=== PATIENT | male | born 1965 | race Caucasian/White ===

== ENCOUNTER 2016-12-23 08:28 | Emergency (ER) | payer BC ==
[~2016-12-23] VITALS: Ht 188 cm; Wt 113.2 kg
[~2016-12-23 08:28] MED LIST: ALL180; AMR2; GLC500; NAPR-1169 PO; OLME40TA30; SNG10
[2016-12-23 08:31] VITALS: TEMP 36.8; Ht 188 cm; Wt 113.2 kg
[2016-12-23] MEDS ORDERED: ONDANSETRON INJ 2 MG/ML 2 ML VIAL IV STA (08:42)
[2016-12-23] MEDS ORDERED: CEFTRIAXONE SOD INJ 1 GM ADDVIAL IV STA (08:42)
[2016-12-23] MEDS ORDERED: MoRPHine SULFATE 4 MG/ML 1 ML CARP\\VIAL IV STA (08:42)
[2016-12-23] MEDS ORDERED: SODIUM CHLORIDE 0.9% 1000ML 1,000 ML IV ONE (08:45)
[2016-12-23 09:07] LABS: BASO % 0.3 %; BASO ABS # 0.04 K/uL (0-0.2); COMPLETE YES; EOS % 3.2 %; HEMATOCRIT 43.2 % (42-52); IG% 0.3 %; LYMPH % 19.8 %; LYMPH ABS # 2.37 K/uL (1.2-3.4); MEAN CORPUSCULAR HEMOGLOBIN 30.2 pg (25-34); MEAN CORPUSCULAR HGB CONC 35.9 g/dl (32-36); MEAN PLATELET VOLUME 9.9 fL (7.4-10.4); MONO % 9.1 %; NEUT % 67.3 %; PLATELET COUNT 393 K/uL (130-400); RED BLOOD COUNT 5.14 M/uL (4.7-6.1); WHITE BLOOD COUNT 11.94 K/uL (4.8-10.8)
[2016-12-23] MEDS ORDERED: ATOR-22 PO (09:08)
[2016-12-23] MEDS ORDERED: INSDGIPEN SC (09:08)
[2016-12-23] MEDS ORDERED: LOSA1TAB PO (09:08)
[2016-12-23] MEDS ORDERED: EPP3/2 INJ (09:11)
[2016-12-23 09:30] LABS: BUN/CREATININE RATIO 14.6 (10-20); CALCIUM 9.4 mg/dl (8.5-10.1); CREATININE 1.1 mg/dl (0.60-1.40); POTASSIUM 4.8 mmol/L (3.5-5.1)
[2016-12-23 09:40] LABS: BETA-HYDROXYBUTYRATE 1.17 mg/dL (0.2-2.81)
--- NOTE | 2016-12-23 09:56 | DIAGNOSTIC IMAGING REPORT ---
LEFT VENOUS DOPP LOWER EXT UNILAT CLINICAL HISTORY: 51 years-old Male presenting with hx previous clots; L lower leg redness, swelling. TECHNIQUE: Real-time grayscale and color and spectral Doppler ultrasound imaging of the veins of the left lower extremity was performed. Compression and augmentation were also utilized. COMPARISON: 06/15/2006 FINDINGS: Left: Common femoral vein: Patent. Femoral vein: Patent. Greater saphenous vein: Patent. Popliteal vein: Patent. Calf veins: Limited visualization. Other: Prominent left inguinal lymph nodes, possibly reactive. Superficial varicosities in the calf are patent on color Doppler and compressible. IMPRESSION: No evidence of deep venous thrombosis. Electronically signed by: William Carver M.D. 12/23/2016 9:54 AM Dictated Date/Time: 12/23/2016 9:53 AM
[2016-12-23] MEDS ORDERED: NovoLIN-R INSULIN PER UNIT CHARGE SC STA (10:09)
[2016-12-23] MEDS ORDERED: CEPH500C2 PO (11:00)
[2016-12-23 11:36] VITALS: BP 167/97; PULSE 80; O2SAT 97
--- NOTE | 2016-12-23 17:47 | EMERGENCY ROOM VISIT NOTE ---
ED Visit Note First contact with patient: 08:34 Chief Complaint: I think I have an infection on my left lower leg. History of Present Illness: Mr. Wilkerson is a 51-year-old white male who ambulates into the ED complaining of a possible left lower leg infection. Historically patient reports he's had a previous DVT in his left lower leg many years ago. Patient reports he saw a blister like lesion over the upper foundry of the talus a few days ago. The lesion ruptured open but he did not see any drainage from the wound. Then yesterday he reports he's noted swelling over the lower leg above that. Initially it was mildly red now has increased in size and has been spreading. He reports the areas feel warm to the palpation and tender. Currently associated with this he describes he has a pressure and a sharp-like sensation. He rates his discomfort 7/10. The pain is nonradiating. Pain worsens with palpation and ambulation. He has not identified any alleviating factors related to the pain. He reports he has been taken ibuprofen without relief. He denies fevers, chills, sweats, other skin eruptions, other skin color changes , chest pain, shortness of breath, palpitations, orthopnea, dependent edema, previous clots, claudication, cramping, recent surgery/inactivity/extended travel, decreased appetite, abdominal pain, nausea, vomiting, extremity weakness /numbness/tingling. Review of Systems: As noted above in history of present illness. All body systems were reviewed and found to be negative as noted above. Past Medical History: As previously noted, type 2 diabetes, hypertension, dyslipidemia. Current Medications: Cozaar, Lipitor, Lantus Solostar, EpiPen. Allergies to Medications: Patient denies. Social History: Patient is currently employed; he feels safe in his home environment; he denies tobacco use. Physical Examination: Vital Signs: Date Time Temp Pulse Resp B/P (MAP) Pulse Ox O2 Delivery O2 Flow Rate FiO2 12/23/16 11:36 80 18 167/97 97 Room Air 12/23/16 10:52 93 18 173/92 94 Room Air 12/23/16 08:31 36.8 97 18 190/105 97 Room Air GENERAL: 51-year-old male in mild to moderate distress due to pain, nontoxic- appearing, afebrile and hemodynamically stable. NEUROLOGICAL: Awake, alert and oriented to person, place and time. Answering questions appropriately and following commands. Normal gait. Good hand eye coordination. No focal motor or sensory deficits. SKIN: Warm, dry and pink. Left Lower Leg: No gross bony deformity. As previously noted in the history patient has a what appears to be a ruptured blister over the anterior talus. Surrounding this area is mildly erythematous and edematous. Above that extending over the lower third of the lower leg is a more greta area with erythema and edema. This areas indurated but not fluctuant. There is no lymphangitis or purulent drainage. HEENT: Atraumatic and normocephalic. PERRLA. Sclera white and conjunctiva pink. No drainage from naris. Oral cavity moist and pink. Pharynx is nonerythematous or edematous. Speech normal. No lymphadenopathy. Trachea midline. No jugular venous distention. BACK: No tenderness over the bony spine. No CVA tenderness. THORAX: Lungs sounds are clear to auscultation and equal bilaterally with symmetrical chest wall. No wheezing, rales or rhonchi. No crepitus, tenderness , subcutaneous air or deformities noted. HEART: Regular rate and rhythm. No gallops, rubs or murmurs are appreciated. ABDOMEN: Obese, soft and nontender. Positive bowel sounds in all quadrants. No guarding, rigidity or organomegaly. LOWER EXTREMITIES: Moves all extremities well on command and with purpose. Left: Please note description under SKIN above. Mild tenderness over his area of erythema and edema. I do not appreciate any bony deformities or crepitus. He has full range of motion in plantar flexion and dorsiflexion of the ankle against resistance and flexion and extension of the knees against resistance. There is no palpable calf tenderness or cords. Distal pulses and capillary refill are intact and equal bilaterally. He was able to distinguish light sensations through all dermatomes. ED Course: Patient is assessed as noted above. Patient's medication list was reviewed. Laboratory Testing: Test 12/23/16 08:52 12/23/16 11:19 Range/Units White Blood Count 11.94 4.8-10.8 K/uL Red Blood Count 5.14 4.7-6.1 M/uL Hemoglobin 15.5 14.0-18.0 g/dL Hematocrit 43.2 42-52 % Mean Corpuscular Volume 84.0 80-100 fL Mean Corpuscular Hemoglobin 30.2 25-34 pg Mean Corpuscular Hemoglobin Concent 35.9 32-36 g/dl Platelet Count 393 130-400 K/uL Mean Platelet Volume 9.9 7.4-10.4 fL Neutrophils (%) (Auto) 67.3 % Lymphocytes (%) (Auto) 19.8 % Monocytes (%) (Auto) 9.1 % Eosinophils (%) (Auto) 3.2 % Basophils (%) (Auto) 0.3 % Neutrophils # (Auto) 8.03 1.4-6.5 K/uL Lymphocytes # (Auto) 2.37 1.2-3.4 K/uL Monocytes # (Auto) 1.09 0.11-0.59 K/uL Eosinophils # (Auto) 0.38 0-0.5 K/uL Basophils # (Auto) 0.04 0-0.2 K/uL RDW Standard Deviation 37.6 36.4-46.3 fL RDW Coefficient of Variation 12.3 11.5-14.5 % Immature Granulocyte % (Auto) 0.3 % Immature Granulocyte # (Auto) 0.03 0.00-0.02 K/uL Sodium Level 134 136-145 mmol/L Potassium Level 4.8 3.5-5.1 mmol/L Chloride Level 100 98-107 mmol/L Carbon Dioxide Level 27 21-32 mmol/L Anion Gap 7.0 3-11 mmol/L Blood Urea Nitrogen 16 7-18 mg/dl Creatinine 1.10 0.60-1.40 mg/dl Est Creatinine Clear Calc Drug Dose 108.7 ml/min Estimated GFR () 90.9 Estimated GFR (Non- 78.4 BUN/Creatinine Ratio 14.6 10-20 Random Glucose 429 70-99 mg/dl Calcium Level 9.4 8.5-10.1 mg/dl Beta-Hydroxybutyric Acid 1.17 0.2-2.81 mg/dL Bedside Glucose 339 70-99 mg/dl Blood Cultures: Pending. Left Lower Extremity Doppler Venous Ultrasound: Was reviewed by myself and read by the radiologist and shows no deep vein thrombus but prominent left inguinal lymph nodes and superficial varicosities. Patient was hydrated with normal saline and he received 4 mg of morphine IV for pain and 4 mg of Zofran. Additionally he received 1 g of Rocephin for antibiotic coverage. Additionally patient received 10 units of Regular Insulin subcutaneously for his hyperglycemia; on reevaluation his blood sugar his blood sugar was 339. Patient was reassessed multiple times during his stay in the emergency department. Patient's case was reviewed with Dr. Pryor; we agreed on diagnostic approach , treatment, disposition and plan. Patient was educated about today's findings and instructed on his treatment plan ; he verbalizes understanding and agreement with this plan. Clinical Impression: Left lower leg cellulitis. Hyperglycemia. Decision-Making: Initially my differential diagnosis I considered cellulitis, abscess, DVT, superficial thrombophlebitis and other causes. Disposition: Patient discharged home in stable condition accompanied by his ; prior to departure he was reassessed and subjectively reported he was feeling better and rated his discomfort 4/10. Plan: Patient was prescribed Keflex 500 mg 4 times a day for 10 days. Patient was encouraged to alternate ibuprofen and acetaminophen as needed for pain. Patient was encouraged to continue his current medications. Patient was encouraged to alternate his foot at rest. Patient was encouraged to check his blood sugars before and after meals and before and after bedtime. Patient was encouraged to follow-up with his PCP in 36-48 hours for recheck and if not available return to the ED. Patient was educated on signs of infection encouraged return ED sooner for worsening signs of infection.
[2016-12-29] MEDS ORDERED: METF-384 PO (09:43)
[2016-12-29] MEDS ORDERED: SULF1TAB92 PO (09:44)
== END 2016-12-23 11:25 | disposition home or self-care (01) ==
LOC: C.EDB 08:29
DX: L03.116 Cellulitis of left lower limb (principal); E11.65 Type 2 diabetes mellitus with hyperglycemia; I10 Essential (primary) hypertension; E78.5 Hyperlipidemia, unspecified; Z86.718 Personal history of other venous thrombosis and embolism; Z79.4 Long term (current) use of insulin; R59.0 Localized enlarged lymph nodes; I83.92 Asymptomatic varicose veins of left lower extremity

== ENCOUNTER → 2016-12-29 | Day surgery (SDC) | payer BC ==
[~2016-12-29] VITALS: Ht 182.9 cm; Wt 117.0 kg
[~2016-12-29] MED LIST changes: -ALL180; -AMR2; +ATOR-22 PO; +CEFTRIAXONE SOD IM 1,000 MG in SYRINGE 0 ML IM SCH; +CEPH500C2 PO; +EPP3/2 INJ; -GLC500; +INSDGIPEN SC; +LOSA1TAB PO; +METF-384 PO; -NAPR-1169 PO; -OLME40TA30; -SNG10; +SULF1TAB92 PO
[2016-12-29 09:33] VITALS: BP 126/63; PULSE 99; TEMP 37.3; O2SAT 97; Ht 182.9 cm; Wt 117.0 kg
== END | disposition home or self-care (01) ==
LOC: C.MTU 08:55
PROVIDERS: ATTEND Family Medicine
DX: L03.116 Cellulitis of left lower limb (principal); E10.42 Type 1 diabetes mellitus with diabetic polyneuropathy

== ENCOUNTER 2017-11-19 21:33 | Inpatient (IN) | payer BC, OTHER ==
[~2017-11-19] VITALS: Ht 188 cm; Wt 128.5 kg
[~2017-11-19 21:33] MED LIST changes: -CEFTRIAXONE SOD IM 1,000 MG in SYRINGE 0 ML IM SCH; -CEPH500C2 PO
[2017-11-19] MEDS ORDERED: ACETAMINOPHEN 500 MG TAB PO STA (21:42)
[2017-11-19] MEDS ORDERED: SODIUM CHLORIDE 0.9% 1000ML 1,000 ML IV STA ×2 (21:42)
[2017-11-19] MEDS ORDERED: PIPERACILLIN/TAZOBACTAM 4.5 GM/100ML D5W IV STA (21:58)
[2017-11-19] MEDS ORDERED: DAPTOmycin IV 500 MG in SODIUM CHLORIDE 0.9% 50ML 50 ML IV STA (22:07)
[2017-11-19 22:23] LABS: BASO % 0.2 %; BASO ABS # 0.04 K/uL (0-0.2); EOS % 1.9 %; EOS ABS # 0.38 K/uL (0-0.5); HEMATOCRIT 43.6 % (42-52); HEMOGLOBIN 15.3 g/dL (14.0-18.0); IG# 0.09 K/uL (0.00-0.02); LYMPH % 13.1 %; LYMPH ABS # 2.59 K/uL (1.2-3.4); MEAN CELL VOLUME 83.7 fL (80-100); MEAN CORPUSCULAR HEMOGLOBIN 29.4 pg (25-34); MEAN CORPUSCULAR HGB CONC 35.1 g/dl (32-36); MEAN PLATELET VOLUME 9.9 fL (7.4-10.4); MONO % 6.5 %; MONO ABS # 1.29 K/uL (0.11-0.59); NEUT % 77.8 %; NEUT ABS # 15.32 K/uL (1.4-6.5); PLATELET COUNT 391 K/uL (130-400); RED CELL DISTRIBUTION WIDTH SD 39.2 fL (36.4-46.3); WHITE BLOOD COUNT 19.71 K/uL (4.8-10.8)
[2017-11-19] MEDS ORDERED: ASPI81TA28 PO (22:32)
[2017-11-19] MEDS ORDERED: OMEG10007 PO (22:32)
[2017-11-19] MEDS ORDERED: MULT-506 PO (22:32)
--- NOTE | 2017-11-19 22:41 | DIAGNOSTIC IMAGING REPORT ---
L FOOT MIN 3 VIEWS ROUTINE CLINICAL HISTORY: Left foot cellulitis. COMPARISON: None DISCUSSION: There is a plantar calcaneal spur. There is a Lisfranc fracture dislocation, likely chronic. There is an old deformity of the distal second metatarsal likely old. There is deformity of the third metatarsal head which is felt to be old. There is deformity involving the base the proximal phalanx of the great toe felt to be old. There is fragmentation at the level tarsometatarsal joints, likely secondary to neuropathic changes. There are no destructive changes to indicate acute osteomyelitis. IMPRESSION: 1. 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 Deformities involving the second and third metatarsals distally as well as the base of the proximal phalanx the great toe are felt to be old. 2. There are no destructive changes to indicate acute osteomyelitis. Electronically signed by: Julio Crespo M.D. 11/19/2017 10:40 PM Dictated Date/Time: 11/19/2017 10:37 PM
[2017-11-19 22:57] LABS: ALBUMIN 3.6 gm/dl (3.4-5.0); ALKALINE PHOSPHATASE 75 U/L (45-117); ALT/SGPT 62 U/L (12-78); AST/SGOT 39 U/L (15-37); BLOOD UREA NITROGEN 21 mg/dl (7-18); CARBON DIOXIDE 25 mmol/L (21-32); CKMB 4.4 ng/ml (0.5-3.6); CREATININE 1.27 mg/dl (0.60-1.40); GLUCOSE 108 mg/dl (70-99); LIPASE 187 U/L (73-393); POTASSIUM 4.4 mmol/L (3.5-5.1); SODIUM 137 mmol/L (136-145); TOTAL PROTEIN 7.6 gm/dl (6.4-8.2)
[2017-11-19] MEDS ORDERED: IBUPROFEN 200 MG TAB PO STA (23:21)
[2017-11-20] MEDS ORDERED: SODIUM CHLORIDE 0.9% 1000ML 1,000 ML IV SCH (00:58)
[2017-11-20] MEDS ORDERED: PIPERACILL/TAZOBAC IV 4.5 GM in DEXTROSE 5% 100ML 100 ML IV SCH (01:00)
[2017-11-20] MEDS ORDERED: ALUMINUM/MAGNESIUM/SIMETH (MAALOX MAX) 30 ML UDC PO PRN (01:00)
[2017-11-20] MEDS ORDERED: EPINEPHRINE ADULT AUTO-INJECT 0.3 MG SYR IM PRN (01:00)
[2017-11-20] MEDS ORDERED: NITROGLYCERIN 0.4 MG SL PER TAB CHARGE SL PRN (01:00)
[2017-11-20] MEDS ORDERED: POLYETHYLENE (MIRALAX) 17 GM PACK PO PRN (01:00)
[2017-11-20] MEDS ORDERED: ONDANSETRON INJ 2 MG/ML 2 ML VIAL IV PRN (01:00)
[2017-11-20] MEDS ORDERED: PIPERACILL/TAZOBAC CONSULT ACTIVE PRN (01:00)
[2017-11-20] MEDS ORDERED: NVLGI/PEN SQ (01:13)
[2017-11-20] MEDS ORDERED: LOSA100T65 PO (01:13)
--- NOTE | 2017-11-20 01:14 | EMERGENCY ROOM VISIT NOTE ---
History Report prepared by Rita: Amber Venegas Under the Supervision of: Dr. Karl Briggs M.D. First contact with patient: 21:41 Chief Complaint: WOUND INFECTION Stated Complaint: CHILLS,INFECTED CUT History of Present Illness The patient is a 52 year old male who presents to the Emergency Room with complaints of a worsening left foot infection beginning a week ago. The patient states that [place] and got a wound on the bottom of his left foot. He states that he did not have any issues with it until this past week. 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 The patient also reports having the chills. He states that he took 400 mg of Ibuprofen a half hour prior to arrival but reports that he still has the chills. The patient reports being allergic to insect stings. Per family, the patient's left leg is more swollen than usual but states that his legs are usually swollen. Pt denies LOC, headache , fevers, diaphoresis, visual changes, neck pain, chest pain, breathing difficulties, nausea, vomiting, abdominal pain, back pain, weakness, or other complaints. Source of History: patient Onset: a week ago Position: foot (left) Quality: other (infection ) Timing: worsening Associated Symptoms: + chills, No chest pain Review of Systems See HPI for pertinent positives and negatives. A total of ten systems were reviewed and were otherwise negative. Past Medical & Surgical Medical Problems: (1) Asthma (2) Foot infection (3) Heart disease (4) Sepsis (5) Type 2 diabetes mellitus Family History Patient reports no known family medical history. Social History Smoking Status: Never Smoker Marital Status: Housing Status: lives with family Current/Historical Medications Scheduled Aspirin (Aspirin Ec), 81 MG PO DAILY Fish Oil (Laporte-3), 1 CAP PO DAILY Insulin Glargine (Lantus Solostar), 55 UNITS SC AMPM Losartan Potassium (Cozaar), 1 TAB PO QAM Metformin Hcl (Glucophage), 1,000 MG PO BID Multivitamin (Multivitamin), 1 TAB PO DAILY Trimethoprim/Sulfamethoxazole (Bactrim 400MG/80MG), 1 TAB PO Q12H Scheduled PRN Epinephrine (Epipen 2-Jose), 1 DOSE INJ UD PRN for ALLERGIC REACTION Allergies Coded Allergies: Unobtainable (Unverified Allergy, Severe, INSECT BITES- SEVERE ANAPHYLAXIS , 11/19/17) Physical Exam Vital Signs Date Time Temp Pulse Resp B/P (MAP) Pulse Ox O2 Delivery O2 Flow Rate FiO2 11/20/17 01:01 38.1 117 18 148/72 96 Room Air 11/19/17 23:49 39.3 121 18 174/87 97 Room Air 11/19/17 22:47 117 20 182/100 95 Room Air 11/19/17 22:40 98 Room Air 11/19/17 22:29 121 11/19/17 21:36 39.2 136 24 119/94 97 Room Air Physical Exam GENERAL: Awake, alert, well-appearing, in no distress HENT: Normocephalic, atraumatic. Oropharynx unremarkable. EYES: Normal conjunctiva. Sclera non-icteric. NECK: Supple. No nuchal rigidity. FROM. No masses. RESPIRATORY: Clear to auscultation. No wheezes. No rales. Normal respiratory effort. CARDIAC: Tachycardic. Normal rhythm. No murmurs. No rubs. Extremities warm and well perfused. Pulses equal. No JVD. GI: Soft, non-distended. No tenderness to palpation. No rebound or guarding. No masses. RECTAL: Deferred. MUSCULOSKELETAL: Atraumatic. Chest examination reveals no tenderness. The back is symmetrical on inspection without obvious abnormality. There is no CVA tenderness to palpation. No joint edema. LOWER EXTREMITIES: Left leg larger than right. Mild erythema, redness, warmth, and tenderness to palpation. Moderate edema. Fluctuance of the left foot. NEURO: Normal sensorium. No sensory or motor deficits noted. SKIN: No rash or jaundice noted. Medical Decision & Procedures ER Provider Diagnostic Interpretation: Radiology results as stated below per my review and radiologist interpretation: L FOOT MIN 3 VIEWS ROUTINE CLINICAL HISTORY: Left foot cellulitis. COMPARISON: None DISCUSSION: There is a plantar calcaneal spur. There is a Lisfranc fracture dislocation, likely chronic. There is an old deformity of the distal second metatarsal likely old. There is deformity of the third metatarsal head which is felt to be old. There is deformity involving the base the proximal phalanx of the great toe felt to be old. There is fragmentation at the level tarsometatarsal joints, likely secondary to neuropathic changes. There are no destructive changes to indicate acute osteomyelitis. IMPRESSION: 1. 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 Deformities involving the second and third metatarsals distally as well as the base of the proximal phalanx the great toe are felt to be old. 2. There are no destructive changes to indicate acute osteomyelitis. Electronically signed by: Julio Crespo M.D. 11/19/2017 10:40 PM Dictated Date/Time: 11/19/2017 10:37 PM Laboratory Results 11/19/17 22:08 Red Blood Count 5.21, Mean Corpuscular Volume 83.7, Mean Corpuscular Hemoglobin 29.4, Mean Corpuscular Hemoglobin Concent 35.1, Mean Platelet Volume 9.9, Neutrophils (%) (Auto) 77.8, Lymphocytes (%) (Auto) 13.1, Monocytes (%) (Auto) 6.5, Eosinophils (%) (Auto) 1.9, Basophils (%) (Auto) 0.2, Neutrophils # (Auto) 15.32, Lymphocytes # (Auto) 2.59, Monocytes # (Auto) 1.29, Eosinophils # (Auto) 0.38, Basophils # (Auto) 0.04 11/19/17 22:08 Test 11/19/17 22:08 11/19/17 22:13 White Blood Count 19.71 K/uL (4.8-10.8) Red Blood Count 5.21 M/uL (4.7-6.1) Hemoglobin 15.3 g/dL (14.0-18.0) Hematocrit 43.6 % (42-52) Mean Corpuscular Volume 83.7 fL (80-100) Mean Corpuscular Hemoglobin 29.4 pg (25-34) Mean Corpuscular Hemoglobin Concent 35.1 g/dl (32-36) Platelet Count 391 K/uL (130-400) Mean Platelet Volume 9.9 fL (7.4-10.4) Neutrophils (%) (Auto) 77.8 % Lymphocytes (%) (Auto) 13.1 % Monocytes (%) (Auto) 6.5 % Eosinophils (%) (Auto) 1.9 % Basophils (%) (Auto) 0.2 % Neutrophils # (Auto) 15.32 K/uL (1.4-6.5) Lymphocytes # (Auto) 2.59 K/uL (1.2-3.4) Monocytes # (Auto) 1.29 K/uL (0.11-0.59) Eosinophils # (Auto) 0.38 K/uL (0-0.5) Basophils # (Auto) 0.04 K/uL (0-0.2) RDW Standard Deviation 39.2 fL (36.4-46.3) RDW Coefficient of Variation 13.0 % (11.5-14.5) Immature Granulocyte % (Auto) 0.5 % Immature Granulocyte # (Auto) 0.09 K/uL (0.00-0.02) Anion Gap 7.0 mmol/L (3-11) Est Creatinine Clear Calc Drug Dose 98.8 ml/min Estimated GFR () 75.8 Estimated GFR (Non- 65.4 BUN/Creatinine Ratio 16.3 (10-20) Calcium Level 9.0 mg/dl (8.5-10.1) Magnesium Level 1.6 mg/dl (1.8-2.4) Total Bilirubin 0.4 mg/dl (0.2-1) Direct Bilirubin 0.1 mg/dl (0-0.2) Aspartate Amino Transf (AST/SGOT) 39 U/L (15-37) Alanine Aminotransferase (ALT/SGPT) 62 U/L (12-78) Alkaline Phosphatase 75 U/L (45-117) Total Creatine Kinase 266 U/L (39-308) Creatine Kinase MB 4.4 ng/ml (0.5-3.6) Creatine Kinase MB Ratio 1.7 (0-3.0) Troponin I < 0.015 ng/ml (0-0.045) Total Protein 7.6 gm/dl (6.4-8.2) Albumin 3.6 gm/dl (3.4-5.0) Lipase 187 U/L (73-393) Thyroid Stimulating Hormone (TSH) 1.910 uIu/ml (0.300-4.500) Bedside Lactic Acid Venous 1.57 mmol/L (0.90-1.70) Laboratory results reviewed by me Medications Administered Medications (Trade) Dose Ordered Sig/Shanthi Route Start Time Stop Time Status Last Admin Dose Admin Sodium Chloride 1,000 ml @ 999 mls/hr Q1H1M STAT IV 7/26/18 21:42 11/19/17 22:42 DC 11/19/17 22:20 999 MLS/HR Sodium Chloride 1,000 ml @ 125 mls/hr Q8H STAT IV 11/19/17 21:42 11/20/17 05:41 11/19/17 22:20 125 MLS/HR Acetaminophen (Tylenol Tab) 1,000 mg NOW STAT PO 11/19/17 21:42 11/19/17 21:44 DC 11/19/17 22:21 1,000 MG Piperacillin Sod/ Tazobactam Sod (Zosyn Iv) 4.5 gm NOW STAT IV 11/19/17 21:58 11/19/17 22:01 DC 11/19/17 22:46 4.5 GM Daptomycin 500 mg/ Sodium Chloride 60 ml @ 100 mls/hr NOW STAT IV 11/19/17 22:07 11/19/17 22:42 DC 11/20/17 00:00 100 MLS/HR Ibuprofen (Advil Tab) 400 mg NOW STAT PO 11/19/17 23:21 11/19/17 23:22 DC 11/19/17 23:56 400 MG ED Course 2141: The patient was evaluated in room B6. A complete history and physical exam was performed. 2142: Ordered Acetaminophen 1000 mg PO. 2142: Ordered Sodium Chloride 1000 ml @ 125 mls/hr IV, and Sodium Chloride 1000 ml @999 mls/hr IV. 2158: Ordered Zosyn Iv 4.5 gm IV. 2207: Ordered Daptomycin 500 mg/Sodium Chloride 60 ml @ 100 mls/hr IV. 2313: I talked to the patient about admission. 2320: Patient is still feeling chills after Tylenol. His temperature is 39. 2321: Ordered Ibuprofen 400 mg PO. 2345: Upon reexamination, the patient was resting. I discussed the test results and treatment plan with him. The patient will be evaluated for further management by Dr. Hurst. Medical Decision Prior records reviewed and summarized as above. Triage Nursing notes reviewed and agree them. Additional history obtained from the family. The patient's history was concerning for swelling and redness of the skin. Differential diagnosis: Etiologies such as cellulitis, necrotizing fasciitis, abscess, MRSA infection, foreign body, as well as others were entertained.. Physical examination: The physical examination was consistent with cellulitis. The patient was febrile and tachycardic. ER treatment provided: IV normal saline hydration IV Zosyn Oral Tylenol On reassessment the patient felt somewhat better. He was still febrile Oral ibuprofen Diagnostics interpreted by me: The labs revealed significant leukocytosis. His chemistry panel was unremarkable. Lactate negative. Blood cultures pending. Wound culture pending. Imaging studies: Foot x-ray as above. No evidence of subcutaneous air or foreign body. Chronic appearing fractures noted. The patient has findings concerning for early sepsis, possible bacteremia, from a left foot cellulitis. The area of swelling on the bottom of his foot was examined. There was some concerns because it was fluctuant. I did prep the skin with alcohol and used an 18-gauge needle to enter the fluctuant area. Some serous bloody fluid was expressed. This was cultured. There was no keith purulence to suggest abscess. Without gas being seen on the x-ray further incision and drainage was deferred. The patient was treated with broad- spectrum antibiotics. He was hydrated. He will need admission to the hospital for further management. Consultation: A consultation was placed with the hospitalist. The case was discussed and diagnostics were reviewed. The patient was evaluated in the ER for further treatment. Medication Reconcilliation Current Medication List: was personally reviewed by me Blood Pressure Screening Patient's blood pressure: Elevated blood pressure will be monitored by hospitalist Consults Time Called: 001 Consulting Physician: Dr. Flowers Returned Call: [phone] Discussed the patient's case. The patient will be evaluated for further treatment and disposition. Impression Primary Impression: Sepsis Additional Impression: Cellulitis of left foot Scribe Attestation The scribe's documentation has been prepared under my direction and personally reviewed by me in its entirety. I confirm that the note above accurately reflects all work, treatment, procedures, and medical decision making performed by me. Departure Information Dispostion Being Evaluated By Hospitalist Referrals Naldo Layton M.D. (PCP) Patient Instructions My [facility] Problem Qualifiers
[2017-11-20] MEDS ORDERED: GLUCOSE 10 TABS/TUBE PO PRN (01:30)
[2017-11-20] MEDS ORDERED: DEXTROSE 50% 50 ML SYR IV PRN (01:30)
[2017-11-20] MEDS ORDERED: CARBOHYDRATES FOR HYPOGLYCEMIA PO PRN (01:30)
[2017-11-20] MEDS ORDERED: GLUCAGON FOR INJ 1 MG VIAL IM PRN (01:30)
[2017-11-20] MEDS ORDERED: GLUCOSE 40% GEL 15 GM TUBE PO PRN (01:30)
[2017-11-20 02:00] VITALS: BP 138/77; PULSE 114; TEMP 37.3; O2SAT 96; BMI 36.4
[2017-11-20] MEDS: SODIUM CHLORIDE 0.9% 1000ML 1,000 ML IV SCH ×4 (02:27→22:15)
--- NOTE | 2017-11-20 02:35 | HISTORY & PHYSICAL EXAMINATION ---
DATE OF ADMISSION: 11/20/2017 CHIEF COMPLAINT: Fever and left foot infection. HISTORY OF PRESENT ILLNESS: This is a 52-year-old male with past medical history significant for type 1 diabetes, hypertension, hyperlipidemia, aortic valve disorder, bee sting allergy, who presents with fever and left foot pain. Patient states he might have injured his left foot on his vacation several weeks back. He did not notice any pain at the time, but last 2 days he has noticed some pain and also blister in his right foot and not feeling well, but today he was having fever spikes and a lot of discomfort, so he came to the ER. His left lower extremity is somewhat erythematous, but he says he had cellulitis in November of last year and since then he has some erythema and some swelling of left lower extremity. Some edema is still there. Currently, he is tachycardic and temperature spike in the ER. Blood pressure is okay. Resting comfortably. Denies any headaches. No blurred visions. No runny nose, no earaches, no sore throat, no difficulty swallowing. No chest pain, no shortness of breath. No cough, no nausea, no vomiting, no abdominal pain. Normal bowel and bladder movements. Appetite is okay. ALLERGIES: BEE VENOM AND INSECT EXTRACT. PAST MEDICAL HISTORY: As mentioned above. PAST SURGICAL HISTORY: Tonsillectomy, left knee meniscectomy. MEDICATIONS: At home, patient is on Lantus 55 units b.i.d., NovoLog 10 units with each meal, losartan 100 mg p.o. daily, metformin 1000 mg p.o. b.i.d., aspirin 81 mg p.o. daily, fish oil two capsules daily. FAMILY HISTORY: No family history known as patient is adopted. SOCIAL HISTORY: , quit smoking in 1990. Alcohol occasional. No drug use. REVIEW OF SYSTEMS: As per HPI. Rest of review of systems negative. PHYSICAL EXAMINATION: GENERAL: Patient is obese, not in distress. VITAL SIGNS: Temperature spike to 39.3, heart rate in the 120s, respiratory rate 18, blood pressure 140/72, oxygen 96% room air. HEENT: No pallor, no icterus. Pupils equal, round, and reactive to light. NECK: No JVD, no neck masses, no carotid bruits. CARDIOVASCULAR: S1, S2 heard. Tachycardia. No murmurs. RESPIRATORY SYSTEM: Clear to auscultation bilaterally. No wheezing, no crackles. ABDOMEN: Soft, bowel sounds present. Nontender. No distention. CENTRAL NERVOUS SYSTEM: Cranial nerves II through XII grossly, nonfocal. EXTREMITIES: Left lower extremity slightly erythematous and edema which is chronic. Has blister in his left foot. LABORATORY DATA: WBC 19, hemoglobin 15.3, hematocrit 43.6, platelets 391. Sodium 137, potassium 4.4, chloride 105, bicarbonate 25, BUN 21, creatinine 1.2, serum glucose 108, point of care lactic acid 1.5, calcium 9, magnesium 1.6, total bilirubin 0.4, direct bilirubin 0.1, AST 39, ALT 62, alkaline phosphatase 75, total creatinine kinase 266, CK-MB 4.4. Troponin I less than 0.015. TSH 1.9, lipase 187. Foot x-ray, posttraumatic neuropathic change to the level of the tarsometatarsal joints with evidence of chronic Lisfranc fracture dislocation. There are no changes to indicate acute osteomyelitis. ASSESSMENT AND PLAN: A 52-year-old male who presents with right foot infection. 1. Right foot infection, possible early sepsis. Patient presents with tachycardia. temp spikes with right foot infection with blister. Lactic acid is normal. Leukocytosis is present. He received Daptomycin and Zosyn in the ER which he will continue. Follow blood cultures. Chest x-ray shows posttraumatic changes with possible Lisfranc fracture dislocation and no indication of acute osteomyelitis. We will consult also ortho and ID and monitor in tele floor, IV fluids. 2. Diabetes. Continue Lantus insulin sliding scale. Hold metformin. Follow HbA1c level. Follow blood sugars in the hospital. 3. Hypertension, continue losartan. Patient states he is no longer taking chlorthalidone. 4. Hyperlipidemia, patient states he is no longer taking Lipitor, we will follow lipid profile. 3. Deep venous thrombosis prophylaxis, Lovenox. DISPOSITION: Admit to tele floor. Expect to discharge home and follow with family doctor. Level 1 full code. MTDD
[2017-11-20] MEDS ORDERED: DAPTOMYCIN CONSULT ACTIVE PRN (02:45)
[2017-11-20] MEDS: PIPERACILL/TAZOBAC IV 4.5 GM in D5W 100 ML IV SCH ×3 (04:36→19:58)
[2017-11-20 06:22] LABS: BASO % 0.2 %; BASO ABS # 0.03 K/uL (0-0.2); EOS % 0.5 %; HEMATOCRIT 36.1 % (42-52); HEMOGLOBIN 12.5 g/dL (14.0-18.0); IG# 0.07 K/uL (0.00-0.02); LYMPH % 15.3 %; LYMPH ABS # 2.88 K/uL (1.2-3.4); MEAN CELL VOLUME 84.5 fL (80-100); MEAN CORPUSCULAR HEMOGLOBIN 29.3 pg (25-34); MEAN CORPUSCULAR HGB CONC 34.6 g/dl (32-36); MEAN PLATELET VOLUME 9.4 fL (7.4-10.4); MONO % 5.9 %; NEUT % 77.7 %; NEUT ABS # 14.62 K/uL (1.4-6.5); PLATELET COUNT 296 K/uL (130-400); RED CELL DISTRIBUTION WIDTH CV 13.1 % (11.5-14.5); RED CELL DISTRIBUTION WIDTH SD 39.8 fL (36.4-46.3)
[2017-11-20 07:01] LABS: CREATININE 1.3 mg/dl (0.60-1.40)
[2017-11-20 07:03] LABS: HEMOGLOBIN A1C 10.1 % (4.5-5.6)
[2017-11-20] MEDS: LOSARTAN POTASSIUM 50 MG TAB PO SCH (07:54)
[2017-11-20] MEDS: ASPIRIN 81 MG ECTAB PO SCH (07:54)
[2017-11-20] MEDS: MULTIVITAMIN TAB PO SCH (07:54)
[2017-11-20] MEDS: INSULIN ASPART 100 UNITS/ML 3 ML PEN SC SCH ×4 (07:57→20:20)
[2017-11-20] MEDS: INSULIN GLARGINE SOLOSTAR 100 UNITS/ML 3 ML PEN SC SCH ×2 (07:58→20:21)
[2017-11-20 08:00] VITALS: BP 151/87; PULSE 82; TEMP 37; O2SAT 97
[2017-11-20] MEDS: ENOXAPARIN 40 MG/0.4 ML SYR SC SCH (08:02)
[2017-11-20] MEDS ORDERED: DAPTOmycin IV 600 MG in SODIUM CHLORIDE 0.9% 50ML 50 ML IV SCH (09:00)
[2017-11-20] MEDS ORDERED: GADAVIST IV PRN (12:30)
[2017-11-20 12:31] VITALS: BP 161/94; PULSE 86; TEMP 36.8; O2SAT 99
[2017-11-20] MEDS: ACETAMINOPHEN 325 MG TAB PO PRN ×2 (13:02→19:54)
--- NOTE | 2017-11-20 13:03 | DIAGNOSTIC IMAGING REPORT ---
LEFT FOOT MRI CLINICAL HISTORY: r/o abscess/osteomyelitis ; h/o 14 yo Lisfranc injury. Left plantar wound. Foot infection. TECHNIQUE: Multiplanar multisequence MRI of the left foot was performed both before and after the intravenous administration of contrast. COMPARISON STUDY: Left foot 11/19/2017. FINDINGS: There is extensive subcutaneous edema seen throughout the left foot. Chronic deformity/dislocation at the midfoot remains unchanged. This is consistent with old posttraumatic changes and/or neuropathic changes. Within the mid plantar subcutaneous soft tissues there is a focal area of thickening and increased T2 signal suggestive of a cellulitis. There is an ill-defined peripherally enhancing fluid collection at this location which measures a total size of 1.7 x 1.3 cm. This favors a developing abscess. No definite abnormal T1 signal within the visualized osseous structures to suggest osteomyelitis. Of note, evaluation for osteomyelitis is suboptimal due to the expected chronic changes throughout the midfoot. Distal peroneus longus tendinopathy. No acute fractures identified. There is also enhancement throughout the subcutaneous fat of the plantar surface. IMPRESSION: 1. Edema and enhancement within the subcutaneous fat within the plantar surface of the midfoot consistent with a cellulitis. There is also an ill-defined 1.7 x 1.3 cm peripheral enhancing fluid collection at this location consistent with a small abscess. 2. No definite evidence for osteomyelitis. However, evaluation for osteomyelitis is suboptimal due to the chronic deformity/dislocation at the midfoot. Electronically signed by: Kev Mahajan M.D. 11/20/2017 1:02 PM Dictated Date/Time: 11/20/2017 12:52 PM
[2017-11-20 13:07] VITALS: Ht 188 cm; Wt 128.5 kg
--- NOTE | 2017-11-20 13:20 | CONSULTATION REPORT ---
DATE OF CONSULTATION: 11/20/2017 REASON FOR CONSULT: Left foot blister and Lisfranc injury. HISTORY OF PRESENT ILLNESS: The patient is a 52-year-old white male that we have been consulted on with the above-noted problems. The patient currently is awake and alert and he is accompanied with his in his room. He states that his Lisfranc injury was due to an injury he sustained approximately 12 years ago and never sought treatment for. He states that as he was chopping wood with a large maul, he ended up having the maul slipped off the wood and on the downward swing and he smashed his foot. He wrapped the foot up and never sought treatment thereafter. The patient is a type 1 diabetic with history of neuropathy and states that he was at the beach sometime ago and he feels that he may have injured his foot. He has not had any pain in this process throughout and at one point his happened to see that he had this swelling on the bottom of his foot. There was no open drainage and the patient had no other symptoms at that time, however, as time progressed, he noticed that yesterday he began having an increased temperature, fever and chills, nausea and his convinced him to come to the Emergency Room. They state that he was seen in the Emergency Room by the staff and a small swollen area was noted on the bottom of his left foot. He had significant erythema of his left leg and also swelling. This area of swelling was lanced in the Emergency Room apparently and drained some serous fluid. Cultures were sent and at this time Gram stain was showing no organisms. He recalls no obvious injury to the foot that he knows of. On admission, his white count was 19.7 and temperature was 39.2. He was thusly admitted for further care. PAST MEDICAL HISTORY: As noted above, diabetes mellitus type 1 with neuropathy, hypertension, hyperlipidemia, aortic valve disorder. PAST SURGICAL HISTORY: Tonsillectomy, left knee arthroscopy with meniscectomy. FAMILY HISTORY: Unknown due to patient being adopted. SOCIAL HISTORY: The patient is . Used to smoke but quit in 1990. Alcohol on occasion. MEDICATIONS: Aspirin 81 mg p.o. daily, EpiPen p.r.n. for BEE STINGS, fish oil 1 cap p.o. daily, NovoLog FlexPen 10 units subQ a.c., Lantus SoloSTAR 55 units subQ a.m. and p.m., Cozaar 100 mg p.o. daily, metformin 1000 mg p.o. b.i.d., multivitamin 1 tab p.o. daily. ALLERGIES: NKDA. THE PATIENT DOES HAVE SEVERE REACTION TO A BEE STINGS WITH A HISTORY OF ANAPHYLAXIS ON 11/19/2017. REVIEW OF SYSTEMS: As per admitting history and physical. PHYSICAL EXAMINATION: GENERAL: The patient is an obese white male who is alert and oriented x3, pleasant and cooperative and in no acute distress. EXTREMITIES: Focusing on the exam on his left lower extremity, there is a bandage noted on the foot which is removed that has a small amount of serous drainage on it. Once the bandage is removed, there is no current active drainage during the visit. Noticeable erythema of the lower extremity below the knee from about mid tibia down to the ankle. His foot has a fair swelling to it but less erythema noted at the foot and is more so in the leg itself. The lower extremity is nontender on palpation throughout the exam. On examination of the plantar surface of the foot, he has a large area of swelling that is indurated at the mid foot region. I cannot express any drainage from this area at this time and is nontender and nonerythematous. He has good range of motion of his left ankle and is moving his toes well. Sensation is decreased in the toes on palpation. He has noticeable swelling of the forefoot on the dorsal aspect as well as in the ankle itself, but is nontender through range of motion and on palpation. Capillary refill is less than 2 seconds and foot is warm to the touch. ASSESSMENT: Likely left foot abscess of the plantar surface. Charcot Arthropathy with advanced pes planovalgus collapse. PLAN: At this time, an MRI will be ordered to rule out abscess of the plantar aspect of the left foot. His white count has come down only slightly since admission, but his temperature has normalized and the patient is feeling overall better. Once the MRI is done, we will review and see that the patient will need an irrigation and debridement of the plantar surface of his foot. Regarding his Lisfranc injury which happens to be 12 years old, Dr. Reynolds will review and weigh in his options for the patient for this old injury. AUGUSTUS
[2017-11-20 15:34] VITALS: BP 170/96; PULSE 120; TEMP 36.4; O2SAT 96
--- NOTE | 2017-11-20 16:42 | Medical Consult ---
Consultation Date of Consultation: Nov 20, 2017. Attending Physician: Oracio Narayan M.D. Reason for Consultation: Left foot infection History of Present Illness 52-year-old male with longstanding type 1 diabetes mellitus with severe peripheral neuropathy, previous injury to his left foot 12 years ago, who was admitted to the hospital with several days of progressively worsening left foot swelling and redness with redness spreading up his left lower leg, associated with fever and chills. Subsequently found to have piece of wood in his shoe which likely impaled his foot. He was brought by his to the emergency department where is found to have evidence of cellulitis and admitted and started empirically on daptomycin and Zosyn. MRI scan of the foot, read by me, shows probable developing small plantar abscess with surrounding cellulitis. Currently denies any pain in his left foot. Past Medical/Surgical History Medical Problems: (1) Cellulitis of left foot Status: Acute (2) Cellulitis of left leg Status: Acute (3) Encounter for wound re-check Status: Acute Medical Problems: (1) Asthma (2) Foot infection (3) Heart disease (4) Sepsis (5) Type 2 diabetes mellitus PAST MEDICAL HISTORY: As noted above, diabetes mellitus type 1 with neuropathy, hypertension, hyperlipidemia, aortic valve disorder. PAST SURGICAL HISTORY: Tonsillectomy, left knee arthroscopy with meniscectomy. Family History Patient reports no known family medical history. Social History Smoking Status: Current Some Day Smoker Marital Status: Housing Status: lives with family Allergies Coded Allergies: Unobtainable (Unverified Allergy, Severe, INSECT BITES- SEVERE ANAPHYLAXIS , 11/19/17) Current Inpatient Medications Current Inpatient Medications Medications (Trade) Dose Ordered Sig/Shanthi Route Start Time Stop Time Status Last Admin Dose Admin Enoxaparin Sodium (Lovenox Inj) 40 mg Q24H SC 11/20/17 09:00 12/20/17 08:59 11/20/17 08:02 40 MG Acetaminophen (Tylenol Tab) 650 mg Q4H PRN PO 11/20/17 01:00 12/20/17 00:59 11/20/17 13:02 650 MG Al Hydrox/Mg Hydrox/Simethicone (Maalox Max Susp) 15 ml Q4H PRN PO 11/20/17 01:00 12/20/17 00:59 Ondansetron HCl (Zofran Inj) 4 mg Q6H PRN IV 11/20/17 01:00 12/20/17 00:59 Nitroglycerin (Nitrostat Tab) 0.4 mg UD PRN SL 11/20/17 01:00 12/20/17 00:59 Polyethylene (Miralax Powder Packet) 17 gm DAILY PRN PO 11/20/17 01:00 12/20/17 00:59 Aspirin (Ecotrin Tab) 81 mg DAILY PO 11/20/17 09:00 12/20/17 08:59 11/20/17 07:54 81 MG Epinephrine (Epipen) 0.3 mg UD PRN IM 11/20/17 01:00 12/20/17 00:59 Insulin Glargine (Lantus Solostar Pen) 55 units BID SC 11/20/17 09:00 12/20/17 08:59 11/20/17 07:58 55 UNITS Multivitamins (Multivitamin Tab) 1 tab DAILY PO 11/20/17 09:00 12/20/17 08:59 11/20/17 07:54 1 TAB Miscellaneous Information (Consult) 1 ea UD PRN N/A 11/20/17 01:00 12/20/17 00:59 Insulin Aspart (novoLOG ASPART) SLIDING SCALE G... ACHS SC 11/20/17 07:00 12/20/17 06:59 11/20/17 12:57 10 UNITS Losartan Potassium (coZAAR TAB) 100 mg DAILY PO 11/20/17 09:00 12/20/17 08:59 11/20/17 07:54 100 MG Glucose (Glucose 40% Gel) 15-30 GRAMS 15 GRAMS... UD PRN PO 11/20/17 01:30 12/20/17 01:29 Glucose (Glucose Chew Tab) 4-8 Tablets 4 Tabl... UD PRN PO 11/20/17 01:30 12/20/17 01:29 Dextrose (Dextrose 50% 50ML Syringe) 25-50ML 25ML FOR ... UD PRN IV 11/20/17 01:30 12/20/17 01:29 Glucagon (Glucagon Inj) 1 mg UD PRN IM 11/20/17 01:30 12/20/17 01:29 Carbohydrates (Carbohydrates For Hypoglycemia) 15-30 GRAMS 15 grams if BSG 54-69... UD PRN PO 11/20/17 01:30 12/20/17 01:29 Sodium Chloride 1,000 ml @ 150 mls/hr Q6H40M IV 11/20/17 02:15 12/20/17 02:14 11/20/17 09:05 150 MLS/HR Piperacillin Sod/ Tazobactam Sod 4.5 gm/Dextrose 120 ml @ 30 mls/hr Q8H IV 11/20/17 04:00 11/30/17 03:59 11/20/17 12:44 30 MLS/HR Daptomycin (Consult) 1 ea UD PRN N/A 11/20/17 02:45 12/20/17 02:44 Daptomycin 600 mg/ Syringe 12 ml @ 6 mls/min Q24H IV 11/21/17 00:00 11/29/17 00:01 Gadobutrol (Gadavist) 12.5 mmol UD PRN IV 11/20/17 12:30 11/24/17 12:29 Review of Systems Constitutional: + fever, + chills, + sweats Eyes: No problem reported ENT: No problem reported Respiratory: No problem reported Cardiovascular: No problem reported Abdomen: No problem reported Musculoskeletal: + swelling Genitourinary - Male: No problem reported Neurologic: No problem reported Psychiatric: No problem reported Endocrine: No problem reported Hematologic / Lymphatic: No problem reported Integumentary: + new/changing skin lesions Allergic / Immunologic: No problem reported Physical Exam Date Time Temp Pulse Resp B/P (MAP) Pulse Ox O2 Delivery O2 Flow Rate FiO2 11/20/17 15:34 36.4 120 18 170/96 (120) 96 11/20/17 12:31 36.8 86 20 161/94 (116) 99 Room Air 11/20/17 11:15 Room Air 11/20/17 08:00 Room Air 11/20/17 08:00 37.0 82 18 151/87 (108) 97 Room Air 11/20/17 02:00 37.3 114 18 138/77 96 Room Air 11/20/17 01:48 111 20 133/76 96 Room Air 11/20/17 01:01 38.1 117 18 148/72 96 Room Air 11/19/17 23:49 39.3 121 18 174/87 97 Room Air 11/19/17 22:47 117 20 182/100 95 Room Air 11/19/17 22:40 98 Room Air 11/19/17 22:29 121 11/19/17 21:36 39.2 136 24 119/94 97 Room Air General Appearance: WD/WN, no apparent distress Head: normocephalic, atraumatic Eyes: normal inspection, EOMI, sclerae normal ENT: normal ENT inspection, hearing grossly normal, pharynx normal Neck: supple, no adenopathy, thyroid normal, trachea midline Respiratory/Chest: chest non-tender, lungs clear, normal breath sounds, no respiratory distress Cardiovascular: regular rate, rhythm, no gallop, no murmur Abdomen/GI: normal bowel sounds, non tender, soft, no organomegaly Back: normal inspection, no CVA tenderness Extremities/Musculoskelatal: no calf tenderness, normal capillary refill, + inflammation (Left lower leg and foot), + swelling (Left lower leg and foot) Neurologic/Psych: alert, oriented x 3, + sensory deficit (Both feet) Skin: normal color, no rash, + pertinent finding (Erythema of left lower leg and foot with swelling, area of induration and early fluctuance plantar surface left foot) Lymphatic: no adenopathy Laboratory Results RUN DATE: 11/20/17 [facility] PAGE 1 RUN TIME: 1525 Specimen Inquiry PATIENT: MACKENZIE EGAN LOC: [facility] U # : [id number] AGE/SX: 52/M ROOM: S234 REG : 11/20/[address]: Oracio Narayan M.D. : 1965 BED: 1 DIS : STATUS: ADM IN TLOC: SPEC #: [id number] XAVIER: 11/19/17 STATUS: RES REQ #: [id number] RECD: 11/19/[address]: Mackenzie Briggs MD SOURCE: ASP-OTHER ENTR: 11/19/[address]: Naldo Layton M.D.(HUGH) SPDESC: FOOT LEFT ORDERED: DEP WND CUL/SMR COMMENTS: Has Specimen Been Obtained/Collected? Y Procedure Result Verified Site GRAM STAIN Final 11/20/17-950 RESULT NO WBCs SEEN NO ORGANISMS SEEN DEEP WOUND CULTURE Preliminary 11/20/17 Organism 1 GRAM NEGATIVE BACILLI QUANITY RARE SENS SENSITIVITY TO FOLLOW Last 24 Hours Test 11/19/17 22:08 11/19/17 22:13 11/20/17 06:10 11/20/17 07:20 White Blood Count 19.71 K/uL 18.80 K/uL Red Blood Count 5.21 M/uL 4.27 M/uL Hemoglobin 15.3 g/dL 12.5 g/dL Hematocrit 43.6 % 36.1 % Mean Corpuscular Volume 83.7 fL 84.5 fL Mean Corpuscular Hemoglobin 29.4 pg 29.3 pg Mean Corpuscular Hemoglobin Concent 35.1 g/dl 34.6 g/dl Platelet Count 391 K/uL 296 K/uL Mean Platelet Volume 9.9 fL 9.4 fL Neutrophils (%) (Auto) 77.8 % 77.7 % Lymphocytes (%) (Auto) 13.1 % 15.3 % Monocytes (%) (Auto) 6.5 % 5.9 % Eosinophils (%) (Auto) 1.9 % 0.5 % Basophils (%) (Auto) 0.2 % 0.2 % Neutrophils # (Auto) 15.32 K/uL 14.62 K/uL Lymphocytes # (Auto) 2.59 K/uL 2.88 K/uL Monocytes # (Auto) 1.29 K/uL 1.10 K/uL Eosinophils # (Auto) 0.38 K/uL 0.10 K/uL Basophils # (Auto) 0.04 K/uL 0.03 K/uL RDW Standard Deviation 39.2 fL 39.8 fL RDW Coefficient of Variation 13.0 % 13.1 % Immature Granulocyte % (Auto) 0.5 % 0.4 % Immature Granulocyte # (Auto) 0.09 K/uL 0.07 K/uL Sodium Level 137 mmol/L Potassium Level 4.4 mmol/L Chloride Level 105 mmol/L Carbon Dioxide Level 25 mmol/L Anion Gap 7.0 mmol/L Blood Urea Nitrogen 21 mg/dl Creatinine 1.27 mg/dl 1.30 mg/dl Est Creatinine Clear Calc Drug Dose 98.8 ml/min 96.9 ml/min Estimated GFR () 75.8 73.7 Estimated GFR (Non- 65.4 63.6 BUN/Creatinine Ratio 16.3 Random Glucose 108 mg/dl Calcium Level 9.0 mg/dl Magnesium Level 1.6 mg/dl Total Bilirubin 0.4 mg/dl Direct Bilirubin 0.1 mg/dl Aspartate Amino Transf (AST/SGOT) 39 U/L Alanine Aminotransferase (ALT/SGPT) 62 U/L Alkaline Phosphatase 75 U/L Total Creatine Kinase 266 U/L Creatine Kinase MB 4.4 ng/ml Creatine Kinase MB Ratio 1.7 Troponin I < 0.015 ng/ml Total Protein 7.6 gm/dl Albumin 3.6 gm/dl Lipase 187 U/L Thyroid Stimulating Hormone (TSH) 1.910 uIu/ml Bedside Lactic Acid Venous 1.57 mmol/L Prothrombin Time 10.6 SECONDS Prothromb Time International Ratio 1.0 Estimated Average Glucose 243 mg/dl Hemoglobin A1c 10.1 % Triglycerides Level 100 mg/dl Cholesterol Level 137 mg/dl HDL Cholesterol 34 mg/dl LDL Cholesterol, Calculated 83 mg/dl VLDL Cholesterol, Calculated 20 mg/dl Cholesterol/HDL Ratio 4.0 Bedside Glucose 142 mg/dl Test 11/20/17 11:10 11/20/17 16:02 Bedside Glucose 180 mg/dl 207 mg/dl Patient Name: MACKENZIE EGAN Unit Number: [id number] Dictated: 11/20/171251 Transcribed: 11/20/171251 [employer] Printed Date/Time: [~ rep prt dt]/[~ rep prt tm] [~ rep ct labl] - [~ rep ct ivnm] [facility] [place]iology [place] [address] Dictated: 11/20/171251 Transcribed: 11/20/171251 [employer] Printed Date/Time: [~ rep prt dt]/[~ rep prt tm] [~ rep ct labl] - [~ rep ct ivnm] LEFT FOOT MRI CLINICAL HISTORY: r/o abscess/osteomyelitis ; h/o 14 yo Lisfranc injury. Left plantar wound. Foot infection. TECHNIQUE: Multiplanar multisequence MRI of the left foot was performed both before and after the intravenous administration of contrast. COMPARISON STUDY: Left foot 11/19/2017. FINDINGS: There is extensive subcutaneous edema seen throughout the left foot. Chronic deformity/dislocation at the midfoot remains unchanged. This is consistent with old posttraumatic changes and/or neuropathic changes. Within the mid plantar subcutaneous soft tissues there is a focal area of thickening and increased T2 signal suggestive of a cellulitis. There is an ill-defined peripherally enhancing fluid collection at this location which measures a total size of 1.7 x 1.3 cm. This favors a developing abscess. No definite abnormal T1 signal within the visualized osseous structures to suggest osteomyelitis. Of note, evaluation for osteomyelitis is suboptimal due to the expected chronic changes throughout the midfoot. Distal peroneus longus tendinopathy. No acute fractures identified. There is also enhancement throughout the subcutaneous fat of the plantar surface. IMPRESSION: 1. Edema and enhancement within the subcutaneous fat within the plantar surface of the midfoot consistent with a cellulitis. There is also an ill-defined 1.7 x 1.3 cm peripheral enhancing fluid collection at this location consistent with a small abscess. 2. No definite evidence for osteomyelitis. However, evaluation for osteomyelitis is suboptimal due to the chronic deformity/dislocation at the midfoot. Electronically signed by: Kev Mahajan M.D. 11/20/2017 1:02 PM Dictated Date/Time: 11/20/2017 12:52 PM The status of this report is Signed. Draft = Not yet reviewed or approved by Radiologist. Signed = Reviewed and approved by Radiologist. <AttendingPhy>Oracio Narayan M.D.</AttendingPhy> <FamilyPhy>Naldo Layton M.D.(ERICKA)</FamilyPhy> <PrimaryPhy>Naldo Layton M.D.(ERICKA)</PrimaryPhy> < UnitNumber>[id number]</UnitNumber> <VisitNumber>[id number]</VisitNumber> < PatientName>MACKENZIE EGAN</PatientName> <DateOfBirth>1965</DateOfBirth> < Location>[facility]</Location> <ServiceDate>11/19/17</ServiceDate> <MNE>ESINDI</MNE> < OrderingPhy>Brunermer, Danie E PAC</OrderingPhy> <OrderingPhyMNE>f rep ord dr baca </OrderingPhyMNE> <DictatingPhyMNE>f rep dict dr baca</DictatingPhyMNE> < CCListMNE>f rep ct mne</CCListMNE> <AdmittingPhyMNE>f pt admit dr baca</ AdmittingPhyMNE> <AttendingPhyMNE>f pt attend dr baca</AttendingPhyMNE> <ConsultingPhyMNE>f pt consult dr baca</ConsultingPhyMNE> <FamilyPhyMNE>f pt fam dr baca</FamilyPhyMNE> <OtherPhyMNE>f pt other dr baca</OtherPhyMNE> < PrimaryPhyMNE>f pt prim care dr baca</PrimaryPhyMNE> <ReferringPhyMNE>f pt referring dr baca</ReferringPhyMNE> Assessment & Plan 52-year-old diabetic male with severe neuropathy, Charcot changes, now with left foot and lower leg infection with possible developing small abscess of the left foot. Daptomycin and Zosyn should provide adequate coverage pending further culture results. Await further orthopedic follow-up. Await final culture results. Will follow.
--- NOTE | 2017-11-20 19:22 | Progress Note ---
Progress Note Date of Service Nov 20, 2017. Progress Note Subjective: Patient denies chest pain or shortness of breath or vomiting Physical Exam: GENERAL: no distress. HEENT: EOMI NECK: No JVD, no neck masses, no carotid bruits. CARDIOVASCULAR: regular rate RESPIRATORY SYSTEM: Clear to auscultation bilaterally. No wheezing, no crackles. ABDOMEN: Soft, bowel sounds present. Nontender. No distention. CENTRAL NERVOUS SYSTEM: Cranial nerves II through XII grossly, nonfocal. EXTREMITIES: left lower extremity swelling with closed healing tissue of bottom of left foot ASSESSMENT AND PLAN: Left foot infection -Left leg MRI Edema and enhancement within the subcutaneous fat within the plantar surface of the midfoot consistent with a cellulitis. There is also an ill-defined 1.7 x 1.3 cm peripheral enhancing fluid collection at this location consistent with a small abscess. No definite evidence for osteomyelitis. However, evaluation for osteomyelitis is suboptimal due to the chronic deformity/dislocation at the midfoot. -Orthopedics to evaluate whether patient will need will need an irrigation and debridement of the plantar surface of his foot. -Infectious disease consult following -currently on daptomycin and Zosyn -wound culture with gram negative bacilli -follow up blood culture Chronic Lisfranc injury of left foot Diabetes. HbA1c 10.1 Continue Lantus insulin sliding scale. Hold metformin. Hypertension, continue losartan. Patient states he is no longer taking chlorthalidone. Hyperlipidemia history, patient states he is no longer taking Lipitor lipid profile within normal ranges Deep venous thrombosis prophylaxis, Lovenox.
[2017-11-20 19:36] VITALS: BP 168/83; PULSE 95; TEMP 36.5; O2SAT 97
[2017-11-20 23:30] VITALS: BP 152/79; PULSE 92; TEMP 37.4; O2SAT 97
[2017-11-21] VITALS (12 sets, daily range): BP systolic 116–178; BP diastolic 71–101; PULSE 78–93; TEMP 36.7–37.1; O2SAT 96–98
[2017-11-21] MEDS: DAPTOmycin IV 600 MG in SYRINGE 0 ML IV SCH
[2017-11-21] MEDS: PIPERACILL/TAZOBAC IV 4.5 GM in D5W 100 ML IV SCH ×3 (04:32→20:31)
[2017-11-21] MEDS: SODIUM CHLORIDE 0.9% 1000ML 1,000 ML IV SCH ×3 (04:33→17:45)
[2017-11-21] MEDS: CLONIDINE HCL 0.1 MG TAB PO PRN ×2 (05:45→20:30)
[2017-11-21] MEDS: INSULIN ASPART 100 UNITS/ML 3 ML PEN SC SCH ×4 (07:00→20:46)
[2017-11-21 07:02] LABS: BASO % 0.2 %; BASO ABS # 0.03 K/uL (0-0.2); EOS % 2.1 %; HEMATOCRIT 37.9 % (42-52); HEMOGLOBIN 13.1 g/dL (14.0-18.0); IG# 0.03 K/uL (0.00-0.02); LYMPH ABS # 3.02 K/uL (1.2-3.4); MEAN CELL VOLUME 84.4 fL (80-100); MEAN CORPUSCULAR HEMOGLOBIN 29.2 pg (25-34); MEAN CORPUSCULAR HGB CONC 34.6 g/dl (32-36); MONO % 9.5 %; MONO ABS # 1.36 K/uL (0.11-0.59); NEUT ABS # 9.65 K/uL (1.4-6.5); PLATELET COUNT 339 K/uL (130-400); RED CELL DISTRIBUTION WIDTH CV 13.2 % (11.5-14.5); RED CELL DISTRIBUTION WIDTH SD 40.2 fL (36.4-46.3); WHITE BLOOD COUNT 14.39 K/uL (4.8-10.8)
[2017-11-21] MEDS: ASPIRIN 81 MG ECTAB PO SCH (07:15)
[2017-11-21] MEDS: LOSARTAN POTASSIUM 50 MG TAB PO SCH (07:15)
[2017-11-21] MEDS: MULTIVITAMIN TAB PO SCH (07:16)
[2017-11-21 07:42] LABS: CALCIUM 8.1 mg/dl (8.5-10.1); POTASSIUM 3.9 mmol/L (3.5-5.1)
[2017-11-21] MEDS: INSULIN GLARGINE SOLOSTAR 100 UNITS/ML 3 ML PEN SC SCH ×2 (08:13→20:47)
[2017-11-21] MEDS: ENOXAPARIN 40 MG/0.4 ML SYR SC SCH (08:14)
[2017-11-21] MEDS ORDERED: NURSING VERBAL MED ORDER ONE ×2 (08:15→16:45)
[2017-11-21] MEDS ORDERED: PROPOFOL IV EMULSION 10 MG/ML 20 ML VIAL ONE ×2 (13:30→14:03)
[2017-11-21] MEDS ORDERED: LIDOCAINE HCL 2% 2 ML VIAL (20MG/ML) ONE (13:30)
[2017-11-21] MEDS ORDERED: MIDAZOLAM HCL 1 MG/ML 2ML VIAL ONE (13:30)
[2017-11-21] MEDS ORDERED: FENTANYL CITRATE INJ 50 MCG/1 ML 2 ML VIAL ONE (13:30)
--- NOTE | 2017-11-21 13:32 | History & Physical Bridge Note ---
H&P Re-Evaluation Bridge Note: I have examined the patient, reviewed the History & Physical and in the interval since the performance of the History & Physical I have noted the following changes of clinical significance: No changes noted
[2017-11-21] MEDS ORDERED: BACITRACIN 50000 UNIT VIAL ONE (13:34)
[2017-11-21] MEDS ORDERED: SUCCINYLCHOLINE CHLORIDE 20 MG/ML 10 ML VIAL IV ONE (14:03)
[2017-11-21] MEDS ORDERED: ONDANSETRON INJ 2 MG/ML 2 ML VIAL ONE (14:03)
[2017-11-21] MEDS ORDERED: HYDROmorphone INJ 0.5 MG/0.5 ML SYR IV PRN (14:15)
[2017-11-21] MEDS ORDERED: EpHEDrine SULFATE INJ 50 MG/ML AMP IV PRN (14:15)
[2017-11-21] MEDS ORDERED: FENTANYL CITRATE INJ 50 MCG/1 ML 2 ML VIAL IV PRN (14:15)
[2017-11-21] MEDS ORDERED: ONDANSETRON INJ 2 MG/ML 2 ML VIAL IV PRN (14:15)
[2017-11-21] MEDS ORDERED: ATROPINE SULFATE 0.1 MG/ML 5ML SYR IV PRN (14:15)
--- NOTE | 2017-11-21 14:48 | [facility] Post Operative Brief Note ---
Immediate Operative Summary Operative Date Nov 21, 2017. Pre-Operative Diagnosis Left foot plantar abscess, Charcot foot, DM Neuropathy, H/O Lisfranc fracture Post-Operative Diagnosis Left foot plantar abscess, Charcot foot, DM Neuropathy, H/O Lisfranc fracture Procedure(s) Performed Incision and Drainage Left Plantar Foot Abcess, Debridement foot: skin, subcutaneous fat and fascia. Surgeon Dr. Eriberto Reynolds Electrolog Operator Surgeon(s) None Estimated Blood Loss 3 ml Findings Consistent with Post-Op Diagnosis Specimens #1 Routine culture & sensitivity, anerobic culture and gram stain of left foot abscess Drains HV x 1 Anesthesia Type General Complication(s) none Disposition Accompanied Pt To Recover: no Disposition: Recovery Room / PACU
--- NOTE | 2017-11-21 15:24 | Anesthesiology Progress Note ---
Anesthesia Post Op Note Date & Time Nov 21, 2017 at 15:24 Vital Signs Pain Intensity: 0 Vital Signs Past 12 Hours Date Time Temp Pulse Resp B/P (MAP) Pulse Ox O2 Delivery O2 Flow Rate FiO2 11/21/17 15:15 87 17 160/98 97 Nasal Cannula 2 11/21/17 15:05 86 16 151/93 98 Oxymask 10 11/21/17 14:55 83 24 127/73 98 Oxymask 10 11/21/17 14:48 36.6 79 18 142/86 98 Oxymask 10 11/21/17 12:10 36.8 81 18 165/91 (115) 98 Room Air 11/21/17 09:40 78 18 133/78 (96) 98 Room Air 11/21/17 08:00 96 Room Air 11/21/17 06:30 36.9 92 20 178/101 (126) 96 Room Air 11/21/17 03:30 37.1 93 18 174/96 (122) 97 Room Air Notes Mental Status: alert / awake / arousable, participated in evaluation Pt Amnestic to Procedure: Yes Nausea / Vomiting: adequately controlled Pain: adequately controlled Airway Patency, RR, SpO2: stable & adequate BP & HR: stable & adequate Hydration State: stable & adequate Anesthetic Complications: no major complications apparent
--- NOTE | 2017-11-21 15:39 | OPERATIVE REPORT ---
DATE OF OPERATION: 11/21/2017 PREOPERATIVE DIAGNOSES: 1. Left foot plantar abscess. 2. Charcot foot. 3. Diabetic neuropathy. 4. History of Lisfranc fracture. POSTOPERATIVE DIAGNOSES: 1. Left foot plantar abscess. 2. Local fasciitis, plantar foot. 3. Charcot foot. 4. Diabetic neuropathy. 5. History of Lisfranc fracture. PROCEDURE: 1. Incision and drainage of left plantar foot abscess. 2. Debridement plantar left foot skin including skin, subcutaneous fat, and debridement of fascia. SURGEON: Mark Reynolds DO HOTEL ATTENDANT: None. ANESTHESIA: General LMA. SPECIMENS: Aerobic, anaerobic, Gram stain. DRAINS: Hemovac x1. COMPLICATIONS: None. BLOOD LOSS: 3 mL. PERTINENT HISTORY: This is a 52-year-old gentleman with a longstanding history of diabetes mellitus insulin requiring for the last several years and a Charcot foot, left lower extremity with persistent neuropathy. The patient apparently had been in a beach vacation not too long ago, had some sort of blistering which occurred in the plantar aspect of his foot due to the chronic deformity and he ignored it. Began having fevers and chills and presented to [facility] to the ER, admitted to the hospital for IV antibiotics, evaluated, and noted to have an abscess, confirmed with MRI. The patient is then scheduled for surgical treatment as indicated. All potential risks, benefits, complications, alternatives, rehab, potential for incomplete relief of symptoms, need for further surgery, DVT, PE, , persistent pain, swelling, scarring, weakness, neurovascular injury, wound complications were discussed with the patient and his , they both decided to proceed with the procedure as indicated. DESCRIPTION OF PROCEDURE: The patient was taken to operative suite and placed supine on the table. After reviewing consent and identification of proper operative site, the patient was anesthetized, LMA was placed. Tourniquet was placed high on the left thigh over cast padding. Left lower extremity was then sterilely prepped and draped in usual fashion, elevated and tourniquet inflated to 350 mmHg. There was no exsanguination performed due to the nature of the infection. A 15 blade scalpel was then used to make an incision on the plantar aspect of the left foot centered at the mid foot region. The incision was deepened through the subcutaneous tissue and into the abscess. Abscess was cultured, aerobic, anaerobic, Gram stain and then the abscess pocket was then carefully debrided with a rongeur and a curette. Next, [employer] [place] retractors were placed in the incision and a pulsatile lavage with 6 L of saline with bacitracin was then used to irrigate the abscess until clear. Next, the subcutaneous fat, fascia, and skin which appeared to be compromised was sharply excised with a 15 blade scalpel. Further irrigation was performed with the pulsatile lavage until clear and then the 10 [place] Hemovac drain was then placed through the plantar incision extending along the mid lateral aspect of the lateral left foot. The incision was then closed using interrupted 3-0 nylon sutures. A sterile compressive dressing was applied consisting of Xeroform gauze, sterile 4 x 4s, ABD, cast padding, and Anselmo wrap. The tourniquet was released. The patient was awakened and taken to recovery in stable condition. I attest to the content of the Intraoperative Record and any orders documented therein. Any exception s are noted below.
--- NOTE | 2017-11-21 17:25 | Progress Note ---
Progress Note Date of Service Nov 21, 2017. Progress Note Subjective: Patient denies chest pain or shortness of breath or vomiting. Physical Exam: GENERAL: no distress. HEENT: EOMI NECK: No JVD, no neck masses, no carotid bruits. CARDIOVASCULAR: regular rate RESPIRATORY SYSTEM: Clear to auscultation bilaterally. No wheezing, no crackles. ABDOMEN: Soft, bowel sounds present. Nontender. No distention. CENTRAL NERVOUS SYSTEM: Cranial nerves II through XII grossly, nonfocal. EXTREMITIES: left lower extremity with dressing and wound vac ASSESSMENT AND PLAN: Left foot infection -11/20/17 Left leg MRI Edema and enhancement within the subcutaneous fat within the plantar surface of the midfoot consistent with a cellulitis. There is also an ill-defined 1.7 x 1.3 cm peripheral enhancing fluid collection at this location consistent with a small abscess. No definite evidence for osteomyelitis. However, evaluation for osteomyelitis is suboptimal due to the chronic deformity/dislocation at the midfoot. -11/21/18 Othropedics Incision and drainage of left plantar foot abscess; Debridement plantar left foot skin including skin, subcutaneous fat, and debridement of fascia; cultures were sent -admission blood culture no growth to date -admission wound culture DEEP WOUND CULTURE Preliminary 11/21/17-1212 Organism 1 ESCHERICHIA COLI QUANITY RARE SENS SENSITIVITY TO FOLLOW +MIXWOUND PLUS LOW COUNTS OF PROBABLE SKIN DILEEP Organism 2 STAPHYLOCOCCUS AUREUS QUANITY RARE SENS SENSITIVITY TO FOLLOW 1. ESCHERICHIA COLI Target Route Dose RX AB Cost M.I.C. IQ ------ ----- ------ -- ------ -------- - ------ TRIMET/SULFA S <=2/38 AMPICILLIN R >16 AMPICILLIN/SUL S <=8/4 CEFAZOLIN S <=8 CEFOXITIN S <=8 CEFOTAXIME S <=2 CEFTRIAXONE S <=1 CEFEPIME S <=4 CEFUROXIME S <=4 IMIPENEM S <=1 GENTAMICIN S <=4 TOBRAMYCIN S <=4 AMIKACIN S <=16 CIPROFLOXACIN R >2 LEVOFLOXACIN R >4 ERTAPENEM S <=1 PIP/TAZO S <=16 S = SENSITIVE I = INTERMEDIATE R = RESISTANT -currently on daptomycin and Zosyn -Infectious disease consult following Chronic Lisfranc injury of left foot Diabetes. HbA1c 10.1 Continue Lantus and insulin sliding scale. Hold metformin. Hypertension, continue losartan. Patient states he is no longer taking chlorthalidone. Hyperlipidemia history, patient states he is no longer taking Lipitor lipid profile within normal ranges Deep venous thrombosis prophylaxis. Hold off Lovenox because of being in the operating room for procedure, consider resumption tomorrow
[2017-11-21] MEDS: ACETAMINOPHEN 325 MG TAB PO PRN (20:31)
--- NOTE | 2017-11-21 21:42 | Infectious Disease Progress Nt ---
Progress Note Date of Service Nov 21, 2017. Subjective Pt evaluation today including: conversation w/ patient, conversation w/ family , physical exam, chart review, lab review, review of studies, conversation w/ end user consultant, review of inpatient medication list Patient now status post drainage of plantar abscess. Cultures are pending. Previous culture growing Staph aureus and E coli. Remains afebrile and hemodynamically stable. All Other Systems: Reviewed and Negative Medications Current Inpatient Medications Medications (Trade) Dose Ordered Sig/Shanthi Route Start Time Stop Time Status Last Admin Dose Admin Enoxaparin Sodium (Lovenox Inj) 40 mg Q24H SC 11/20/17 09:00 12/20/17 08:59 11/20/17 08:02 40 MG Acetaminophen (Tylenol Tab) 650 mg Q4H PRN PO 11/20/17 01:00 12/20/17 00:59 11/21/17 20:31 650 MG Al Hydrox/Mg Hydrox/Simethicone (Maalox Max Susp) 15 ml Q4H PRN PO 11/20/17 01:00 12/20/17 00:59 Ondansetron HCl (Zofran Inj) 4 mg Q6H PRN IV 11/20/17 01:00 12/20/17 00:59 Nitroglycerin (Nitrostat Tab) 0.4 mg UD PRN SL 11/20/17 01:00 12/20/17 00:59 Polyethylene (Miralax Powder Packet) 17 gm DAILY PRN PO 11/20/17 01:00 12/20/17 00:59 Aspirin (Ecotrin Tab) 81 mg DAILY PO 11/20/17 09:00 12/20/17 08:59 11/21/17 07:15 81 MG Epinephrine (Epipen) 0.3 mg UD PRN IM 11/20/17 01:00 12/20/17 00:59 Insulin Glargine (Lantus Solostar Pen) 55 units BID SC 11/20/17 09:00 12/20/17 08:59 11/21/17 20:47 55 UNITS Multivitamins (Multivitamin Tab) 1 tab DAILY PO 11/20/17 09:00 12/20/17 08:59 11/21/17 07:16 1 TAB Miscellaneous Information (Consult) 1 ea UD PRN N/A 11/20/17 01:00 12/20/17 00:59 Insulin Aspart (novoLOG ASPART) SLIDING SCALE G... ACHS SC 11/20/17 07:00 12/20/17 06:59 11/21/17 20:46 1 UNITS Losartan Potassium (coZAAR TAB) 100 mg DAILY PO 11/20/17 09:00 12/20/17 08:59 11/21/17 07:15 100 MG Glucose (Glucose 40% Gel) 15-30 GRAMS 15 GRAMS... UD PRN PO 11/20/17 01:30 12/20/17 01:29 Glucose (Glucose Chew Tab) 4-8 Tablets 4 Tabl... UD PRN PO 11/20/17 01:30 12/20/17 01:29 Dextrose (Dextrose 50% 50ML Syringe) 25-50ML 25ML FOR ... UD PRN IV 11/20/17 01:30 12/20/17 01:29 Glucagon (Glucagon Inj) 1 mg UD PRN IM 11/20/17 01:30 12/20/17 01:29 Carbohydrates (Carbohydrates For Hypoglycemia) 15-30 GRAMS 15 grams if BSG 54-69... UD PRN PO 11/20/17 01:30 12/20/17 01:29 Sodium Chloride 1,000 ml @ 75 mls/hr [id number] IV 11/20/17 02:15 12/20/17 02:14 11/21/17 17:45 75 MLS/HR Piperacillin Sod/ Tazobactam Sod 4.5 gm/Dextrose 120 ml @ 30 mls/hr Q8H IV 11/20/17 04:00 11/30/17 03:59 11/21/17 20:31 30 MLS/HR Daptomycin (Consult) 1 ea UD PRN N/A 11/20/17 02:45 12/20/17 02:44 Daptomycin 600 mg/ Syringe 12 ml @ 6 mls/min Q24H IV 11/21/17 00:00 11/29/17 00:01 11/21/17 00:00 6 MLS/MIN Gadobutrol (Gadavist) 12.5 mmol UD PRN IV 11/20/17 12:30 11/24/17 12:29 Clonidine HCl (Catapres Tab) 0.1 mg Q4 PRN PO 11/21/17 05:15 12/21/17 05:14 11/21/17 20:30 0.1 MG Objective Vital Signs Date Time Temp Pulse Resp B/P (MAP) Pulse Ox O2 Delivery O2 Flow Rate FiO2 11/21/17 19:28 37.0 85 20 161/91 (114) 96 Room Air 11/21/17 17:00 84 148/89 (108) 96 Room Air 11/21/17 16:34 85 148/90 (109) 11/21/17 16:30 36.7 82 22 135/80 (98) 96 Room Air 11/21/17 16:00 98 Nasal Cannula 2.0 11/21/17 15:45 36.7 80 145/84 (104) 98 Nasal Cannula 2.0 11/21/17 15:30 98 Nasal Cannula 2.0 11/21/17 15:25 36.5 88 15 160/91 99 Nasal Cannula 2 11/21/17 15:15 87 17 160/98 97 Nasal Cannula 2 11/21/17 15:05 86 16 151/93 98 Oxymask 10 11/21/17 14:55 83 24 127/73 98 Oxymask 10 11/21/17 14:48 36.6 79 18 142/86 98 Oxymask 10 11/21/17 12:10 36.8 81 18 165/91 (115) 98 Room Air 11/21/17 09:40 78 18 133/78 (96) 98 Room Air 11/21/17 08:00 96 Room Air 11/21/17 06:30 36.9 92 20 178/101 (126) 96 Room Air 11/21/17 03:30 37.1 93 18 174/96 (122) 97 Room Air 11/20/17 23:30 37.4 92 20 152/79 (103) 97 Room Air Physical Exam General Appearance: WD/WN, no apparent distress Eyes: normal inspection, EOMI, sclerae normal ENT: normal ENT inspection, pharynx normal Neck: supple, no adenopathy, thyroid normal, trachea midline Respiratory/Chest: chest non-tender, lungs clear, normal breath sounds, no respiratory distress Cardiovascular: regular rate, rhythm, no gallop, no murmur Abdomen: normal bowel sounds, non tender, soft, no organomegaly Extremities: non-tender, no calf tenderness, normal capillary refill Neurologic/Psychiatric: alert, oriented x 3, + sensory deficit Skin: normal color, no rash, + pertinent finding (Surgical dressing intact left foot) Laboratory Results RUN DATE: 11/21/17 [facility] PAGE 1 RUN TIME: 1212 Specimen Inquiry PATIENT: MACKENZIE EGAN LOC: [facility] U # : [id number] AGE/SX: 52/M ROOM: [facility] REG : 11/20/[address]: Oracio Narayan M.D. : 1965 BED: 1 DIS : STATUS: ADM IN TLOC: SPEC #: [id number] XAVIER: 11/19/17 STATUS: RES REQ #: [id number] RECD: 11/19/[address]: Mackenzie Briggs MD SOURCE: ASP-OTHER ENTR: 11/19/[address]: Naldo Layton M.D.(HUGH) SPDESC: FOOT LEFT ORDERED: DEP PATRICIA CUL/SHO COMMENTS: Has Specimen Been Obtained/Collected? Y Procedure Result Verified Site GRAM STAIN Final 11/20/17-950 RESULT NO WBCs SEEN NO ORGANISMS SEEN DEEP WOUND CULTURE Preliminary 11/21/17 Organism 1 ESCHERICHIA COLI QUANITY RARE SENS SENSITIVITY TO FOLLOW +MIXWOUND PLUS LOW COUNTS OF PROBABLE SKIN DILEEP Organism 2 STAPHYLOCOCCUS AUREUS QUANITY RARE SENS SENSITIVITY TO FOLLOW 1. ESCHERICHIA COLI Target Route Dose RX AB Cost M.I.C. IQ ------ ----- ------ -- ------ -------- - ------ TRIMET/SULFA S <=2/38 AMPICILLIN R >16 AMPICILLIN/SUL S <=8/4 CEFAZOLIN S <=8 CEFOXITIN S <=8 CEFOTAXIME S <=2 CEFTRIAXONE S <=1 CEFEPIME S <=4 CEFUROXIME S <=4 IMIPENEM S <=1 GENTAMICIN S <=4 TOBRAMYCIN S <=4 AMIKACIN S <=16 CIPROFLOXACIN R >2 LEVOFLOXACIN R >4 ERTAPENEM S <=1 PIP/TAZO S <=16 S = SENSITIVE I = INTERMEDIATE R = RESISTANT END OF REPORT Last 24 Hours Test 11/21/17 06:19 11/21/17 07:40 11/21/17 11:29 11/21/17 15:03 White Blood Count 14.39 K/uL Red Blood Count 4.49 M/uL Hemoglobin 13.1 g/dL Hematocrit 37.9 % Mean Corpuscular Volume 84.4 fL Mean Corpuscular Hemoglobin 29.2 pg Mean Corpuscular Hemoglobin Concent 34.6 g/dl Platelet Count 339 K/uL Mean Platelet Volume 10.0 fL Neutrophils (%) (Auto) 67.0 % Lymphocytes (%) (Auto) 21.0 % Monocytes (%) (Auto) 9.5 % Eosinophils (%) (Auto) 2.1 % Basophils (%) (Auto) 0.2 % Neutrophils # (Auto) 9.65 K/uL Lymphocytes # (Auto) 3.02 K/uL Monocytes # (Auto) 1.36 K/uL Eosinophils # (Auto) 0.30 K/uL Basophils # (Auto) 0.03 K/uL RDW Standard Deviation 40.2 fL RDW Coefficient of Variation 13.2 % Immature Granulocyte % (Auto) 0.2 % Immature Granulocyte # (Auto) 0.03 K/uL Sodium Level 140 mmol/L Potassium Level 3.9 mmol/L Chloride Level 110 mmol/L Carbon Dioxide Level 23 mmol/L Anion Gap 7.0 mmol/L Blood Urea Nitrogen 12 mg/dl Creatinine 1.00 mg/dl Est Creatinine Clear Calc Drug Dose 125.9 ml/min Estimated GFR () 101.3 Estimated GFR (Non- 87.4 BUN/Creatinine Ratio 11.7 Random Glucose 131 mg/dl Calcium Level 8.1 mg/dl Magnesium Level 1.8 mg/dl Bedside Glucose 140 mg/dl 126 mg/dl 122 mg/dl Test 11/21/17 15:44 11/21/17 20:38 Bedside Glucose 123 mg/dl 167 mg/dl Assessment and Plan 52-year-old diabetic male with severe neuropathy, Charcot changes, now with left foot and lower leg infection with small abscess of the left foot. Now status post incision and drainage of abscess. Previous cultures growing Staph aureus and E coli. Patient to continue on daptomycin and Zosyn pending final culture results. Will follow.
[2017-11-22] VITALS (7 sets, daily range): BP systolic 103–157; BP diastolic 75–93; PULSE 80–85; TEMP 36.8–37.1; O2SAT 95–96
[2017-11-22] MEDS: DAPTOmycin IV 600 MG in SYRINGE 0 ML IV SCH
[2017-11-22] MEDS: OXYCODONE/ACETAMINOPHEN 5-325 TAB PO PRN ×4 (00:31→20:37)
[2017-11-22] MEDS: PIPERACILL/TAZOBAC IV 4.5 GM in D5W 100 ML IV SCH ×3 (04:29→19:56)
[2017-11-22 06:29] LABS: CREATININE 1.01 mg/dl (0.60-1.40); POTASSIUM 4.3 mmol/L (3.5-5.1)
[2017-11-22 07:16] LABS: BASO % 0.2 %; BASO ABS # 0.02 K/uL (0-0.2); EOS % 3.5 %; EOS ABS # 0.44 K/uL (0-0.5); HEMATOCRIT 37.1 % (42-52); HEMOGLOBIN 12.5 g/dL (14.0-18.0); IG# 0.02 K/uL (0.00-0.02); LYMPH % 25.7 %; LYMPH ABS # 3.25 K/uL (1.2-3.4); MEAN CELL VOLUME 86.3 fL (80-100); MEAN CORPUSCULAR HEMOGLOBIN 29.1 pg (25-34); MEAN CORPUSCULAR HGB CONC 33.7 g/dl (32-36); MEAN PLATELET VOLUME 10.5 fL (7.4-10.4); MONO % 9.6 %; MONO ABS # 1.21 K/uL (0.11-0.59); NEUT % 60.8 %; NEUT ABS # 7.72 K/uL (1.4-6.5); PLATELET COUNT 347 K/uL (130-400); RED CELL DISTRIBUTION WIDTH CV 13.4 % (11.5-14.5); WHITE BLOOD COUNT 12.66 K/uL (4.8-10.8)
[2017-11-22] MEDS: LOSARTAN POTASSIUM 50 MG TAB PO SCH (08:01)
[2017-11-22] MEDS: MULTIVITAMIN TAB PO SCH (08:01)
[2017-11-22] MEDS: ENOXAPARIN 40 MG/0.4 ML SYR SC SCH (08:01)
[2017-11-22] MEDS: ASPIRIN 81 MG ECTAB PO SCH (08:02)
[2017-11-22] MEDS: INSULIN ASPART 100 UNITS/ML 3 ML PEN SC SCH ×4 (08:04→20:42)
[2017-11-22] MEDS: INSULIN GLARGINE SOLOSTAR 100 UNITS/ML 3 ML PEN SC SCH ×2 (08:05→20:41)
[2017-11-22] MEDS: SODIUM CHLORIDE 0.9% 1000ML 1,000 ML IV SCH ×2 (09:12→20:00)
[2017-11-22] MEDS: DOCUSATE SODIUM 100 MG CAP PO SCH ×2 (11:09→20:36)
[2017-11-22] MEDS: SENNA 8.6 MG TAB PO SCH (11:09)
--- NOTE | 2017-11-22 11:50 | Orthopedic Progress Note ---
Orthopedic Progress Note Date of Service Nov 22, 2017. Subjective Post OP Day: 1 Reports: feeling well Objective dressing C/D/I (Hemovac in place), toes mobile Date Time Temp Pulse Resp B/P (MAP) Pulse Ox O2 Delivery O2 Flow Rate FiO2 11/22/17 10:23 36.9 82 18 151/83 (105) 95 Room Air 11/22/17 10:20 Room Air 11/22/17 10:09 36.9 82 18 96 11/22/17 08:00 Room Air 11/22/17 06:50 36.9 82 18 148/83 (104) 96 Room Air 11/22/17 04:03 36.9 80 19 144/75 (98) 95 Room Air 11/21/17 23:14 37.0 79 18 116/71 (86) 96 Room Air 11/21/17 20:00 Room Air 11/21/17 19:28 37.0 85 20 161/91 (114) 96 Room Air 11/21/17 17:00 84 148/89 (108) 96 Room Air 11/21/17 16:34 85 148/90 (109) 11/21/17 16:30 36.7 82 22 135/80 (98) 96 Room Air 11/21/17 16:00 98 Nasal Cannula 2.0 11/21/17 15:45 36.7 80 145/84 (104) 98 Nasal Cannula 2.0 11/21/17 15:30 98 Nasal Cannula 2.0 11/21/17 15:25 36.5 88 15 160/91 99 Nasal Cannula 2 11/21/17 15:15 87 17 160/98 97 Nasal Cannula 2 11/21/17 15:05 86 16 151/93 98 Oxymask 10 11/21/17 14:55 83 24 127/73 98 Oxymask 10 11/21/17 14:48 36.6 79 18 142/86 98 Oxymask 10 11/21/17 12:10 36.8 81 18 165/91 (115) 98 Room Air Laboratory Results 24 Hours: Test 11/22/17 05:37 White Blood Count 12.66 K/uL Red Blood Count 4.30 M/uL Hemoglobin 12.5 g/dL Hematocrit 37.1 % Mean Corpuscular Volume 86.3 fL Mean Corpuscular Hemoglobin 29.1 pg Mean Corpuscular Hemoglobin Concent 33.7 g/dl Platelet Count 347 K/uL Mean Platelet Volume 10.5 fL Neutrophils (%) (Auto) 60.8 % Lymphocytes (%) (Auto) 25.7 % Monocytes (%) (Auto) 9.6 % Eosinophils (%) (Auto) 3.5 % Basophils (%) (Auto) 0.2 % Neutrophils # (Auto) 7.72 K/uL Lymphocytes # (Auto) 3.25 K/uL Monocytes # (Auto) 1.21 K/uL Eosinophils # (Auto) 0.44 K/uL Basophils # (Auto) 0.02 K/uL Additional Notes: Cultures 11/19: E. Coli and S. Aureus Intra-op cultures 11/21: gram negative bacilli Assessment & Plan Assessment: 52 yo male stable POD #1 s/p left foot I&D Plan: 1. Med management: continue IV Dapto and Zosyn per Dr Chavez 2. DVT prophylaxis- Lovenox 3. D/C planning
--- NOTE | 2017-11-22 13:38 | Progress Note ---
Progress Note Date of Service Nov 22, 2017. Progress Note Subjective: Patient denies chest pain or shortness of breath or vomiting. Physical Exam: GENERAL: no distress. HEENT: EOMI NECK: No JVD, no neck masses, no carotid bruits. CARDIOVASCULAR: regular rate RESPIRATORY SYSTEM: Clear to auscultation bilaterally. No wheezing, no crackles. ABDOMEN: Soft, bowel sounds present. Nontender. No distention. CENTRAL NERVOUS SYSTEM: Cranial nerves II through XII grossly, nonfocal. EXTREMITIES: left lower extremity with dressing and wound vac ASSESSMENT AND PLAN: Left foot infection -admission blood culture no growth to date -admission wound culture DEEP WOUND CULTURE Preliminary 11/21/17-1212 Organism 1 ESCHERICHIA COLI QUANITY RARE SENS SENSITIVITY TO FOLLOW +MIXWOUND PLUS LOW COUNTS OF PROBABLE SKIN DILEEP Organism 2 STAPHYLOCOCCUS AUREUS QUANITY RARE SENS SENSITIVITY TO FOLLOW 1. ESCHERICHIA COLI Target Route Dose RX AB Cost M.I.C. IQ ------ ----- ------ -- ------ -------- - ------ TRIMET/SULFA S <=2/38 AMPICILLIN R >16 AMPICILLIN/SUL S <=8/4 CEFAZOLIN S <=8 CEFOXITIN S <=8 CEFOTAXIME S <=2 CEFTRIAXONE S <=1 CEFEPIME S <=4 CEFUROXIME S <=4 IMIPENEM S <=1 GENTAMICIN S <=4 TOBRAMYCIN S <=4 AMIKACIN S <=16 CIPROFLOXACIN R >2 LEVOFLOXACIN R >4 ERTAPENEM S <=1 PIP/TAZO S <=16 S = SENSITIVE I = INTERMEDIATE R = RESISTANT -currently on daptomycin and Zosyn -Infectious disease consult following -11/20/17 Left leg MRI Edema and enhancement within the subcutaneous fat within the plantar surface of the midfoot consistent with a cellulitis. There is also an ill-defined 1.7 x 1.3 cm peripheral enhancing fluid collection at this location consistent with a small abscess. No definite evidence for osteomyelitis. However, evaluation for osteomyelitis is suboptimal due to the chronic deformity/dislocation at the midfoot. -11/21/18 Othropedics Incision and drainage of left plantar foot abscess; Debridement plantar left foot skin including skin, subcutaneous fat, and debridement of fascia; cultures were sent (gram negative bacili) Chronic Lisfranc injury of left foot Charcot foot. Diabetes. HbA1c 10.1 Continue Lantus and insulin sliding scale. Hold metformin. Hypertension, continue losartan. Hyperlipidemia history lipid profile within normal ranges Deep venous thrombosis prophylaxis. Lovenox Disposition: continues IV antibiotics, has wound vac, remains inpatient
[2017-11-23] MEDS: DAPTOmycin IV 600 MG in SYRINGE 0 ML IV SCH (00:02)
[2017-11-23] MEDS: PIPERACILL/TAZOBAC IV 4.5 GM in D5W 100 ML IV SCH ×3 (03:44→19:35)
[2017-11-23] MEDS: OXYCODONE/ACETAMINOPHEN 5-325 TAB PO PRN ×3 (03:50→21:15)
[2017-11-23 06:12] LABS: BASO % 0.3 %; BASO ABS # 0.03 K/uL (0-0.2); EOS % 4.5 %; EOS ABS # 0.46 K/uL (0-0.5); HEMATOCRIT 37.1 % (42-52); HEMOGLOBIN 12.8 g/dL (14.0-18.0); IG# 0.03 K/uL (0.00-0.02); LYMPH % 25.2 %; MEAN CELL VOLUME 85.3 fL (80-100); MEAN CORPUSCULAR HEMOGLOBIN 29.4 pg (25-34); MEAN CORPUSCULAR HGB CONC 34.5 g/dl (32-36); MEAN PLATELET VOLUME 10.1 fL (7.4-10.4); MONO % 9.3 %; MONO ABS # 0.96 K/uL (0.11-0.59); NEUT % 60.4 %; NEUT ABS # 6.24 K/uL (1.4-6.5); PLATELET COUNT 378 K/uL (130-400); RED CELL DISTRIBUTION WIDTH SD 40.6 fL (36.4-46.3); WHITE BLOOD COUNT 10.32 K/uL (4.8-10.8)
[2017-11-23 06:40] LABS: CALCIUM 8.2 mg/dl (8.5-10.1); CREATININE 1.04 mg/dl (0.60-1.40); POTASSIUM 3.8 mmol/L (3.5-5.1)
[2017-11-23 07:25] VITALS: BP 162/91; PULSE 84; TEMP 36.6; O2SAT 96
[2017-11-23 08:14] VITALS: BP 157/90
[2017-11-23] MEDS: DOCUSATE SODIUM 100 MG CAP PO SCH ×2 (08:16→21:15)
[2017-11-23] MEDS: ASPIRIN 81 MG ECTAB PO SCH (08:17)
[2017-11-23] MEDS: LOSARTAN POTASSIUM 50 MG TAB PO SCH (08:17)
[2017-11-23] MEDS: MULTIVITAMIN TAB PO SCH (08:17)
[2017-11-23] MEDS: SENNA 8.6 MG TAB PO SCH (08:18)
[2017-11-23] MEDS: ENOXAPARIN 40 MG/0.4 ML SYR SC SCH (08:18)
[2017-11-23] MEDS: INSULIN ASPART 100 UNITS/ML 3 ML PEN SC SCH ×4 (08:28→21:16)
[2017-11-23] MEDS: INSULIN GLARGINE SOLOSTAR 100 UNITS/ML 3 ML PEN SC SCH ×2 (08:36→21:16)
--- NOTE | 2017-11-23 09:11 | Orthopedic Progress Note ---
Orthopedic Progress Note Date of Service Nov 23, 2017. Subjective Post OP Day: 2 Reports: feeling well, Denies: chest pain, SOB, nausea / vomiting, light headedness, calf pain Objective calves soft nontender, N/V intact (chronic neuropathy), capillary refill less than 2 sec., incision C/D/I, A&O x3, toes mobile SURGICAL DRESSED DC'D THIS AM. HEMOVAC REMOVED WITHOUT DIFFICULTY. INCISION CDI WITH MINIMAL BLOODY DRAINAGE ON DRESSING. NO PURULENCE OR ACTIVE DRAINAGE. HE DOES HAVE CHRONIC FULLNESS ON THE PLANTAR ASPECT, LIKELY CALLOUS. Date Time Temp Pulse Resp B/P (MAP) Pulse Ox O2 Delivery O2 Flow Rate FiO2 11/23/17 08:14 157/90 (112) 11/23/17 07:25 Room Air 11/23/17 07:25 36.6 84 18 162/91 (114) 96 Room Air 11/22/17 23:25 Room Air 11/22/17 22:55 37.1 81 16 157/93 (114) 96 Room Air 11/22/17 15:45 Room Air 11/22/17 15:35 36.8 85 19 137/80 (99) 95 Room Air 11/22/17 10:23 36.9 82 18 151/83 (105) 95 Room Air 11/22/17 10:20 Room Air 11/22/17 10:09 36.9 82 18 96 Laboratory Results 24 Hours: Test 11/23/17 05:34 White Blood Count 10.32 K/uL Red Blood Count 4.35 M/uL Hemoglobin 12.8 g/dL Hematocrit 37.1 % Mean Corpuscular Volume 85.3 fL Mean Corpuscular Hemoglobin 29.4 pg Mean Corpuscular Hemoglobin Concent 34.5 g/dl Platelet Count 378 K/uL Mean Platelet Volume 10.1 fL Neutrophils (%) (Auto) 60.4 % Lymphocytes (%) (Auto) 25.2 % Monocytes (%) (Auto) 9.3 % Eosinophils (%) (Auto) 4.5 % Basophils (%) (Auto) 0.3 % Neutrophils # (Auto) 6.24 K/uL Lymphocytes # (Auto) 2.60 K/uL Monocytes # (Auto) 0.96 K/uL Eosinophils # (Auto) 0.46 K/uL Basophils # (Auto) 0.03 K/uL Assessment & Plan Assessment: 52 yo male stable POD #2 s/p left foot I&D Plan: 1. Med management: follow cultures, continue IV Dapto and Zosyn per Dr Chavez recommendations 2. DVT prophylaxis- Lovenox 3. D/C planning- orthopedically stable for DC once abx arranged. 4. Continue wound care/daily dressing changes to LLE. Maintain NWB status. Follow up with Dr. Reynolds in 10-14 days. [phone]
--- NOTE | 2017-11-23 09:13 | Consultant Recommendations ---
Aircraft Seat Upholsterer Recommendations Date of Service Nov 23, 2017. Aircraft Seat Upholsterer Recommendations MAINTAIN NON-WEIGHT BEARING STATUS CONTINUE WOUND CARE TO LEFT LOWER EXTREMITY WITH DAILY DRESSING CHANGES FOLLOW UP WITH DR. BRITO 10-14 DAYS FOR WOUND CHECK AND SUTURE REMOVAL. UOC: [phone] JACQUES.
[2017-11-23] MEDS: SODIUM CHLORIDE 0.9% 1000ML 1,000 ML IV SCH (10:34)
[2017-11-23 10:52] VITALS: BP 160/95
[2017-11-23 10:53] VITALS: BP 168/92
[2017-11-23] MEDS: CLONIDINE HCL 0.1 MG TAB PO PRN (11:31)
[2017-11-23 15:23] VITALS: BP 120/76; PULSE 79; TEMP 36.7; O2SAT 93
--- NOTE | 2017-11-23 15:42 | Infectious Disease Progress Nt ---
Progress Note Date of Service Nov 23, 2017. Subjective Pt evaluation today including: conversation w/ patient, conversation w/ family , physical exam, chart review, lab review, review of studies, conversation w/ beauty consultant, review of inpatient medication list Patient is status post drainage of left foot abscess. Cultures growing methicillin sensitive Staph aureus and E coli. Patient feeling significantly better today. Remains afebrile. Tolerating antibiotics without apparent difficulty. All Other Systems: Reviewed and Negative Medications Current Inpatient Medications Medications (Trade) Dose Ordered Sig/Shanthi Route Start Time Stop Time Status Last Admin Dose Admin Enoxaparin Sodium (Lovenox Inj) 40 mg Q24H SC 11/20/17 09:00 12/20/17 08:59 11/23/17 08:18 40 MG Acetaminophen (Tylenol Tab) 650 mg Q4H PRN PO 11/20/17 01:00 12/20/17 00:59 11/21/17 20:31 650 MG Al Hydrox/Mg Hydrox/Simethicone (Maalox Max Susp) 15 ml Q4H PRN PO 11/20/17 01:00 12/20/17 00:59 Ondansetron HCl (Zofran Inj) 4 mg Q6H PRN IV 11/20/17 01:00 12/20/17 00:59 Nitroglycerin (Nitrostat Tab) 0.4 mg UD PRN SL 11/20/17 01:00 12/20/17 00:59 Polyethylene (Miralax Powder Packet) 17 gm DAILY PRN PO 11/20/17 01:00 12/20/17 00:59 Aspirin (Ecotrin Tab) 81 mg DAILY PO 11/20/17 09:00 12/20/17 08:59 11/23/17 08:17 81 MG Epinephrine (Epipen) 0.3 mg UD PRN IM 11/20/17 01:00 12/20/17 00:59 Insulin Glargine (Lantus Solostar Pen) 55 units BID SC 11/20/17 09:00 12/20/17 08:59 11/23/17 08:36 55 UNITS Multivitamins (Multivitamin Tab) 1 tab DAILY PO 11/20/17 09:00 12/20/17 08:59 11/23/17 08:17 1 TAB Miscellaneous Information (Consult) 1 ea UD PRN N/A 11/20/17 01:00 12/20/17 00:59 Insulin Aspart (novoLOG ASPART) SLIDING SCALE G... ACHS SC 11/20/17 07:00 12/20/17 06:59 11/23/17 12:51 11 UNITS Losartan Potassium (coZAAR TAB) 100 mg DAILY PO 11/20/17 09:00 12/20/17 08:59 11/23/17 08:17 100 MG Glucose (Glucose 40% Gel) 15-30 GRAMS 15 GRAMS... UD PRN PO 11/20/17 01:30 12/20/17 01:29 Glucose (Glucose Chew Tab) 4-8 Tablets 4 Tabl... UD PRN PO 11/20/17 01:30 12/20/17 01:29 Dextrose (Dextrose 50% 50ML Syringe) 25-50ML 25ML FOR ... UD PRN IV 11/20/17 01:30 12/20/17 01:29 Glucagon (Glucagon Inj) 1 mg UD PRN IM 11/20/17 01:30 12/20/17 01:29 Carbohydrates (Carbohydrates For Hypoglycemia) 15-30 GRAMS 15 grams if BSG 54-69... UD PRN PO 11/20/17 01:30 12/20/17 01:29 Piperacillin Sod/ Tazobactam Sod 4.5 gm/Dextrose 120 ml @ 30 mls/hr Q8H IV 11/20/17 04:00 11/30/17 03:59 11/23/17 12:01 30 MLS/HR Daptomycin (Consult) 1 ea UD PRN N/A 11/20/17 02:45 12/20/17 02:44 Daptomycin 600 mg/ Syringe 12 ml @ 6 mls/min Q24H IV 11/21/17 00:00 11/29/17 00:01 11/23/17 00:02 6 MLS/MIN Gadobutrol (Gadavist) 12.5 mmol UD PRN IV 11/20/17 12:30 11/24/17 12:29 Oxycodone/ Acetaminophen (Percocet 5-325mg Tab) 1 tab Q4H PRN PO 11/22/17 00:15 12/06/17 00:14 11/23/17 12:02 1 TAB Senna (Senokot Tab) 8.6 mg QAM PO 11/22/17 09:00 12/22/17 08:59 11/23/17 08:18 8.6 MG Docusate Sodium (coLACE CAP) 100 mg BID PO 11/22/17 09:00 12/22/17 08:59 11/23/17 08:16 100 MG Clonidine HCl (Catapres Tab) 0.1 mg Q4 PRN PO 11/23/17 11:30 12/21/17 05:14 11/23/17 11:31 0.1 MG Objective Vital Signs Date Time Temp Pulse Resp B/P (MAP) Pulse Ox O2 Delivery O2 Flow Rate FiO2 11/23/17 15:23 36.7 79 19 120/76 (91) 93 Room Air 11/23/17 10:53 168/92 (117) 11/23/17 10:52 160/95 (116) 11/23/17 08:14 157/90 (112) 11/23/17 07:25 Room Air 11/23/17 07:25 36.6 84 18 162/91 (114) 96 Room Air 11/22/17 23:25 Room Air 11/22/17 22:55 37.1 81 16 157/93 (114) 96 Room Air 11/22/17 15:45 Room Air Physical Exam General Appearance: WD/WN, no apparent distress Eyes: normal inspection, EOMI, sclerae normal ENT: normal ENT inspection, hearing grossly normal, pharynx normal Neck: supple, no adenopathy, thyroid normal, trachea midline Respiratory/Chest: chest non-tender, lungs clear, normal breath sounds, no respiratory distress Cardiovascular: regular rate, rhythm, no gallop, no murmur Abdomen: normal bowel sounds, non tender, soft, no organomegaly Extremities: non-tender, no calf tenderness Neurologic/Psychiatric: alert, oriented x 3 Skin: normal color, warm/dry, no rash, + pertinent finding (Surgical dressing intact left foot) Laboratory Results RUN DATE: 11/23/17 [facility] LAB PAGE 1 RUN TIME: 1316 Specimen Inquiry PATIENT: MACKENZIE EGAN LOC: M[facility]ELA U # : [id number] AGE/SX: 52/M ROOM: [facility] REG : 11/20/[address]: Oracio Narayan M.D. : 1965 BED: 2 DIS : STATUS: ADM IN TLOC: SPEC #: [id number] XAVIER: 11/21/17 STATUS: RES REQ #: [id number] RECD: 11/21/[address]: Oracio Narayan M.D. SOURCE: ABSCESS ENTR: 11/21/[address] [facility] [address]: Mark Reynolds DRiosORios SPDESC: FOOT LEFT Milan Chavez MD, Rajendra P. , Naldo Forde M.D.(HUGH) ORDERED: AER/MICHAEL CULTSMR Procedure Result Verified Site GRAM STAIN Final 11/21/17-1505 RESULT RARE EPITHELIAL CELLS RARE WBCs SEEN RARE GRAM POSITIVE COCCI OR AER/MICHAEL CULT Preliminary 11/23/17-1316 Organism 1 ESCHERICHIA COLI QUANITY MODERATE SENS SENSITIVITY TO FOLLOW Organism 2 STAPHYLOCOCCUS AUREUS QUANITY RARE SENS SENSITIVITY TO FOLLOW 1. ESCHERICHIA COLI Target Route Dose RX AB Cost M.I.C. IQ ------ ----- ------ -- ------ -------- - ------ TRIMET/SULFA S <=2/38 AMPICILLIN R >16 AMPICILLIN/SUL S <=8/4 CEFAZOLIN S <=8 CEFOXITIN S <=8 CEFOTAXIME S <=2 CEFTRIAXONE S <=1 CEFEPIME S <=4 CEFUROXIME S <=4 IMIPENEM S <=1 GENTAMICIN S <=4 TOBRAMYCIN S <=4 AMIKACIN S <=16 CIPROFLOXACIN R >2 LEVOFLOXACIN R >4 ERTAPENEM S <=1 PIP/TAZO S <=16 S = SENSITIVE I = INTERMEDIATE R = RESISTANT END OF REPORT Last 24 Hours Test 11/22/17 17:24 11/22/17 20:25 11/23/17 05:34 11/23/17 08:04 Bedside Glucose 154 mg/dl 141 mg/dl 83 mg/dl White Blood Count 10.32 K/uL Red Blood Count 4.35 M/uL Hemoglobin 12.8 g/dL Hematocrit 37.1 % Mean Corpuscular Volume 85.3 fL Mean Corpuscular Hemoglobin 29.4 pg Mean Corpuscular Hemoglobin Concent 34.5 g/dl Platelet Count 378 K/uL Mean Platelet Volume 10.1 fL Neutrophils (%) (Auto) 60.4 % Lymphocytes (%) (Auto) 25.2 % Monocytes (%) (Auto) 9.3 % Eosinophils (%) (Auto) 4.5 % Basophils (%) (Auto) 0.3 % Neutrophils # (Auto) 6.24 K/uL Lymphocytes # (Auto) 2.60 K/uL Monocytes # (Auto) 0.96 K/uL Eosinophils # (Auto) 0.46 K/uL Basophils # (Auto) 0.03 K/uL RDW Standard Deviation 40.6 fL RDW Coefficient of Variation 13.0 % Immature Granulocyte % (Auto) 0.3 % Immature Granulocyte # (Auto) 0.03 K/uL Sodium Level 140 mmol/L Potassium Level 3.8 mmol/L Chloride Level 109 mmol/L Carbon Dioxide Level 25 mmol/L Anion Gap 6.0 mmol/L Blood Urea Nitrogen 11 mg/dl Creatinine 1.04 mg/dl Est Creatinine Clear Calc Drug Dose 121.1 ml/min Estimated GFR () 96.6 Estimated GFR (Non- 83.3 BUN/Creatinine Ratio 10.6 Random Glucose 77 mg/dl Calcium Level 8.2 mg/dl Magnesium Level 2.1 mg/dl Test 11/23/17 12:02 Bedside Glucose 170 mg/dl Assessment and Plan 52-year-old diabetic male with severe neuropathy, Charcot changes, now with left foot and lower leg infection with small abscess of the left foot. Now status post incision and drainage of abscess. Cultures growing Staph aureus and E coli. Patient to continue on daptomycin and Zosyn, hopefully can transition to oral antibiotics in the next day or so. Will follow.
--- NOTE | 2017-11-23 17:52 | Progress Note ---
Progress Note Date of Service Nov 23, 2017. Progress Note Subjective: Patient denies chest pain or shortness of breath or vomiting today. No longer has wound vac. Physical Exam: GENERAL: no distress. HEENT: EOMI NECK: No JVD, no neck masses, no carotid bruits. CARDIOVASCULAR: regular rate RESPIRATORY SYSTEM: Clear to auscultation bilaterally. No wheezing, no crackles. ABDOMEN: Soft, bowel sounds present. Nontender. No distention. CENTRAL NERVOUS SYSTEM: Cranial nerves II through XII grossly, nonfocal. EXTREMITIES: left lower extremity with dressing ASSESSMENT AND PLAN: Left foot infection -admission blood culture no growth to date -admission wound culture as E.coli and Staph Aureus -Infectious disease consult following -11/20/17 Left leg MRI Edema and enhancement within the subcutaneous fat within the plantar surface of the midfoot consistent with a cellulitis. There is also an ill-defined 1.7 x 1.3 cm peripheral enhancing fluid collection at this location consistent with a small abscess. No definite evidence for osteomyelitis. However, evaluation for osteomyelitis is suboptimal due to the chronic deformity/dislocation at the midfoot. -11/21/18 Othropedics Incision and drainage of left plantar foot abscess; Debridement plantar left foot skin including skin, subcutaneous fat, and debridement of fascia; cultures were sent E.coli and Staph Aureus -currently remains on daptomycin and Zosyn as per infectious disease consult Chronic Lisfranc injury of left foot Charcot foot. Diabetes. HbA1c 10.1 Continue Lantus and insulin sliding scale. Hold metformin. Hypertension, continue losartan. Hyperlipidemia history lipid profile within normal ranges Deep venous thrombosis prophylaxis. Lovenox Disposition: continues IV antibiotics, remains inpatient
[2017-11-23 23:02] VITALS: BP 159/92; PULSE 84; TEMP 37.3; O2SAT 96
[2017-11-24] MEDS: DAPTOmycin IV 600 MG in SYRINGE 0 ML IV SCH (00:03)
[2017-11-24] MEDS: PIPERACILL/TAZOBAC IV 4.5 GM in D5W 100 ML IV SCH (03:59)
[2017-11-24 06:04] LABS: BASO % 0.6 %; BASO ABS # 0.05 K/uL (0-0.2); EOS % 6.4 %; EOS ABS # 0.57 K/uL (0-0.5); HEMATOCRIT 37.4 % (42-52); HEMOGLOBIN 12.9 g/dL (14.0-18.0); IG# 0.03 K/uL (0.00-0.02); LYMPH % 29.3 %; LYMPH ABS # 2.62 K/uL (1.2-3.4); MEAN CELL VOLUME 84.4 fL (80-100); MEAN CORPUSCULAR HEMOGLOBIN 29.1 pg (25-34); MEAN CORPUSCULAR HGB CONC 34.5 g/dl (32-36); MEAN PLATELET VOLUME 9.5 fL (7.4-10.4); MONO % 10.7 %; MONO ABS # 0.96 K/uL (0.11-0.59); NEUT % 52.7 %; NEUT ABS # 4.72 K/uL (1.4-6.5); PLATELET COUNT 403 K/uL (130-400); RED CELL DISTRIBUTION WIDTH CV 12.8 % (11.5-14.5); RED CELL DISTRIBUTION WIDTH SD 39.2 fL (36.4-46.3); WHITE BLOOD COUNT 8.95 K/uL (4.8-10.8)
[2017-11-24 07:15] VITALS: BP 172/96; PULSE 79; TEMP 36.6; O2SAT 94
[2017-11-24 07:30] VITALS: O2SAT 94
[2017-11-24] MEDS: DOCUSATE SODIUM 100 MG CAP PO SCH (09:03)
[2017-11-24] MEDS: LOSARTAN POTASSIUM 50 MG TAB PO SCH (09:07)
[2017-11-24] MEDS: ASPIRIN 81 MG ECTAB PO SCH (09:08)
[2017-11-24] MEDS: SENNA 8.6 MG TAB PO SCH (09:09)
[2017-11-24] MEDS: MULTIVITAMIN TAB PO SCH (09:09)
[2017-11-24] MEDS: CLONIDINE HCL 0.1 MG TAB PO PRN (09:12)
[2017-11-24] MEDS: ENOXAPARIN 40 MG/0.4 ML SYR SC SCH (09:15)
[2017-11-24] MEDS: OXYCODONE/ACETAMINOPHEN 5-325 TAB PO PRN (09:31)
[2017-11-24] MEDS: INSULIN GLARGINE SOLOSTAR 100 UNITS/ML 3 ML PEN SC SCH (09:41)
[2017-11-24] MEDS: INSULIN ASPART 100 UNITS/ML 3 ML PEN SC SCH ×2 (09:43→13:01)
--- NOTE | 2017-11-24 10:24 | Orthopedic Progress Note ---
Orthopedic Progress Note Date of Service Nov 24, 2017. Subjective Post OP Day: 3 Reports: feeling well, Denies: complaints Objective calves soft nontender, A&O x3, toes mobile Dressing removed. Minimal drainage noted on the dressing. No foul odor. Redressed with adaptic , 4x4's , kerlix, and john wrap. Date Time Temp Pulse Resp B/P (MAP) Pulse Ox O2 Delivery O2 Flow Rate FiO2 11/24/17 07:30 94 Room Air 11/24/17 07:15 36.6 79 18 172/96 (121) 94 Room Air 11/23/17 23:02 37.3 84 18 159/92 (114) 96 Room Air 11/23/17 19:55 Room Air 11/23/17 15:23 Room Air 11/23/17 15:23 36.7 79 19 120/76 (91) 93 Room Air 11/23/17 10:53 168/92 (117) 11/23/17 10:52 160/95 (116) Laboratory Results 24 Hours: Test 11/24/17 05:40 White Blood Count 8.95 K/uL Red Blood Count 4.43 M/uL Hemoglobin 12.9 g/dL Hematocrit 37.4 % Mean Corpuscular Volume 84.4 fL Mean Corpuscular Hemoglobin 29.1 pg Mean Corpuscular Hemoglobin Concent 34.5 g/dl Platelet Count 403 K/uL Mean Platelet Volume 9.5 fL Neutrophils (%) (Auto) 52.7 % Lymphocytes (%) (Auto) 29.3 % Monocytes (%) (Auto) 10.7 % Eosinophils (%) (Auto) 6.4 % Basophils (%) (Auto) 0.6 % Neutrophils # (Auto) 4.72 K/uL Lymphocytes # (Auto) 2.62 K/uL Monocytes # (Auto) 0.96 K/uL Eosinophils # (Auto) 0.57 K/uL Basophils # (Auto) 0.05 K/uL Additional Notes: Wound CX from OR: RUN DATE: 11/24/17 [facility] LAB PAGE 1 RUN TIME: 924 Specimen Inquiry PATIENT: MACKENZIE EGAN LOC: MARCELA U # : [id number] AGE/SX: 52/M ROOM: [facility] REG : 11/20/[address]: Oracio Narayan M.D. : 1965 BED: 2 DIS : STATUS: ADM IN TLOC: SPEC #: [id number] XAVIER: 11/21/17 STATUS: RES REQ #: [id number] RECD: 11/21/[address]: Oracio Narayan M.D. SOURCE: ABSCESS ENTR: 11/21/[address] [facility] [address]: Mark Reynolds DGerald SPDESC: FOOT LEFT Milan Chavez MD, Rajendra P. , MD Layton,Naldo ISLAS M.D.(ERICKA) ORDERED: AER/MICHAEL CULTSMR Procedure Result Verified Site GRAM STAIN Final 11/21/17-1505 RESULT RARE EPITHELIAL CELLS RARE WBCs SEEN RARE GRAM POSITIVE COCCI OR AER/MICHAEL CULT Preliminary 11/24/17 Organism 1 ESCHERICHIA COLI QUANITY MODERATE SENS SENSITIVITY TO FOLLOW +MIXWOUND PLUS LOW COUNTS OF PROBABLE SKIN DILEEP Organism 2 STAPHYLOCOCCUS AUREUS QUANITY RARE SENS SENSITIVITY TO FOLLOW 1. ESCHERICHIA COLI Target Route Dose RX AB Cost M.I.C. IQ ------ ----- ------ -- ------ -------- - ------ TRIMET/SULFA S <=2/38 AMPICILLIN R >16 AMPICILLIN/SUL S <=8/4 CEFAZOLIN S <=8 CEFOXITIN S <=8 CEFOTAXIME S <=2 CEFTRIAXONE S <=1 CEFEPIME S <=4 CEFUROXIME S <=4 IMIPENEM S <=1 GENTAMICIN S <=4 TOBRAMYCIN S <=4 AMIKACIN S <=16 CIPROFLOXACIN R >2 LEVOFLOXACIN R >4 ERTAPENEM S <=1 PIP/TAZO S <=16 S = SENSITIVE I = INTERMEDIATE R = RESISTANT Assessment & Plan Assessment: POD #3 s/p left foot I&D Plan: 1. Med management: follow cultures, continue IV Dapto and Zosyn per Dr Chavez recommendations 2. DVT prophylaxis- Lovenox 3. D/C planning- orthopedically stable for DC once abx arranged. ORTHO WILL SIGN OFF FOR NOW. 4. Continue wound care/daily dressing changes to LLE. Maintain NWB status. Follow up with Dr. Reynolds in 10-14 days from the day of surgery. [phone]
--- NOTE | 2017-11-24 10:41 | Infectious Disease Progress Nt ---
Progress Note Date of Service Nov 24, 2017. Subjective Pt evaluation today including: conversation w/ patient, conversation w/ family , physical exam, chart review, lab review, review of studies Patient offers no new complaints today. Pain controlled. No fever. All Other Systems: Reviewed and Negative Medications Current Inpatient Medications Medications (Trade) Dose Ordered Sig/Shanthi Route Start Time Stop Time Status Last Admin Dose Admin Enoxaparin Sodium (Lovenox Inj) 40 mg Q24H SC 11/20/17 09:00 12/20/17 08:59 11/24/17 09:15 40 MG Acetaminophen (Tylenol Tab) 650 mg Q4H PRN PO 11/20/17 01:00 12/20/17 00:59 11/21/17 20:31 650 MG Al Hydrox/Mg Hydrox/Simethicone (Maalox Max Susp) 15 ml Q4H PRN PO 11/20/17 01:00 12/20/17 00:59 Ondansetron HCl (Zofran Inj) 4 mg Q6H PRN IV 11/20/17 01:00 12/20/17 00:59 Nitroglycerin (Nitrostat Tab) 0.4 mg UD PRN SL 11/20/17 01:00 12/20/17 00:59 Polyethylene (Miralax Powder Packet) 17 gm DAILY PRN PO 11/20/17 01:00 12/20/17 00:59 Aspirin (Ecotrin Tab) 81 mg DAILY PO 11/20/17 09:00 12/20/17 08:59 11/24/17 09:08 81 MG Epinephrine (Epipen) 0.3 mg UD PRN IM 11/20/17 01:00 12/20/17 00:59 Insulin Glargine (Lantus Solostar Pen) 55 units BID SC 11/20/17 09:00 12/20/17 08:59 11/24/17 09:41 55 UNITS Multivitamins (Multivitamin Tab) 1 tab DAILY PO 11/20/17 09:00 12/20/17 08:59 11/24/17 09:09 1 TAB Miscellaneous Information (Consult) 1 ea UD PRN N/A 11/20/17 01:00 12/20/17 00:59 Insulin Aspart (novoLOG ASPART) SLIDING SCALE G... ACHS SC 11/20/17 07:00 12/20/17 06:59 11/24/17 09:43 5 UNITS Losartan Potassium (coZAAR TAB) 100 mg DAILY PO 11/20/17 09:00 12/20/17 08:59 11/24/17 09:07 100 MG Glucose (Glucose 40% Gel) 15-30 GRAMS 15 GRAMS... UD PRN PO 11/20/17 01:30 12/20/17 01:29 Glucose (Glucose Chew Tab) 4-8 Tablets 4 Tabl... UD PRN PO 11/20/17 01:30 12/20/17 01:29 Dextrose (Dextrose 50% 50ML Syringe) 25-50ML 25ML FOR ... UD PRN IV 11/20/17 01:30 12/20/17 01:29 Glucagon (Glucagon Inj) 1 mg UD PRN IM 11/20/17 01:30 12/20/17 01:29 Carbohydrates (Carbohydrates For Hypoglycemia) 15-30 GRAMS 15 grams if BSG 54-69... UD PRN PO 11/20/17 01:30 12/20/17 01:29 Piperacillin Sod/ Tazobactam Sod 4.5 gm/Dextrose 120 ml @ 30 mls/hr Q8H IV 11/20/17 04:00 11/30/17 03:59 11/24/17 03:59 30 MLS/HR Daptomycin (Consult) 1 ea UD PRN N/A 11/20/17 02:45 12/20/17 02:44 Daptomycin 600 mg/ Syringe 12 ml @ 6 mls/min Q24H IV 11/21/17 00:00 11/29/17 00:01 11/24/17 00:03 6 MLS/MIN Gadobutrol (Gadavist) 12.5 mmol UD PRN IV 11/20/17 12:30 11/24/17 12:29 Oxycodone/ Acetaminophen (Percocet 5-325mg Tab) 1 tab Q4H PRN PO 11/22/17 00:15 12/06/17 00:14 11/24/17 09:31 1 TAB Senna (Senokot Tab) 8.6 mg QAM PO 11/22/17 09:00 12/22/17 08:59 11/24/17 09:09 8.6 MG Docusate Sodium (coLACE CAP) 100 mg BID PO 11/22/17 09:00 12/22/17 08:59 11/24/17 09:03 100 MG Clonidine HCl (Catapres Tab) 0.1 mg Q4 PRN PO 11/23/17 11:30 12/21/17 05:14 11/24/17 09:12 0.1 MG Objective Vital Signs Date Time Temp Pulse Resp B/P (MAP) Pulse Ox O2 Delivery O2 Flow Rate FiO2 11/24/17 07:30 94 Room Air 11/24/17 07:15 36.6 79 18 172/96 (121) 94 Room Air 11/23/17 23:02 37.3 84 18 159/92 (114) 96 Room Air 11/23/17 19:55 Room Air 11/23/17 15:23 Room Air 11/23/17 15:23 36.7 79 19 120/76 (91) 93 Room Air 11/23/17 10:53 168/92 (117) 11/23/17 10:52 160/95 (116) Physical Exam General Appearance: WD/WN, no apparent distress Eyes: normal inspection, EOMI, sclerae normal ENT: normal ENT inspection, pharynx normal Neck: supple, no adenopathy, thyroid normal, trachea midline Respiratory/Chest: chest non-tender, lungs clear, normal breath sounds, no respiratory distress Cardiovascular: regular rate, rhythm, no gallop, no murmur Abdomen: normal bowel sounds, non tender, soft, no organomegaly Extremities: normal range of motion, non-tender, no calf tenderness, normal capillary refill Neurologic/Psychiatric: alert, oriented x 3 Skin: normal color, no rash, + pertinent finding (Dressing intact left foot) Lymphatic: no adenopathy Laboratory Results Last 24 Hours Test 11/23/17 12:02 11/23/17 16:55 11/23/17 20:31 11/24/17 05:40 Bedside Glucose 170 mg/dl 127 mg/dl 173 mg/dl White Blood Count 8.95 K/uL Red Blood Count 4.43 M/uL Hemoglobin 12.9 g/dL Hematocrit 37.4 % Mean Corpuscular Volume 84.4 fL Mean Corpuscular Hemoglobin 29.1 pg Mean Corpuscular Hemoglobin Concent 34.5 g/dl Platelet Count 403 K/uL Mean Platelet Volume 9.5 fL Neutrophils (%) (Auto) 52.7 % Lymphocytes (%) (Auto) 29.3 % Monocytes (%) (Auto) 10.7 % Eosinophils (%) (Auto) 6.4 % Basophils (%) (Auto) 0.6 % Neutrophils # (Auto) 4.72 K/uL Lymphocytes # (Auto) 2.62 K/uL Monocytes # (Auto) 0.96 K/uL Eosinophils # (Auto) 0.57 K/uL Basophils # (Auto) 0.05 K/uL RDW Standard Deviation 39.2 fL RDW Coefficient of Variation 12.8 % Immature Granulocyte % (Auto) 0.3 % Immature Granulocyte # (Auto) 0.03 K/uL Test 11/24/17 08:03 Bedside Glucose 78 mg/dl Assessment and Plan 52-year-old diabetic male with severe neuropathy, Charcot changes, now with left foot and lower leg infection with small abscess of the left foot. Now status post incision and drainage of abscess. Cultures growing Staph aureus and E coli. Would recommend transition to oral Abx with Bactrim DS 1 bid for 2 weeks.
--- NOTE | 2017-11-24 11:14 | Progress Note ---
Internal Med Progress Note Date of Service: Nov 24, 2017. Provider Documentation: Subjective: Patient denies chest pain or shortness of breath or vomiting today. Patient denies pain of left foot Physical Exam: GENERAL: no distress. HEENT: EOMI NECK: No JVD, no neck masses, no carotid bruits. CARDIOVASCULAR: regular rate RESPIRATORY SYSTEM: Clear to auscultation bilaterally. No wheezing, no crackles. ABDOMEN: Soft, bowel sounds present. Nontender. No distention. CENTRAL NERVOUS SYSTEM: Cranial nerves II through XII grossly, nonfocal. EXTREMITIES: left lower extremity with dressing ASSESSMENT & PLAN: Hospital Course and Discharge Plan Left foot infection (with plantar foot abscess) -admission blood culture no growth to date -admission wound culture as E.coli and Staph Aureus -Infectious disease consult following -11/20/17 Left leg MRI Edema and enhancement within the subcutaneous fat within the plantar surface of the midfoot consistent with a cellulitis. There is also an ill-defined 1.7 x 1.3 cm peripheral enhancing fluid collection at this location consistent with a small abscess. No definite evidence for osteomyelitis. However, evaluation for osteomyelitis is suboptimal due to the chronic deformity/dislocation at the midfoot. -11/21/18 Othropedics Incision and drainage of left plantar foot abscess; Debridement plantar left foot skin including skin, subcutaneous fat, and debridement of fascia; cultures were sent E.coli and Staph Aureus -Infectious disease consult recommends on 11/24/17 to switch from IV Zosyn and IV daptomycin which was started on currently remains on daptomycin and Zosyn on 11/19/17 to Bactrim BID for 14 day course Chronic Lisfranc injury of left foot Charcot foot Diabetes Mellitus HbA1c 10.1 Continue home dose insulin and metformin Hypertension, continue losartan. Hyperlipidemia history lipid profile within normal ranges Evaluated by physical therapy issued and fit with a new pair of aluminum axillary crutches and was able to use axillary crutches for functional mobility without hands-on assistance. NON- WEIGHT BEARING STATUS of left lower extremity Discharge Instructions Please take Bactrim pill twice a day for 2 weeks Please Follow up with: 11/26/2017 11:00 AM Naldo Layton MD [facility] Please have daily dressing changes of the left lower extremity Please use crutches and do not weightbear of left lower extremity until follow up with Dr. Reynolds in 10-14 days from the day of surgery (11/21/18) for wound check and any suture removal. Please call [phone] to make appointment Vital Signs: Date Time Temp Pulse Resp B/P (MAP) Pulse Ox O2 Delivery O2 Flow Rate FiO2 11/24/17 07:30 94 Room Air 11/24/17 07:15 36.6 79 18 172/96 (121) 94 Room Air 11/23/17 23:02 37.3 84 18 159/92 (114) 96 Room Air 11/23/17 19:55 Room Air 11/23/17 15:23 Room Air 11/23/17 15:23 36.7 79 19 120/76 (91) 93 Room Air Lab Results: Results Past 24 Hours Test 11/23/17 12:02 11/23/17 16:55 11/23/17 20:31 11/24/17 05:40 Range/Units Bedside Glucose 170 127 173 70-99 mg/dl White Blood Count 8.95 4.8-10.8 K/uL Red Blood Count 4.43 4.7-6.1 M/uL Hemoglobin 12.9 14.0-18.0 g/dL Hematocrit 37.4 42-52 % Mean Corpuscular Volume 84.4 80-100 fL Mean Corpuscular Hemoglobin 29.1 25-34 pg Mean Corpuscular Hemoglobin Concent 34.5 32-36 g/dl Platelet Count 403 130-400 K/uL Mean Platelet Volume 9.5 7.4-10.4 fL Neutrophils (%) (Auto) 52.7 % Lymphocytes (%) (Auto) 29.3 % Monocytes (%) (Auto) 10.7 % Eosinophils (%) (Auto) 6.4 % Basophils (%) (Auto) 0.6 % Neutrophils # (Auto) 4.72 1.4-6.5 K/uL Lymphocytes # (Auto) 2.62 1.2-3.4 K/uL Monocytes # (Auto) 0.96 0.11-0.59 K/uL Eosinophils # (Auto) 0.57 0-0.5 K/uL Basophils # (Auto) 0.05 0-0.2 K/uL RDW Standard Deviation 39.2 36.4-46.3 fL RDW Coefficient of Variation 12.8 11.5-14.5 % Immature Granulocyte % (Auto) 0.3 % Immature Granulocyte # (Auto) 0.03 0.00-0.02 K/uL Test 11/24/17 08:03 Range/Units Bedside Glucose 78 70-99 mg/dl
[2017-11-24] MEDS ORDERED: SULFAMETHOXAZOLE/TRIMETHOPRIM DS 800/160MG TAB PO ONE (11:15)
[2017-11-24] MEDS ORDERED: SULF800T23 PO (11:16)
[2017-11-24] MEDS ORDERED: IBUP-1459 PO (11:17)
[2017-11-24] MEDS ORDERED: [UNRECOGNIZED DRUG - CODE] (11:39)
--- NOTE | 2017-11-24 11:45 | Discharge Instructions ---
Discharge Instructions Date of Service Nov 24, 2017. Admission Reason for Admission: Foot Infection,Sepsis Discharge Discharge Diagnosis / Problem: Left foot infection (with plantar foot abscess) , Diabetes Mellitus Discharge Goals Goal(s): Decrease discomfort, Improve function, Improve disease control Activity Recommendations Activity Limitations: per Instructions/Follow-up section . Instructions / Follow-Up Instructions / Follow-Up Hospital Course and Discharge Plan Left foot infection (with plantar foot abscess) -admission blood culture no growth to date -admission wound culture as E.coli and Staph Aureus -Infectious disease consult following -11/20/17 Left leg MRI Edema and enhancement within the subcutaneous fat within the plantar surface of the midfoot consistent with a cellulitis. There is also an ill-defined 1.7 x 1.3 cm peripheral enhancing fluid collection at this location consistent with a small abscess. No definite evidence for osteomyelitis. However, evaluation for osteomyelitis is suboptimal due to the chronic deformity/dislocation at the midfoot. -11/21/18 Othropedics Incision and drainage of left plantar foot abscess; Debridement plantar left foot skin including skin, subcutaneous fat, and debridement of fascia; cultures were sent E.coli and Staph Aureus -Infectious disease consult recommends on 11/24/17 to switch from IV Zosyn and IV daptomycin which was started on currently remains on daptomycin and Zosyn on 11/19/17 to Bactrim BID for 14 day course Chronic Lisfranc injury of left foot Charcot foot Diabetes Mellitus HbA1c 10.1 Continue home dose insulin and metformin Hypertension, continue losartan. Hyperlipidemia history lipid profile within normal ranges Evaluated by physical therapy issued and fit with a new pair of aluminum axillary crutches and was able to use axillary crutches for functional mobility without hands-on assistance. NON- WEIGHT BEARING STATUS of left lower extremity Discharge Instructions Please take Bactrim pill twice a day for 2 weeks Please Follow up with: 11/26/2017 11:00 AM Naldo Layton MD [facility] Please have daily dressing changes of the left lower extremity Please use crutches and do not weightbear of left lower extremity until follow up with Dr. Reynolds in 10-14 days from the day of surgery (11/21/18) for wound check and any suture removal. Please call [phone] to make appointment Current Hospital Diet Patient's current hospital diet: AHA Diet (Heart Healthy), Diabetes Type 2 Diet Discharge Diet Recommended Diet: AHA Diet (Heart Healthy) Procedures Procedures Performed: Incision and Drainage Left Plantar Foot Abcess, Debridement foot: skin, subcutaneous fat and fascia. Pending Studies Studies pending at discharge: no Laboratory Results 11/24/17 05:40 Red Blood Count 4.43, Mean Corpuscular Volume 84.4, Mean Corpuscular Hemoglobin 29.1, Mean Corpuscular Hemoglobin Concent 34.5, Mean Platelet Volume 9.5, Neutrophils (%) (Auto) 52.7, Lymphocytes (%) (Auto) 29.3, Monocytes (%) (Auto) 10.7, Eosinophils (%) (Auto) 6.4, Basophils (%) (Auto) 0.6, Neutrophils # (Auto ) 4.72, Lymphocytes # (Auto) 2.62, Monocytes # (Auto) 0.96, Eosinophils # (Auto ) 0.57, Basophils # (Auto) 0.05 11/23/17 05:34 Test 11/19/17 22:08 11/19/17 22:13 11/20/17 06:10 11/23/17 05:34 Total Bilirubin 0.4 mg/dl (0.2-1) Direct Bilirubin 0.1 mg/dl (0-0.2) Aspartate Amino Transf (AST/SGOT) 39 U/L (15-37) Alanine Aminotransferase (ALT/SGPT) 62 U/L (12-78) Alkaline Phosphatase 75 U/L (45-117) Total Creatine Kinase 266 U/L (39-308) Creatine Kinase MB 4.4 ng/ml (0.5-3.6) Creatine Kinase MB Ratio 1.7 (0-3.0) Troponin I < 0.015 ng/ml (0-0.045) Total Protein 7.6 gm/dl (6.4-8.2) Albumin 3.6 gm/dl (3.4-5.0) Lipase 187 U/L (73-393) Thyroid Stimulating Hormone (TSH) 1.910 uIu/ml (0.300-4.500) Bedside Lactic Acid Venous 1.57 mmol/L (0.90-1.70) Prothrombin Time 10.6 SECONDS (9.0-12.0) Prothromb Time International Ratio 1.0 (0.9-1.1) Estimated Average Glucose 243 mg/dl Hemoglobin A1c 10.1 % (4.5-5.6) Triglycerides Level 100 mg/dl (0-150) Cholesterol Level 137 mg/dl (0-200) HDL Cholesterol 34 mg/dl LDL Cholesterol, Calculated 83 mg/dl VLDL Cholesterol, Calculated 20 mg/dl Cholesterol/HDL Ratio 4.0 Anion Gap 6.0 mmol/L (3-11) Est Creatinine Clear Calc Drug Dose 121.1 ml/min Estimated GFR () 96.6 Estimated GFR (Non- 83.3 BUN/Creatinine Ratio 10.6 (10-20) Calcium Level 8.2 mg/dl (8.5-10.1) Magnesium Level 2.1 mg/dl (1.8-2.4) Test 11/24/17 05:40 11/24/17 08:03 White Blood Count 8.95 K/uL (4.8-10.8) Red Blood Count 4.43 M/uL (4.7-6.1) Hemoglobin 12.9 g/dL (14.0-18.0) Hematocrit 37.4 % (42-52) Mean Corpuscular Volume 84.4 fL (80-100) Mean Corpuscular Hemoglobin 29.1 pg (25-34) Mean Corpuscular Hemoglobin Concent 34.5 g/dl (32-36) Platelet Count 403 K/uL (130-400) Mean Platelet Volume 9.5 fL (7.4-10.4) Neutrophils (%) (Auto) 52.7 % Lymphocytes (%) (Auto) 29.3 % Monocytes (%) (Auto) 10.7 % Eosinophils (%) (Auto) 6.4 % Basophils (%) (Auto) 0.6 % Neutrophils # (Auto) 4.72 K/uL (1.4-6.5) Lymphocytes # (Auto) 2.62 K/uL (1.2-3.4) Monocytes # (Auto) 0.96 K/uL (0.11-0.59) Eosinophils # (Auto) 0.57 K/uL (0-0.5) Basophils # (Auto) 0.05 K/uL (0-0.2) RDW Standard Deviation 39.2 fL (36.4-46.3) RDW Coefficient of Variation 12.8 % (11.5-14.5) Immature Granulocyte % (Auto) 0.3 % Immature Granulocyte # (Auto) 0.03 K/uL (0.00-0.02) Bedside Glucose 78 mg/dl (70-99) Date/Time Source Procedure Growth Status 11/19/17 22:37 Blood Blood Culture - Preliminary NO GROWTH TO DATE. Resulted 11/21/17 14:12 Abscess Foot Left Gram Stain - Final Resulted 11/21/17 14:12 Bacterial Culture - Preliminary Escherichia Coli Staphylococcus Aureus Resulted Hemoglobin A1c Test 11/20/17 06:10 Range/Units Estimated Average Glucose 243 mg/dl Hemoglobin A1c 10.1 H 4.5-5.6 % Lipid Panel Test 11/20/17 06:10 Range/Units Triglycerides Level 100 0-150 mg/dl Cholesterol Level 137 0-200 mg/dl HDL Cholesterol 34 mg/dl Cholesterol/HDL Ratio 4.0 LDL Cholesterol, Calculated 83 mg/dl Medical Emergencies . Who to Call and When: Medical Emergencies: If at any time you feel your situation is an emergency, please call 911 immediately. . Non-Emergent Contact Non-Emergency issues call your: Primary Care Provider, Surgeon (orthopedics) Call Non-Emergent contact if: you have any medication questions . . "Provider Documentation" section prepared by Oracio Narayan. . Warehouse Logistics Manager Recommendations Warehouse Logistics Manager Recommendations: MAINTAIN NON-WEIGHT BEARING STATUS CONTINUE WOUND CARE TO LEFT LOWER EXTREMITY WITH DAILY DRESSING CHANGES FOLLOW UP WITH DR. REYNOLDS 10-14 DAYS FOR WOUND CHECK AND SUTURE REMOVAL. UOC: [phone] JACQUES.
--- NOTE | 2017-11-24 11:47 | Discharge Summary ---
Discharge Summary Date of Service Nov 24, 2017. Discharge Summary Admission Date: Nov 20, 2017 at 01:11 Discharge Date: Nov 24, 2017 Discharge Disposition: Home Principal Diagnosis: Left foot infection (with plantar foot abscess) plantar foot abscess was drained by Debridement plantar left foot skin including skin, subcutaneous fat, and debridement of fascia Secondary Diagnoses/Problems: Diabetes Mellitus Type 2 on middle or intermediate school principal insulin Medication Reconciliation New Medications: Elastic Bandages & Supports (ELIZABETH Elastic Bandage 6"/Cl) 1 Mis Mis BOX, #1 2 Refills Ibuprofen (Motrin) 400 Mg Tab 400 MG PO Q6H PRN for Pain for 5 Days, #20 TAB Sulfa/Trimethoprim (Bactrim Ds 800MG/160MG) Tab 1 TAB PO BID for 14 Days, #28 TAB Continued Medications: Aspirin (Aspirin Ec) 81 Mg Tab 81 MG PO DAILY Epinephrine (Epipen 2-Jose) 0.3 Mg Inj 1 DOSE INJ UD PRN for ALLERGIC REACTION Fish Oil ([place]-3) 1 Ea Cap 1 CAP PO DAILY, CAP Insulin Aspart (Novolog Flexpen) 100 Units/Ml Inj 10 UNITS SQ AC, #1 Insulin Glargine (Lantus Solostar) 100 Unit/Ml Inj 55 UNITS SC AMPM, PEN Losartan Potassium (Cozaar) 100 Mg Tab 100 MG PO DAILY, #30 TAB Metformin Hcl (Glucophage) 1,000 Mg Tab 1000 MG PO BID, TAB Multivitamin (Multivitamin) Tab 1 TAB PO DAILY, TAB Admission Information HPI (per Admitting provider): CHIEF COMPLAINT: Fever and left foot infection. HISTORY OF PRESENT ILLNESS: This is a 52-year-old male with past medical history significant for type 1 diabetes, hypertension, hyperlipidemia, aortic valve disorder, bee sting allergy, who presents with fever and left foot pain. Patient states he might have injured his left foot on his vacation several weeks back. He did not notice any pain at the time, but last 2 days he has noticed some pain and also blister in his right foot and not feeling well, but today he was having fever spikes and a lot of discomfort, so he came to the ER. His left lower extremity is somewhat erythematous, but he says he had cellulitis in November of last year and since then he has some erythema and some swelling of left lower extremity. Some edema is still there. Currently, he is tachycardic and temperature spike in the ER. Blood pressure is okay. Resting comfortably. Denies any headaches. No blurred visions. No runny nose, no earaches, no sore throat, no difficulty swallowing. No chest pain, no shortness of breath. No cough, no nausea, no vomiting, no abdominal pain. Normal bowel and bladder movements. Appetite is okay. ALLERGIES: BEE VENOM AND INSECT EXTRACT. PAST MEDICAL HISTORY: As mentioned above. PAST SURGICAL HISTORY: Tonsillectomy, left knee meniscectomy. MEDICATIONS: At home, patient is on Lantus 55 units b.i.d., NovoLog 10 units with each meal, losartan 100 mg p.o. daily, metformin 1000 mg p.o. b.i.d., aspirin 81 mg p.o. daily, fish oil two capsules daily. FAMILY HISTORY: No family history known as patient is adopted. SOCIAL HISTORY: , quit smoking in 1990. Alcohol occasional. No drug use. REVIEW OF SYSTEMS: As per HPI. Rest of review of systems negative. Physical Exam (per Admitting): PHYSICAL EXAMINATION: GENERAL: Patient is obese, not in distress. VITAL SIGNS: Temperature spike to 39.3, heart rate in the 120s, respiratory rate 18, blood pressure 140/72, oxygen 96% room air. HEENT: No pallor, no icterus. Pupils equal, round, and reactive to light. NECK: No JVD, no neck masses, no carotid bruits. CARDIOVASCULAR: S1, S2 heard. Tachycardia. No murmurs. RESPIRATORY SYSTEM: Clear to auscultation bilaterally. No wheezing, no crackles. ABDOMEN: Soft, bowel sounds present. Nontender. No distention. CENTRAL NERVOUS SYSTEM: Cranial nerves II through XII grossly, nonfocal. EXTREMITIES: Left lower extremity slightly erythematous and edema which is chronic. Has blister in his left foot. Hospital Course Hospital Course and Discharge Plan Left foot infection (with plantar foot abscess) -admission blood culture no growth to date -admission wound culture as E.coli and Staph Aureus -Infectious disease consult following -11/20/17 Left leg MRI Edema and enhancement within the subcutaneous fat within the plantar surface of the midfoot consistent with a cellulitis. There is also an ill-defined 1.7 x 1.3 cm peripheral enhancing fluid collection at this location consistent with a small abscess. No definite evidence for osteomyelitis. However, evaluation for osteomyelitis is suboptimal due to the chronic deformity/dislocation at the midfoot. -11/21/18 Othropedics Incision and drainage of left plantar foot abscess; Debridement plantar left foot skin including skin, subcutaneous fat, and debridement of fascia; cultures were sent E.coli and Staph Aureus -Infectious disease consult recommends on 11/24/17 to switch from IV Zosyn and IV daptomycin which was started on currently remains on daptomycin and Zosyn on 11/19/17 to Bactrim BID for 14 day course Chronic Lisfranc injury of left foot Charcot foot Diabetes Mellitus HbA1c 10.1 Continue home dose insulin and metformin Hypertension, continue losartan. Hyperlipidemia history lipid profile within normal ranges Evaluated by physical therapy issued and fit with a new pair of aluminum axillary crutches and was able to use axillary crutches for functional mobility without hands-on assistance. NON- WEIGHT BEARING STATUS of left lower extremity Discharge Instructions Please take Bactrim pill twice a day for 2 weeks Please Follow up with: 11/26/2017 11:00 AM Naldo Layton MD [facility] Please have daily dressing changes of the left lower extremity Please use crutches and do not weightbear of left lower extremity until follow up with Dr. Reynolds in 10-14 days from the day of surgery (11/21/18) for wound check and any suture removal. Please call [phone] to make appointment Total time spent on discharge = 40 minutes This includes examination of the patient, discharge planning, medication reconciliation, and communication with other providers. Discharge Instructions see above
[2017-11-24 13:01] VITALS: BP 172/96; PULSE 79; TEMP 36.6; O2SAT 94
[2017-11-24] MEDS ORDERED: SULFAMETHOXAZOLE/TRIMETHOPRIM DS 800/160MG TAB PO SCH (21:00)
== END 2017-11-24 15:00 | disposition home or self-care (01) | DRG 571 ==
LOC: C.EDB 21:34 → C.2T 11-20 01:11 → ENRESERV 11-20 01:32 → EDBEDREQ 11-22 09:05 → ENRESERV 11-22 09:21 → C.MSW 11-22 10:18
PROVIDERS: ADMIT Hospitalist; ATTEND Hospitalist
PROC: 0JBR0ZZ Excision of Left Foot Subcutaneous Tissue and Fascia, Open Approach (ICD-10-PCS; principal; 2017-11-21 13:00)
PROC: 0J9R0ZZ Drainage of Left Foot Subcutaneous Tissue and Fascia, Open Approach (ICD-10-PCS; principal; 2017-11-21 13:00)
DX: L02.612 Cutaneous abscess of left foot (principal); L03.116 Cellulitis of left lower limb; M72.2 Plantar fascial fibromatosis; B95.61 Methicillin susceptible Staphylococcus aureus infection as the cause of diseases classified elsewhere; B96.20 Unspecified Escherichia coli [E. coli] as the cause of diseases classified elsewhere; S93.325D Dislocation of tarsometatarsal joint of left foot, subsequent encounter; W27.8XXD Contact with other nonpowered hand tool, subsequent encounter; Y93.H9 Activity, other involving exterior property and land maintenance, building and construction; E10.610 Type 1 diabetes mellitus with diabetic neuropathic arthropathy; I10 Essential (primary) hypertension; E78.5 Hyperlipidemia, unspecified; E66.9 Obesity, unspecified; Z68.36 Body mass index [BMI] 36.0-36.9, adult; Z87.891 Personal history of nicotine dependence; Z79.82 Long term (current) use of aspirin; Z79.899 Other long term (current) drug therapy; Z91.030 Bee allergy status; Z91.038 Other insect allergy status

== ENCOUNTER 2018-05-10 14:52 | Inpatient (IN) ==
[2018-05-10 15:53] LABS: Basophils # (auto) 0.02 K/uL (0-0.2); Basophils % (auto) 0.1 %; Eosinophils # (auto) 0.08 K/uL (0-0.5); Eosinophils % (auto) 0.4 %; Hematocrit (blood only) 44.4 % (42-52); Hemoglobin 15.5 g/dL (14.0-18.0); Immature Granulocytes # (auto) 0.15 K/uL (0.00-0.02); Immature Granulocytes % (auto) 0.7 %; Lymphocytes # (auto) 1.07 K/uL (1.2-3.4); Lymphocytes % (auto) 5.2 %; Mean Corpuscular Hgb Conc 34.9 g/dL (32-36); Mean Corpuscular Volume 84.3 fL (80-100); Mean Platelet Volume 10.4 fL (7.4-10.4); Monocytes # (auto) 1.09 K/uL (0.11-0.59); Monocytes % (auto) 5.3 %; Neutrophils # (auto) 18.21 K/uL (1.4-6.5); Neutrophils % (auto) 88.3 %; Platelet Count 324 K/uL (130-400); RDW Coefficient of Variation 12.7 % (11.5-14.5); RDW Standard Deviation 38.3 fL (36.4-46.3); Red Blood Count 5.27 M/uL (4.7-6.1); White Blood Count 20.62 K/uL (4.8-10.8)
[2018-05-10 16:06] LABS: Alanine Aminotransferase 43 U/L (12-78); Aspartate Aminotransferase 31 U/L (15-37); BUN Creatinine Ratio 14.8 (10-20); Blood Urea Nitrogen 22 mg/dl (7-18); C Reactive Protein 1.42 mg/dl (0-0.29); Calcium 9.3 mg/dl (8.5-10.1); Carbon Dioxide 23 mmol/L (21-32); Chloride 102 mmol/L (98-107); Est GFR (African American) 63.6; Est GFR (Non-African American) 54.8; Glucose 192 mg/dl (70-99); Sodium 135 mmol/L (136-145)
[2018-05-10 16:07] LABS: Prothrombin Time 10.2 Seconds (9.0-12.0)
[2018-05-10 16:09] LABS: Albumin Globulin Ratio 0.7 (0.9-2); Alkaline Phosphatase 73 U/L (45-117); Bilirubin,Total 0.8 mg/dl (0.2-1)
[2018-05-11 07:53] LABS: Hematocrit (blood only) 36.9 % (42-52); Hemoglobin 12.7 g/dL (14.0-18.0); Mean Corpuscular Hgb Conc 34.4 g/dL (32-36); Mean Corpuscular Volume 84.4 fL (80-100); Mean Platelet Volume 10.2 fL (7.4-10.4); Platelet Count 289 K/uL (130-400); RDW Standard Deviation 39.5 fL (36.4-46.3); Red Blood Count 4.37 M/uL (4.7-6.1); White Blood Count 28.56 K/uL (4.8-10.8)
[2018-05-11 08:18] LABS: BUN Creatinine Ratio 11.9 (10-20); Calcium 7.8 mg/dl (8.5-10.1); Creatinine Clr Calc Pharmacy 58.7 ml/min; Est GFR (African American) 40.6; Potassium 3.9 mmol/L (3.5-5.1)
[2018-05-12 07:03] LABS: Basophils # (auto) 0.04 K/uL (0-0.2); Basophils % (auto) 0.2 %; Eosinophils # (auto) 0.09 K/uL (0-0.5); Eosinophils % (auto) 0.5 %; Hematocrit (blood only) 35.8 % (42-52); Hemoglobin 12.3 g/dL (14.0-18.0); Immature Granulocytes # (auto) 0.06 K/uL (0.00-0.02); Immature Granulocytes % (auto) 0.3 %; Lymphocytes # (auto) 2.29 K/uL (1.2-3.4); Lymphocytes % (auto) 12.2 %; Mean Corpuscular Hgb Conc 34.4 g/dL (32-36); Mean Corpuscular Volume 85.9 fL (80-100); Mean Platelet Volume 10.2 fL (7.4-10.4); Monocytes # (auto) 1.46 K/uL (0.11-0.59); Monocytes % (auto) 7.8 %; Neutrophils # (auto) 14.78 K/uL (1.4-6.5); Platelet Count 267 K/uL (130-400); RDW Coefficient of Variation 13.4 % (11.5-14.5); RDW Standard Deviation 41.8 fL (36.4-46.3); Red Blood Count 4.17 M/uL (4.7-6.1); White Blood Count 18.72 K/uL (4.8-10.8)
[2018-05-12 07:42] LABS: BUN Creatinine Ratio 10.1 (10-20); Calcium 7.4 mg/dl (8.5-10.1); Creatinine Clr Calc Pharmacy 54.3 ml/min; Est GFR (Non-African American) 31.9; Potassium 3.8 mmol/L (3.5-5.1)
[2018-05-13 07:05] LABS: Basophils # (auto) 0.03 K/uL (0-0.2); Basophils % (auto) 0.2 %; Eosinophils # (auto) 0.32 K/uL (0-0.5); Eosinophils % (auto) 2.2 %; Hematocrit (blood only) 36.4 % (42-52); Hemoglobin 12.4 g/dL (14.0-18.0); Immature Granulocytes # (auto) 0.05 K/uL (0.00-0.02); Immature Granulocytes % (auto) 0.3 %; Lymphocytes % (auto) 16.5 %; Mean Corpuscular Hgb Conc 34.1 g/dL (32-36); Mean Corpuscular Volume 86.5 fL (80-100); Mean Platelet Volume 10.3 fL (7.4-10.4); Monocytes # (auto) 1.06 K/uL (0.11-0.59); Monocytes % (auto) 7.3 %; Neutrophils % (auto) 73.5 %; Platelet Count 268 K/uL (130-400); RDW Coefficient of Variation 13.6 % (11.5-14.5); RDW Standard Deviation 42.9 fL (36.4-46.3); Red Blood Count 4.21 M/uL (4.7-6.1); White Blood Count 14.56 K/uL (4.8-10.8)
[2018-05-13 07:37] LABS: Calcium 7.9 mg/dl (8.5-10.1); Creatinine Clr Calc Pharmacy 64.7 ml/min; Est GFR (African American) 44.9; Est GFR (Non-African American) 38.7
[2018-05-14 06:52] LABS: Basophils # (auto) 0.04 K/uL (0-0.2); Basophils % (auto) 0.3 %; Eosinophils # (auto) 0.43 K/uL (0-0.5); Eosinophils % (auto) 3.1 %; Hematocrit (blood only) 39.6 % (42-52); Hemoglobin 13.8 g/dL (14.0-18.0); Immature Granulocytes # (auto) 0.08 K/uL (0.00-0.02); Immature Granulocytes % (auto) 0.6 %; Lymphocytes # (auto) 2.49 K/uL (1.2-3.4); Lymphocytes % (auto) 18.2 %; Mean Corpuscular Hgb Conc 34.8 g/dL (32-36); Mean Corpuscular Volume 86.8 fL (80-100); Mean Platelet Volume 10.2 fL (7.4-10.4); Monocytes # (auto) 1.25 K/uL (0.11-0.59); Monocytes % (auto) 9.1 %; Neutrophils % (auto) 68.7 %; Platelet Count 322 K/uL (130-400); RDW Coefficient of Variation 13.2 % (11.5-14.5); RDW Standard Deviation 41.9 fL (36.4-46.3); Red Blood Count 4.56 M/uL (4.7-6.1); White Blood Count 13.69 K/uL (4.8-10.8)
[2018-05-14 07:25] LABS: BUN Creatinine Ratio 13.9 (10-20); Calcium 8.9 mg/dl (8.5-10.1); Creatinine Clr Calc Pharmacy 70.1 ml/min; Est GFR (African American) 49.4; Est GFR (Non-African American) 42.6; Magnesium 2.4 mg/dl (1.8-2.4); Potassium 3.6 mmol/L (3.5-5.1)
[2018-05-15 06:43] LABS: Hematocrit (blood only) 36.1 % (42-52); Hemoglobin 12.4 g/dL (14.0-18.0); Mean Corpuscular Hgb Conc 34.3 g/dL (32-36); Mean Platelet Volume 10.5 fL (7.4-10.4); Platelet Count 351 K/uL (130-400); RDW Coefficient of Variation 13.2 % (11.5-14.5); RDW Standard Deviation 41.5 fL (36.4-46.3); White Blood Count 11.23 K/uL (4.8-10.8)
[2018-05-15 07:16] LABS: BUN Creatinine Ratio 14.4 (10-20); Calcium 8.8 mg/dl (8.5-10.1); Creatinine Clr Calc Pharmacy 72.7 ml/min; Est GFR (African American) 51.8; Est GFR (Non-African American) 44.7; Potassium 4.3 mmol/L (3.5-5.1)
[2018-05-16 06:58] LABS: Hemoglobin 12.2 g/dL (14.0-18.0); Mean Corpuscular Hgb Conc 33.9 g/dL (32-36); Mean Corpuscular Volume 85.5 fL (80-100); Mean Platelet Volume 10.6 fL (7.4-10.4); Platelet Count 409 K/uL (130-400); RDW Coefficient of Variation 13.2 % (11.5-14.5); RDW Standard Deviation 41.2 fL (36.4-46.3); Red Blood Count 4.21 M/uL (4.7-6.1); White Blood Count 13.12 K/uL (4.8-10.8)
[2018-05-16 07:15] LABS: BUN Creatinine Ratio 17.4 (10-20); Calcium 8.8 mg/dl (8.5-10.1); Creatinine Clr Calc Pharmacy 79.1 ml/min; Est GFR (African American) 57.4; Est GFR (Non-African American) 49.5; Potassium 3.9 mmol/L (3.5-5.1)
[2018-05-17 07:14] LABS: BUN Creatinine Ratio 14.9 (10-20); Calcium 8.6 mg/dl (8.5-10.1); Creatinine Clr Calc Pharmacy 63.9 ml/min; Est GFR (African American) 44.3; Est GFR (Non-African American) 38.3; Potassium 3.9 mmol/L (3.5-5.1)
[2018-05-17 10:50] LABS: Creatinine Clr Calc Pharmacy 68.8 ml/min; Est GFR (African American) 48.4; Est GFR (Non-African American) 41.8
[2018-05-18 07:28] LABS: BUN Creatinine Ratio 16.8 (10-20); Calcium 8.6 mg/dl (8.5-10.1); Creatinine Clr Calc Pharmacy 72.3 ml/min; Est GFR (African American) 51.5; Est GFR (Non-African American) 44.4; Potassium 4.3 mmol/L (3.5-5.1)
== END 2018-05-18 17:10 | disposition home health service (06) ==
LOC: ED 14:52 → SUATTDRO 16:44 → 2S 16:44 → 4W 05-15 15:40

== ENCOUNTER 2024-09-02 09:08 | Inpatient (IN) ==
--- OUTSIDE RECORDS SUMMARY | 2024-09-02 09:43 | External Medical Summary | Summary of Care ---
Author Name Unknown Organization [facility] Address [address] [place] [address] Phone [phone] Care Team Providers Care Feather Baler Name Role Phone Sisi Fountain JAQUELIN Primary Care Provider [phone]- [phone] Reason for Visit * Reason Comments Dosage Adjustment In Person (Anticoag Cl inic) Diabetes Follow-Up Encounter Details Date Type Department Care Team ([facility] Contact Info) Description 08/31/2024 8:00 AM EDT Office Visit Pharmacy, [facility] [address] [place] [address] [facility] [address] [place] [address] Type 2 diabetes mellitus with stage 3b chronic kidney disease, with long-term current use of insulin ([facility])*; Hypertension goal BP (blood pressure) < 130/80; Dyslipidemia, goal LDL below 70 Allergies Active Allergy Reactions Criticality Noted Date Comments Bee Venom Anaphylaxis High 02/21/2014 Insect Extract High 06/09/2014 documented as of this encounter (statuses as of 08/31/2024) Medications FISH OIL 300 MG PO CAPS One TAB TWICE DAILY Active ASPIRIN 81 MG PO TABS one tablet daily Act gurpreet Multi-Vitamins Oral Tablet Take 1 Tablet by mouth in the morning. Active Dexcom G6 SensorIndication s:Type 2 diabetes mellitus with hemoglobin A1c goal of less than 7.0% (HCC) Use as directed. Use 1 sensor every 10 days. 9 Each 04/16/20 23 Active Dexcom G6 TransmitterIndic ations:Type 2 diabetes mellitus with hemoglobin A1c goal of less than 7.0% ([facility]) Use as directed. Use 1 transmitter every 90 days. 1 Each 04/16/20 23 Active Insulin Aspart 100 UNIT/ML Injection Solution (NovoLOG)Indicat ions:Type 1 diabetes mellitus with hemoglobin A1c goal of less than 8.0% (HCC) INJECT 10 UNITS SUBCUTANEOUSLY WITH MEALS 30 mL 1 05/14/19 24 Active NovoLOG FlexPen 100 UNIT/ML Subcutaneous Solution Pen-injector (insulin aspart) Inject 10 Units under the skin in the morning and 10 Units at noon and 10 Units in the evening. Inject with meals. 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, with long-term current use of insulin, unspecified retinopathy severity ([facility]),Type 2 diabetes mellitus with hemoglobin A1c goal of less than 7.0% ([facility]) Use as directed to inject insulin 3 times daily with meals 500 Each 3 10/01/19 24 Active BD Pen Needle Short U/F 31G X 8 MM (Insulin Pen Needle)Indicatio ns:Type 2 diabetes mellitus with stage 3b chronic kidney disease, with long-term current use of insulin ([facility]),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 450 Each 3 10/09/19 24 Active EPINEPHrine 0.3 MG/0.3ML Injection Solution Auto-injector (Autoinjector)In dications:Bee sting allergy For a severe reaction: Place orange end against the outer thigh, press firmly, hold in place for 10 seconds and go to the Emergency room. 2 Each 2 01/01/20 24 Active Insulin Aspart 100 UNIT/ML Injection Solution (NovoLOG) Use 100 units in insulin pump daily E 11.9 90 mL 3 01/13/20 24 Active Omnipod 5 G7 Intro (Gen 5) Kit Use to control insulin pump E11.9 1 Kit 01/18/20 24 Active Empagliflozin 25 MG Oral Tablet (Jardiance)Indic ations:Type 2 diabetes mellitus with hemoglobin A1c goal of less than 7.0% (HCC) Take 1 Tablet by mouth in the morning. 90 Tablet 3 02/11/20 24 Active Atorvastatin Calcium 40 MG Oral Tablet (Lipitor)Indicat ions:Dyslipidemi a, goal LDL below 100 Take 1 Tablet by mouth in the morning. 90 Tablet 2 03/15/20 24 Active Semaglutide 14 MG Oral Tablet (Rybelsus)Indica tions:Type 2 diabetes mellitus with hemoglobin A1c goal of less than 7.0% (HCC) Take 14 mg by mouth daily first thing in the morning. 90 Tablet 2 04/30/19 25 Active Losartan Potassium 100 MG Oral Tablet (Cozaar)Indicati ons:HTN, goal below 140/90 Take 1 Tablet by mouth in the morning. 90 Tablet 1 06/07/19 25 Active Omnipod 5 G7 Pods (Gen 5) Use 1 pod every 2 days E11.9 180 Each 15 08/19/19 25 Active amLODIPine Besylate 5 MG Oral Tablet (Norvasc) Take 1 Tablet by mouth in the morning. 90 Tablet 3 08/24/19 25 Active hydroCHLOROthiaz rebecca 25 MG Oral Tablet (Hydrodiuril) Take 1 Tablet by mouth in the morning. 90 Tablet 3 08/24/19 25 Active Carvedilol 25 MG Oral Tablet (Coreg) Take 2 Tablets by mouth 2 times a day with morning and evening meals. 360 Tablet 3 08/24/19 25 Active documented as of this encounter (statuses as of 08/31/2024) Active Problems Problem Noted Date Diagnosed Date Abnormal nuclear stress test 02/22/2024 Chronic kidney disease, stage 3b 09/07/2023 Overview: Per CKD protocol Assessment & Plan (08/18/2024 12:33 PM EDT): Morbid obesity due to excess calories 01/20/2022 Adjustment disorder with mixed anxiety and depre ssed mood 01/20/2022 Body mass index (BMI) of 40.0 to 44.9 in adult 1 Overview: Per Obesity protocol Thoracic aortic aneurysm without rupture 019 Ascending aortic aneurysm 01/18/2019 Assessment & Plan (08/18/2024 12:33 PM EDT): Nonrheumatic aortic valve stenosis 01/18/2019 Bicuspid aortic valve 01/18/2019 Assessment & Plan (08/18/2024 12:33 PM EDT): Charcot foot due to diabetes mellitus 01/26/2018 Assessment & Plan (08/18/2024 12:33 PM EDT): Orders: HEMOGLOBIN A1C; Future PODIATRY REFERRAL OP Type 2 diabetes mellitus wit h diabetic polyneuropathy, with long-term current use of insulin 07/15/2016 Assessment & Plan (08/18/2024 12:33 PM EDT): Bee sting allergy 08/31/2014 Aortic valve disorder 05/29/2014 Overview (08/01/2016): biscuspid aortic valve Recheck echo in 2019 Type 2 diabetes mellitus wit h stage 3b chronic kidney disease, with long-term current use of insulin 02/21/2014 Overview (08/28/2015): ICD-10 update of inactive term Assessment & Plan (08/18/2024 12:33 PM EDT): Hypertension goal BP (blood pressure) < 130/80 1 Assessment & Plan (08/18/2024 12:33 PM EDT): Dyslipidemia, goal LDL below 70 02/21/2014 Assessment & Plan (08/18/2024 12:33 PM EDT): documented as of this encounter (statuses as of 08/31/2024) Resolved Problems Problem Noted Date Diagnosed Date Resolved Date Type 2 diabetes mellitus wit h stage 3a chronic kidney disease, with long-term current use of insulin 04/12/2022 05/08/2022 Stage 3a chronic kidney disease 08/06/2020 09/09/2023 Overview: Per CKD protocol Encounter for examination fo r normal comparison and control in clinical research program 06/03/2019 12/14/2020 Overview (08/13/2020): PERT (Performance of Epi proColon in Repeated Testing in the Intended Use Population) Epi proColon is an FDA approved blood test designed to detect Colon Cancer. The object of this study is to evaluate longitudinal performance of Epi proColon with respect to test positivity, longitudinal adherence to Epi proColon screening, adherence to follow-up colonoscopy and diagnostic yield, as well as assay failure rates. Contacts: PI: Dr. Jennifer Thomson [facility]- Griselda Dickson ([phone]) [facility] CRC- Amy Werner ([phone]) [facility]- Ingris Devine ([phone]) Diagnosis changed due to Research Module. Go to Snapshot for study details. Type 1 diabetes mellitus wit h foot ulcer (CODE) 11/25/2018 01/03/2020 documented as of this encounter (statuses as of 08/31/2024) Immunizations Name Administration Dates Next Due COVID-19 mRNA, LNP-s, No Pre serve, 2-Dose Series (Pfizer) 07/07/2020,06/10/2020 Hepatitis B, 20+ yrs 12/01/2014,08/31/2014,05/29 Pneumococcal Conjugate Vacci ne, 20-valent (Bztoist32) 01/20/2022 Pneumococcal Polysaccharide PPV23 (Pneumovax) 05/29/2014 Seasonal Influenza Vac., MDV , IM, 0.5 mL (Fluzone) 02/21/2014 Seasonal Influenza, PF, 6 M & above, IM , (FluLaval or Fluzone) 12/31/2022,01/20/2022,02/04/2021,01/02,12/30/2018,01/26/2018 Seasonal Influenza, Quadriva lent, No Preserve, IM 01/01/2017,02/26/2015 TDAP (age 10 and older)(Boostrix) 02/21/2014 TDAP, Age 7 and older, IM (Adacel) 08/18/2024 Zoster Vaccine Recombinant (Shingrix) 02/04/2021 ,08/03/2020 documented as of this encounter Social History Tobacco Use Types Packs/Day Years Used Date Smoking Tobacco: Former Cigars Smokeless Tobacco: Never Alcohol Use Standard Drinks/Week Comments Yes 0 (1 standard drink = 0.6 oz pur e alcohol) occ. PHQ-2 Answer Date Recorded PHQ Adult Total Score 2 03/31/2023 Hunger Vital Sign Answer Date Recorded Within the past 12 months, y ou worried that your food would run out before you got the money to buy more. Never true 12/21/19 24 Within the past 12 months, t he food you bought just didn't last and you didn't have money to get more. Never true 12/21/2023 Childcare Answer Date Recorded Do you feel overwhelmed with taking care of a child, family member or friend? No 12/21/2023 Does your family need help f inding childcare? (Household - for ages 0-17 years) Not on file 12/21/2023 Clothing Answer Date Recorded Have you been unable to get clothing when it was really needed? No 12/21/2023 Is your family able to get c lothes or diapers when needed? (Household - for ages 0-17 years) Not on file 12/21/2023 Personal Safety Answer Date Recorded Do you feel unsafe or have concerns for your saf ety? No 12/21/2023 Do you have concerns for you r family's safety? (Household - for ages 0-17 years) Not on file 12/21/2023 Utilities Answer Date Recorded Do you have trouble paying y our heating, water, or electric bill? No 12/21/2023 Is your family able to pay t he heat, water, or electric bill? (Household - for ages 0-17 years) Not on file 12/21/2023 Does your family have access to good internet? (Household - for ages 0-17 years) Not on file 12/21/2023 Employment Status Answer Date Recorded Are you unemployed or without regular income? No 12/21/2023 Does the household have a re gular source of income? (Household - for ages 0-17 years) Not on file 12/21/2023 Social Connections Answer Date Recorded How often do you feel lonely or isolated from th ose around you? Rarely 12/21/2023 Financial Resource Strain Answer Date R ecorded Do you have any trouble payi ng for your medications, or do you think you might in the future? No 12/21/2023 Does your family have troubl e paying for medicine? (Household - for ages 0-17 years) Not on file 12/21/2023 Transportation Needs Answer Date Record ed Do you have trouble getting a ride to medical visits or work? (Adult - for ages 18 years and over) Not on file 12/21/2023 Does your family have a hard time getting a ride to doctors visits? (Household - for ages 0-17 years) Not on file 12/21/2023 Has lack of transportation k ept you from medical appointments, meetings, work, or from getting things needed for daily living? Check all that apply. No 12/21/2023 Do you (or your family) have trouble finding or paying for a ride (transportation)? (Household - for ages 0-17 years) Not on file 12/21/2023 Housing Stability Answer Date Recorded Do you currently live in a s helter or have no steady place to sleep at night? No 12/21/2023 Do you think you are at risk of becoming homeless? (Adult - for ages 18 years and over) Not on file 12/21/2023 Does your family worry about paying for your home or becoming homeless? (Household - for ages 0-17 years) Not on file 0 12/21/2023 Are you homeless or worried that you might be in the future? No 12/21/2023 Are you (or your family) allison eless or worried that you might be in the future? (Household - for ages 0-17 years) Not on file Food Insecurity Answer Date Recorded Do you need food for this week? No 12/21/2023 Are you able to get enough f ood for your family? (Household - for ages 0-17 years) Not on file 12/21/2023 Does your family need food t his week? (Household - for ages 0-17 years) Not on file 12/21/2023 Do you always have enough fo od for your family? (Household - for ages 0-17 years) Not on file 12/21/2023 Food Insecurity Answer Date Recorded Within the past 12 months, y ou worried that your food would run out before you got the money to buy more. Never true 12/21/19 24 Within the past 12 months, t he food you bought just didn't last and you didn't have money to get more. Never true 12/21/2023 Do you need food for this week? 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 Medication Therapy Disease [facility] - Diabetes Management Progress Note Karl Wilkerson, identified by name and date of , is a 59 year old male being seen for diabetes management/education. Patient presents for return diabetic visit. DIABETES: Current diabetic medications: Rybelsus 14 mg daily Jardiance 25 mg daily Omnipod Insulin Pump Insulin: Novolog Basal Rate: 1.8 units/hour Bolus: 15 carbs with breakfast, 45 carbs with lunch and dinner Bolus Calculator: on and using ICR: 1:5 INC: ISF: 1:10 Blood Glucose Goal Limits: 70-150 Bolus Calculator: Target B DECREASE: Correct above: 140 Minimum B INCREASE: Active Insulin Time: 2 hours Medication Injection Site: Abdomen Lifestyle: Diet: unchanged Glucose Review/SMBG: Readings obtained from patient device Hypoglycemia: Does your blood sugar go below 70 mg/dL? No Hyperglycemia symptoms present: none Recent Labs Units 08/23/24 0736 01/01/24 0831 10/01/23 0933 HEMOGLOBIN A1C - [facility] % 10.1* -- 11.7* HEMOGLOBIN A1C POCT - [facility] % -- 11.0* -- Recent Labs Units 07/13/24 0714 10/01/23 0933 08/26/23 0814 ESTIMATED GLOMERULAR FILTRATION RATE - [facility] mL/min 39* 39* 34* CREATININE - [facility] mg/dL 2.0* 2.0* 2.2* HYPERTENSION: Patient on ACEi/ARB: yes BP Readings from Last 3 Encounters: 08/23/24 132/84 08/19/24 131/79 08/18/24 126/74 Blood pressure at goal: yes HYPERLIPIDEMIA: Recent Labs Units 08/23/24 0736 10/01/23 0933 07/29/23 0715 LDL CHOLESTEROL (DIRECT MEASURE) - [facility] mg/dL 49 67 69 Does patient have clinical ASCVD? Yes, is patient LDL less than 55 mg/dL? Yes HEALTH MAINTENANCE REVIEW: Health Maintenance Due Topic Date Due Depression Screening Never done HIV Screening Never done Hepatitis C Screening Never done Colorectal Cancer Screening 08/09/2023 COVID-19 Vaccine () 12/27/2023 Diabetic Foot Exam 09/30/2024 ASSESSMENT & PLAN: ICD-10-CM 1. Type 2 diabetes mellitus with stage 3b chronic kidney disease, with long-term current use of insulin (HCC) E11.22 N18.32 Z79.4 2. Hypertension goal BP (blood pressure) < 130/80 I10 3. Dyslipidemia, goal LDL below 70 E78.5 BG Readings - Blood sugars uncontrolled. BG values remain elevated. Medications - Reviewed current regimen, patient is adherent to regimen. Will increase CF and targetBG lower. Diet, Exercise, Lifestyle - No significant lifestyle changes since last visit. Discussed with patient. Patient is agreeable to CGM Patient aware to contact clinic if any hypoglycemia before next visit. MEDICATION CHANGES: yes, see below; preferred pharmacy: [facility] Diabetic Medications: Rybelsus 14 mg daily Jardiance 25 mg daily Omnipod Insulin Pump Insulin: Novolog Basal Rate: 1.8 units/hour Bolus: 15 carbs with breakfast, 45 carbs with lunch and dinner Bolus Calculator: on and using ICR: 1:5 INC: ISF: 1:7 Blood Glucose Goal Limits: 70-150 Bolus Calculator: Target B DECREASE: Correct above: 130 Minimum B Active Insulin Time: 2 hours HEALTH MAINTENANCE INTERVENTIONS: Labs: Up to Date Immunizations: Up to Date Foot Exam: Up to Date Eye Exam: Up to Date Annual Wellness Visit: Up to Date FOLLOW UP: Return to clinic in 8 weeks 11/02/2024 I spent a total of 20-29 minutes (exact time 25 mins) on the date of service in preparation, delivery, and documentation of the care provided to Karl Wilkerson excluding any time spent in the performance of separately billed services. Brissa Tena [facility] Clinical Pharmacist - Supervisor [employer] Medication Therapy Management Clinic 08/31/2024, 7:54 AM documented in this encounter Plan of Treatment Upcoming Encounters Date Type Department Care Team (Late st Contact Info) Description 09/08/2024 8:00 AM EDT Imaging Radiology [address] [place] [address] 09/15/2024 9:30 AM EDT Office Visit Cardiothoracic Surg [facility] [address] [place] [address] Srinivasa Stanton MD [address] [place] [address] 09/30/2024 1:30 PM EDT Hospital Encounter ENDO [facility], Endoscopy Room [facility] [address] [place] [id number] Kitty Cooper MD [address] [place] [address] 09/30/2024 1:30 PM EDT - 09/30/2024 2:00 PM EDT Surgery ENDO [facility], Endoscopy Room [facility] [address] [place] [address] Kitty Cooper MD [address] [place] [address] COLONOSCOPY FLEXIBLE PROXIMAL DIAGNOSTIC 11/02/2024 8:00 AM EDT Office Visit Pharmacy, [facility] [address] [place] [address] [facility] [address] [place] [address] 12/06/2024 7:45 AM EDT Office Visit Ophthalmology, [facility] [address] [place] [phone] César Recinos DO [address] [place] [address] 02/27/2025 8:00 AM EST Office Visit Cardiology, [facility] [address] [place] [phone] Emile Palma, PASharminC [address] [place] [address] 03/06/2025 10:00 AM EST Office Visit Nephrology, [address] [place] [address] Mee Coughlin MD [address] [place] [address] [place], [place] [id number] Scheduled Procedures Name Priority Associated Diagnoses Date/Ti me COLONOSCOPY FLEXIBLE PROXIMAL DIAGNOSTIC Recall History of colon polyps 09/30/2024 1:30 PM EDT Health Maintenance Due Date Last Done Comments Depression Screening 1979 HIV Screening 07/20/1982 Hepatitis C Screening 07/20/1985 Cologuard 07/20/2012 Fecal Occult Blood Test 07/20/2012 Sigmoidoscopy 07/20/2012 Colonoscopy 08/09/2023 08/08/2022, 08/08/2022 Colorectal Cancer Screening 08/09/2023 COVID-19 Vaccine ( season) 2023 07/07/2020, 06/10/2020 CKD HGB USE SMARTSET 88888 09/30/202409/30, 10/01/2023, 07/29/2023, Additional history exists CKD PHOS USE SMARTSET 17121 09/30/2024 06/0 09/2023, 03/31/2022, 02/01/2021 Diabetic Foot Exam 09/30/2024 10/01/2023, 0 09/29/2022, 01/03/2020, Additional history exists Influenza Vaccine (FLU shot) (Season Ended) 2024 12/31/2022, 01/20/2022, 02/04/2021, Additional history exists GFR 01/13/2025 07/13/2024, 06/0 09/2023, 08/26/2023, Additional history exists HbA1c 02/22/2025 08/23/2024, 09/0 09/2023, 10/01/2023, Additional history exists B-12 07/13/2025 07/13/2024, 12/0 08/2022, 08/20/2021, Additional history exists Albumin/Creatinine Ratio 08/23/2025 025, 03/31/2023, 01/20/2022, Additional history exists Diabetic Eye Exam 08/24/2025 08/24/2024, , 05/07/2023, Additional history exists Lipid Panel 08/23/2029 08/23/2024, 06/0 09/2023, 07/29/2023, Additional history exists DTap/Tdap Vaccines (3 - Td or Tdap) 08/18/2034 08/18/2024, 02/21/2014 Hepatitis B Vaccine Completed 12/01/2014, 08/31/2014, 05/29/2014 Zoster Vaccines Completed 02/04/2021, 08/03/2020 Pneumococcal Vaccine: 50+ Years Completed 01/20/2022, 05/29/2014 RETIRED - COLONOSCOPY-ANNUAL AGES 18-100 Discontinued 08/08/2022, 08/08/2022 HPV (Gardasil) Vaccine Aged Out No lo nger eligible based on patient's age to complete this topic MENINGOCOCCAL (MENACTRA/MENVEO) Aged Out No longer eligible based on patient's age to complete this topic Meningitis B Vaccine (Bexsero/Trumemba) Aged Out No longer eligible based on patient's age to complete this topic documented as of this encounter Medical Devices Implanted Type Area C Software Developer Device Identifier Shelf Expiration Date Model / Serial / Lot Lens [id number] 12.5mm+21.50 - [id number] - [id number] Implanted:Qty: 1 on 07/08/2023 by Naldo Rviera DO at OR [facility] Left: Eye ORTEGA 02/24/2026 [id number] / [id number] / [id number] documented as of this encounter Visit Diagnoses Diagnosis Type 2 diabetes mellitus with hemoglobin A1c goal of less than 7.0% ([facility])- Primary Need for ttsuyhvkkl-jlsotnj-otpsscyef (Tdap) vaccine Need for prophylactic vaccination with combined ubknifceka-yjifhoi-iyejqnczk (DTP) vaccine Charcot foot due to diabetes mellitus (HCC) Type II or unspecified type diabetes mellitus with neurological manifestations, not stated as uncontrolled Type 2 diabetes mellitus with stage 3b chronic kidney disease, with long-term current use of insulin (HCC) Dyslipidemia, goal LDL below 100 Other and unspecified hyperlipidemia Type 2 diabetes mellitus with diabetic polyneuropathy, with long-term current use of insulin ([facility]) Dyslipidemia, goal LDL below 70 Other and unspecified hyperlipidemia Aneurysm of ascending aorta without rupture (HCC) Bicuspid aortic valve Congenital insufficiency of aortic valve Chronic kidney disease, stage 3b (HCC) Hypertension goal BP (blood pressure) < 130/80 Unspecified essential hypertension Type 2 diabetes mellitus with stage 3b chronic kidney disease, with long-term current use of insulin (HCC)- Primary Hypertension goal BP (blood pressure) < 130/80 Unspecified essential hypertension Dyslipidemia, goal LDL below 70 Other and unspecified hyperlipidemia History of colon polyps Personal history of colonic polyps documented in this encounter Advance Directives * Full Code (Latest Code Status on File) Date Activated Date Inactivated Comments 07/08/2023 11:09 AM 07/08/2023 5:48 PM Question Answer Comments Discussion of Advance Direct sanford occurred with: Not Discussed due to patient's condition Care Teams Feather Baler Relationship Specialty Start Date End Date Sisi Fountain CRNP [address] [facility] [place] [address] PCP - General Nurse Practitioner 01/14/23 documented as of this encounter
--- OUTSIDE RECORDS SUMMARY | 2024-09-02 09:43 | External Medical Summary | Summary of Care ---
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 Use 1 transmitter every [...] disease, with long-term current use of insulin ([facility]),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, with long-term current use of insulin, unspecified retinopathy severity ([facility]),Type 2 diabetes mellitus with hemoglobin A1c goal of less than 7.0% ([facility]) Use as directed to inject insulin 3 times daily with meals 500 Each 3 10/01/19 24 Active BD Pen Needle Short U/F 31G X 8 MM (Insulin Pen Needle)Indicatio ns:Type 2 diabetes mellitus with stage 3b chronic kidney disease, with long-term current use of insulin ([facility]),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, with long-term current use of insulin, unspecified retinopathy severity ([facility]),Type 2 diabetes mellitus with hemoglobin A1c goal of less than 7.0% ([facility]) USE TO INJECT LANTUS INSULIN DIRECTED FIVE [...] as of this encounter (statuses as of 08/24/2024) Active Problems Problem Noted Date Diagnosed Date [...] as of this encounter (statuses as of 08/24/2024) Resolved Problems Problem Noted Date Diagnosed Date [...] PI: Dr. Jennifer Thomson [facility]- Griselda Dickson ([phone]) [facility]- Amy Werner ([phone]) [facility]- Ingris Devine ([phone]) Diagnosis changed due to Research Module. Go to Snapshot for study details. 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 Last Office Visit: Visit date not found (in office), Visit date not found (telemedicine) Patient currently states no change in vision. Are you diabetic? Yes. Do you check your blood sugars daily? YES. BS now: 375, "284 when woke up" mg/dl. Last Hemoglobin A1C: Lab Results Component Value Date/Time HGBA1C 10.1 (H) 08/23/2024 07:36 AM HGBA1C 11.0 (H) 01/01/2024 08:31 AM HGBA1C 11.7 (H) 10/01/2023 09:33 AM HGBA1C 9.9 (H) 03/31/2023 09:14 AM HGBA1C 9.9 (H) 11/02/2019 09:14 AM HGBA1C 8.1 (H) 12/30/2018 09:05 AM HGBA1C 7.6 (H) 04/05/2018 09:[address]? yes OCT image(s) of both eyes acquired and filed/scanned into chart. Base Eye Exam Visual Acuity (Snellen - Linear) Right Left Dist sc 20/30 -1 20/50 -2 Dist ph sc 20/40 -1 Tonometry (7:59 AM) Right Left Pressure 20 15 Pupils Pupils APD Right PERRL None Left PERRL None Visual Bernardo (Counting fingers) Right Left Full Full Extraocular Movement Right Left Full, Ortho Full, Ortho Neuro/Psych Oriented x3: Yes Mood/Affect: Normal Dilation Both eyes: 0.5% Proparacaine @ 7:58 AM Dilation #2 Both eyes: 1.0% Mydriacyl, 2.5% Phenylephrine @ 7:58 AM Dilation Comments Patient cautioned that effects of dilation may last 2-7 hours dependant upon individual reaction. It was discussed that driving while dilated is not recommended. EXTERNAL: The ocular adnexae are unremarkable. SLE: Lids/Lashes: wnl OU Conjunctiva/Sclera: quiet OU Cornea: clear OU Anterior Chamber: deep and quiet OU Iris: normal OU; no NVI OU Lens: mixed cataract OD; PCIOL OS Dilated fundus exam OD: vitreous: pvd optic nerve: 0.2, no edema/pallor/NVD macula: TAPE DUPLICATOR vessels: AV nicking periphery: TAPE DUPLICATOR, no RT/RD Dilated fundus exam OS: vitreous: clear optic nerve: 0.2, no edema/pallor/NVD macula: TAPE DUPLICATOR vessels: AV nicking periphery: TAPE DUPLICATOR, no RT/RD OCT Interpretation: OD: ERM w/ wrinkling, scattered DME w/ trace foveal DME, +PVD--STABLE OS: NCIDME, no SRFluid, no PVD--STABLE Fundus Photo Interpretation - 06/12/2020: 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 Moderate Nonproliferative Diabetic Retinopathy OU -DM2 since approx age 36 -- IDDM since approx age 43 OD: h/o mild NCDME -monitor -recommend HgbA1C <7, BP and lipid control. OS: h/o CIDME -Avastin 05/13/22, 04/03/22--no change -no change at 4 weeks -Eylea OS 09/24/22, 07/18/22, 06/11/2022 -persistent fluid on OCT on Eylea at 6 weeks -Vabysmo 06/16/23, 04/15/23, 02/18/23, 12/31/22, 11/05/2022 ->12 months -on insulin pump--omnipod and BG much improved -approved for Eylea HD if needed -recommend HgbA1C <7, BP and lipid control. 2. Posterior Vitreous Detachment OD -new floater after blunt head trauma 05/06/21--concussion after hitting head on curb -denies photopsias -symptoms improved -no RT/RD -advised to return to clinic if he should experience worsening or new floaters, flashes of light, ashadow in the periphery, or decrease in vision. 3. Cataract OD/ Pseudophakia OS -CE OS --2023, Dr. Rivera, OS is near -OD-monitor F/u 3-4 months - OCT OU César Recinos DO CC: To Elmore, OD PCP: Naldo Layton MD documented in this encounter Nursing Notes * Denisse Whatley, RN - 08/24/2024 7:51 AM EDT Karl Wilkerson is a 59 year old year old male who presents for Mod NPDR OU. Last Office Visit: Visit date not found (in office), Visit date not found (telemedicine) Patient currently states no change in vision. Are you diabetic? Yes. Do you check your blood sugars daily? YES. BS now: 375, "284 when woke up" mg/dl. Last Hemoglobin A1C: Lab Results Component Value Date/Time HGBA1C 10.1 (H) 08/23/2024 07:36 AM HGBA1C 11.0 (H) 01/01/2024 08:31 AM HGBA1C 11.7 (H) 10/01/2023 09:33 AM HGBA1C 9.9 (H) 03/31/2023 09:14 AM HGBA1C 9.9 (H) 11/02/2019 09:14 AM HGBA1C 8.1 (H) 12/30/2018 09:05 AM HGBA1C 7.6 (H) 04/05/2018 09:[address]? yes OCT image(s) of both eyes acquired and filed/scanned into chart. documented in this encounter Plan of Treatment Upcoming Encounters Date Type Department Care Team (Late st Contact Info) Description 08/31/2024 8:00 AM EDT Office Visit Pharmacy, [facility] [address] [facility] [place] [address] [facility] [address] [place] [address] 09/08/2024 8:00 AM EDT Imaging Radiology [facility] [address] [facility] [place] [phone] 09/15/2024 9:30 AM EDT Office Visit Cardiothoracic Surg [facility] [place] [address] [place] [address] Srinivasa Stanton MD [address] [facility] [place] [address] 09/30/2024 1:30 PM EDT Hospital Encounter ENDO [facility], Endoscopy Room [facility] [address] [facility] [place] [phone] Kitty Cooper MD [address] [place] [address] 09/30/2024 1:30 PM EDT - 09/30/2024 2:00 PM EDT Surgery ENDO [facility], Endoscopy Room [facility] [address] [place] [phone] Kitty Cooper MD [address] [place] [address] COLONOSCOPY FLEXIBLE PROXIMAL DIAGNOSTIC 12/06/2024 7:45 AM EDT Office Visit Ophthalmology, [facility] [address] [place] [phone] César Recinos DO [address] [place] [address] 02/27/2025 8:00 AM EST Office Visit Cardiology, [facility] [address] [place] [phone] Emile Palma, PASharminC [address] [place] [address] 03/06/2025 10:00 AM EST Office Visit Nephrology, [address] [place] [address] Mee Coughlin MD [address] [place] [address] [place] [id number] Scheduled Orders Name Type Priority Associated Diagnoses Orde r Schedule RETINA SCAN DIAGNOSTIC IMAGE, POSTERIOR Procedures Routine 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, unspecified whether skilled nursing insulin use (HCC) Ordered: 08/24/2024 Scheduled Procedures Name Priority Associated Diagnoses Date/Ti [...] 2023 07/07/2020, 06/10/2020 CKD HGB USE SMARTSET 94184 09/30/202409/30, 10/01/2023, 07/29/2023, Additional history exists CKD PHOS USE SMARTSET 42803 09/30/2024 06/0 09/2023, 03/31/2022, 02/01/2021 Diabetic Foot [...] this encounter Medical Devices Implanted Type Area Data Steward Device Identifier Shelf Expiration Date Model / Serial / Lot Lens [id number] 12.5mm+21.50 - [id number] - [id number] Implanted:Qty: 1 on 07/08/2023 by Naldo Rivera DO at OR [facility] Left: Eye BAUSCH 02/24/2026 [id number] / [id number] / [id number] documented as of this encounter Visit Diagnoses Diagnosis Type 2 diabetes mellitus with hemoglobin A1c goal of less than 7.0% ([facility])- Primary Need for ocnnpkupck-nktvrmr-wlgugyldn (Tdap) vaccine Need for prophylactic vaccination with combined amtpfihcpl-oibaoaw-ombjssnhe (DTP) vaccine Charcot foot due to diabetes mellitus (HCC) Type II or unspecified type diabetes mellitus with neurological manifestations, not stated as uncontrolled Type 2 diabetes mellitus with stage 3b chronic kidney disease, with long-term current use of insulin (HCC) Dyslipidemia, goal LDL below 100 Other and unspecified hyperlipidemia Type 2 diabetes mellitus with diabetic polyneuropathy, with long-term current use of insulin (HCC) Dyslipidemia, goal LDL below 70 Other and unspecified hyperlipidemia Aneurysm of ascending aorta without rupture (HCC) Bicuspid aortic valve Congenital insufficiency of aortic valve Chronic kidney disease, stage 3b (HCC) Hypertension goal BP (blood pressure) < 130/80 Unspecified essential hypertension 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, unspecified whether watermaster insulin use (HCC)- Primary Encounter for diabetes type 2 eye exam (HCC) Type II or unspecified type diabetes mellitus without mention of complication, not stated as uncontrolled History of colon polyps Personal history of colonic polyps documented in this encounter Advance Directives * Full Code (Latest Code Status on File) Date Activated Date Inactivated Comments 07/08/2023 11:09 AM 07/08/2023 5:48 PM Question Answer Comments Discussion of Advance Direct sanford occurred with: Not Discussed due to patient's condition Care Teams Second Crusher Relationship Specialty Start Date End Date Sisi Fountain CRNP [address] [place] [address] PCP - General Nurse Practitioner 01/14/23 documented as of this encounter
--- OUTSIDE RECORDS SUMMARY | 2024-09-02 09:44 | External Medical Summary ---
Author Name Unknown Address Unknown Organization [id number]:LABORATORY [facility] [place] - [address] [place] [address] Laboratory Report Ordering Provider Test Date Status NOEMI ALVARADO 08/23/2024 07:36:35 Final Observation Date Value Abnormality Reference (Units ) Status Triglyceride 08/23/2024 07:36:35 234 Above high normal <=174 (mg/dL) Final Triglyceride Reference Range s (mg/dL):
<150 Acceptable
150-174 Borderline high
175-499 High
>=500 Very high Cholesterol 08/23/2024 07:36:35 124 <200 (mg /dL) Final Total Cholesterol Reference Ranges (mg/dL):
<200 Desirable
200-239 Borderline high
>=240 High HDL 08/23/2024 07:36:35 35 Below low normal >39 (mg/dL) Final HDL Cholesterol Reference Ra nges (mg/dL):
>=60 High (Desirable)
<50 Low (Undesirable) For Females
<40 Low (Undesirable) For Males NON-HDL CHOLESTEROL 08/23/2024 07:36:35 89 <=159 (mg/dL) Final Non-HDL Cholesterol Referenc e Range (mg/dL):
<100 Target level for high risk ASCVD patient
<130 Optimal for general population
130-159 Near optimal for general population
160-189 Borderline High
190-219 High
>=220 Very High Performing Location LABORATORY [facility] - [address] [place] [address]
--- OUTSIDE RECORDS SUMMARY | 2024-09-02 09:44 | External Medical Summary | Summary of Care ---
Author Name Unknown Organization [facility] Address [address] [place] [address] Phone [phone] Care Team Providers Care Virtualization Engineer Name Role Phone Sisi Fountain JAQUELIN Primary Care Provider [phone] Reason for Visit * Reason Comments Chronic Kidney Disease (CKD) Encounter Details Date Type Department Care Team ([facility] Contact Info) Description 08/19/2024 9:00 AM EDT Office Visit Nephrology, [facility] [address] [place], [place] [id number] Mee Coughlin MD [address] [place] [address] Type 2 diabetes mellitus with stage 3b chronic kidney disease, with long-term current use of insulin (HCC)*; Albuminuria; HTN, goal below 140/90 Allergies Active Allergy Reactions Criticality Noted Date Comments Bee Venom Anaphylaxis High 02/21/2014 Insect Extract High 06/09/2014 documented as of this encounter (statuses as of 08/19/2024) Medications FISH OIL 300 MG PO CAPS One TAB TWICE DAILY Active ASPIRIN 81 MG PO TABS one tablet daily Act gurpreet Multi-Vitamins Oral Tablet Take 1 Tablet by mouth in the morning. Active Dexcom G6 SensorIndication s:Type 2 diabetes mellitus with hemoglobin A1c goal of less than 7.0% ([facility]) Use as directed. Use 1 sensor every [...] hemoglobin A1c goal of less than 8.0% ([facility]) INJECT 10 UNITS SUBCUTANEOUSLY WITH MEALS 30 mL 1 05/14/19 24 Active NovoLOG FlexPen 100 UNIT/ML Subcutaneous Solution Pen-injector (insulin aspart) Inject 10 Units under the skin in the morning and 10 Units at noon and 10 Units in the evening. Inject with meals. 270 mL 3 05/19/19 24 Active amLODIPine Besylate 10 MG Oral Tablet (Norvasc)Indicat ions:HTN, goal below 140/90 Take 1 Tablet by mouth in the morning. 90 Tablet 3 08/14/19 24 Active hydroCHLOROthiaz rebecca 25 MG Oral Tablet (Hydrodiuril)Ind ications:HTN, goal below 140/90 Take 1 Tablet by mouth in the morning. 90 Tablet 3 08/14/19 24 Active Insulin Syringe-Needle U-100 30G X [...] morning. 90 Tablet 1 06/07/19 25 Active Carvedilol 25 MG Oral Tablet (Coreg) Take 1.5 Tablets by mouth in the morning and 1.5 Tablets before bedtime. With food. 270 Tablet 1 07/30/19 25 Active Omnipod 5 G7 Pods (Gen 5) Use 1 pod every 2 days E11.9 180 Each 15 08/19/19 25 Active documented as of this encounter (statuses as of 08/19/2024) Active Problems Problem Noted Date Diagnosed Date [...] as of this encounter (statuses as of 08/19/2024) Resolved Problems Problem Noted Date Diagnosed Date [...] PI: Dr. Jennifer Thomson CRC- Griselda Dickson ([phone]) DEV CRC- Amy Werner ([phone]) [place] [place]- Ingris Devine ([phone]) Diagnosis changed due to Research Module. Go to Snapshot for study details. 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 Not on file Not on file documented as of this encounter Last Filed Vital Signs Vital Sign Reading Time Taken Comments Blood Pressure 131/79 08/19/2024 9:07 AM EDT Pulse 77 08/19/2024 9:07 AM EDT Temperature 36.3 °C (97.4 °F) 08/19/2024 9:07 AM ED T Respiratory Rate 16 08/19/2024 9:07 AM EDT Oxygen Saturation 97% 08/19/2024 9:07 AM EDT Inhaled Oxygen Concentration - - Weight 130.3 kg (287 lb 4.8 oz) 08/19/2024 9:07 AM EDT Height - - Body Mass Index 36.89 08/18/2024 8:02 AM EDT documented in this encounter Progress Notes * Mee Coughlin MD - 08/19/2024 9:19 AM EDT REASON FOR VISIT: CKD HPI: Karl Wilkerson is a 59 year old male seen in follow-up for diabetic nephropathy. Past medical history of poorly controlled type 2 diabetes since 2001 with A1c ranging from 7.6-12 since 2014 most recently 9.9 in March 2023, hypertension, hyperlipidemia, thoracic aortic aneurysm and bicuspid aorta onecho in July 2022 Creatinine was 1.5 since 2018 to 2021 but increased to 2.4 in April 2023. Patient also has progressively worsening albuminuria over the past 10 years most recently 1.2 g. No NSAIDs. He uses baby ASA. He is using insulin. He has a Dexcom 7. Last visit was July 2024. He feels well denies any shortness of breath but has chronic leg swelling. He wears compression stockings. Blood pressure is controlled. He reports better blood sugar control. A1c last year was 11. He is due for repeat A1c today. No NSAIDs. He maintains low-salt diet. Recent labs reviewed and discussed Past Medical History: Diagnosis Date Diabetes (HCC) Hyperlipidemia Hypertension Hypertension Review of Systems: General ROS: negative for - chills or fever Psychological ROS: negative for - mood swings ENT ROS: negative for - nasal congestion or nasal discharge Endocrine ROS: negative Respiratory ROS: no cough, shortness of breath, or wheezing Cardiovascular ROS: no chest pain or dyspnea on exertion Gastrointestinal ROS: no abdominal pain, change in bowel habits, or black or bloody stools Genito-Urinary ROS: no dysuria, trouble voiding, or hematuria Musculoskeletal ROS: negative for - muscle pain Neurological ROS: no TIA or stroke symptoms Dermatological ROS: negative for rash Family History Adopted: Yes Problem Relation Name Age of Onset No Past Hx None adopted Social History Socioeconomic History Marital status: Spouse name: Not on file Number of children: 2 Years of education: Not on file Highest education level: Not on file Occupational History 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 Drug use: No Sexual activity: Yes Partners: Female Other Topics Concern Not on file Social History Narrative Not on file Social Needs Financial Resource Strain: Low Risk (12/21/2023) Financial Resource Strain Do you have any trouble paying for your medications, or do you think you might in the future? (Adult - for ages 18 years and over): No Does your family have trouble paying for medicine? (Household - for ages 0-17 years): Not on file Food Insecurity: No Food Insecurity (12/21/2023) Food Insecurity Worried About Running Out of Food in the Last Year: Never true Ran Out of Food in the Last Year: Never true Do you need food for this week? (Adult - for ages 18 years and over): No Transportation Needs: No Transportation Needs (12/21/2023) Transportation Needs Do you have trouble getting a ride to medical visits or work? (Adult - for ages 18 years and over):Not on file Does your family have a hard time getting a ride to doctors’ visits? (Household - for ages 0-17 years): Not on file Has lack of transportation kept you from medical appointments, meetings, work, or from getting things needed for daily living? Check all that apply. (Adult - for ages 18 years and over): No Do you (or your family) have trouble finding or paying for a ride (transportation)? (Household - for ages 0-17 years): Not on file Social Connections: Socially Integrated (12/21/2023) Social Connections How often do you feel lonely or isolated from those around you? (Adult - for ages 18 years and over): Rarely Housing Stability: Low Risk (12/21/2023) Housing Stability Do you currently live in a penitentiary or have no steady place to sleep at night? (Adult - for ages 18 years and over): No Do you think you are at risk of becoming homeless? (Adult - for ages 18 years and over): Not on file Does your family worry about paying for your home or becoming homeless? (Household - for ages 0-17 years): Not on file Are you homeless or worried that you might be in the future? (Adult - for ages 18 years and over): No Are you (or your family) homeless or worried that you might be in the future? (Household - for ages0-17 years): Not on file Current Outpatient Medications Medication Sig Dispense Refill FISH OIL 300 MG PO CAPS One TAB TWICE DAILY ASPIRIN 81 MG PO TABS one tablet daily Multi-Vitamins Oral Tablet Take 1 Tablet by mouth in the morning. Insulin Aspart 100 UNIT/ML Injection Solution (NovoLOG) INJECT 10 UNITS SUBCUTANEOUSLY WITH MEALS 30 mL 1 NovoLOG FlexPen 100 UNIT/ML Subcutaneous Solution Pen-injector (insulin aspart) Inject 10 Units under the skin in the morning and 10 Units at noon and 10 Units in the evening. Inject with meals. 270 mL 3 amLODIPine Besylate 10 MG Oral Tablet (Norvasc) Take 1 Tablet by mouth in the morning. 90 Tablet 3 hydroCHLOROthiazide 25 MG Oral Tablet (Hydrodiuril) Take 1 Tablet by mouth in the morning. 90 Tablet 3 Insulin Syringe-Needle U-100 30G X 1/2" 1 ML Use as directed to inject insulin 3 times daily with meals 500 Each 3 EPINEPHrine 0.3 MG/0.3ML Injection Solution Auto-injector (Autoinjector) For a severe reaction: Place orange end against the outer thigh, press firmly, hold in place for 10 seconds and go to the Emergency room. 2 Each 2 Insulin Aspart 100 UNIT/ML Injection Solution (NovoLOG) Use 100 units in insulin pump daily E 11.9 90 mL 3 Omnipod 5 G7 Intro (Gen 5) Kit Use to control insulin pump E11.9 1 Kit 0 Empagliflozin 25 MG Oral Tablet (Jardiance) Take 1 Tablet by mouth in the morning. 90 Tablet 3 Atorvastatin Calcium 40 MG Oral Tablet (Lipitor) Take 1 Tablet by mouth in the morning. 90 Tablet 2 Semaglutide 14 MG Oral Tablet (Rybelsus) Take 14 mg by mouth daily first thing in the morning. 90 Tablet 2 Losartan Potassium 100 MG Oral Tablet (Cozaar) Take 1 Tablet by mouth in the morning. 90 Tablet 1 Carvedilol 25 MG Oral Tablet (Coreg) Take 1.5 Tablets by mouth in the morning and 1.5 Tablets before bedtime. With food. 270 Tablet 1 Omnipod 5 G7 Pods (Gen 5) Use 1 pod every 2 days E11.9 180 Each 15 Dexcom G6 Sensor Use as directed. Use 1 sensor every 10 days. 9 Each 0 Dexcom G6 Transmitter Use as directed. Use 1 transmitter every 90 days. 1 Each 0 BD Pen Needle Short U/F 31G X 8 MM (Insulin Pen Needle) USE TO INJECT LANTUS INSULIN DIRECTED FIVE TIMES DAILY. 450 Each 3 No current facility-administered medications for this visit. Filed Vitals: 08/19/24 0907 BP: 131/79 Pulse: 77 Resp: 16 Temp: 36.3 °C (97.4 °F) SpO2: 97% Weight: 130.3 kg (287 lb 4.8 oz) PHYSICAL EXAM: GENERAL: Alert, in no acute distress. EYES: PERRL, conjunctivae anicteric. ENT: Mucous membranes moist, oropharynx clear. NECK: Supple, no JVD. LYMPH: No cervical or supraclavicular lymphadenopathy. LUNGS: Clear to auscultation bilaterally, no respiratory distress. CARDIAC: Regular rate and rhythm, normal S1/S2, no murmurs, rubs, or gallops. ABDOMEN: Soft, non-tender, non-distended, bowel sounds present. EXT/MSK: No clubbing, cyanosis, 1+ edema. SKIN: No rash, no jaundice. NEURO: No tremor, no asterixis. LABS/STUDIES: Recent Labs Units 07/13/24 0714 10/01/23 0933 08/26/23 0814 05/13/23 0802 04/28/23 0857 SODIUM - [facility] mmol/L 138 134* -- 137 136 POTASSIUM - [facility] mmol/L 4.5 4.7 -- 4.9 5.1 CHLORIDE - [facility] mmol/L 100 100 -- 103 98 CO2 - [facility] mmol/L -- 20* 24 BUN - [facility] mg/dL 36* 42* -- 38* 40* CREATININE - [facility] mg/dL 2.0* 2.0* 2.2* 2.4* 2.4* Recent Labs Units 10/01/23 0933 07/29/23 0715 WBC K/uL 10.10 8.49 HGB g/dL 14.9 14.5 PLT K/uL 369 287 Recent Labs Units 07/13/24 0714 10/01/23 0933 05/13/23 0802 04/28/23 0857 CALCIUM - [facility] mg/dL 9.8 9.5 9.2 9.8 PHOSPHORUS - [facility] mg/dL -- 4.5 -- -- Recent Labs Units 01/01/24 0831 10/01/23 0933 03/31/23 0914 HEMOGLOBIN A1C - [facility] % -- 11.7* 9.9* HEMOGLOBIN A1C POCT - [facility] % 11.0* -- -- No results for input(s): "MICROALBUMIN", "PROCRRATIO" in the last [id number] hours. ASSESSMENT AND PLAN Karl was seen today for chronic kidney disease (ckd). 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 He has albuminuria of 1.2 g. He has had poorly controlled diabetes for over 20 years. Recent creatinine of 2 and GFR of 39 mL/minute in June 2024. Discussed importance of weight loss by diet and exercise. I have asked him to exercise at least 30 minutes daily. I also asked him to limit carbohydrates and meats. He should try vegetables, eggs, chicken, fish and salads. He knows to avoid NSAIDs. We discussed importance of optimal blood pressure control. Repeat BMP prior to next office visit. HTN, goal below 140/90 Blood pressure is at target. No changes in medication. Most importantly we discussed need to limit salt intake and weight loss. I have asked him to monitor blood pressure at home and call if systolicis consistently above 140. Aneurysm of ascending aorta without rupture (HCC) Patient with the ascending aortic aneurysm. Discussed importance of optimal blood pressure control to slow progression. Obesity: I emphasized need to exercise at least 30 minutes daily. Mee Coughlin MD Nephrology, [address] [place] [address] This note was generated with the help of voice recognition software. Please excuse for errors. documented in this encounter Nursing Notes * Chasidy Ramires LPN - 08/19/2024 9:08 AM EDT Follow up visit to Nephrology. No recent falls. No new illness or hospitalization. documented in this encounter Plan of Treatment Upcoming Encounters Date Type Department Care Team (Late st Contact Info) Description 08/23/2024 8:00 AM EDT [facility] [address] [place] [phone] Emile Palma PA-C [address] [place] [address] 08/24/2024 7:45 AM EDT [facility] [address] [place] [phone] César Recinos DO [address] [place] [address] 08/31/2024 8:00 AM EDT [facility] [address] [place] [address] [place], [facility] [address] [place] [address] 09/08/2024 8:00 AM EDT Imaging Radiology [facility] [address] [place] [phone] 09/15/2024 9:30 AM EDT Office Visit Cardiothoracic Surg [facility] [place] [address] [place] [address] Srinivasa Stanton MD [address] [place] [address] 09/30/2024 1:30 PM EDT Hospital Encounter ENDO O[facility], Endoscopy Room [facility] [address] [phone] Kitty Cooper MD [address] [place] [address] 09/30/2024 1:30 PM EDT - 09/30/2024 2:00 PM EDT Surgery ENDO [facility], Endoscopy Room [facility] [address] [place] [phone] Kitty Cooper MD [address] [place] [address] COLONOSCOPY FLEXIBLE PROXIMAL DIAGNOSTIC 03/06/2025 10:00 AM EST Office Visit Nephrology, [facility] [address] [facility] [place], [place] [address] Mee Coughlin MD [address] [place] [phone] Scheduled Orders Name Type Priority Associated Diagnoses Orde r Schedule ALBUMIN / CREATININE RATIO, URINE Lab Routine Albuminuria Expected: 08/19/2024, Expires: 08/19/2025 Scheduled Procedures Name Priority Associated Diagnoses Date/Ti me COLONOSCOPY FLEXIBLE PROXIMAL DIAGNOSTIC Recall History of colon polyps 09/30/2024 1:30 PM EDT Health Maintenance Due Date Last Done Comments Depression Screening 1979 HIV Screening 07/20/1982 Hepatitis C Screening 07/20/1985 Cologuard 07/20/2012 Fecal Occult Blood Test 07/20/2012 Sigmoidoscopy 07/20/2012 Colonoscopy 08/09/2023 08/08/2022, 08/08/2022 Colorectal Cancer Screening 08/09/2023 COVID-19 Vaccine ( season) 2023 07/07/2020, 06/10/2020 Albumin/Creatinine Ratio 03/31/2024 023, 01/20/2022, 02/23/2015, Additional history exists Diabetic Eye Exam 05/07/2024 05/07/2023, , 05/07/2023, Additional history exists HbA1c 06/30/2024 01/01/2024, 06/0 09/2023, 03/31/2023, Additional history exists CKD HGB USE SMARTSET 31503 09/30/202409/30, 10/01/2023, 07/29/2023, Additional history exists CKD PHOS USE SMARTSET 84091 09/30/2024 06/0 09/2023, 03/31/2022, 02/01/2021 Diabetic Foot Exam 09/30/2024 10/01/2023, 0 09/29/2022, 01/03/2020, Additional history exists Influenza Vaccine (FLU shot) (Season Ended) 2024 12/31/2022, 01/20/2022, 02/04/2021, Additional history exists GFR 01/13/2025 07/13/2024, 06/0 09/2023, 08/26/2023, Additional history exists B-12 07/13/2025 07/13/2024, 12/0 08/2022, 08/20/2021, Additional history exists Lipid Panel 09/30/2028 10/01/2023, 04/0 06/2023, 08/06/2022, Additional history exists DTap/Tdap Vaccines (3 - [...] this encounter Medical Devices Implanted Type Area Manager Rfid Device Identifier Shelf Expiration Date Model / Serial / Lot Lens [id number] 12.5mm+21.50 - [id number] - [id number] Implanted:Qty: 1 on 07/08/2023 by Naldo Rivera DO at OR [facility] Left: Eye BAUSCH 02/24/2026 [id number] / [id number] / [id number] documented as of this encounter Visit Diagnoses Diagnosis Type 2 diabetes mellitus with hemoglobin A1c goal of less than 7.0% (HCC)- Primary Need for wdodidjwbk-twnkysm-hixslcggc (Tdap) vaccine Need for prophylactic vaccination with combined jthajusnkm-aiudykh-mxcyexfal (DTP) vaccine Charcot foot due to diabetes [...] long-term current use of insulin (HCC)- Primary Albuminuria Proteinuria HTN, goal below 140/90 Unspecified essential hypertension History of colon polyps Personal history of colonic polyps documented in this encounter Advance Directives * Full Code (Latest Code Status on File) Date Activated Date Inactivated Comments 07/08/2023 11:09 AM 07/08/2023 5:48 PM Question Answer Comments Discussion of Advance Direct sanford occurred with: Not Discussed due to patient's condition Care Teams Virtualization Engineer Relationship Specialty Start Date End Date Sisi Fountain CRNP [address] [place] [address] PCP - General Nurse Practitioner 01/14/23 documented as of this encounter
--- OUTSIDE RECORDS SUMMARY | 2024-09-02 09:44 | External Medical Summary | Summary of Care ---
Author Name Unknown Organization [facility] Address [address] [place] [address] Phone [phone] Care Team Providers Care Glassware Engraver Name Role Phone Sisi FountainNP Primary Care Provider +1- [phone] Reason for Visit * Reason Onset Date Comments Medication Refill 07/28/2024 Encounter Details Date Type Department Care Team ([facility] Contact Info) Description 07/28/2024 Refill Nephrology, [facility] [address], [place] [phone] Janine Coughlin MD [address], [place] [phone] Allergies Active Allergy Reactions Criticality Noted Date Comments Bee Venom Anaphylaxis High 02/21/2014 Insect Extract High 06/09/2014 documented as of this encounter (statuses as of 07/29/2024) Medications FISH OIL 300 MG PO CAPS [...] meals. 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, with long-term current use of insulin, unspecified retinopathy severity ([facility]),Type 2 diabetes mellitus with hemoglobin A1c goal of less than 7.0% ([facility]) Use as directed to inject insulin 3 times daily with meals 500 Each 3 10/01/19 24 Active BD Pen Needle Short U/F 31G X 8 MM (Insulin Pen Needle)Indicatio ns:Type 2 diabetes mellitus with stage 3b chronic kidney disease, with long-term current use of insulin ([facility]),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 450 Each 3 10/09/19 24 Active EPINEPHrine 0.3 MG/0.3ML Injection Solution Auto-injector (Autoinjector)In dications:Bee sting allergy For a severe reaction: Place orange end against the outer thigh, press firmly, hold in place for 10 seconds and go to the Emergency room. 2 Each 2 01/01/20 24 Active Additional Information Patient not taking.Reported on 02/22/2024 Insulin Aspart 100 UNIT/ML Injection Solution (NovoLOG) Use 100 units in insulin pump daily E 11.9 90 mL 3 01/13/20 24 Active Omnipod 5 G7 Intro (Gen 5) Kit Use to control insulin pump E11.9 1 Kit 01/18/20 24 Active Additional Information Patient not taking.Reported on 02/22/2024 Empagliflozin 25 MG Oral Tablet (Jardiance)Indic ations:Type 2 diabetes mellitus with hemoglobin A1c goal of less than 7.0% (HCC) Take 1 Tablet by mouth in the morning. 90 Tablet 3 02/11/20 24 Active Omnipod 5 G7 Pods (Gen 5) Use 1 pod every 2 days E11.9 180 Each 3 03/01/20 24 Active Atorvastatin Calcium 40 MG Oral [...] food. 270 Tablet 1 07/30/19 25 Active Carvedilol 25 MG Oral Tablet (Coreg) Take 1.5 Tablets by mouth in the morning and 1.5 Tablets before bedtime. With food. 270 Tablet 1 12/11/19 24 025 Discontin ued(Refil l) documented as of this encounter (statuses as of 07/29/2024) Active Problems Problem Noted Date Diagnosed Date Abnormal nuclear stress test 02/22/2024 Chronic kidney disease, stage 3b 09/07/2023 Overview: Per CKD protocol Morbid obesity due to excess calories 01/20/2022 Adjustment disorder with mixed anxiety and depre ssed mood 01/20/2022 Body mass index (BMI) of 40.0 to 44.9 in adult 1 Overview: Per Obesity protocol Thoracic aortic aneurysm without rupture 019 Ascending aortic aneurysm 01/18/2019 Nonrheumatic aortic valve stenosis 01/18/2019 Bicuspid aortic valve 01/18/2019 Charcot foot due to diabetes mellitus 01/26/2018 Type 2 diabetes mellitus wit h diabetic polyneuropathy, with long-term current use of insulin 07/15/2016 Bee sting allergy 08/31/2014 Aortic valve disorder 05/29/2014 Overview (08/01/2016): biscuspid aortic valve Recheck echo in 2019 Type 2 diabetes mellitus wit h stage 3b chronic kidney disease, with long-term current use of insulin 02/21/2014 Overview (08/28/2015): ICD-10 update of inactive term Hypertension goal BP (blood pressure) < 130/80 1 Dyslipidemia, goal LDL below 70 02/21/2014 documented as of this encounter (statuses as of 07/29/2024) Resolved Problems Problem Noted Date Diagnosed Date [...] assay failure rates. Contacts: PI: Dr. Jennifer Pruitt-Sh[facility]- Griselda Dickson ([phone]) [facility] CRC- Amy Werner ([phone]) [facility] CRC- Ingris Devine ([phone]) Diagnosis changed due to Research Module. Go to Snapshot for study details. Type 1 diabetes mellitus wit h foot ulcer (CODE) 11/25/2018 01/03/2020 documented as of this encounter (statuses as of 07/29/2024) Immunizations Name Administration Dates Next Due COVID-19 mRNA, LNP-s, No Pre serve, 2-Dose Series (Pfizer) 07/07/2020,06/10/2020 Hepatitis B, 20+ yrs 12/01/2014,08/31/2014,05/29 Pneumococcal Conjugate Vacci ne, 20-valent ([id number]) 01/20/2022 Pneumococcal Polysaccharide PPV23 (Pneumovax) 05/29/2014 Seasonal Influenza Vac., MDV , IM, 0.5 mL (Fluzone) 02/21/2014 Seasonal Influenza, PF, 6 M & above, IM , (FluLaval or Fluzone) 12/31/2022,01/20/2022,02/04/2021,01/02,12/30/2018,01/26/2018 Seasonal Influenza, Quadriva lent, No Preserve, IM 01/01/2017,02/26/2015 TDAP (age 10 and older)(Boostrix) 02/21/2014 Zoster Vaccine Recombinant (Shingrix) 02/04/2021 ,08/03/2020 documented [...] No 12/21/2023 Does the household have a [facility] source of income? 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 With food. Authorizing Provider: JANINE COUGHLIN * Telephone Encounter - Reina Page LPN - 07/28/2024 3:34 PM EDTPending Prescriptions: Disp Refills Carvedilol 25 MG Oral Tablet (Coreg) 270 Ta*1 Sig: Take 1.5 Tablets by mouth in the morning and 1.5 Tablets before bedtime. With food. * Telephone Encounter - Reina Page LPN - 07/28/2024 3:32 PM EDT Prescription refill request received from pharmacy. Pending as requested. Please authorize. documented in this encounter Plan of Treatment Upcoming Encounters Date Type Department Care Team (Late st Contact Info) Description 08/18/2024 8:00 AM EDT [facility] [address] [place] [address] Sisi Fountain CRNP [address] [place] [address] 08/19/2024 9:00 AM EDT Office Visit Nephrology, [facility] [address] [place] [address] Janine Coughlin MD [address] [place] [address] 08/23/2024 8:00 AM EDT Office Visit Cardiology, [facility] [address] [place] [phone] Emile Palma PA-C [address] [place] [address] 08/24/2024 7:45 AM EDT Office Visit Ophthalmology, [facility] [address] [place] [address] César Recinos DO [address] [place] [address] 08/31/2024 8:00 AM EDT Office Visit Pharmacy, [facility] [address] [place] [address] [facility] [address] [place] [address] 09/08/2024 8:00 AM EDT Imaging [facility] [address] [place] [address] 09/15/2024 9:30 AM EDT Office Visit Cardiothoracic Surg [facility] [place] [address] [facility] [place] [address] Srinivasa Stanton MD [address] [facility] [place] [address] 09/30/2024 1:30 PM EDT Hospital Encounter ENDO [facility], Endoscopy Room [facility] [address] [place] [phone] Kitty Cooper MD [address] [place] [address] 09/30/2024 1:30 PM EDT - 09/30/2024 2:00 PM EDT Surgery ENDO [facility], Endoscopy Room [facility] [address] [place] [phone] Kitty Cooper MD [address] [place] [address] COLONOSCOPY FLEXIBLE PROXIMAL DIAGNOSTIC Scheduled Procedures Name Priority Associated Diagnoses Date/Ti me COLONOSCOPY FLEXIBLE PROXIMAL DIAGNOSTIC Recall History of colon polyps 09/30/2024 1:30 PM EDT Health Maintenance Due Date Last Done Comments Depression Screening 1979 HIV Screening 07/20/1982 Hepatitis C Screening 07/20/1985 Cologuard 07/20/2012 Fecal Occult Blood Test 07/20/2012 Sigmoidoscopy 07/20/2012 Colonoscopy 08/09/2023 08/08/2022, 08/08/2022 Colorectal Cancer Screening 08/09/2023 COVID-19 Vaccine ( season) 2023 07/07/2020, 06/10/2020 DTap/Tdap Vaccines (2 - Td or Tdap) 02/22/2024 02/21/2014 Albumin/Creatinine Ratio 03/31/2024 023, 01/20/2022, 02/23/2015, Additional history exists Diabetic Eye Exam 05/07/2024 05/07/2023, , 05/07/2023, Additional history exists HbA1c 06/30/2024 01/01/2024, 09/2023, 03/31/2023, Additional history exists CKD HGB USE SMARTSET 69947 09/30/202409/30, 10/01/2023, 07/29/2023, Additional history exists CKD PHOS USE SMARTSET 38537 09/30/2024 06/0 09/2023, 03/31/2022, 02/01/2021 Diabetic Foot Exam 09/30/2024 10/01/2023, 0 09/29/2022, 01/03/2020, Additional history exists Influenza Vaccine (FLU shot) (Season Ended) 2024 12/31/2022, 01/20/2022, 02/04/2021, Additional history exists GFR 01/13/2025 07/13/2024, 06/0 09/2023, 08/26/2023, Additional history exists B-12 07/13/2025 07/13/2024, 12/0 08/2022, 08/20/2021, Additional history exists Lipid Panel 09/30/2028 10/01/2023, 04/0 06/2023, 08/06/2022, Additional history exists Hepatitis B Vaccine Completed 12/01/2014, 08/31/2014, 05/29/2014 [...] this encounter Medical Devices Implanted Type Area Will Call Order Clerk Device Identifier Shelf Expiration Date Model / Serial / Lot Lens [id number] 12.5mm+21.50 - [id number] - [id number] Implanted:Qty: 1 on 07/08/2023 by Naldo Rivera DO at OR [facility] Left: Eye BAUSCH & LOMB 02/24/2026 [id number] / [id number] / [id number] documented as of this encounter Advance Directives * Full Code (Latest Code Status on File) Date Activated Date Inactivated Comments 07/08/2023 11:09 AM 07/08/2023 5:48 PM Question Answer Comments Discussion of Advance Direct sanford occurred with: Not Discussed due to patient's condition Care Teams Glassware Engraver Relationship Specialty Start Date End Date Sisi Fountain CRNP [address] [place] [address] PCP - General Nurse Practitioner 01/14/23 documented as of this encounter
--- OUTSIDE RECORDS SUMMARY | 2024-09-02 09:44 | External Medical Summary | Summary of Care ---
Author Name Unknown Organization [facility] Address [address] [place] [address] Phone [phone] Care Team Providers Care Scientific Systems Analyst Name Role Phone Sisi Fountain JAQUELIN Primary Care Provider +1- [phone] Reason for Visit * Reason Comments Outpatient Testing Encounter Details Date Type Department Care Team ([facility] st Contact Info) Description 08/23/2024 8:30 AM EDT Laboratory Laboratory, [facility] [address] [place] [address] [facility] [address] [place] [address] Charcot foot due to diabetes mellitus (HCC); Dyslipidemia, goal LDL below 100; Albuminuria Allergies Active Allergy Reactions Criticality Noted Date Comments Bee Venom Anaphylaxis High 02/21/2014 Insect Extract High 06/09/2014 documented as of this encounter (statuses as of 08/23/2024) Medications FISH OIL 300 MG PO CAPS [...] hemoglobin A1c goal of less than 7.0% ([facility]) Use as directed. Use 1 transmitter every 90 days. 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, with long-term current use of insulin, unspecified retinopathy severity ([facility]),Type 2 diabetes mellitus with hemoglobin A1c goal of less than 7.0% ([facility]) Use as directed to inject insulin 3 times daily with meals 500 Each 3 10/01/19 24 Active BD Pen Needle Short U/F 31G X 8 MM (Insulin Pen Needle)Indicatio ns:Type 2 diabetes mellitus with stage 3b chronic kidney disease, with long-term current use of insulin ([facility]),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 Jennifer Thomson [facility]- Griselda Dickson ([phone]) [facility] CRC- Amy Werner ([phone]) [facility] CRC- Ingris Devine ([phone]) Diagnosis changed due to Research Module. Go to Snapshot for study details. 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 Not on file Not on file documented as of this encounter Plan of Treatment Upcoming Encounters Date Type Department Care Team (Late st Contact Info) Description 08/23/2024 8:00 AM EDT Office Visit Cardiology, [facility] [address] [place] [address] Emile Palma PA-C [address] [place] [address] HTN, goal below 140/90 08/24/2024 7:45 AM EDT Office Visit Ophthalmology, [facility] [address] [place] [address] César Recinos, [address] [place] [address] 08/31/2024 8:00 AM EDT Office Visit Pharmacy, [facility] [address] [place] [address] [facility] [address] [place] [address] 09/08/2024 8:00 AM EDT Imaging Radiology [facility] [address] [place] [address] 09/15/2024 9:30 AM EDT Office [facility] [place] [address] [place] [address] Srinivasa Stanton MD [address] [place] [address] 09/30/2024 1:30 PM EDT Hospital Encounter ENDO [facility], Endoscopy Room [facility] [address] [place] [address] Kitty Cooper MD [address] [place] [address] 09/30/2024 1:30 PM EDT - 09/30/2024 2:00 PM EDT Surgery ENDO OSS, Endoscopy Room [facility] [address] [place] [phone] Kitty Cooper MD [address] [place] [address] COLONOSCOPY FLEXIBLE PROXIMAL DIAGNOSTIC 03/06/2025 10:00 AM EST Office Visit Nephrology, [address] [address] Mee Coughlin MD [address] [place], [place] [phone] Pending Results Name Type Priority Associated Diagnoses Date /Time HEMOGLOBIN A1C Lab Routine Charcot foot due to diabetes mellitus (HCC) 08/23/2024 7:36 AM EDT LIPID PANEL WITH DIRECT LDL IF TG IS HIGH Lab Routine Dyslipidemia, goal LDL below 100 08/23/2024 7:36 AM EDT ALBUMIN / CREATININE RATIO, URINE Lab Routine Albuminuria 08/23/2024 7:52 AM EDT Scheduled Procedures Name Priority Associated Diagnoses Date/Ti [...] season) 2023 07/07/2020, 06/10/2020 Albumin/Creatinine Ratio 03/31/2024 12 023, 01/20/2022, 02/23/2015, Additional history exists Diabetic Eye Exam 05/07/2024 05/07/2023, , 05/07/2023, Additional history exists HbA1c 06/30/2024 01/01/2024, 06/0 09/2023, 03/31/2023, Additional history exists CKD HGB USE SMARTSET 75957 09/30/202409/30, 10/01/2023, 07/29/2023, Additional history exists CKD PHOS USE SMARTSET 28233 09/30/2024 06/0 09/2023, 03/31/2022, 02/01/2021 Diabetic Foot [...] this encounter Medical Devices Implanted Type Area Trench Pipe Layer Device Identifier Shelf Expiration Date Model / Serial / Lot Lens [id number] 12.5mm+21.50 - [id number] - [id number] Implanted:Qty: 1 on 07/08/2023 by Naldo Rivera DO at OR [facility] Left: Eye BAUSCH 02/24/2026 [id number] / [id number] / [id number] documented as of this encounter Visit Diagnoses Diagnosis Type 2 diabetes mellitus with hemoglobin A1c goal of less than 7.0% (HCC)- Primary Need for tjmohlsram-tyulmrp-kdluefoee (Tdap) vaccine Need for prophylactic vaccination with combined nuffymwlik-noiqsua-zzbiffiuz (DTP) vaccine Charcot foot due to diabetes [...] (blood pressure) < 130/80 Unspecified essential hypertension HTN, goal below 140/90 Unspecified essential hypertension Charcot foot due to diabetes mellitus (HCC) Type II or unspecified type diabetes mellitus with neurological manifestations, not stated as uncontrolled Dyslipidemia, goal LDL below 100 Other and unspecified hyperlipidemia Albuminuria Proteinuria History of colon polyps Personal history of colonic polyps documented in this encounter Advance Directives * Full Code (Latest Code Status on File) Date Activated Date Inactivated Comments 07/08/2023 11:09 AM 07/08/2023 5:48 PM Question Answer Comments Discussion of Advance Direct sanford occurred with: Not Discussed due to patient's condition Care Teams Scientific Systems Analyst Relationship Specialty Start Date End Date Sisi Fountain CRNP [address] [place] [place] [address] PCP - General Nurse Practitioner 01/14/23 documented as of this encounter
--- OUTSIDE RECORDS SUMMARY | 2024-09-02 09:44 | External Medical Summary | Summary of Care ---
Author Name Unknown Organization [facility] Address [address] [place] [address] Phone [phone] Care Team Providers Care Rn Charge Name Role Phone Sisi Fountain JAQUELIN Primary Care Provider +1- [phone] Reason for Visit * Reason Comments Outpatient Testing Encounter Details Date Type Department Care Team ([facility] st Contact Info) Description 08/23/2024 8:30 AM EDT Laboratory Laboratory, [facility] [address] [place] [address] [facility] [address] [place] [address] Charcot foot due to diabetes mellitus (HCC); [...] hemoglobin A1c goal of less than 7.0% ([facility]) Use as directed. Use 1 transmitter every 90 days. 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, with long-term current use of insulin, unspecified retinopathy severity ([facility]),Type 2 diabetes mellitus with hemoglobin A1c goal of less than 7.0% ([facility]) Use as directed to inject insulin 3 times daily with meals 500 Each 3 10/01/19 24 Active BD Pen Needle Short U/F 31G X 8 MM (Insulin Pen Needle)Indicatio ns:Type 2 diabetes mellitus with stage 3b chronic kidney disease, with long-term current use of insulin ([facility]),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 Jennifer Thomson CRC- Griselda Dickson ([phone]) [facility] CRC- Amy Werner ([phone]) [facility] CRC- Ingris Devine ([phone]) Diagnosis changed due to Research Module. Go to Snapshot for study details. 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 Not on file Not on file documented as of this encounter Plan of Treatment Upcoming Encounters Date Type Department Care Team (Late st Contact Info) Description 08/23/2024 8:00 AM EDT Office Visit Cardiology, [facility] [address] [place] [place] [address] Emile Palma PA-C [address] [place] [address] HTN, goal below 140/90 08/24/2024 7:45 AM EDT Office Visit Ophthalmology, [facility] [address] [place] [place] [address] César Recinos, [address] [place] [place] [address] 08/31/2024 8:00 AM EDT Office Visit Pharmacy, [facility] [address] [place] [address] [facility] [address] [place] [address] 09/08/2024 8:00 AM EDT Imaging Radiology [facility] [address] [place] [address] 09/15/2024 9:30 AM EDT Office [facility] [place] [address] [place] [address] Srinivasa Stanton MD [address] [place] [address] 09/30/2024 1:30 PM EDT Hospital Encounter ENDO [facility]SS[facility], Endoscopy Room [facility] [address] [place] [phone] Kitty Cooper MD [address] [place] [address] 09/30/2024 1:30 PM EDT - 09/30/2024 2:00 PM EDT Surgery ENDO OSS, Endoscopy Room [facility] [address] [place] [phone] Kitty Cooper MD [address] [place] [address] COLONOSCOPY FLEXIBLE PROXIMAL DIAGNOSTIC 03/06/2025 10:00 AM EST Office Visit Nephrology, [address] [address] Mee Coughlin MD [address] [place], [place] [phone] Pending Results Name Type Priority Associated Diagnoses [...] Additional history exists CKD HGB USE SMARTSET 99892 09/30/202409/30, 10/01/2023, 07/29/2023, Additional history exists CKD PHOS USE SMARTSET 98377 09/30/2024 06/0 09/2023, 03/31/2022, 02/01/2021 Diabetic Foot [...] this encounter Medical Devices Implanted Type Area Powder Operator Device Identifier Shelf Expiration Date Model / Serial / Lot Lens [id number] 12.5mm+21.50 - [id number] - [id number] Implanted:Qty: 1 on 07/08/2023 by Naldo Rivera DO at OR [facility] Left: Eye BAUSCH 02/24/2026 [id number] / [id number] / [id number] documented as of this encounter Visit Diagnoses Diagnosis Type 2 diabetes mellitus with hemoglobin A1c goal of less than 7.0% (HCC)- Primary Need for ixdgsizwie-biutjfn-jhkmzvwiw (Tdap) vaccine Need for prophylactic vaccination with combined nhatbgytdg-tqkgymi-gdltmvmnc (DTP) vaccine Charcot foot due to diabetes [...] Discussed due to patient's condition Care Teams Rn Charge Relationship Specialty Start Date End Date Sisi Fountain CRNP [address] [place] [address] PCP - General Nurse Practitioner 01/14/23 documented as of this encounter
--- OUTSIDE RECORDS SUMMARY | 2024-09-02 09:44 | External Medical Summary ---
Author Name Unknown Address Unknown Organization K01:[facility] [place] [facility] [place][note 2] [place] [address] Laboratory Report Ordering Provider Test Date Status NOEMI ALVARADO 08/23/2024 07:36:35 Final Observation Date Value Abnormality Reference (Units ) Status HbA1C 08/23/2024 07:36:35 10.1 Above high normal 4. 0-5.6 (%) Final The use of HbA1c to monitor glycemic status is based on normal hemoglobin and HbA composition. This test should not be used in patients with abnormal hemoglobin that affects the half life of the red blood cell or the in vivo glycation rates. Glucose, estimated average 08/23/2024 07:36:35 243 Above high normal <126 (mg/dL) Skinny gale Performing Location [facility] [place] [facility] [place][note 2] Jodi GERMAN [id number]
--- OUTSIDE RECORDS SUMMARY | 2024-09-02 09:44 | External Medical Summary | Summary of Care ---
Author Name Unknown Organization [facility] Address [address] [place] [address] Phone [phone] Care Team Providers Care Vp Scientific Affairs Name Role Phone Sisi Fountain JAQUELIN Primary Care Provider [phone] Reason for Visit * Reason Comments Follow Up Encounter Details Date Type Department Care Team ([facility] Contact Info) Description 08/23/2024 8:00 AM EDT Office Visit Cardiology, [facility] [address] [place] [phone] Emile Palma PA-Eri [address] [place] [address] Bicuspid aortic valve*; Nonrheumatic aortic valve stenosis; Aneurysm of ascending aorta without rupture (HCC); Abnormal nuclear stress test; Hypertension goal BP (blood pressure) < 130/80; [...] mouth in the morning. Active Dexcom G6 SensorIndicatio ns:Type 2 diabetes mellitus with hemoglobin A1c goal of less than 7.0% ([facility]) Use as directed. Use 1 sensor every 10 days. 9 Each 023 Active Dexcom G6 TransmitterIndi cations:Type 2 diabetes mellitus with hemoglobin A1c goal of less than 7.0% (HCC) Use as directed. Use 1 transmitter every 90 days. 1 Each 023 Active Insulin Aspart 100 UNIT/ML Injection Solution (NovoLOG)Indica tions:Type 1 diabetes mellitus with hemoglobin A1c goal of less than 8.0% (HCC) INJECT 10 UNITS SUBCUTANEOUSLY WITH MEALS 30 mL 1 024 Active NovoLOG FlexPen 100 UNIT/ML Subcutaneous Solution Pen-injector (insulin aspart) Inject 10 Units under the skin in the morning and 10 Units at noon and 10 Units in the evening. Inject with meals. 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, with long-term current use of insulin, unspecified retinopathy severity ([facility]),Type 2 diabetes mellitus with hemoglobin A1c goal of less than 7.0% ([facility]) Use as directed to inject insulin 3 times daily with meals 500 Each 3 024 Active BD Pen Needle Short U/F 31G X 8 MM (Insulin Pen Needle)Indicati ons:Type 2 diabetes mellitus with stage 3b chronic kidney disease, with long-term current use of insulin ([facility]),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 450 Each 3 024 Active EPINEPHrine 0.3 MG/0.3ML Injection Solution Auto-injector (Autoinjector)I ndications:Bee sting allergy For a severe reaction: Place orange end against the outer thigh, press firmly, hold in place for 10 seconds and go to the Emergency room. 2 Each 2 024 Active Insulin Aspart 100 UNIT/ML Injection Solution (NovoLOG) Use 100 units in insulin pump daily E 11.9 90 mL 3 024 Active Omnipod 5 G7 Intro (Gen 5) Kit Use to control insulin pump E11.9 1 Kit 024 Active Empagliflozin 25 MG Oral Tablet (Jardiance)Britt cations:Type 2 diabetes mellitus with hemoglobin A1c goal of less than 7.0% (HCC) Take 1 Tablet by mouth in the morning. 90 Tablet 3 024 Active Atorvastatin Calcium 40 MG Oral Tablet (Lipitor)Indica tions:Dyslipide harvey, goal LDL below 100 Take 1 Tablet by mouth in the morning. 90 Tablet 2 024 Active Semaglutide 14 MG Oral Tablet (Rybelsus)Indic ations:Type 2 diabetes mellitus with hemoglobin A1c goal of less than 7.0% (HCC) Take 14 mg by mouth daily first thing in the morning. 90 Tablet 2 025 Active Losartan Potassium 100 MG Oral Tablet (Cozaar)Indicat ions:HTN, goal below 140/90 Take 1 Tablet by mouth in the morning. 90 Tablet 1 025 Active Omnipod 5 G7 Pods (Gen 5) Use 1 pod every 2 days E11.9 180 Each 15 025 Active amLODIPine Besylate 5 MG Oral Tablet (Norvasc) Take 1 Tablet by mouth in the morning. 90 Tablet 3 Active hydroCHLOROthia zide 25 MG Oral Tablet (Hydrodiuril) Take 1 Tablet by mouth in the morning. 90 Tablet 3 025 Active Carvedilol 25 MG Oral Tablet (Coreg) Take 2 Tablets by mouth 2 times a day with morning and evening meals. 360 Tablet 3 025 Active amLODIPine Besylate 10 MG Oral Tablet (Norvasc)Indica tions:HTN, goal below 140/90 Take 1 Tablet by mouth in the morning. 90 Tablet 3 024 2024 Discontinued(R efill) hydroCHLOROthia zide 25 MG Oral Tablet (Hydrodiuril)In dications:HTN, goal below 140/90 Take 1 Tablet by mouth in the morning. 90 Tablet 3 024 2024 Discontinued(R efill) Carvedilol 25 MG Oral Tablet (Coreg) Take 1.5 Tablets by mouth in the morning and 1.5 Tablets before bedtime. With food. 270 Tablet 1 025 2024 Discontinued documented as of this encounter (statuses as [...] PI: Dr. Jennifer [place] CRC- Griselda Dickson ([phone]) ED [facility] CRC- Amy Werner ([phone]) [facility]- Ingris Devine ([phone]) Diagnosis changed due to Research Module. Go to Snapshot for study details. Type 1 diabetes mellitus wit h foot ulcer (CODE) 11/25/2018 01/03/2020 documented as of this encounter (statuses as of 08/23/2024) Immunizations Name Administration Dates Next Due COVID-19 mRNA, LNP-s, No Pre serve, 2-Dose Series ([employer]) 07/07/2020,06/10/2020 Hepatitis B, 20+ yrs 12/01/2014,08/31/2014,05/29 Pneumococcal Conjugate Vacci ne, 20-valent ([id number]) 01/20/2022 Pneumococcal Polysaccharide PPV23 (Pneumovax) 05/29/2014 Seasonal [...] No 12/21/2023 Does the household have a [facility] source of income? 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 Not on file Not on file documented as of this encounter Last Filed Vital Signs Vital Sign Reading Time Taken Comments Blood Pressure 132/84 08/23/2024 7:45 AM EDT Pulse 64 08/23/2024 7:45 AM EDT Temperature - - Respiratory Rate 14 08/23/2024 7:45 AM EDT Oxygen Saturation - - Inhaled Oxygen Concentration - - Weight 130.2 kg (287 lb) 08/23/2024 7:45 AM EDT Height - - Body Mass Index 36.85 08/18/2024 8:02 AM EDT documented in this encounter Progress Notes * Emile Palma PA-C - 08/23/2024 8:00 AM EDT History of Present Illness: Karl Wilkerson is a 59 year old male who returns today for routine Cardiology follow-up. History includes congenitally bicuspid aortic valve with ascending aortic aneurysm. Patient followed by CT Surgery with last evaluation on 09/10/2023. CTA of the chest showed an ascending aorta measuring up to 4.6 cm. Follow-up evaluation and imaging planned in August 2024. Patient returns today feeling well. No complaints or concerns. No chest pain, palpitations, or unusual shortness of breath. Lower extremity peripheral edema chronic and unchanged, without reported orthopnea or PND. No reported dizziness or syncope. Heart rates via his Nadanu watch typically heart in the upper 70s to low 100s. Weight is down 10 lb from last evaluation, planned. Follow-up colonoscopy planned September 30, 2024. Patient Active Problem List Diagnosis Type 2 diabetes mellitus with stage 3b chronic kidney disease, with long-term current use of insulin (HCC) Hypertension goal BP (blood pressure) < 130/80 Dyslipidemia, goal LDL below 70 Aortic valve disorder Bee sting allergy Type 2 diabetes mellitus with diabetic polyneuropathy, with long-term current use of insulin (HCC) Charcot foot due to diabetes mellitus (HCC) Ascending aortic aneurysm (HCC) Nonrheumatic aortic valve stenosis Bicuspid aortic valve Thoracic aortic aneurysm without rupture (HCC) Body mass index (BMI) of 40.0 to 44.9 in adult (HCC) Morbid obesity due to excess calories (HCC) Adjustment disorder with mixed anxiety and depressed mood Chronic kidney disease, stage 3b (HCC) Abnormal nuclear stress test Past Medical History: Diagnosis Date Diabetes (HCC) Hyperlipidemia Hypertension Hypertension Past Surgical History: Procedure Laterality Date COLONOSCOPY, DIAGNOSTIC (RECTUM) 08/08/2022 tubulovillous adenoma & serrated adenomatous polyp, repeat 1 yr / COLONOSCOPY FLEXIBLE PROXIMALDIAGNOSTIC performed by Jorge Santana MD at ENDOSCOPY [facility] FOOT/TOE SURGERY NEC Left 2019 bone revision INFORMATION Left 11/21/2017 I and D of left plantar foot abscess INJECTION OF EYE DRUG Left 04/03/2022 #1 AVASTIN OS DUARTENA INJECTION OF EYE DRUG Left 05/13/2022 # 2 Avastin OS, Dr. Recinos INJECTION OF EYE DRUG Left 06/11/2022 # [address] Recinos INJECTION OF EYE DRUG Left 07/18/2022 # 2 Eylea OS, Dr. Recinos INJECTION OF EYE DRUG Left 09/24/2022 #3 Eylea OS; Dr Recinos INJECTION OF EYE DRUG Left 11/05/2022 # 1 Vabysmo OS, Dr. Recinos INJECTION OF EYE DRUG Left 12/31/2022 # [address] Recinos INJECTION OF EYE DRUG Left 02/18/2023 # 3 Vabysmo OS, Dr. Recinos INJECTION OF EYE DRUG Left 04/15/2023 # 4 Vabysmo OS, Dr. Recinos INJECTION OF EYE DRUG Left 06/16/2023 #5 Vabysmo OS; Dr Recinos MISCELLANEOUS ORDER ([facility] ONLY) ACT 112 SIGNED 11/24/18 DR. RECINOS OTHER (INFORMATION) AVASTIN CINSENT SIGNED DAWSON/SHELLY EXP 04/03/23 OTHER (INFORMATION) EYLEA OU CONSENT SIGNED Dr. Recinos/Shelly (exp 06-11-23) OTHER (INFORMATION) Bilateral VABYSMO CONSENT OU EXP11/06/23. /SHELLY OTHER (INFORMATION) EYLEA OU CONSENT DR. RECINOS/SHELLY EXP. 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 Review of patient's allergies indicates: Allergen Reactions Bee Venom Anaphylaxis Insect Extract Current Outpatient Medications Medication Sig Dispense Refill FISH OIL 300 MG PO CAPS One TAB TWICE DAILY ASPIRIN 81 MG PO TABS one tablet daily Multi-Vitamins Oral Tablet Take 1 Tablet by mouth in the morning. Insulin Aspart 100 UNIT/ML Injection Solution (NovoLOG) INJECT 10 UNITS SUBCUTANEOUSLY WITH MEALS 30 mL 1 amLODIPine Besylate 10 MG Oral Tablet (Norvasc) Take 1 Tablet by mouth in the morning. 90 Tablet 3 hydroCHLOROthiazide 25 MG Oral Tablet (Hydrodiuril) Take 1 Tablet by mouth in the morning. 90 Tablet 3 Omnipod 5 G7 Intro (Gen 5) [...] transmitter every 90 days. 1 Each 0 NovoLOG FlexPen 100 UNIT/ML Subcutaneous Solution Pen-injector (insulin aspart) Inject 10 Units under the skin in the morning and 10 Units at noon and 10 Units in the evening. Inject with meals. 270 mL 3 Insulin Syringe-Needle U-100 30G X 1/2" 1 ML Use as directed to inject insulin 3 times daily with meals 500 Each 3 BD Pen Needle Short U/F 31G X 8 MM (Insulin Pen Needle) USE TO INJECT LANTUS INSULIN DIRECTED FIVE TIMES DAILY. 450 Each 3 EPINEPHrine 0.3 MG/0.3ML Injection Solution Auto-injector (Autoinjector) For a severe reaction: Place orange end against the outer thigh, press firmly, hold in place for 10 seconds and go to the Emergency room. 2 Each 2 Insulin Aspart 100 UNIT/ML Injection Solution (NovoLOG) Use 100 units in insulin pump daily E 11.9 90 mL 3 No current facility-administered medications for this visit. PHYSICAL EXAMINATION: BP 132/84 | Pulse 64 | Resp 14 | Wt 130.2 kg (287 lb) | BMI 36.85 kg/m² | BSA 2.61 m² General: Alert and oriented x3. No acute distress. Pleasant. Comfortable. Cooperative. Eyes: PER. Conjunctiva pink, sclera clear. HENT: Normocephalic. Atraumatic. Neck: No carotid bruits. No JVD. No HJR. Heart: RRR, 80 bpm. Grade II/ systolic ejection murmur. Lungs: Clear to auscultation. No wheeze. No rales. No rhonchi Abdomen: +BS Extremities: Marked lymphedematous changes, left greater than right, with 1 to 2+ pretibial edema. No cyanosis. No clubbing. Limited neurological examination: No focal deficit. Data: February 01, 2024 Lexiscan Interpretation Summary (as per Dr. Godinez): Abnormal Lexiscan myocardialnuclear perfusion imaging demonstrating a moderate apical infarction with minimal, apical inferior shaggy-infarct ischemia. Ischemia encompasses 7% of the total myocardium per quantitative analysis. Technically limited gated study. Wall motion analysis could not be performed. Calculated ejection fraction greater than 75%. Consider further evaluation of left ventricular systolic function and wall motion with echocardiography or cardiac MRI February 09, 2024 TTE Interpretation Summary (as per Dr. Godinez): The qualitative LV ejection fraction is 55-59% (normal). The LV wall thickness is mildly increased (concentric). The aortic valve iscongenitally bicuspid. The aortic valve is mildly calcified. Moderate aortic valve stenosis is present. Trivial aortic regurgitation. The aortic root is mildly enlarged, 4.0 cm. The ascending aorta is moderately enlarged, 4.9 cm. Compared to last available study changes are noted as follows: Aorticvalve systolic gradient has increased, moderate aortic valve stenosis now present. Component 10/01/2023 01/01/2024 07/13/2024 BUN 42 (H) 36 (H) CREATININE 2.0 (H) 2.0 (H) EGFR 39 (L) 39 (L) SODIUM 134 (L) 138 POTASSIUM 4.7 4.5 CHLORIDE 100 100 CO2 24 26 ANION GAP 10 12 GLUCOSE 276 (H) 208 (H) Albumin 4.0 AST 33 Alkaline Phosphatase 87 Bilirubin, Total 0.5 CALCIUM 9.5 9.8 Protein 7.0 ALT 64 (H) Triglycerides 259 (H) Cholesterol 147 HDL Cholesterol 35 (L) Non-HDL Cholesterol 112 Hemoglobin A1C 11.7 (H) Estimated Average Glucose 289 (H) LDL Cholesterol (Direct Measure) 67 Hemoglobin A1c 11.0 (H) ASSESSMENT AND RECOMMENDATIONS/PLAN: Congenitally bicuspid aortic valve with moderate aortic valve stenosis, trivial aortic regurgitation, and aortopathy. Patient followed by CT Surgery (last in August 2023). CTA of the chest in August 2023 revealed a 4.6 cm ascending aorta measuring (unchanged). Resting echocardiography in January 2024 revealed a 4.0 cm aortic root and 4.9 cm ascending aorta (unchanged compared to July 2022). Follow-up chest CT planned prior to CT surgery follow-up in August 2024. Resting echocardiography planned in January 2025. General management of thoracic aortic aneurysms discussed including measures to reduce cardiovascular risk, aggressive blood pressure control, statin therapy, avoiding heavy lifting and exercises involving sustained Valsalva maneuver, avoidance of fluoroquinolones, routine surveillance monitoring. Hypertension. Blood pressure acceptably controlled. Options of management discussed. Will attempt adjustments in therapies to aid chronic fluid retention; amlodipine dosing will be decreased from 10 mg/day to 5 mg/day. Carvedilol dosing will be increased from 37.5 mg twice per day to 50 mg twice per day. Abnormal EKG leading to February 01, 2024 Lexiscan nuclear stress testing which revealed a moderate apical infarction with minimal, apical inferior shaggy-infarct ischemia. Ischemia encompassed 7% of thetotal myocardium per quantitative analysis. Technically limited gated study. Wall motion analysis could not be performed. Calculated ejection fraction greater than 75%. Resting echocardiography on 02/09/2024 revealed normal LVEF (55-59%) with normal LV wall motion. Patient without overt angina symptoms. Recommend medical management. Imdur is a future consideration. Type 2 diabetes. HgA1c 11% on 01/01/2024, with significant renal dysfunction, Charcot foot. Aggressive diabetic management urged. Weight is down 10 lb. Follow-up hemoglobin A1c obtained earlier today,results pending. Dyslipidemia. LDL cholesterol 67 mg/dL on 10/01/2023. Continue atorvastatin 40 mg/day. Lipid panel collected earlier today, results pending. Routine Cardiology follow-up in 6 months time or as needed. ER with emergencies. Emile Palma PA-C Department of Cardiology This visit involved medical care services related to at least one serious condition or complex condition requiring ongoing care. This chart was completed in part utilizing [employer] Speech Voice Recognition Software. Grammatical errors, random word insertions, prounoun errors, and incomplete sentences are an occasional consequence of this system due to software limitations, ambient noise, and hardware issues. Any formal questions or concerns about the content, text, or information contained within the body of this dictation should be directly addressed to the provider for clarification. documented in this encounter Nursing Notes * Senait Bryan LPN - 08/23/2024 7:44 AM EDT Examination Room: 2 Name: Karl Wilkerson Date of : 1965 Reason for Visit: Follow up Problems/Concerns: denies Interim Hosp(s): denies Chest Pain/SOB: denies MyChart Discussed: ALREADY ACTIVE Patient was instructed to not get up on the exam table until directed and assisted by their provider; patient is to remain seated in the chair/ wheelchair/ exam table for fall prevention and safety reasons. Patient is aware staff will assist stepping down off exam table with personnel. documented in this encounter Plan of Treatment Upcoming Encounters Date Type Department Care Team (Late st Contact Info) Description 08/24/2024 7:45 AM EDT Office Visit Ophthalmology, [facility] [address] [place] [phone] César Recinos DO [address] [place] [address] 08/31/2024 8:00 AM EDT Office Visit Pharmacy, [facility] [address] [place] [address] [facility] [address] [place] [address] 09/08/2024 8:00 AM EDT Imaging Radiology [facility] [place] [address] [place] [phone] 09/15/2024 9:30 AM EDT Office Visit Cardiothoracic Surg [facility] [place] [address] [place] [address] Srinivasa Stanton MD [address] [place] [address] 09/30/2024 1:30 PM EDT Hospital Encounter ENDO [facility], Endoscopy Room [facility] [address] [place] [address] Kitty Cooper MD [address] [place] [address] 09/30/2024 1:30 PM EDT - 09/30/2024 2:00 PM EDT Surgery ENDO [facility], Endoscopy Room [facility] [address] [place] [phone] Kitty Cooper MD [address] [place] [address] COLONOSCOPY FLEXIBLE PROXIMAL DIAGNOSTIC 02/27/2025 8:00 AM EST Office Visit Cardiology, [facility] [address] [place] [phone] Emile Palma, PA-C [address] [place] [address] 03/06/2025 10:00 AM EST Office Visit Nephrology, [facility] [address] [place] [address] Mee Coughlin MD [address] [place] [address] [place] [address] Scheduled Procedures Name Priority Associated Diagnoses Date/Ti [...] Additional history exists CKD HGB USE SMARTSET 49091 09/30/202409/30, 10/01/2023, 07/29/2023, Additional history exists CKD PHOS USE SMARTSET 23816 09/30/2024 06/0 09/2023, 03/31/2022, 02/01/2021 Diabetic Foot [...] this encounter Medical Devices Implanted Type Area Expander Device Identifier Shelf Expiration Date Model / Serial / Lot Lens [id number] 12.5mm+21.50 - [id number] - [id number] Implanted:Qty: 1 on 07/08/2023 by Naldo Rivera DO at OR [facility] Left: Eye BAUSCH 02/24/2026 [id number] / [id number] / [id number] documented as of this encounter Visit Diagnoses Diagnosis Type 2 diabetes mellitus with hemoglobin A1c goal of less than 7.0% (HCC)- Primary Need for mplxjoyghq-oiezwng-kgsevtejd (Tdap) vaccine Need for prophylactic vaccination with combined yeegsekrru-xmvedgy-lhxvaaylx (DTP) vaccine Charcot foot due to diabetes [...] (blood pressure) < 130/80 Unspecified essential hypertension Bicuspid aortic valve- Primary Congenital insufficiency of aortic valve Nonrheumatic aortic valve stenosis Aortic valve disorders Aneurysm of ascending aorta without rupture (HCC) Abnormal nuclear stress test Other nonspecific abnormal cardiovascular system function study Hypertension goal BP (blood pressure) < 130/80 [...] Discussed due to patient's condition Care Teams Vp Scientific Affairs Relationship Specialty Start Date End Date Sisi Fountain CRNP [address] [place] [address] PCP - General Nurse Practitioner 01/14/23 documented as of this encounter
--- OUTSIDE RECORDS SUMMARY | 2024-09-02 09:44 | External Medical Summary | Summary of Care ---
Author Name Unknown Organization [facility] Address [address] [place] [address] Phone [phone] Care Team Providers Care Hematology Nurse Educator Name Role Phone Sisi Fountain JAQUELIN Primary Care Provider [phone] Encounter Details Date Type Department Care Team ([facility] Contact Info) Description 08/20/2024 Orders Only PATIENT PORTAL DO NOT DELETE THIS DEPT [id number] Allergies Active Allergy Reactions Criticality Noted Date Comments Bee Venom Anaphylaxis High 02/21/2014 Insect Extract High 06/09/2014 documented as of this encounter (statuses as of 08/20/2024) Medications FISH OIL 300 MG PO CAPS [...] with long-term current use of insulin ([facility]),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, with long-term current use of insulin, unspecified retinopathy severity ([facility]),Type 2 diabetes mellitus with hemoglobin A1c goal of less than 7.0% ([facility]) Use as directed to inject insulin 3 times daily with meals 500 Each 3 10/01/19 24 Active BD Pen Needle Short U/F 31G X 8 MM (Insulin Pen Needle)Indicatio ns:Type 2 diabetes mellitus with stage 3b chronic kidney disease, with long-term current use of insulin ([facility]),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 Contacts: PI: Dr. Jennifer Alexis [facility]- Griselda Dickson ([phone]) [facility]- Amy Amayacedric ([phone]) [facility] CRC- Ingris Devine ([phone]) Diagnosis changed due to Research Module. Go to Snapshot for study details. Type 1 diabetes mellitus wit h foot ulcer (CODE) 11/25/2018 01/03/2020 documented as of this encounter (statuses as of 08/20/2024) Immunizations Name Administration Dates Next Due COVID-19 mRNA, LNP-s, No Pre serve, 2-Dose Series ([employer]) 07/07/2020,06/10/2020 Hepatitis B, 20+ yrs 12/01/2014,08/31/2014,05/29 Pneumococcal Conjugate Vacci ne, 20-valent ([id number]) 01/20/2022 Pneumococcal Polysaccharide PPV23 (Pneumovax) 05/29/2014 Seasonal [...] 12/21/2023 Does the household have a re lar source of income? 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 [address] [place] [id number] Emile Palma PA-C [address] [place] [address] 08/24/2024 7:45 AM EDT Office Visit Ophthalmology, [facility] [address] [place] [phone] César Recinos DO [address] [place] [address] 08/31/2024 8:00 AM EDT Office Visit Pharmacy, [facility] [address] [place] [address] [facility] [address] [place] [address] 09/08/2024 8:00 AM EDT Imaging Radiology [facility] 1st [facility] [address] [place] [phone] 09/15/2024 9:30 AM EDT Office Visit Cardiothoracic Surg [facility] [place] [address] [facility] [place] [address] Srinivasa Stanton MD [address] [facility] [place] [address] 09/30/2024 1:30 PM EDT Hospital Encounter ENDO [facility], Endoscopy Room [facility] [address] [place] [phone] Kitty Cooper MD [address] [place] [address] 09/30/2024 1:30 PM EDT - 09/30/2024 2:00 PM EDT Surgery ENDO [facility], Endoscopy Room [facility] [address] [place] [phone] Kitty Cooper MD [address] [place] [address] COLONOSCOPY FLEXIBLE PROXIMAL DIAGNOSTIC 03/06/2025 10:00 AM EST Office Visit Nephrology, [address] [place] [address] Mee Coughlin MD [address] [place] [address] [phone] Scheduled Procedures Name Priority Associated Diagnoses Date/Ti [...] Additional history exists CKD HGB USE SMARTSET 50962 09/30/202409/30, 10/01/2023, 07/29/2023, Additional history exists CKD PHOS USE SMARTSET 58642 09/30/2024 06/0 09/2023, 03/31/2022, 02/01/2021 Diabetic Foot Exam 09/30/2024 10/01/2023, 0 09/29/2022, 01/03/2020, Additional history exists Influenza Vaccine (FLU shot) (Season Ended) 2024 12/31/2022, 01/20/2022, 02/04/2021, Additional history exists GFR 01/13/2025 07/13/2024, 060 09/2023, 08/26/2023, Additional history exists B-12 07/13/2025 07/13/2024, 120 08/2022, 08/20/2021, Additional history exists Lipid Panel 09/30/2028 10/01/2023, 040 06/2023, 08/06/2022, Additional history exists DTap/Tdap Vaccines [...] this encounter Medical Devices Implanted Type Area Transition Mgr Device Identifier Shelf Expiration Date Model / Serial / Lot Lens [id number] 12.5mm+21.50 - [id number] - [id number] Implanted:Qty: 1 on 07/08/2023 by Naldo Rivera DO at OR [facility] Left: Eye BAUSCH 02/24/2026 [id number] / [id number] / [id number] documented as of this encounter Advance Directives * Full Code (Latest Code Status on File) Date Activated Date Inactivated Comments 07/08/2023 11:09 AM 07/08/2023 5:48 PM Question Answer Comments Discussion of Advance Direct sanford occurred with: Not Discussed due to patient's condition Care Teams Hematology Nurse Educator Relationship Specialty Start Date End Date Sisi Fountain CRNP [address] [place] [address] PCP - General Nurse Practitioner 01/14/23 documented as of this encounter
--- OUTSIDE RECORDS SUMMARY | 2024-09-02 09:44 | External Medical Summary | Summary of Care ---
Author Name Unknown Organization [facility] Address [address] [place] [address] Phone [phone] Care Team Providers Care Pricing Manager Name Role Phone Sisi Fountain Primary Care Provider [phone] Reason for Referral * Evaluate & Treat - Unlimited Visits (Within 10 days (routine)) - Authorized Specialty Diagnoses / Procedures Referred By Maria Fernanda gama Referred To Contact Podiatry Diagnoses Charcot foot due to diabetes mellitus (HCC) Type 2 diabetes mellitus with hemoglobin A1c goal of less than 7.0% (HCC) Sisi Fountain CRNP [address] [place] [address] Phone: tel: fax: Referral ID Status Reason Start Date Expiration Date Visits Requested Visits Authorized [id number] Authorized Specialty Services Required 08/18/[phone] Question Answer Referral Priority Within 10 days (routine) Where should this appointment be scheduled? [facility] Which condition are you referring this patient for? Diabetic foot care/pain Specific condition? Diabetic Foot care Medicare Patient? No Reason for Visit * Reason Onset Date Comments Return Visit 6 month Immunizations 08/18/2024 Encounter Details Date Type Department Care Team ([facility] Contact Info) Description 08/18/2024 8:00 AM EDT Office Visit Family Practice [facility] [address] [place] [address] Sisi Fountain CRNP [address] [place] [address] Type 2 diabetes mellitus with hemoglobin A1c goal of less than 7.0% ([facility])*; Need for xvwhpmznat-guhvulj-cp rtussis (Tdap) vaccine; Charcot foot due to diabetes mellitus (HCC); Type 2 diabetes mellitus with stage 3b chronic kidney disease, with long-term current use of insulin (HCC); Dyslipidemia, goal LDL below 100; Type 2 diabetes mellitus with diabetic polyneuropathy, with long-term current use of insulin (HCC); Dyslipidemia, goal LDL below 70; Aneurysm of ascending aorta without rupture (HCC); Bicuspid aortic valve; Chronic kidney disease, stage 3b (HCC); Hypertension goal BP (blood pressure) < 130/80 Allergies Active Allergy Reactions Criticality Noted Date Comments Bee Venom Anaphylaxis High 02/21/2014 Insect Extract High 06/09/2014 documented as of this encounter (statuses as of 08/18/2024) Medications FISH OIL 300 MG PO CAPS One TAB TWICE DAILY Active ASPIRIN 81 MG PO TABS one tablet daily Act gurpreet Multi-Vitamins Oral Tablet Take 1 Tablet by mouth in the morning. Active Dexcom G6 SensorIndication s:Type 2 diabetes mellitus with hemoglobin A1c goal of less than 7.0% (HCC) Use as directed. Use 1 sensor every 10 days. 9 Each 04/16/20 Active Dexcom G6 TransmitterIndic ations:Type 2 diabetes mellitus with hemoglobin A1c goal of less than 7.0% (HCC) Use as directed. Use 1 transmitter every 90 days. 1 Each 04/16/20 Active Insulin Aspart 100 UNIT/ML Injection Solution (NovoLOG)Indicat ions:Type 1 diabetes mellitus with hemoglobin A1c goal of less than 8.0% (HCC) INJECT 10 UNITS SUBCUTANEOUSLY WITH MEALS 30 mL 1 05/14/19 Active Additional Information Patient not taking.Reported on 08/18/2024 NovoLOG FlexPen 100 UNIT/ML Subcutaneous Solution Pen-injector (insulin aspart) Inject 10 Units under the skin in the morning and 10 Units at noon and 10 Units in the evening. Inject with meals. 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, with long-term current use of insulin, unspecified retinopathy severity ([facility]),Type 2 diabetes mellitus with hemoglobin A1c goal of less than 7.0% ([facility]) Use as directed to inject insulin 3 times daily with meals 500 Each 3 10/01/19 24 Active BD Pen Needle Short U/F 31G X 8 MM (Insulin Pen Needle)Indicatio ns:Type 2 diabetes mellitus with stage 3b chronic kidney disease, with long-term current use of insulin ([facility]),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 450 Each 3 10/09/19 24 Active EPINEPHrine 0.3 MG/0.3ML Injection Solution Auto-injector (Autoinjector)In dications:Bee sting allergy For a severe reaction: Place orange end against the outer thigh, press firmly, hold in place for 10 seconds and go to the Emergency room. 2 Each 2 01/01/20 24 Active Additional Information Patient not taking.Reported on 08/18/2024 Insulin Aspart 100 UNIT/ML Injection Solution (NovoLOG) Use 100 units in insulin pump daily E 11.9 90 mL 3 01/13/20 24 Active Omnipod 5 G7 Intro (Gen 5) Kit Use to control insulin pump E11.9 1 Kit 01/18/20 24 Active Additional Information Patient not taking.Reported on 08/18/2024 Empagliflozin 25 MG Oral Tablet (Jardiance)Indic ations:Type 2 diabetes mellitus with hemoglobin A1c goal of less than 7.0% ([facility]) Take 1 Tablet by mouth in the [...] E11.9 180 Each 15 08/19/19 25 Active Omnipod 5 G7 Pods (Gen 5) Use 1 pod every 2 days E11.9 180 Each 3 03/01/20 24 025 Discontin ued(Refil l) documented as of this encounter (statuses as of 08/18/2024) Active Problems Problem Noted Date Diagnosed Date [...] as of this encounter (statuses as of 08/18/2024) Resolved Problems Problem Noted Date Diagnosed Date [...] failure rates. Contacts: PI: Dr. Jennifer Pruitt-[facility]- Griselda Dickson ([phone]) [facility]- Amy Werner ([phone]) [place] [facility]- Ingris Devine ([phone]) Diagnosis changed due to Research Module. Go to Snapshot for study details. 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 Not on file Not on file documented as of this encounter Last Filed Vital Signs Vital Sign Reading Time Taken Comments Blood Pressure 126/74 08/18/2024 8:02 AM EDT Pulse 74 08/18/2024 8:02 AM EDT Temperature 36.1 °C (97 °F) 08/18/2024 8:02 AM EDT Respiratory Rate - - Oxygen Saturation 98% 08/18/2024 8:02 AM EDT Inhaled Oxygen Concentration - - Weight 129.9 kg (286 lb 6.4 oz) 08/18/2024 8:02 AM EDT Height 188 cm (6' 2") 08/18/2024 8:02 AM EDT Body Mass Index 36.77 08/18/2024 8:02 AM EDT documented in this encounter Patient Instructions * Patient Instructions* Jenniffer Hoffmann LPN - 08/18/2024 8:04 AM EDT ~~PATIENT INSTRUCTIONS FOR TDAP VACCINE~~ Possible side effects of TDAP vaccine, (tetanus shot), are usually mild and can include: 1. Soreness or redness at injection site 2. Low grade fever 3. Body aches You may use a fever / pain reducing medication as needed for these symptoms. LET YOUR DOCTOR KNOW IMMEDIATELY IF YOU HAVE DIFFICULTY BREATHING OR SWALLOWING, EXPERIENCE ITCHINGOF FEET OR HANDS, HAVE SWELLING OF EYES, FACE OR INSIDE OF NOSE. documented in this encounter Progress Notes * Sisi Fountain CRNP - 08/18/2024 8:14 AM EDT Images from the original note were not included. Subjective Karl Wilkerson is a 59 year old male that presents for Return Visit (6 month ) and Immunizations HPI Here for routine follow up Has had issues getting omnipod refill for past week has just been using basaglar. Will reorder to restart today. Follows MTM. Otherwise taking medications as prescribed and feeling pretty good. Due for labs Following with cardiology for HTN, aortic valve disorder, aortic aneurysm Following ophthalmology Current Outpatient Medications Medication Sig Dispense Refill Omnipod 5 G7 Pods (Gen 5) Use 1 pod every 2 days E11.9 180 Each 15 Carvedilol 25 MG Oral Tablet (Coreg) Take 1.5 Tablets by mouth in the morning and 1.5 Tablets before bedtime. With food. 270 Tablet 1 Losartan Potassium 100 MG Oral Tablet (Cozaar) Take 1 Tablet by mouth in the morning. 90 Tablet 1 Semaglutide 14 MG Oral Tablet (Rybelsus) Take 14 mg by mouth daily first thing in the morning. 90 Tablet 2 Atorvastatin Calcium 40 MG Oral Tablet (Lipitor) Take 1 Tablet by mouth in the morning. 90 Tablet 2 Empagliflozin 25 MG Oral Tablet (Jardiance) Take 1 Tablet by mouth in the morning. 90 Tablet 3 Insulin Aspart 100 UNIT/ML Injection Solution (NovoLOG) Use 100 units in insulin pump daily E 11.9 90 mL 3 BD Pen Needle Short U/F 31G X 8 MM (Insulin Pen Needle) USE TO INJECT LANTUS INSULIN DIRECTED FIVE TIMES DAILY. 450 Each 3 Insulin Syringe-Needle U-100 30G X 1/2" 1 ML Use as directed to inject insulin 3 times daily with meals 500 Each 3 amLODIPine Besylate 10 MG Oral Tablet (Norvasc) Take 1 Tablet by mouth in the morning. 90 Tablet 3 hydroCHLOROthiazide 25 MG Oral Tablet (Hydrodiuril) Take 1 Tablet by mouth in the morning. 90 Tablet 3 Dexcom G6 Sensor Use as directed. Use 1 sensor every 10 days. 9 Each 0 Dexcom G6 Transmitter Use as directed. Use 1 transmitter every 90 days. 1 Each 0 Multi-Vitamins Oral Tablet Take 1 Tablet by mouth in the morning. ASPIRIN 81 MG PO TABS one tablet daily FISH OIL 300 MG PO CAPS One TAB TWICE DAILY Omnipod 5 G7 Intro (Gen 5) Kit Use to control insulin pump E11.9 (Patient not taking: Reported on 08/18/2024) 1 Kit 0 EPINEPHrine 0.3 MG/0.3ML Injection Solution Auto-injector (Autoinjector) For a severe reaction: Place orange end against the outer thigh, press firmly, hold in place for 10 seconds and go to the Emergency room. (Patient not taking: Reported on 08/18/2024) 2 Each 2 NovoLOG FlexPen 100 UNIT/ML Subcutaneous Solution Pen-injector (insulin aspart) Inject 10 Units under the skin in the morning and 10 Units at noon and 10 Units in the evening. Inject with meals. (Patient not taking: Reported on 08/18/2024) 270 mL 3 Insulin Aspart 100 UNIT/ML Injection Solution (NovoLOG) INJECT 10 UNITS SUBCUTANEOUSLY WITH MEALS (Patient not taking: Reported on 08/18/2024) 30 mL 1 No current facility-administered medications for this visit. Objective BP 126/74 | Pulse 74 | Temp 97 °F (36.1 °C) (Tympanic) | Ht 6' 2" (1.88 m) | Wt 286 lb 6.4 oz (129.9 kg) | SpO2 98% | BMI 36.77 kg/m² | BSA 2.6 m² Physical Exam Vitals reviewed. Constitutional: General: He is not in acute distress. HENT: Head: Normocephalic and atraumatic. Right Ear: Tympanic membrane, ear canal and external ear normal. Left Ear: Tympanic membrane, ear canal and external ear normal. Nose: Nose normal. Mouth/Throat: Mouth: Mucous membranes are moist. Eyes: Extraocular Movements: Extraocular movements intact. Conjunctiva/sclera: Conjunctivae normal. Pupils: Pupils are equal, round, and reactive to light. Cardiovascular: Rate and Rhythm: Normal rate and regular rhythm. Heart sounds: Normal heart sounds. Pulmonary: Effort: Pulmonary effort is normal. Breath sounds: Normal breath sounds. Abdominal: General: There is no distension. Palpations: Abdomen is soft. Tenderness: There is no abdominal tenderness. Musculoskeletal: Cervical back: Neck supple. Right lower leg: Edema (chronic) present. Left lower leg: Edema (chronic) present. Lymphadenopathy: Cervical: No cervical adenopathy. Skin: General: Skin is warm and dry. Capillary Refill: Capillary refill takes less than 2 seconds. Neurological: Mental Status: He is alert and oriented to person, place, and time. Psychiatric: Behavior: Behavior normal. Thought Content: Thought content normal. Assessment and Plan Type 2 diabetes mellitus with hemoglobin A1c goal of less than 7.0% ([facility]) Labs ordered - will get today Requests referral to transfer to our [facility] podiatry from [facility] foot Orders: PODIATRY REFERRAL OP Need for qjtlfcwaen-eliqmpp-shiuhbgvd (Tdap) vaccine Orders: TDAP (AGE 7 AND OLDER), ADACEL Charcot foot due to diabetes mellitus (HCC) Orders: HEMOGLOBIN A1C; Future PODIATRY REFERRAL OP Type 2 diabetes mellitus with stage 3b chronic kidney disease, with long-term current use of insulin (HCC) Dyslipidemia, goal LDL below 100 Orders: LIPID PANEL WITH DIRECT LDL IF TG IS HIGH; Future Type 2 diabetes mellitus with diabetic polyneuropathy, with long-term current use of insulin (HCC) Dyslipidemia, goal LDL below 70 Aneurysm of ascending aorta without rupture (HCC) Bicuspid aortic valve Chronic kidney disease, stage 3b (HCC) Hypertension goal BP (blood pressure) < 130/80 Wrap-Up Follow Up: Return in about 6 months (around 02/17/2025) for Fasting Labs Soon. | For: Fasting Labs Soon I spent a total of 30-39 minutes (exact time 30 mins) on the date of service in preparation, delivery, and documentation of the care provided to Karl Wilkerson excluding any time spent in the performance of separately billed services. * Jenniffer Hoffmann LPN - 08/18/2024 8:04 AM EDT Hemoglobin a1c ordered today. Provider aware. Jenniffer Hoffmann LPN Pre-Administration Time Out Procedure Performed: Yes Patient Identified (Ask Name/Date of ): Yes Does the patient have a fever greater than 101 degrees today? No Patient allergic to latex? No Has the patient ever fainted after receiving an injection? No VFC Stock: No Immunization(s) verified: Yes, Immunization Name: Tdap (Adacel), VIS Sheet(s) given: Yes Verified Side and Site: Yes Verified Shot(s) with Parent(s)/Patient: Yes documented in this encounter Nursing Notes * Jenniffer Hoffmann LPN - 08/18/2024 7:59 AM EDT The patient has been properly identified by confirmation of name and date of . Chief Complaint Patient presents with Return Visit 6 month Pt needs new omni pod script sent to [facility] Jodi Tenorio. Has been using the basaglar 50 units in the am& pm, since he has not had the omnipods. documented in this encounter Miscellaneous Notes * Assessment & Plan Note - Sisi Fountain CRNP - 08/18/2024 12:33 PM EDT Associated Problem(s): Charcot foot due to diabetes mellitus (HCC) Orders: HEMOGLOBIN A1C; Future PODIATRY REFERRAL OP * Assessment & Plan Note - Sisi Fountain CRNP - 08/18/2024 12:33 PM EDT Associated Problem(s): Type 2 diabetes mellitus with stage 3b chronic kidney disease, with long-term current use of insulin (HCC) * Assessment & Plan Note - Sisi Fountain CRNP - 08/18/2024 12:33 PM EDT Associated Problem(s): Type 2 diabetes mellitus with diabetic polyneuropathy, with long-term current use of insulin (HCC) * Assessment & Plan Note - Sisi Fountain CRNP - 08/18/2024 12:33 PM EDT Associated Problem(s): Dyslipidemia, goal LDL below 70 * Assessment & Plan Note - Sisi Fountain CRNP - 08/18/2024 12:33 PM EDT Associated Problem(s): Ascending aortic aneurysm (HCC) * Assessment & Plan Note - Sisi Fountain CRNP - 08/18/2024 12:33 PM EDT Associated Problem(s): Bicuspid aortic valve * Assessment & Plan Note - Sisi Fountain CRNP - 08/18/2024 12:33 PM EDT Associated Problem(s): Chronic kidney disease, stage 3b (HCC) * Assessment & Plan Note - Sisi Fountain CRNP - 08/18/2024 12:33 PM EDT Associated Problem(s): Hypertension goal BP (blood pressure) < 130/80 documented in this encounter Plan of Treatment Upcoming Encounters Date Type Department Care Team (Late st Contact Info) Description 08/19/2024 9:00 AM EDT Office Visit Nephrology, [facility] [address] [facility] [place] [address] Mee Coughlin MD [address] [place] [address] [place] [phone] 08/23/2024 8:00 AM EDT Office Visit Cardiology, [facility] [address] [place] [phone] Emile Palma PASharminC [address] [place] [address] 08/24/2024 7:45 AM EDT Office Visit Ophthalmology, [facility] [address] [place] [phone] César Recinos DO [address] [place] [address] 08/31/2024 8:00 AM EDT Office Visit Pharmacy, [facility] [address] [place] [address] [facility] [address] [place] [address] 09/08/2024 8:00 AM EDT Imaging Radiology [place] [address] [facility] [address] [place] [phone] 09/15/2024 9:30 AM EDT [facility] [address] [place] [address] Srinivasa Stanton MD [address] [place] [address] 09/30/2024 1:30 PM EDT Hospital Encounter [facility]O [facility], Endoscopy Room [facility] [address] [place] [phone] Kitty Cooper MD [address] [place] [address] 09/30/2024 1:30 PM EDT - 09/30/2024 2:00 PM EDT Surgery ENDO [facility], Endoscopy Room [facility] [address] [place] [phone] Kitty Cooper MD [address] [place] [address] COLONOSCOPY FLEXIBLE PROXIMAL DIAGNOSTIC Scheduled Orders Name Type Priority Associated Diagnoses Orde r Schedule HEMOGLOBIN A1C Lab Routine Charcot foot due to diabetes mellitus (HCC) Expected: 08/18/2024 (Approximate), Expires: 09/17/2025 LIPID PANEL WITH DIRECT LDL IF TG IS HIGH Lab Routine Dyslipidemia, goal LDL below 100 Expected: 08/18/2024, Expires: 08/18/2025 Scheduled Procedures Name Priority Associated Diagnoses Date/Ti me COLONOSCOPY FLEXIBLE PROXIMAL DIAGNOSTIC Recall History of colon polyps 09/30/2024 1:30 PM EDT Scheduled Referrals Name Type Priority Associated Diagnoses Orde r Schedule PODIATRY REFERRAL OP Referral Within 10 days (routine) Charcot foot due to diabetes mellitus (HCC) Type 2 diabetes mellitus with hemoglobin A1c goal of less than 7.0% (HCC) Ordered: 08/18/2024 Health Maintenance Due Date Last Done Comments Depression Screening 1979 HIV Screening 07/20/1982 Hepatitis C Screening 07/20/1985 Cologuard 07/20/2012 Fecal Occult Blood Test 07/20/2012 Sigmoidoscopy 07/20/2012 Colonoscopy 08/09/2023 08/08/2022, 08/08/2022 Colorectal Cancer Screening 08/09/2023 COVID-19 Vaccine ( season) 2023 07/07/2020, 06/10/2020 Albumin/Creatinine Ratio 03/31/2024 023, 01/20/2022, 02/23/2015, Additional history exists Diabetic Eye Exam 05/07/2024 05/07/2023, , 05/07/2023, Additional history exists HbA1c 06/30/2024 01/01/2024, 06/09/2023, 03/31/2023, Additional history exists CKD HGB USE SMARTSET 75819 09/30/202409/30, 10/01/2023, 07/29/2023, Additional history exists CKD PHOS USE SMARTSET 83840 09/30/2024 06/0 09/2023, 03/31/2022, 02/01/2021 Diabetic Foot [...] this encounter Medical Devices Implanted Type Area Telephone Answering Service Operator Device Identifier Shelf Expiration Date Model / Serial / Lot Lens [id number] 12.5mm+21.50 - [id number] - [id number] Implanted:Qty: 1 on 07/08/2023 by Naldo Rivera DO at OR [facility] Left: Eye BAUSCH 02/24/2026 [id number] / [id number] / [id number] documented as of this encounter Visit Diagnoses Diagnosis Type 2 diabetes mellitus with hemoglobin A1c goal of less than 7.0% ([facility])- Primary Need for ubymtblszd-jjxiboj-azbjbwlhn (Tdap) vaccine Need for prophylactic vaccination with combined xtrtajzvdb-cvfvsbu-filcylyhp (DTP) vaccine Charcot foot due to diabetes [...] (blood pressure) < 130/80 Unspecified essential hypertension History of colon polyps Personal history of colonic polyps documented in this encounter Advance Directives * Full Code (Latest Code Status on File) Date Activated Date Inactivated Comments 07/08/2023 11:09 AM 07/08/2023 5:48 PM Question Answer Comments Discussion of Advance Direct sanford occurred with: Not Discussed due to patient's condition Care Teams Pricing Manager Relationship Specialty Start Date End Date Sisi Fountain CRNP [address] [place] [address] PCP - General Nurse Practitioner 01/14/23 documented as of this encounter
--- OUTSIDE RECORDS SUMMARY | 2024-09-02 09:44 | External Medical Summary | Summary of Care ---
Author Name Unknown Organization [facility] Address [address] [place] [address] Phone [phone] Care Team Providers Care Rn Ent Name Role Phone Sisi Fountain Primary Care Provider +1- [phone] Reason for Referral * Evaluate & Treat - Unlimited Visits (Within 10 days (routine)) - Authorized Specialty Diagnoses / Procedures Referred By Maria Fernanda gama Referred To Contact Podiatry Diagnoses Charcot foot due to diabetes mellitus (HCC) Type 2 diabetes mellitus with hemoglobin A1c goal of less than 7.0% (HCC) Sisi Fountain CRNP [address] [place] [address] Phone: tel: fax: Referral ID Status Reason Start Date Expiration Date Visits Requested Visits Authorized [id number] Authorized Specialty Services Required 08/18/[phone] Question Answer Referral Priority Within 10 days (routine) Where should this appointment be scheduled? [facility] Which condition are you referring this patient for? Diabetic foot care/pain Specific condition? Diabetic Foot care Medicare Patient? No Reason for Visit * Reason Onset Date Comments Return Visit 6 month Immunizations 08/18/2024 Encounter Details Date Type Department Care Team ([facility] Contact Info) Description 08/18/2024 8:00 AM EDT Office Visit Family Practice [facility] [address] [place] [address] Sisi Fountain CRNP [address] [place] [address] Type 2 diabetes mellitus with hemoglobin A1c goal of less than 7.0% ([facility])*; Need for ctkmjevjiz-dozubna-bz rtussis (Tdap) vaccine; Charcot foot due to [...] current use of insulin, unspecified retinopathy severity ([facility]),Type 2 diabetes mellitus with hemoglobin A1c goal of less than 7.0% ([facility]) Use as directed to inject insulin 3 times daily with meals 500 Each 3 10/01/19 24 Active BD Pen Needle Short U/F 31G X 8 MM (Insulin Pen Needle)Indicatio ns:Type 2 diabetes mellitus with stage 3b chronic kidney disease, with long-term current use of insulin ([facility]),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 Jennifer Pruitt-Shira Thomson [facility]- Griselda Dickson ([phone]) [facility] CRC- Amy Werner ([phone]) [facility] CRC- Ingris Devine ([phone]) Diagnosis changed due to Research Module. Go to Snapshot for study details. 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 Has been using the basaglar [...] 08/19/2024 9:00 AM EDT Office Visit Nephrology, [facility] [address] [place] [address] Mee Coughlin MD [address] [place] [address] [place] [id number] 08/23/2024 8:00 AM EDT Office Visit Cardiology, [facility] [address] [place] [address] Emile Palma PASharminC [address] [place] [address] 08/24/2024 7:45 AM EDT Office Visit Ophthalmology, [facility] [address] [place] [address] César Recinos DO [address] [place] [address] 08/31/2024 8:00 AM EDT Office Visit Pharmacy, [facility] [address] [place] [address] [facility] [address] [place] [address] 09/08/2024 8:00 AM EDT Imaging Radiology [facility] 1st [facility] [address] [place] [phone] 09/15/2024 9:30 AM EDT [facility] [address] [place] [address] Srinivasa Stanton MD [address] [place] [address] 09/30/2024 1:30 PM EDT Hospital Encounter ENDO [facility], Endoscopy Room [facility] [address] [place] [phone] Kitty Cooper MD [address] [place] [address] 09/30/2024 1:30 PM EDT - 09/30/2024 2:00 PM EDT Surgery ENDO [facility], Endoscopy Room [facility] [address] [place] [address] Kitty Cooper MD [address] [place] [address] COLONOSCOPY FLEXIBLE PROXIMAL DIAGNOSTIC Scheduled Orders Name [...] Additional history exists CKD HGB USE SMARTSET 42664 09/30/202409/30, 10/01/2023, 07/29/2023, Additional history exists CKD PHOS USE SMARTSET 29906 09/30/2024 06/0 09/2023, 03/31/2022, 02/01/2021 Diabetic Foot [...] this encounter Medical Devices Implanted Type Area Resident Services Coordinator Device Identifier Shelf Expiration Date Model / Serial / Lot Lens [id number] 12.5mm+21.50 - [id number] - [id number] Implanted:Qty: 1 on 07/08/2023 by Nalod Rivera DO at OR [facility] Left: Eye BAUSCH 02/24/2026 [id number] / [id number] / [id number] documented as of this encounter Visit Diagnoses Diagnosis Type 2 diabetes mellitus with hemoglobin A1c goal of less than 7.0% ([facility])- Primary Need for jobltxtmon-sjncueg-irwmhzjlf (Tdap) vaccine Need for prophylactic vaccination with combined risjqurevo-dxuisyx-waaezhhab (DTP) vaccine Charcot foot due to diabetes [...] due to patient's condition Care Teams Rn Ent Relationship Specialty Start Date End Date Sisi Fountain CRNP [address] [place] [address] PCP - General Nurse Practitioner 01/14/23 documented as of this encounter
--- OUTSIDE RECORDS SUMMARY | 2024-09-02 09:44 | External Medical Summary ---
Author Name Unknown Address Unknown Organization K01:LABORATORY [facility] - [address] [place] [address] Laboratory Report Ordering Provider Test Date Status NOEMI ALVARADO 08/23/2024 07:36:35 Final Observation Date Value Abnormality Reference (Units ) Status LDL, (direct) 08/23/2024 07:36:35 49 <=129 (mg/dL) Final LDL Cholesterol Reference Ra nges (mg/dL):
<70 � � Target level for high risk ASCVD patient
<100 � �Optimal for general population
100-129 Near optimal for general population
130-159 Borderline high
160-189 High
>=190 � Very high Performing Location LABORATORY [facility] - [address] [place] [address]
--- OUTSIDE RECORDS SUMMARY | 2024-09-02 09:45 | External Medical Summary ---
Author Name Unknown Address Unknown Organization K0G:LABORATORY [facility] [address] - [address] [place] [address] Laboratory Report Ordering Provider Test Date Status NOEMI ALVARADO 07/13/2024 07:14:00 Final Observation Date Value Abnormality Reference (Units ) Status BUN 07/13/2024 07:14:00 36 Above high normal 6-20 (mg/dL) Final Creatinine 07/13/2024 07:14:00 2.0 Above high normal 0.6-1.2 (mg/dL) Final Glomerular filtration rate/1.73 sq M.predicted [Volume Rate/Area] in Serum, Plasma or Blood by Creatinine-based formula (CKD-EPI) 07/13/2024 07:14:00 39 Below low normal >=60 (mL/min) Final eGFR is calculated based on the CKD-EPI 2020 equation. Sodium 07/13/2024 07:14:00 138 135-146 (m mol/L) Final Potassium 07/13/2024 07:14:00 4.5 3.5-5.1 (m mol/L) Final Cl 07/13/2024 07:14:00 100 98-107 (mm ol/L) Final CO2 07/13/2024 07:14:00 26 22-32 (mmo l/L) Final Anion gap 07/13/2024 07:14:00 12 7-15 (mmol /L) Final Glucose 07/13/2024 07:14:00 208 Above high normal 70 -120 (mg/dL) Final Albumin 07/13/2024 07:14:00 4.0 3.8-5.0 (g /dL) Final AST (Aspartate aminotransferase) 07/13/2024 07:14:00 33 10-50 (U/L) Fin al Alk Phos 07/13/2024 07:14:00 87 35-130 (U/ L) Final Bilirubin, Total 07/13/2024 07:14:00 0.5 <=1 .2 (mg/dL) Final Calcium 07/13/2024 07:14:00 9.8 8.4-10.2 ( mg/dL) Final Protein 07/13/2024 07:14:00 7.0 6.0-8.3 (g /dL) Final ALT (Alanine aminotransferase) 07/13/2024 07:14:00 64 Above high normal 10-50 (U/L) Final Performing Location [facility] [address] - [address] [facility] [address]
--- OUTSIDE RECORDS SUMMARY | 2024-09-02 09:45 | External Medical Summary | Summary of Care ---
Author Name Unknown Organization [facility] Address [address] [place] [address] Phone [phone] Care Team Providers Care Hospital Security Officer Name Role Phone Sisi Fountain Primary Care Provider +1- [phone] Reason for Visit * Reason Onset Date Comments Appointment 05/10/2024 Encounter Details Date Type Department Care Team ([facility] Contact Info) Description 05/10/2024 Telephone Family Practice [facility] [address] [place], [place] [id number] Sisi Fountain CRNP [address] [place] [address] Appointment Allergies Active Allergy Reactions Criticality Noted Date Comments Bee Venom Anaphylaxis High 02/21/2014 Insect Extract High 06/09/2014 documented as of this encounter (statuses as of 05/10/2024) Medications FISH OIL 300 MG PO CAPS One TAB TWICE DAILY Active ASPIRIN 81 MG PO TABS one tablet daily Act gurpreet Multi-Vitamins Oral Tablet Take 1 Tablet by mouth in the morning. Active Dexcom G6 SensorIndication s:Type 2 diabetes mellitus with hemoglobin A1c goal of less than 7.0% ([facility]) Use as directed. 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 450 Each 10/09/19 24 Active Losartan Potassium 100 MG Oral Tablet (Cozaar)Indicati ons:HTN, goal below 140/90 Take 1 Tablet by mouth in the morning. 90 Tablet 1 11/30/19 24 Active Carvedilol 25 MG Oral Tablet (Coreg) Take 1.5 Tablets by mouth in the morning and 1.5 Tablets before bedtime. With food. 270 Tablet 1 12/11/19 24 Active EPINEPHrine 0.3 MG/0.3ML Injection Solution [...] in the morning. 90 Tablet 2 04/30/19 Active documented as of this encounter (statuses as of 05/10/2024) Active Problems Problem Noted Date Diagnosed Date [...] as of this encounter (statuses as of 05/10/2024) Resolved Problems Problem Noted Date Diagnosed Date [...] PI: Dr. Jennifer Thomson CRC- Griselda Dickson ([phone]) [facility]- Amy Werner ([phone]) [facility] CRC- Ingris Devine ([phone]) Diagnosis changed due to Research Module. Go to Snapshot for study details. Type 1 diabetes mellitus wit h foot ulcer (CODE) 11/25/2018 01/03/2020 documented as of this encounter (statuses as of 05/10/2024) Immunizations Name Administration Dates Next Due COVID-19 mRNA, LNP-s, No Pre serve, 2-Dose Series (Pfizer) 07/07/2020,06/10/2020 Hepatitis B, 20+ yrs 12/01/2014,08/31/2014,05/29 Pneumococcal Conjugate Vacci ne, 20-valent (Rmlsoel90) 01/20/2022 Pneumococcal Polysaccharide PPV23 (Pneumovax) 05/29/2014 Seasonal [...] ages 0-17 years) Not on file 12/21/2023 Sex and Gender Information Value Date Recorded Sex Assigned at Male 09/29/2022 9:30 AM EDT Legal Sex Male 5:09 AM EST Gender Identity Male 09/29/2022 9:30 AM EDT Sexual Orientation Straight 09/29/2022 9: 30 AM EDT 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 on file Not on file Not on file documented as of this encounter Miscellaneous Notes * Telephone Encounter - Ynes Barakat OSA - 05/10/2024 2:18 PM EST Please assist patient with scheduling colonoscopy Thank you documented in this encounter Plan of Treatment Upcoming Encounters Date Type Department Care Team (Late st Contact Info) Description 05/26/2024 7:45 AM EST Office Visit Ophthalmology, [facility] [address] [place] [address] César Recinos, DO [address] [place] [address] 06/01/2024 8:00 AM EST Office Visit Pharmacy, [facility] [address] [facility] [place] [address] [facility] [place] [address] 07/13/2024 7:00 AM EDT Laboratory Laboratory, [facility] [address] [facility] [place] [phone] [facility] [address] [facility] [place] [address] 07/18/2024 9:00 AM EDT Office Visit Family Practice [facility] [address] [facility] [place] [address] Sisi Fountain CRNP [address] [facility] [place] [address] 08/19/2024 9:00 AM EDT Office Visit Nephrology, [address], [place] [address] Mee Coughlin MD [address] [place] [address] [place] [address] 08/23/2024 8:00 AM EDT Office Visit Cardiology, [facility] [address] [facility] [place] [address] Emile Palma PA-C [address] [facility] [place] [address] 09/08/2024 8:00 AM EDT Imaging Radiology [facility] 1st [facility] [address] [place] [phone] 09/15/2024 9:30 AM EDT Office Visit Cardiothoracic Surg [facility], [address] [place] [address] Srinivasa Stanton MD [address] [facility] [place] [address] 09/30/2024 1:30 PM EDT Hospital Encounter ENDO [facility], Endoscopy Room [facility] [address] [place] [address] Kitty Cooper MD [address] [place] [address] 09/30/2024 1:30 PM EDT - 09/30/2024 2:00 PM EDT Surgery ENDO [facility], Endoscopy Room [facility] [address] [place] [address] Kitty Cooper MD [address] [place] [address] COLONOSCOPY FLEXIBLE PROXIMAL DIAGNOSTIC Scheduled Procedures Name Priority Associated Diagnoses Date/Ti me COLONOSCOPY FLEXIBLE PROXIMAL DIAGNOSTIC Recall History of colon polyps 09/30/2024 1:30 PM EDT Health Maintenance Due Date Last Done Comments HIV Screening 07/20/1982 Hepatitis C Screening 07/20/1985 Cologuard 07/20/2012 Fecal Occult Blood Test 07/20/2012 Sigmoidoscopy 07/20/2012 Colonoscopy 08/09/2023 08/08/2022, 08/08/2022 Colorectal Cancer Screening 08/09/2023 COVID-19 Vaccine ( season) 2023 07/07/2020, 06/10/2020 Influenza Vaccine (FLU shot) (#1) 2023 12/31/2022, 01/20/2022, 02/04/2021, Additional history exists DTap/Tdap Vaccines (2 - Td or Tdap) 02/22/2024 02/21/2014 Albumin/Creatinine Ratio 03/31/2024 023, 01/20/2022, 02/23/2015, Additional history exists B-12 03/31/2024 03/31/2023, 0409/2021, 11/02/2019, Additional history exists Depression Screening 03/31/2024 03/31/2023 GFR 04/01/2024 10/01/2023, 05/0 04/2023, 05/13/2023, Additional history exists Diabetic Eye Exam 05/07/2024 05/07/2023, , 05/07/2023, Additional history exists HbA1c 06/30/2024 01/01/2024, 06/0 09/2023, 03/31/2023, Additional history exists CKD HGB USE SMARTSET 59810 09/30/202409/30, 10/01/2023, 07/29/2023, Additional history exists CKD PHOS USE SMARTSET 50337 09/30/2024 06/0 09/2023, 03/31/2022, 02/01/2021 Diabetic Foot Exam 09/30/2024 10/01/2023, 0 09/29/2022, 01/03/2020, Additional history exists Lipid Panel 09/30/2028 10/01/2023, [...] this encounter Medical Devices Implanted Type Area Dot Etcher Device Identifier Shelf Expiration Date Model / Serial / Lot Lens [id number] 12.5mm+21.50 - [id number] - [id number] Implanted:Qty: 1 on 07/08/2023 by Naldo Rivera DO at OR [facility] Left: Eye BAUSCH & LOMB 02/24/2026 [id number] / [id number] / [id number] documented as of this encounter Advance Directives * Full Code (Latest Code Status on File) Date Activated Date Inactivated Comments 07/08/2023 11:09 AM 07/08/2023 5:48 PM Question Answer Comments Discussion of Advance Direct sanford occurred with: Not Discussed due to patient's condition Care Teams Hospital Security Officer Relationship Specialty Start Date End Date Sisi Fountain CRNP [address] [place] [address] PCP - General Nurse Practitioner 01/14/23 documented as of this encounter
--- OUTSIDE RECORDS SUMMARY | 2024-09-02 09:45 | External Medical Summary | Summary of Care ---
Author Name Unknown Organization [facility] Address [address] [place] [address] Phone [phone] Care Team Providers Care Weight Loss Consultant Name Role Phone Sisi Franklin Primary Care Provider +1- [phone] Reason for Visit * Reason Onset Date Comments Medication Refill 04/28/2024 Encounter Details Date Type Department Care Team ([facility] st Contact Info) Description 04/28/2024 Refill Family Practice [facility] [address] [place] [address] Sisi Franklin CRNP [address] [place] [address] Type 2 diabetes mellitus with hemoglobin A1c goal of less than 7.0% ([facility]) Allergies Active Allergy Reactions Criticality Noted Date Comments Bee Venom Anaphylaxis High 02/21/2014 Insect Extract High 06/09/2014 documented as of this encounter (statuses as of 04/30/2024) Medications FISH OIL 300 MG PO CAPS [...] disease, with long-term current use of insulin ([facility]),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, with long-term current use of insulin, unspecified retinopathy severity ([facility]),Type 2 diabetes mellitus with hemoglobin A1c goal of less than 7.0% ([facility]) Use as directed to inject insulin 3 times daily with meals 500 Each 3 10/01/19 24 Active BD Pen Needle Short U/F 31G X 8 MM (Insulin Pen Needle)Indicatio ns:Type 2 diabetes mellitus with stage 3b chronic kidney disease, with long-term current use of insulin ([facility]),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 450 Each 3 10/09/19 24 Active Losartan Potassium 100 MG [...] morning. 90 Tablet 2 04/30/19 25 Active Semaglutide 14 MG Oral Tablet (Rybelsus)Indica tions:Type 2 diabetes mellitus with hemoglobin A1c goal of less than 7.0% (HCC) Take 14 mg by mouth daily first thing in the morning. 90 Tablet 1 10/14/19 24 025 Discontin ued(Refil l) documented as of this encounter (statuses as of 04/30/2024) Active Problems Problem Noted Date Diagnosed Date [...] as of this encounter (statuses as of 04/30/2024) Resolved Problems Problem Noted Date Diagnosed Date [...] failure rates. Contacts: PI: Dr. Jennifer Thomson [facility]- Griselda Dickson ([phone]) [facility]- Amy Debbi ([phone]) [facility]- Ingris Devine ([phone]) Diagnosis changed due to Research Module. Go to Snapshot for study details. Type 1 diabetes mellitus wit h foot ulcer (CODE) 11/25/2018 01/03/2020 documented as of this encounter (statuses as of 04/30/2024) Immunizations Name Administration Dates Next Due COVID-19 mRNA, LNP-s, No Pre serve, 2-Dose Series (Pfizer) 07/07/2020,06/10/2020 Hepatitis B, 20+ yrs 12/01/2014,08/31/2014,05/29 Pneumococcal Conjugate Vacci ne, 20-valent ([id number]) 01/20/2022 Pneumococcal Polysaccharide PPV23 (Pneumovax) 05/29/2014 Seasonal [...] No 12/21/2023 Does the household have a [facility] source of income? 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 on file Not on file Not on file documented as of this encounter Miscellaneous Notes * Telephone Encounter - William Regan [facility] - 04/30/2024 10:03 AM EST Signed Prescriptions: Disp Refills Semaglutide 14 MG Oral Tablet (Rybelsus) 90 Tab*2 Sig: Take 14 mg by mouth daily first thing in the morning.Authorizing Provider: Tien FRANKLIN User: WILLIAM REGAN Electronically signed by William Regan [facility] at 04/30/2024 10:03 AM EST documented in this encounter Plan of Treatment Upcoming Encounters Date Type Department Care Team (Late st Contact Info) Description 05/26/2024 7:45 AM EST Office Visit Ophthalmology, [facility] [address] [place] [address] César Recinos DO [address] [place] [address] 06/01/2024 8:00 AM EST Office Visit Pharmacy, [facility] [address] [place] [address] [facility] [address] [place] [address] 08/19/2024 9:00 AM EDT Office Visit Nephrology, [address] [place] [address] [facility] [address] [facility] [id number] 08/23/2024 8:00 AM EDT Office Visit Cardiology, [facility] [address] [place] [address] Emile Palma PA-C [address] [place] [address] 09/08/2024 8:00 AM EDT Imaging Radiology [facility] 1st Floor, [place] [address] [place] [address] 09/15/2024 9:30 AM EDT Office Visit [facility] [address] [place] [address] Srinivasa Stanton MD [address] [place] [address] Scheduled Procedures Name Priority Associated Diagnoses Date/Ti me COLONOSCOPY FLEXIBLE PROXIMAL DIAGNOSTIC Recall History of colon polyps Health Maintenance Due Date Last Done Comments [...] 02/23/2015, Additional history exists B-12 03/31/2024 03/31/2023, 04/2 09/2021, 11/02/2019, Additional history exists Depression Screening 03/31/2024 03/31/2023 GFR 04/01/2024 10/01/2023, 05/0 04/2023, 05/13/2023, Additional history exists Diabetic Eye Exam 05/07/2024 05/07/2023, , 05/07/2023, Additional history exists HbA1c 06/30/2024 01/01/2024, 06/0 09/2023, 03/31/2023, Additional history exists CKD HGB USE SMARTSET 91646 09/30/202409/30, 10/01/2023, 07/29/2023, Additional history exists CKD PHOS USE SMARTSET 54687 09/30/2024 06/0 09/2023, 03/31/2022, 02/01/2021 Diabetic Foot [...] this encounter Medical Devices Implanted Type Area Gas Plant Operator Device Identifier Shelf Expiration Date Model / Serial / Lot Lens [id number] 12.5mm+21.50 - [id number] - [id number] Implanted:Qty: 1 on 07/08/2023 by Naldo Rivera DO at OR [facility] Left: Eye BAUSCH & LOMB 02/24/2026 [id number] / [id number] / [id number] documented as of this encounter Visit Diagnoses Diagnosis Type 2 diabetes mellitus with hemoglobin A1c goal of less than 7.0% (HCC) documented in this encounter Advance Directives * Full Code (Latest Code Status on File) Date Activated Date Inactivated Comments 07/08/2023 11:09 AM 07/08/2023 5:48 PM Question Answer Comments Discussion of Advance Direct sanford occurred with: Not Discussed due to patient's condition Care Teams Weight Loss Consultant Relationship Specialty Start Date End Date Sisi Franklin CRNP [address] [place] [address] PCP - General Nurse Practitioner 01/14/23 documented as of this encounter
--- OUTSIDE RECORDS SUMMARY | 2024-09-02 09:45 | External Medical Summary | Summary of Care ---
Author Name Unknown Organization [facility] Address [address] [place] [address] Phone [phone] Care Team Providers Care Damaged Freight Inspector Name Role Phone Sisi Fountain JAQUELIN Primary Care Provider [phone] Reason for Visit * Reason Comments Follow Up 8-10 week follow up Encounter Details Date Type Department Care Team ([facility] Contact Info) Description 05/26/2024 7:45 AM EST Office Visit Ophthalmology, [facility] [address] [facility] [place] [address] César Recinos DO [address] 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 Active Dexcom G6 SensorIndication s:Type 2 diabetes mellitus with hemoglobin A1c goal of less than 7.0% ([facility]) Use as directed. Use 1 sensor every 10 days. 9 Each 04/16/20 23 Active Dexcom G6 TransmitterIndic ations:Type 2 diabetes mellitus with hemoglobin A1c goal of less than 7.0% ([facility]) Use as directed. Use 1 transmitter [...] long-term current use of insulin ([facility]),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, with long-term current use of insulin, unspecified retinopathy severity ([facility]),Type 2 diabetes mellitus with hemoglobin A1c goal of less than 7.0% ([facility]) Use as directed to inject insulin 3 times daily with meals 500 Each 3 10/01/19 24 Active BD Pen Needle Short U/F 31G X 8 MM (Insulin Pen Needle)Indicatio ns:Type 2 diabetes mellitus with stage 3b chronic kidney disease, with long-term current use of insulin ([facility]),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, with long-term current use of insulin, unspecified retinopathy severity ([facility]),Type 2 diabetes mellitus with hemoglobin A1c goal of less than 7.0% ([facility]) USE TO INJECT LANTUS INSULIN DIRECTED [...] morning. 90 Tablet 2 04/30/19 25 Active documented as of this encounter (statuses as of 05/26/2024) Active Problems Problem Noted Date Diagnosed Date [...] as of this encounter (statuses as of 05/26/2024) Resolved Problems Problem Noted Date Diagnosed Date [...] PI: Dr. Jennifer Thomson [facility]- Griselda Dickson ([phone]) [facility]- Amy Werner ([phone]) [facility]- Ingris Devine ([phone]) Diagnosis changed due to Research Module. Go to Snapshot for study details. Type 1 diabetes mellitus wit h foot ulcer (CODE) 11/25/2018 01/03/2020 documented as of this encounter (statuses as of 05/26/2024) Immunizations Name Administration Dates Next Due COVID-19 mRNA, LNP-s, No Pre serve, 2-Dose Series (Pfizer) 07/07/2020,06/10/2020 Hepatitis B, 20+ yrs 12/01/2014,08/31/2014,05/29 Pneumococcal Conjugate Vacci ne, 20-valent ([id number]) 01/20/2022 Pneumococcal Polysaccharide PPV23 (Pneumovax) 05/29/2014 Seasonal [...] Does the household have a [facility] source of income? 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 Last Office Visit: 03/17/2024 (in office), Visit date not found (telemedicine) Patient currently states no change in vision. Are you diabetic? Yes. Do you check your blood sugars daily? YES. BS this mornin mg/dl. Last Hemoglobin A1C: Lab Results Component Value Date/Time HGBA1C 11.0 (H) 01/01/2024 08:31 AM HGBA1C 11.7 (H) 10/01/2023 09:33 AM HGBA1C 9.9 (H) 03/31/2023 09:14 AM HGBA1C 8.8 (H) 03/31/2022 10:14 AM HGBA1C 9.9 (H) 11/02/2019 09:14 AM HGBA1C 8.1 (H) 12/30/2018 09:05 AM HGBA1C 7.6 (H) 04/05/2018 09:[address]? yes OCT and fundus image(s) of both eyes acquired and filed/scanned into chart. Base Eye Exam Visual Acuity (Snellen - Linear) Right Left Dist sc 20/25 20/80 -2 Dist ph sc 20/30 -1 Tonometry (Tonopen, 8:01 AM) Right Left Pressure 19 14 Pupils Pupils APD Right PERRL None Left PERRL None Visual Bernardo (Counting fingers) Right Left Full Full Extraocular Movement Right Left Full, Ortho Full, Ortho Neuro/Psych Oriented x3: Yes Dilation Both eyes: 0.5% Proparacaine @ 8:00 AM Dilation #2 Both eyes: 1.0% Mydriacyl, 2.5% Phenylephrine @ 8:01 AM Dilation Comments Patient cautioned that effects [...] pvd optic nerve: 0.2, no edema/pallor/NVD macula: BORING MACHINE OPERATOR, DME vessels: AV nicking periphery: BORING MACHINE OPERATOR, no RT/RD Dilated fundus exam OS: vitreous: clear optic nerve: 0.2, no edema/pallor/NVD macula: BORING MACHINE OPERATOR with central DME vessels: AV nicking periphery: BORING MACHINE OPERATOR, no RT/RD OCT Interpretation: OD: ERM w/ wrinkling, scattered DME w/ trace foveal DME, +PVD--STABLE, prior STABLE, prior STABLE, prior STABLE, prior improved 19um prior STABLE, prior STABLE, prior STABLE, prior improved, prior STABLE, prior no sig change, prior STABLE, prior STABLE, prior improved, prior improved 15um, prior mild worse OS: trace trace CIDME, no SRFluid, no PVD--STABLE, prior improved, prior STABLE, prior improved 22um prior improved 31um prior improved 26um priorno sig change, prior improved 164um prior no change, prior worse, prior mixed, prior worse 35um, prior no change, prior improved 34um prior improved 36umprior improved 171um Fundus Photo Interpretation - 06/12/2020: OD: +telegraph messenger, no NV OS: +telegraph messenger, +DME, no NV A/P: 1. Moderate Nonproliferative [...] weeks -Vabysmo 06/16/23, 04/15/23, 02/18/23, 12/31/22, 11/05/2022 -11 months -on insulin pump--omnipod and BG much [...] Dr. Rivera, OS is near -OD-monitor F/u 3 months - OCT OU César Recinos DO CC: To Elmore, OD PCP: Naldo Layton MD documented in this encounter Nursing Notes * Holly Shea LPN - 05/26/2024 7:50 AM EST Karl Wilkerson is a 58 year old year old male who presents for moderate NPDR OU. Last Office Visit: 03/17/2024 (in office), Visit date not found (telemedicine) Patient currently states no change in vision. Are you diabetic? Yes. Do you check your blood sugars daily? YES. BS this mornin mg/dl. Last Hemoglobin A1C: Lab Results Component Value Date/Time HGBA1C 11.0 (H) 01/01/2024 08:31 AM HGBA1C 11.7 (H) 10/01/2023 09:33 AM HGBA1C 9.9 (H) 03/31/2023 09:14 AM HGBA1C 8.8 (H) 03/31/2022 10:14 AM HGBA1C 9.9 (H) 11/02/2019 09:14 AM HGBA1C 8.1 (H) 12/30/2018 09:05 AM HGBA1C 7.6 (H) 04/05/2018 09:[address]? yes OCT and fundus image(s) of both eyes acquired and filed/scanned into chart. documented in this encounter Plan of Treatment Upcoming Encounters Date Type Department Care Team (Late st Contact Info) Description 06/01/2024 8:00 AM EST Office Visit Pharmacy, [facility] [address] [facility] [place] [address] [facility] [address] [facility] [place] [address] 07/13/2024 7:00 AM EDT Laboratory Laboratory, [facility] [address] [facility] [place] [id number] [facility] Lab [facility] [address] [facility] [place] [address] 07/18/2024 9:00 AM EDT Office Visit Family Practice [facility] [address] [facility] [place] [address] Sisi Fountain CRNP [address] [facility] [place] [address] 08/19/2024 9:00 AM EDT Office Visit Nephrology, [address] [place] [address] Mee Coughlin MD [address] [place] [address] [place] [address] 08/23/2024 8:00 AM EDT Office Visit Cardiology, [facility] [address] [facility] [place] [address] Emile Palma PAJustine [address] [place] [address] 08/24/2024 7:45 AM EDT Office Visit Ophthalmology, [facility] [address] [place] [address] César Recinos DO [address] [place] [address] 09/08/2024 8:00 AM EDT Imaging Radiology [address] [place] [id number] 09/15/2024 9:30 AM EDT Office Visit Cardiothoracic Surg [facility] [address] [place] [address] Srinivasa Stanton MD [address] [place] [address] 09/30/2024 1:30 PM EDT Hospital Encounter [facility]O [facility], Endoscopy Room [facility] [address] [place] [phone] Kitty Cooper MD [address] [place] [address] 09/30/2024 1:30 PM EDT - 09/30/2024 2:00 PM EDT Surgery ENDO [facility], Endoscopy Room [facility] [address] [place] [phone] Kitty Cooper MD [address] [place] [address] COLONOSCOPY FLEXIBLE PROXIMAL DIAGNOSTIC Scheduled Orders Name Type Priority Associated Diagnoses Orde r Schedule FUNDUS PHOTOGRAPHY Procedures Routine 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, unspecified whether retirement insulin use (HCC) Ordered: 05/26/2024 RETINA SCAN DIAGNOSTIC IMAGE, POSTERIOR Procedures Routine 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, unspecified whether retirement insulin use (HCC) Ordered: 05/26/2024 Scheduled Procedures Name Priority Associated Diagnoses Date/Ti [...] Additional history exists CKD HGB USE SMARTSET 83116 09/30/202409/30, 10/01/2023, 07/29/2023, Additional history exists CKD PHOS USE SMARTSET 70591 09/30/2024 06/0 09/2023, 03/31/2022, 02/01/2021 Diabetic Foot [...] this encounter Medical Devices Implanted Type Area A Class Lineman Device Identifier Shelf Expiration Date Model / Serial / Lot Lens [id number] 12.5mm+21.50 - [id number] - [id number] Implanted:Qty: 1 on 07/08/2023 by Naldo Rivera DO at OR [facility] Left: Eye [employer]OM[employer] 02/24/2026 [id number] / [id number] / [id number] documented as of this encounter Visit Diagnoses Diagnosis 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, unspecified whether retirement insulin use (HCC)- Primary History of colon polyps Personal history of colonic polyps documented in this encounter Advance Directives * Full Code (Latest Code Status on File) Date Activated Date Inactivated Comments 07/08/2023 11:09 AM 07/08/2023 5:48 PM Question Answer Comments Discussion of Advance Direct sanford occurred with: Not Discussed due to patient's condition Care Teams Damaged Freight Inspector Relationship Specialty Start Date End Date Sisi Fountain CRNP [address] [place] [address] PCP - General Nurse Practitioner 01/14/23 documented as of this encounter
--- OUTSIDE RECORDS SUMMARY | 2024-09-02 09:45 | External Medical Summary | Summary of Care ---
Author Name Unknown Organization [facility] Address [address] [place] [address] Phone [phone] Care Team Providers Care Supervisor Lace Tearing Name Role Phone Sisi Fountain JAQUELIN Primary Care Provider +1- [phone] Reason for Visit * Reason Comments Dosage Adjustment In Person (Anticoag Cl inic) Diabetes Follow-Up Encounter Details Date Type Department Care Team ([facility] Contact Info) Description 06/01/2024 8:00 AM EST Office Visit Pharmacy, [facility] [address] [facility] [place] [address] [facility] [address] [address] Type 2 diabetes mellitus with stage 3b chronic kidney disease, with long-term current use of insulin ([facility])*; Hypertension goal BP (blood pressure) < 130/80; Dyslipidemia, goal LDL below 70 Allergies Active Allergy Reactions Criticality Noted Date Comments Bee Venom Anaphylaxis High 02/21/2014 Insect Extract High 06/09/2014 documented as of this encounter (statuses as of 06/01/2024) Medications FISH OIL 300 MG PO CAPS [...] of insulin, unspecified retinopathy severity ([facility]),Type 2 diabetes mellitus with hemoglobin A1c goal of less than 7.0% (HCC) Use as directed to inject insulin 3 [...] of insulin, unspecified retinopathy severity ([facility]),Type 2 diabetes mellitus with hemoglobin A1c goal of less than 7.0% (HCC) USE TO INJECT LANTUS INSULIN DIRECTED FIVE [...] as of this encounter (statuses as of 06/01/2024) Active Problems Problem Noted Date Diagnosed Date [...] as of this encounter (statuses as of 06/01/2024) Resolved Problems Problem Noted Date Diagnosed Date [...] PI: Dr. Jennifer Thomson CRC- Griselda Dickson ([phone]) [facility] CRC- Amy Werner ([phone]) [facility] CRC- Ingris Devine ([phone]) Diagnosis changed due to Research Module. Go to Snapshot for study details. Type 1 diabetes mellitus wit h foot ulcer (CODE) 11/25/2018 01/03/2020 documented as of this encounter (statuses as of 06/01/2024) Immunizations Name Administration Dates Next Due COVID-19 mRNA, LNP-s, No Pre serve, 2-Dose Series (Pfizer) 07/07/2020,06/10/2020 Hepatitis B, 20+ yrs 12/01/2014,08/31/2014,05/29 Pneumococcal Conjugate Vacci ne, 20-valent ([id number]) 01/20/2022 Pneumococcal Polysaccharide PPV23 (Pneumovax) 05/29/2014 Seasonal [...] Does the household have a [facility] [employer] liv[employer] source of income? 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 Medication Therapy Disease Management - CSII Follow-up Interval History: Karl Wilkerson is an 58 year old year old male returning to the [facility] for a diabetes insulin pump follow-up visit. Blood glucose control since last visit: stable Medication intolerance: no Medication compliance: yes Hospitalization or ED Utilization since last visit: no Hypoglycemia requiring assistance since last visit: no Current Diabetes Medications: Rybelsus 14 mg daily Jardiance 25 mg daily Omnipod Insulin Pump Insulin: Novolog Basal Rate: 1.8 units/hour Bolus: 15 carbs with breakfast, 45 carbs with lunch and dinner Bolus Calculator: on and using ICR: 1:5 INC: ISF: 1:16 Blood Glucose Goal Limits: 70-150 Bolus Calculator: Target B DECREASE: Correct above: 150 Minimum B INCREASE: Active Insulin Time: 3 hours [place]o Blood Glucose Review: s (mg/dL) Hypoglycemia Assessment: 1. Do you know what the symptoms of hypoglycemia are? No 2. How often can you tell by your symptoms if your blood sugar is low? Never 3. In a typical week, how many times will your blood sugar go below 70 mg/dL? Never Patient Active Problem List Diagnosis Type 2 diabetes mellitus with stage 3b chronic kidney disease, with long-term current use of insulin ([facility]) Hypertension goal BP (blood pressure) < 130/80 Dyslipidemia, goal LDL below 70 Aortic valve disorder Bee sting allergy Type 2 diabetes mellitus with diabetic polyneuropathy, with long-term current use of insulin ([facility]) Charcot foot due to diabetes mellitus ([facility]) Ascending aortic aneurysm ([facility]) Nonrheumatic aortic valve stenosis Bicuspid aortic valve Thoracic aortic aneurysm without rupture ([facility]) Body mass index (BMI) of 40.0 to 44.9 in adult ([facility]) Morbid obesity due to excess calories ([facility]) Adjustment disorder with mixed anxiety and depressed mood Chronic kidney disease, stage 3b (HCC) Abnormal nuclear stress test Review of patient's allergies indicates: Allergen Reactions Bee Venom Anaphylaxis Insect Extract Current Outpatient Medications Medication Sig Dispense Refill FISH OIL 300 MG PO CAPS One TAB TWICE DAILY ASPIRIN 81 MG PO TABS one tablet daily Multi-Vitamins Oral Tablet Take 1 Tablet by mouth in the morning. Dexcom G6 Sensor Use as directed. Use 1 sensor every 10 days. 9 Each 0 Dexcom G6 Transmitter Use as directed. Use 1 transmitter every 90 days. 1 Each 0 Insulin Aspart 100 UNIT/ML Injection Solution (NovoLOG) INJECT 10 UNITS SUBCUTANEOUSLY WITH MEALS 30 mL 1 NovoLOG FlexPen 100 UNIT/ML Subcutaneous Solution Pen-injector (insulin aspart) Inject 10 Units under the skin in the morning and 10 Units at noon and 10 Units in the evening. Inject with meals. (Patient not taking: Reported on 02/22/2024) 270 mL 3 amLODIPine Besylate 10 MG [...] DIRECTED FIVE TIMES DAILY. 450 Each 3 Losartan Potassium 100 MG Oral Tablet (Cozaar) Take 1 Tablet by mouth in the morning. 90 Tablet 1 Carvedilol 25 MG Oral Tablet (Coreg) Take 1.5 Tablets by mouth in the morning and 1.5 Tablets before bedtime. With food. 270 Tablet 1 EPINEPHrine 0.3 MG/0.3ML Injection Solution Auto-injector (Autoinjector) For a severe reaction: Place orange end against the outer thigh, press firmly, hold in place for 10 seconds and go to the Emergency room. (Patient not taking: Reported on 02/22/2024) 2 Each 2 Insulin Aspart 100 UNIT/ML Injection Solution (NovoLOG) Use 100 units in insulin pump daily E 11.9 90 mL 3 Omnipod 5 G7 Intro (Gen 5) Kit Use to control insulin pump E11.9 (Patient not taking: Reported on 02/22/2024) 1 Kit 0 Empagliflozin 25 MG Oral Tablet (Jardiance) Take 1 Tablet by mouth in the morning. 90 Tablet 3 Omnipod 5 G7 Pods (Gen 5) Use 1 pod every 2 days E11.9 180 Each 3 Atorvastatin Calcium 40 MG Oral Tablet (Lipitor) Take 1 Tablet by mouth in the morning. 90 Tablet 2 Semaglutide 14 MG Oral Tablet (Rybelsus) Take 14 mg by mouth daily first thing in the morning. 90 Tablet 2 No current facility-administered medications for this visit. Objective: The 10-year ASCVD risk score (Kurtis DK, et al., 2019) is: 15% Values used to calculate the score: Age: 58 years Sex: Male Is Non- : No Diabetic: Yes Tobacco smoker: No Systolic Blood Pressure: 140 mmHg Is BP treated: Yes HDL Cholesterol: 35 mg/dL Total Cholesterol: 147 mg/dL Estimated body mass index is 38.13 kg/m² as calculated from the following: Height as of 09/10/23: 1.88 m (6' 2"). Weight as of 02/22/24: 134.7 kg (297 lb). BP Readings from Last 3 Encounters: 02/22/24 140/82 02/11/24 141/80 01/01/24 118/68 No components found for: "[id number]" No results found for: "MICROALBUMIN" Lab Results Component Value Date/Time LDL CHOLESTEROL (CALCULATED) - [facility] 71 12/30/2018 09:05 AM LDL CHOLESTEROL (DIRECT MEASURE) - [facility] 67 10/01/2023 09:33 AM LDL CHOLESTEROL (DIRECT MEASURE) - [facility] NOT APPLICABLE 04/05/2018 09:43 AM Lab Results Component Value Date/Time ALT - [facility] 40 03/31/2022 10:14 AM ALT - [facility] 33 04/05/2018 09:43 AM Assessment & Plan: Glycemic control is stable but not at goal Patient agreeable to adjust medications as noted below. Basal settings increased as glucose is rising overnight and between meals. ICR/fixed dose continued as glucose is stable postprandially. ISF strengthened as glucose is not correcting to goal range. Patient to SMBG at least 4 times daily, before each meal and at bedtime. Patient aware to contact clinic if any hypoglycemia before next visit. Reviewed rule of 15s. Reviewed appropriate management of hyperglycemia as noted in pump start documentation. Diabetes Medications: Rybelsus 14 mg daily Jardiance 25 mg daily Omnipod Insulin Pump Insulin: Novolog Basal Rate: 1.8 units/hour Bolus: 15 carbs with breakfast, 45 carbs with lunch and dinner Bolus Calculator: on and using ICR: 1:5 INC: ISF: 1:10 Blood Glucose Goal Limits: 70-150 Bolus Calculator: Target B DECREASE: Correct above: 140 Minimum B INCREASE: Active Insulin Time: 2 hours Diabetes Health Maintenance: up-to-date Return to Clinic: 12 week(s) 08/31/2024 I spent a total of 20-29 minutes (exact time 25 mins) on the date of service in preparation, delivery, and documentation of the care provided to Karl Wilkerson excluding any time spent in the performance of separately billed services or time spent by another provider/QHP. Brissa Tena [facility] Clinical Pharmacist Medication Therapy Disease Management 06/01/2024, 7:59 AM documented in this encounter Plan of Treatment Upcoming Encounters Date Type Department Care Team (Late st Contact Info) Description 07/13/2024 7:00 AM EDT Laboratory [facility], [facility] [place] [phone] [facility] [address] [place] [address] 07/18/2024 9:00 AM EDT Office Visit Family Practice [facility] [address] [facility] [place] [address] Sisi Fountain CRNP [address] [place] [address] 08/19/2024 9:00 AM EDT Office Visit Nephrology, [facility] [address] [place] [address] Mee Coughlin MD [address] [place] [phone] 08/23/2024 8:00 AM EDT Office Visit Cardiology, [facility] [address] [facility] [place] [address] Emile Palma, PA-C [address] [place] [address] 08/24/2024 7:45 AM EDT Office Visit Ophthalmology, [facility] [address] [facility] [place] [address] César Recinos DO [address] [place] [address] 08/31/2024 8:00 AM EDT Office Visit Pharmacy, [facility] [address] [place] [address] [facility] [address] [place] [address] 09/08/2024 8:00 AM EDT Imaging Radiology [facility] [address] [place] [address] 09/15/2024 9:30 AM EDT Office Visit Cardiothoracic Surg [facility] [place] [address] [place] [address] Srinivasa Stanotn MD [address] [place] [address] 09/30/2024 1:30 PM EDT Hospital Encounter ENDO [facility], Endoscopy Room [facility] [address] [place] [phone] Kitty Cooper MD [address] [place] [address] 09/30/2024 1:30 PM EDT - 09/30/2024 2:00 PM EDT Surgery ENDO [facility], Endoscopy Room [facility] [address] [place] [phone] Kitty Cooper MD [address] [place] [address] COLONOSCOPY FLEXIBLE PROXIMAL DIAGNOSTIC Scheduled Procedures Name [...] 02/23/2015, Additional history exists B-12 03/31/2024 03/31/2023, 042 09/2021, 11/02/2019, Additional history exists Depression Screening 03/31/2024 03/31/2023 GFR 04/01/2024 10/01/2023, 05/0 04/2023, 05/13/2023, Additional history exists Diabetic Eye Exam 05/07/2024 05/07/2023, , 05/07/2023, Additional history exists HbA1c 06/30/2024 01/01/2024, 06/0 09/2023, 03/31/2023, Additional history exists CKD HGB USE SMARTSET 85309 09/30/202409/30, 10/01/2023, 07/29/2023, Additional history exists CKD PHOS USE SMARTSET 42386 09/30/2024 06/0 09/2023, 03/31/2022, 02/01/2021 Diabetic Foot [...] this encounter Medical Devices Implanted Type Area Grey Iron Molder Device Identifier Shelf Expiration Date Model / Serial / Lot Lens [id number] 12.5mm+21.50 - [id number] - [id number] Implanted:Qty: 1 on 07/08/2023 by Naldo Rivera DO at OR [facility] Left: Eye BAUSCH & LOMB 02/24/2026 [id number] / [id number] / [id number] documented as of this encounter Visit Diagnoses Diagnosis Type 2 diabetes mellitus with stage [...] Discussed due to patient's condition Care Teams Supervisor Lace Tearing Relationship Specialty Start Date End Date Sisi Fountain CRNP [address] [place] [address] PCP - General Nurse Practitioner 01/14/23 documented as of this encounter
--- OUTSIDE RECORDS SUMMARY | 2024-09-02 09:45 | External Medical Summary | Summary of Care ---
Author Name Unknown Organization [facility] Address [address] [place] [address] Phone [phone] Care Team Providers Care Wide Piece Goods Inspector Name Role Phone Sisi Fountain Primary Care Provider +1- [phone] Reason for Referral * Ancillary Services (Within 30 days (routine)) - Authorized Specialty Diagnoses / Procedures Referred By Maria Fernanda t Referred To Contact Gastroenterology Diagnoses Screening for malignant neoplasm of colon Sisi Fountain CRNP [address] [place] [address] Phone: tel: fax: Referral ID Status Reason Start Date Expiration Date Visits Requested Visits Authorized [id number] Authorized Ancillary Services Required 05/10/2024 1 1 Question Answer Referral Priority Within 30 days (routine) Where should this appointment be scheduled? [facility] Comments ALERT: Do not order for pediatric patients (18 years or younger). Cancel off screen and order PEDS GASTROENTEROLOGY CONSULT (Type: 1 visit only-Evaluate and Treat) The following Pt. Instructions are available: - Gastro Colonoscopy Prep Instructions [[id number]] - Gastro Colonoscopy Prep Instructions (Belgian Version) [[id number]] Go to the Pt. Instructions section within the Visit Navigator to access. Colonoscopy ASGE Guidelines: Average risk screening (begin at age 50, 10 year intervals) ADDITIONAL INFORMATION 1. Is the patient on Coumadin? No 2. Is the patient on Pradaxa? No Reason for Visit * Reason Onset Date Comments Health Maintenance 05/10/2024 Encounter Details Date Type Department Care Team ([facility] Contact Info) Description 05/10/2024 Telephone Family Practice [facility] [address] [place] [address] Sisi Fountain CRNP [address] [place] [address] Health Maintenance Allergies Active Allergy Reactions Criticality Noted Date [...] current use of insulin, unspecified retinopathy severity (HCC),Type 2 diabetes mellitus with hemoglobin A1c goal [...] current use of insulin, unspecified retinopathy severity (HCC),Type 2 diabetes mellitus with hemoglobin A1c goal [...] Dr. Jennifer Pruitt-Shira Thomson CRC- Griselda Dickson ([phone]) [facility] CRC- Amy Werner ([phone]) [facility] CRC- Ingris Devine ([phone]) Diagnosis changed due to Research Module. Go to Snapshot for study details. 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 file Not on file Not on file documented as of this encounter Miscellaneous Notes * Telephone Encounter - Angelina Sandra WESLEY - 05/10/2024 1:44 PM EST Care Gaps Comprehensive Care Outreach Last Office/Telemedicine Visit: 01/01/2024 (in office), Visit date not found (telemedicine) Next Office Visit: Visit date not found Hemoglobin AIC Results: Lab Results Component Value Date/Time HEMOGLOBIN A1C - [facility] 11.7 (H) 10/01/2023 09:33 AM HEMOGLOBIN A1C - [facility] 9.9 (H) 03/31/2023 09:14 AM HEMOGLOBIN A1C - [facility] 8.8 (H) 03/31/2022 10:14 AM HEMOGLOBIN A1C - [facility] 9.9 (H) 11/02/2019 09:14 AM HEMOGLOBIN A1C - [facility] 8.1 (H) 12/30/2018 09:05 AM HEMOGLOBIN A1C - [facility] 7.6 (H) 04/05/2018 09:43 AM HEMOGLOBIN A1C POCT - [facility] 11.0 (H) 01/01/2024 08:31 AM BP Readings from Last 1 Encounters: 02/22/24 140/82 Reviewed Health Maintenance below: Health Maintenance Topic Date Due HIV Screening Never done Hepatitis C Screening Never done Colorectal Cancer Screening 08/09/2023 Influenza Vaccine (FLU shot) (1) 12/27/2023 COVID-19 Vaccine (3 - season) 2023 DTap/Tdap Vaccines (2 - Td or Tdap) 02/22/2024 Albumin/Creatinine Ratio 03/31/2024 Depression Screening 03/31/2024 B-12 03/31/2024 GFR 04/01/2024 Diabetic Eye Exam 05/07/2024 HbA1c 06/30/2024 Ov june 6 months scheduled Labs ordered and scheduled Colon scheduled Care Gap Outreach Action Taken: Spoke to patient documented in this encounter Plan of Treatment Upcoming Encounters Date Type Department Care Team (Late st Contact Info) Description 05/26/2024 7:45 AM EST Office Visit Ophthalmology, [facility] [address] [facility] [place] [address] César Recinos DO [address] [facility] [place] [address] 06/01/2024 8:00 AM EST Office Visit Pharmacy, [facility] [address] [facility] [place] [address] [facility] [address] [facility] [place] [address] 07/13/2024 7:00 AM EDT Laboratory Laboratory, [facility] [address] [facility] [place] [phone] [facility] Lab [facility] [address] [facility] [place] [address] 07/18/2024 9:00 AM EDT Office Visit Family Practice [facility] [address] [facility] [place] [address] Sisi Fountain CRNP [address] [facility] [place] [address] 08/19/2024 9:00 AM EDT Office Visit Nephrology, [address] [place] [address] Mee Coughlin MD [address] [place] [address] [place] [phone] 08/23/2024 8:00 AM EDT Office Visit Cardiology, [facility] [address] [place] [address] Emile Palma PA-C [address] [place] [address] 09/08/2024 8:00 AM EDT Imaging Radiology [address], [place] [address] [place] [phone] 09/15/2024 9:30 AM EDT Office Visit Cardiothoracic Surg [facility] [address] [place] [address] Srinivasa Stanton MD [address] [place] [address] 09/30/2024 1:30 PM EDT Hospital Encounter ENDO [facility], Endoscopy Room [facility] [address] [place] [phone] Kitty Cooper MD [address] [place] [address] 09/30/2024 1:30 PM EDT - 09/30/2024 2:00 PM EDT Surgery ENDO [facility], Endoscopy Room [facility] [address] [place] [phone] Kitty Cooper MD [address] [place] [address] COLONOSCOPY FLEXIBLE PROXIMAL DIAGNOSTIC Scheduled Orders Name Type Priority Associated Diagnoses Orde r Schedule VITAMIN B12 Lab Routine On roasterman drug therapy Expected: 06/25/2024, Expires: 05/10/2025 COMPREHENSIVE METABOLIC PANEL Lab Routine Hypertension, unspecified type Expected: 06/25/2024, Expires: 05/10/2025 Scheduled Procedures Name Priority Associated Diagnoses Date/Ti me COLONOSCOPY FLEXIBLE PROXIMAL DIAGNOSTIC Recall History of colon polyps 09/30/2024 1:30 PM EDT Scheduled Referrals Name Type Priority Associated Diagnoses Orde r Schedule COLONOSCOPY, GI REFERRAL OP Referral Within 30 days (routine) Screening for malignant neoplasm of colon Ordered: 05/10/2024 Health Maintenance Due Date Last Done Comments [...] Additional history exists CKD HGB USE SMARTSET 08443 09/30/202409/30, 10/01/2023, 07/29/2023, Additional history exists CKD PHOS USE SMARTSET 98204 09/30/2024 06/0 09/2023, 03/31/2022, 02/01/2021 Diabetic Foot [...] this encounter Medical Devices Implanted Type Area Warehouse General Laborer Device Identifier Shelf Expiration Date Model / Serial / Lot Lens [id number] 12.5mm+21.50 - [id number] - [id number] Implanted:Qty: 1 on 07/08/2023 by Naldo Rivera DO at OR [facility] Left: Eye BAUSCH & LOMB 02/24/2026 [id number] / [id number] / [id number] documented as of this encounter Visit Diagnoses Diagnosis On care home drug therapy- Primary Hypertension, unspecified type Screening for malignant neoplasm of colon History of colon polyps Personal history of colonic polyps documented in this encounter Advance Directives * Full Code (Latest Code Status on File) Date Activated Date Inactivated Comments 07/08/2023 11:09 AM 07/08/2023 5:48 PM Question Answer Comments Discussion of Advance Direct sanford occurred with: Not Discussed due to patient's condition Care Teams Wide Piece Goods Inspector Relationship Specialty Start Date End Date Sisi Fountain CRNP [address] [facility] [place] [address] PCP - General Nurse Practitioner 01/14/23 documented as of this encounter
--- OUTSIDE RECORDS SUMMARY | 2024-09-02 09:45 | External Medical Summary | Summary of Care ---
Author Name Unknown Organization [facility] Address [address] [place] [address] Phone [phone] Care Team Providers Care Operations Specialists Name Role Phone Sisi Fountain JAQUELIN Primary Care Provider [phone]- [phone] Reason for Visit * Reason Comments Dosage Adjustment In Person (Anticoag Cl inic) Diabetes Follow-Up Encounter Details Date Type Department Care Team ([facility] Contact Info) Description 04/12/2024 8:00 AM EST Office Visit Pharmacy, [facility] [address] [place] [address] [facility] [address] [address] Type 2 diabetes mellitus with stage 3b chronic kidney disease, with long-term current use of insulin ([facility])*; Hypertension goal BP (blood pressure) < 130/80; Dyslipidemia, goal LDL below 70 Allergies Active Allergy Reactions Criticality Noted Date Comments Bee Venom Anaphylaxis High 02/21/2014 Insect Extract High 06/09/2014 documented as of this encounter (statuses as of 04/12/2024) Medications FISH OIL 300 MG PO CAPS [...] DAILY. 450 Each 3 10/09/19 24 Active Semaglutide 14 MG Oral Tablet (Rybelsus)Indica tions:Type 2 diabetes mellitus with hemoglobin A1c goal of less than 7.0% (HCC) Take 14 mg by mouth daily first thing in the morning. 90 Tablet 1 10/14/19 24 Active Losartan Potassium 100 MG Oral [...] the Emergency room. 2 Each 2 01/01/20 Active Additional Information Patient not taking.Reported on [...] morning. 90 Tablet 2 03/15/20 24 Active documented as of this encounter (statuses as of 04/12/2024) Active Problems Problem Noted Date Diagnosed Date [...] as of this encounter (statuses as of 04/12/2024) Resolved Problems Problem Noted Date Diagnosed Date [...] PI: Dr. Jennifer Thomson CRC- Griselda Dickson ([phone]) [facility] CRC- Amy Werner ([phone]) [facility] CRC- Ingris Devine ([phone]) Diagnosis changed due to Research Module. Go to Snapshot for study details. Type 1 diabetes mellitus wit h foot ulcer (CODE) 11/25/2018 01/03/2020 documented as of this encounter (statuses as of 04/12/2024) Immunizations Name Administration Dates Next Due COVID-19 mRNA, LNP-s, No Pre serve, 2-Dose Series (Pfizer) 07/07/2020,06/10/2020 Hepatitis B, 20+ yrs 12/01/2014,08/31/2014,05/29 Pneumococcal Conjugate Vacci ne, 20-valent ([id number]) 01/20/2022 Pneumococcal Polysaccharide PPV23 (Pneumovax) 05/29/2014 Seasonal [...] No 12/21/2023 Does the household have a [facility]on hospitalr source of income? 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 - 04/12/2024 8:08 AM EST Images from the original note [...] Bolus Calculator: on and using ICR: 1:5 ISF: 1:19 Blood Glucose Goal Limits: 70-150 Bolus Calculator: Target B Correct above: 200 Minimum B Active Insulin Time: 4 hours Glooko Blood Glucose Review: s (mg/dL) Hypoglycemia Assessment: 1. Do you know what the symptoms of hypoglycemia are? Yes 2. How often can you tell by your symptoms if your blood sugar is low? Always 3. In a typical week, how many times will your blood sugar go below 70 mg/dL? Never Patient Active Problem List Diagnosis Type 2 diabetes mellitus with stage 3b chronic kidney disease, with long-term current use of insulin ([facility]) Hypertension goal BP (blood pressure) < 130/80 Dyslipidemia, goal LDL below 70 Aortic valve disorder Bee sting allergy Type 2 diabetes mellitus with diabetic polyneuropathy, with long-term current use of insulin ([facility]) Charcot foot due to diabetes mellitus ([facility]) Ascending aortic aneurysm ([facility]) Nonrheumatic aortic valve stenosis Bicuspid aortic valve Thoracic aortic aneurysm without rupture ([facility]) Body mass index (BMI) of 40.0 to 44.9 in adult ([facility]) Morbid obesity due to excess calories ([facility]) Adjustment disorder with mixed anxiety and depressed mood Chronic kidney disease, stage 3b ([facility]) Abnormal nuclear stress test Review of patient's [...] DIRECTED FIVE TIMES DAILY. 450 Each 3 Semaglutide 14 MG Oral Tablet (Rybelsus) Take 14 mg by mouth daily first thing in the morning. 90 Tablet 1 Losartan Potassium 100 MG Oral [...] mouth in the morning. 90 Tablet 2 No [...] 141/80 01/01/24 118/68 No components found for: "[id number]" No results found for: "MICROALBUMIN" Lab Results [...] B INCREASE: Active Insulin Time: 3 hours Diabetes Health Maintenance: up-to-date Return to Clinic: 5 week(s) 06/01/2024 I spent a total of 30-39 minutes (exact time 35 mins) on the date of service in preparation, delivery, and documentation of the care provided to Karl Wilkerson excluding any time spent in the performance of separately billed services or time spent by another provider/QHP. Brissa Tena [facility] Clinical Pharmacist Medication Therapy Disease Management 04/12/2024, 8:08 AM documented in this encounter Plan of Treatment Upcoming Encounters Date Type Department Care Team (Late st Contact Info) Description 05/26/2024 7:45 AM EST Office Visit Ophthalmology, [facility] 132 [facility] [place] [address] César Recinos DO 132 [facility] [place] [address] 06/01/2024 8:00 AM EST Office Visit Pharmacy, [facility] [address] [facility] [place] [address] [facility] 132 [place] [address] 08/19/2024 9:00 AM EDT Office Visit Nephrology, [address] [place] [address] Mee Coughlin MD [address] [place] [address] 08/23/2024 8:00 AM EDT Office Visit Cardiology, [facility] [address] [facility] [place] [address] Emile Palma PA-C 132 [place] [address] 09/08/2024 8:00 AM EDT [facility] [place] [address] 09/15/2024 9:30 AM EDT Office Visit Cardiothoracic Surg [facility] [place] [address] [place], [place] [id number] Srinivasa Stanton MD [address] [place] [address] Scheduled Procedures Name Priority Associated Diagnoses Date/Ti [...] Additional history exists CKD HGB USE SMARTSET 32415 09/30/202409/30, 10/01/2023, 07/29/2023, Additional history exists CKD PHOS USE SMARTSET 89218 09/30/2024 06/0 09/2023, 03/31/2022, 02/01/2021 Diabetic Foot Exam 09/30/2024 10/01/2023, 0 09/29/2022, 01/03/2020, Additional history exists Lipid Panel 09/30/2028 10/01/2023, 04/0 06/2023, 08/06/2022, Additional history exists Hepatitis B Vaccine Completed 12/01/2014, 08/31/2014, 05/29/2014 Zoster Vaccines Completed 02/04/2021, 08/03/2020 Pneumococcal Vaccine: Pediatrics (0 to 5 Years) and At-Risk Patients (6 to 64 Years) Completed 01/20/2022, 05/29/2014 RETIRED - COLONOSCOPY-ANNUAL AGES 18-100 Discontinued 08/08/2022, 08/08/2022 HPV (Gardasil) Vaccine Aged Out No lo nger eligible based on patient's age to complete this topic MENINGOCOCCAL (MENACTRA/MENVEO) Aged Out No longer eligible based on patient's age to complete this topic documented as of this encounter Medical Devices Implanted Type Area Devulcanizer Loader Device Identifier Shelf Expiration Date Model / Serial / Lot Lens [id number] 12.5mm+21.50 - [id number] - [id number] Implanted:Qty: 1 on 07/08/2023 by Naldo Rivera DO at OR [facility] Left: Eye BAUSCH & LOMB 02/24/2026 [id number] / [id number] / [id number] documented as of this encounter Visit Diagnoses Diagnosis Type 2 diabetes mellitus with stage 3b chronic kidney disease, with long-term current use of insulin (HCC)- Primary Hypertension goal BP (blood pressure) < 130/80 Unspecified essential hypertension Dyslipidemia, goal LDL below 70 Other and unspecified hyperlipidemia documented in this encounter Advance Directives * Full Code (Latest Code Status on File) Date Activated Date Inactivated Comments 07/08/2023 11:09 AM 07/08/2023 5:48 PM Question Answer Comments Discussion of Advance Direct sanford occurred with: Not Discussed due to patient's condition Care Teams Operations Specialists Relationship Specialty Start Date End Date Sisi Fountain CRNP [address] [place] [address] PCP - General Nurse Practitioner 01/14/23 documented as of this encounter
--- OUTSIDE RECORDS SUMMARY | 2024-09-02 09:45 | External Medical Summary | Summary of Care ---
Author Name Unknown Organization [facility] Address [address] [place] [address] Phone [phone] Care Team Providers Care Nurse First Assist Name Role Phone Sisi Fountain Primary Care Provider [phone]- [phone] Reason for Visit * Reason Onset Date Comments Medication Refill 06/02/2024 Encounter Details Date Type Department Care Team ([facility] st Contact Info) Description 06/02/2024 Refill Family Practice [facility] [address] [place] [address] Sisi Fountain CRNP [address] [place] [address] HTN, goal below 140/90 Allergies Active Allergy Reactions Criticality Noted Date Comments Bee Venom Anaphylaxis High 02/21/2014 Insect Extract High 06/09/2014 documented as of this encounter (statuses as of 06/07/2024) Medications FISH OIL 300 MG PO CAPS One TAB TWICE DAILY Active ASPIRIN 81 MG PO TABS one tablet daily Act gurpreet Multi-Vitamins Oral Tablet Take 1 Tablet by mouth in the morning. Active Dexcom G6 SensorIndication s:Type 2 diabetes mellitus with hemoglobin A1c goal of less than 7.0% ([facility]) Use as directed. Use 1 sensor every 10 days. 9 Each 04/16/20 23 Active Dexcom G6 TransmitterIndic ations:Type 2 diabetes mellitus with hemoglobin A1c goal of less than 7.0% ([facility]) Use as directed. Use 1 [...] the evening. Inject with meals. 270 mL 05/19/19 24 Active Additional Information Patient not taking.Reported on 02/22/2024 amLODIPine Besylate 10 MG Oral Tablet (Norvasc)Indicat ions:HTN, goal below 140/90 Take 1 Tablet by mouth in the morning. 90 Tablet 08/14/19 24 Active hydroCHLOROthiaz rebecca 25 MG [...] current use of insulin, unspecified retinopathy severity ([facility]),Type 2 diabetes mellitus with hemoglobin A1c goal of less than 7.0% ([facility]) Use as directed to inject [...] current use of insulin, unspecified retinopathy severity ([facility]),Type 2 diabetes mellitus with hemoglobin A1c goal of less than 7.0% ([facility]) USE TO INJECT LANTUS INSULIN DIRECTED FIVE TIMES DAILY. 450 Each 10/09/19 24 Active Carvedilol 25 MG Oral Tablet [...] morning. 90 Tablet 1 06/07/19 25 Active Losartan Potassium 100 MG Oral Tablet (Cozaar)Indicati ons:HTN, goal below 140/90 Take 1 Tablet by mouth in the morning. 90 Tablet 1 11/30/19 24 025 Discontin ued(Refil l) documented as of this encounter (statuses as of 06/07/2024) Active Problems Problem Noted Date Diagnosed Date [...] as of this encounter (statuses as of 06/07/2024) Resolved Problems Problem Noted Date Diagnosed Date [...] PI: Dr. Jennifer Thomson CRC- Griselda Dickson ([phone]) [facility] CRC- Amy Werner ([phone]) [facility]- Ingris Devine ([phone]) Diagnosis changed due to Research Module. Go to Snapshot for study details. 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 Authorizing Provider: SISI FOUNTAIN * Telephone Encounter - [facility] - 06/03/2024 9:46 AM ESTPending Prescriptions: Disp Refills Losartan Potassium 100 MG Oral Tablet (Coz*90 Tab*1 Sig: Take 1 Tablet by mouth in the morning. * Telephone Encounter - [facility] - 06/03/2024 9:46 AM EST Pending Prescriptions: Disp Refills Losartan Potassium 100 MG Oral Tablet (Coz*90 Tab*1 Sig: Take 1 Tablet by mouth in the morning. Last Visit: 01/01/2024 (in office), Visit date not found (telemedicine) Next Visit: 07/18/2024 If no future appointments scheduled, and last appointment is greater than a year ago, please schedule patient for a follow-up appointment Last date the medication was ordered: 11-30-23 Pharmacy: [facility]- [place] Is this request for a controlled substance?No Urine Drug Screen:No results found for this or any previous visit. Patient Phone Numbers Labs: Lab Results Component Value Date/Time CREAT 2.0 (H) 10/01/2023 09:33 AM CREAT 1.51 (A) 05/06/2021 12:00 AM CREAT 1.4 (H) 06/10/2019 08:35 AM POTASSIUM 4.7 10/01/2023 09:33 AM POTASSIUM 4.5 05/06/2021 12:00 AM POTASSIUM 5.0 06/10/2019 08:35 AM LDL 67 10/01/2023 09:33 AM LDL 71 12/30/2018 09:05 AM ALT 40 03/31/2022 10:14 AM ALT 33 04/05/2018 09:43 AM HGBA1C 11.0 (H) 01/01/2024 08:31 AM HGBA1C 9.9 (H) 11/02/2019 09:14 AM Eliane RushPh. Clinical Pharmacist [facility] [address] [place] [address], [address] [place] [address] MC: [phone] 06/03/2024,9:46 AM documented in this encounter Plan of Treatment Upcoming Encounters Date Type Department Care Team (Late st Contact Info) Description 07/13/2024 7:00 AM EDT Laboratory Laboratory, [facility] [address] [place] [phone] [facility] [address] [place] [address] 07/18/2024 9:00 AM EDT Office Visit Family Practice [facility] [address] [place] [address] Sisi Fountain CRNP [address] [place] [address] 08/19/2024 9:00 AM EDT Office Visit Nephrology, [address] [place] [address] Mee Coughlin MD [address] [place], [place] [address], [place] [address] 08/23/2024 8:00 AM EDT Office Visit Cardiology, [facility] [address] [place] [address] Emile Palma PA-C [address] [place] [address] 08/24/2024 7:45 AM EDT Office Visit Ophthalmology, [facility] [address] [place] [address] César Recinos DO [address] [place] [address] 08/31/2024 8:00 AM EDT Office Visit [facility], [facility] [place] [address] [facility] [address] [place] [address] 09/08/2024 8:00 AM EDT Imaging Radiology [facility]st [facility] [address] [place] [address] 09/15/2024 9:30 AM EDT Office Visit Cardiothoracic Surg [facility] [place] [address] [place] [address] Srinivasa Stanton MD [address] [place] [address] 09/30/2024 1:30 PM EDT Hospital Encounter ENDO [facility], Endoscopy Room [facility] [address] [place] [phone] Kitty Cooper MD [address] [place] [address] 09/30/2024 1:30 PM EDT - 09/30/2024 2:00 PM EDT Surgery ENDO [facility], Endoscopy Room [facility] [address] [place] [address] Kitty Cooper MD [address] [place] [address] COLONOSCOPY FLEXIBLE PROXIMAL DIAGNOSTIC Scheduled Procedures Name [...] Additional history exists CKD HGB USE SMARTSET 91898 09/30/202409/30, 10/01/2023, 07/29/2023, Additional history exists CKD PHOS USE SMARTSET 37743 09/30/2024 06/0 09/2023, 03/31/2022, 02/01/2021 Diabetic Foot [...] this encounter Medical Devices Implanted Type Area Glass Maker Device Identifier Shelf Expiration Date Model / Serial / Lot Lens [id number] 12.5mm+21.50 - [id number] - [id number] Implanted:Qty: 1 on 07/08/2023 by Naldo Rivera DO at OR [facility] Left: Eye BAUSCH & LOMB 02/24/2026 [id number] / [id number] / [id number] documented as of this encounter Visit Diagnoses Diagnosis HTN, goal below 140/90 Unspecified essential hypertension History of colon polyps Personal history of colonic polyps documented in this encounter Advance Directives * Full Code (Latest Code Status on File) Date Activated Date Inactivated Comments 07/08/2023 11:09 AM 07/08/2023 5:48 PM Question Answer Comments Discussion of Advance Direct sanford occurred with: Not Discussed due to patient's condition Care Teams Nurse First Assist Relationship Specialty Start Date End Date Sisi Fountain CRNP [address] [place] [address] PCP - General Nurse Practitioner 01/14/23 documented as of this encounter
--- OUTSIDE RECORDS SUMMARY | 2024-09-02 09:45 | External Medical Summary | Summary of Care ---
Author Name Unknown Organization [facility] Address [address] [place] [address] Phone [phone] Care Team Providers Care Assessor Name Role Phone Sisi Fountain JAQUELIN Primary Care Provider +1- [phone] Reason for Visit * Reason Comments Outpatient Testing Encounter Details Date Type Department Care Team ([facility] st Contact Info) Description 07/13/2024 7:00 AM EDT Laboratory Laboratory, [facility] [address] [place] [address] [facility] [address] [place] [address] On retirement drug therapy; Hypertension, unspecified type Allergies Active Allergy Reactions Criticality Noted Date Comments Bee Venom Anaphylaxis High 02/21/2014 Insect Extract High 06/09/2014 documented as of this encounter (statuses as of 07/13/2024) Medications FISH OIL 300 MG PO CAPS One TAB TWICE DAILY Active ASPIRIN 81 MG PO TABS one tablet daily Act gurpreet Multi-Vitamins Oral Tablet Take 1 Tablet by mouth in the morning. Active Dexcom G6 SensorIndication s:Type 2 diabetes mellitus with hemoglobin A1c goal of less than 7.0% ([facility]) Use as directed. Use 1 sensor every 10 days. 9 Each 04/16/20 23 Active Dexcom G6 TransmitterIndic ations:Type 2 diabetes mellitus with hemoglobin A1c goal of less than 7.0% ([facility]) Use as directed. Use 1 [...] the morning. 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, with long-term current use of insulin, unspecified retinopathy severity ([facility]),Type 2 diabetes mellitus with hemoglobin A1c goal of less than 7.0% ([facility]) Use as directed to inject insulin 3 times daily with meals 500 Each 10/01/19 24 Active BD Pen Needle Short U/F 31G X 8 MM (Insulin Pen Needle)Indicatio ns:Type 2 diabetes mellitus with stage 3b chronic kidney disease, with long-term current use of insulin (HCC),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 90 Tablet 1 06/07/19 25 Active documented as of this encounter (statuses as of 07/13/2024) Active Problems Problem Noted Date Diagnosed Date [...] as of this encounter (statuses as of 07/13/2024) Resolved Problems Problem Noted Date Diagnosed Date [...] PI: Dr. Jennifer Thomson CRC- Griselda Dickson ([phone]) [facility]- Amy Werner ([phone]) [facility] CRC- Ingris Devine ([phone]) Diagnosis changed due to Research Module. Go to Snapshot for study details. 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 Not on file Not on file documented as of this encounter Plan of Treatment Upcoming Encounters Date Type Department Care Team (Late st Contact Info) Description 07/18/2024 9:00 AM EDT Office Visit Family Practice [facility] [address] [place] [address] Sisi Fountain CRNP [address] [place] [address] 08/19/2024 9:00 AM EDT Office Visit Nephrology, [facility] [address] [facility], [place] [address] Mee Coughlin MD [address] [facility] [place] [address] 08/23/2024 8:00 AM EDT Office Visit Cardiology, [facility] [address] [facility] [place] [address] Emile Palma PA-C [address] [place] [address] 08/24/2024 7:45 AM EDT Office Visit Ophthalmology, [facility] [address] [place] [address] César Recinos DO [address] [place] [address] 08/31/2024 8:00 AM EDT Office Visit Pharmacy, [facility] 132 [facility] [place] [address] [facility] [address] [facility] [place] [address] 09/08/2024 8:00 AM EDT Imaging [facility] [address] [place] [address] 09/15/2024 9:30 AM EDT Office Visit [facility] [place] [address] [place] [address] Srinivasa Stanton MD [address] [place] [address] 09/30/2024 1:30 PM EDT Hospital Encounter ENDO [facility], Endoscopy Room [facility] 132 [facility] [address] Kitty Cooper MD [address] [place] [address] 09/30/2024 1:30 PM EDT - 09/30/2024 2:00 PM EDT Surgery ENDO [facility], Endoscopy Room [facility] [address] [place] [phone] Kitty Cooper MD [address] [place] [address] COLONOSCOPY FLEXIBLE PROXIMAL DIAGNOSTIC Pending Results Name Type Priority Associated Diagnoses Date /Time VITAMIN B12 Lab Routine On retirement drug therapy 07/13/2024 7:14 AM EDT COMPREHENSIVE METABOLIC PANEL Lab Routine Hypertension, unspecified type 07/13/2024 7:14 AM EDT Scheduled Procedures Name Priority Associated [...] Additional history exists CKD HGB USE SMARTSET 88032 09/30/202409/30, 10/01/2023, 07/29/2023, Additional history exists CKD PHOS USE SMARTSET 66215 09/30/2024 06/0 09/2023, 03/31/2022, 02/01/2021 Diabetic Foot [...] this encounter Medical Devices Implanted Type Area Whittling Room Operator Device Identifier Shelf Expiration Date Model / Serial / Lot Lens [id number] 12.5mm+21.50 - [id number] - [id number] Implanted:Qty: 1 on 07/08/2023 by Naldo Rivera DO at OR [facility] Left: Eye BAUSCH & LOMB 02/24/2026 [id number] / [id number] documented as of this encounter Visit Diagnoses Diagnosis 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
--- OUTSIDE RECORDS SUMMARY | 2024-09-02 09:46 | External Medical Summary | Summary of Care ---
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 Active Dexcom G6 SensorIndication s:Type 2 diabetes mellitus with hemoglobin A1c goal of less than 7.0% ([facility]) Use as directed. Use 1 sensor every 10 days. 9 Each 04/16/20 23 Active Dexcom G6 TransmitterIndic ations:Type 2 diabetes mellitus with hemoglobin A1c goal of less than 7.0% ([facility]) Use as directed. Use 1 transmitter every [...] current use of insulin, unspecified retinopathy severity ([facility]),Type 2 diabetes mellitus with hemoglobin A1c goal of less than 7.0% ([facility]) Use as directed to inject insulin 3 [...] current use of insulin, unspecified retinopathy severity ([facility]),Type 2 diabetes mellitus with hemoglobin A1c goal of less than 7.0% ([facility]) USE TO INJECT LANTUS INSULIN DIRECTED FIVE [...] control insulin pump E11.9 1 Kit 01/18/20 Active Additional Information Patient not taking.Reported on [...] as of this encounter (statuses as of 03/17/2024) Active Problems Problem Noted Date Diagnosed Date [...] as of this encounter (statuses as of 03/17/2024) Resolved Problems Problem Noted Date Diagnosed Date [...] PI: Dr. Jennifer Thomson [facility]- Griselda Dickson ([phone]) [facility]- Amy Werner ([phone]) [facility]- Ingris Devine ([phone]) Diagnosis changed due to Research Module. Go to Snapshot for study details. Type 1 diabetes mellitus wit h foot ulcer (CODE) 11/25/2018 01/03/2020 documented as of this encounter (statuses as of 03/17/2024) Immunizations Name Administration Dates Next Due COVID-19 mRNA, LNP-s, No Pre serve, 2-Dose Series (Pfizer) 07/07/2020,06/10/2020 Hepatitis B, 20+ yrs 12/01/2014,08/31/2014,05/29 Pneumococcal Conjugate Vacci ne, 20-valent ([id number]) 01/20/2022 Pneumococcal Polysaccharide PPV23 (Pneumovax) 05/29/2014 Seasonal [...] No 12/21/2023 Does the household have a surgeons choice medical centerr source of income? 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 NPDR OU. Last Office Visit: 12/29/2023 (in office), Visit date not found (telemedicine) Patient currently states no change in vision. Are you diabetic? Yes. Do you check your blood sugars daily? YES. Fasting BS this mornin mg/dl. Last Hemoglobin A1C: [...] (Snellen - Linear) Right Left Dist sc 20/40 20/70 -1 Dist ph sc 20/40 -1 Tonometry (Tonopen, 7:59 AM) Right Left Pressure 10 12 Pupils Shape React APD Right Round Minimal None Left Round Minimal None Visual Bernardo (Counting fingers) Right Left Full Full Extraocular Movement Right Left Full, Ortho Full, Ortho Neuro/Psych Oriented x3: Yes Mood/Affect: Normal Dilation Both eyes: 0.5% Proparacaine @ 7:57 AM Dilation #2 Both eyes: 1.0% Mydriacyl, 2.5% Phenylephrine @ 7:59 AM Dilation #3 Both eyes: 1.0% Mydriacyl @ 8:00 AM Dilation Comments Patient cautioned that effects [...] pvd optic nerve: 0.2, no edema/pallor/NVD macula: SCHOLASTIC APTITUDE TEST GRADER, DME vessels: AV nicking periphery: SCHOLASTIC APTITUDE TEST GRADER, no RT/RD Dilated fundus exam OS: vitreous: clear optic nerve: 0.2, no edema/pallor/NVD macula: SCHOLASTIC APTITUDE TEST GRADER with central DME vessels: AV nicking periphery: SCHOLASTIC APTITUDE TEST GRADER, no RT/RD OCT Interpretation: OD: ERM w/ [...] 171um Fundus Photo Interpretation - 06/12/2020: OD: +extractor operator helper, no NV OS: +extractor operator helper, +DME, no NV A/P: 1. Moderate Nonproliferative Diabetic Retinopathy OU -DM2 since approx age 36 -- IDDM since approx age 43 OD: mild NCDME -monitor -recommend HgbA1C <7, BP and lipid control. OS: CIDME -Avastin 05/13/22, 04/03/22--no change -no change at 4 weeks -Eylea OS 09/24/22, 07/18/22, 06/11/2022 -persistent fluid on OCT on Eylea at 6 weeks -Vabysmo 06/16/23, 04/15/23, 02/18/23, 12/31/22, 11/05/2022 -9 months -now on insulin pump--omnipod and BG much improved -approved [...] 3. Cataract OD/ Pseudophakia OS -CE OS Dr. Rivera for sig PSC -OD-monitor F/u 8-10 weeks - dilate and OCT OU; WF OU César Recinos DO CC: To Elmore, JULIOCESAR PCP: Naldo Layton MD documented in this encounter Nursing Notes * Claire Camarillo TECH - 03/17/2024 7:53 AM EST Karl Wilkerson is a 58 year old year old male who presents for Mod. NPDR OU. Last Office Visit: 12/29/2023 (in office), Visit date not found (telemedicine) Patient currently states no change in vision. Are you diabetic? Yes. Do you check your blood sugars daily? YES. Fasting BS this mornin mg/dl. Last Hemoglobin A1C: [...] Care Team (Late st Contact Info) Description 04/12/2024 8:00 AM EST Office Visit Pharmacy, [facility] [address] [place] [address] [facility] [place] [address] 05/26/2024 7:45 AM EST Office Visit Ophthalmology, [facility] [address] [place] [address] César Recinos DO [address] [place] [address] 08/19/2024 9:00 AM EDT Office [address], [address] [address] Mee Coughlin MD [address] [place] [address] 08/23/2024 8:00 AM EDT Office Visit Cardiology, [facility] [address] [place] [address] Emile Palma PA-C [address] [place] [address] 09/08/2024 8:00 AM EDT Imaging [facility] [address] [place] [address] 09/15/2024 9:30 AM EDT Office Visit [facility]oracic Surg 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, unspecified whether truck terminal manager insulin use (HCC) Ordered: 03/17/2024 Scheduled Procedures Name Priority Associated Diagnoses Date/Ti [...] 05/07/2023, Additional history exists HbA1c 06/30/2024 01/01/2024, 060 09/2023, 03/31/2023, Additional history exists CKD HGB USE SMARTSET 71845 09/30/202409/30, 10/01/2023, 07/29/2023, Additional history exists CKD PHOS USE SMARTSET 89387 09/30/2024 06/0 09/2023, 03/31/2022, 02/01/2021 Diabetic Foot [...] this encounter Medical Devices Implanted Type Area Research Methods Instructor Device Identifier Shelf Expiration Date Model / Serial / Lot Lens [id number] 12.5mm+21.50 - [id number] - [id number] Implanted:Qty: 1 on 07/08/2023 by Naldo Rivera DO at OR [facility] Left: Eye BAUSCH & LOMB 02/24/2026 [id number] / [id number] / [id number] documented as of this encounter Visit Diagnoses Diagnosis 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
--- OUTSIDE RECORDS SUMMARY | 2024-09-02 09:46 | External Medical Summary | Summary of Care ---
Author Name Unknown Organization [facility] Address [address] [place] [address] Phone [phone] Care Team Providers Care Picker Machine Operator Name Role Phone Sisi Fountain Primary Care Provider +1- [phone] Reason for Visit * Reason Onset Date Comments Medication Refill 03/14/2024 Encounter Details Date Type Department Care Team ([facility] st Contact Info) Description 03/14/2024 Refill Family Practice [facility] [address] [place] [address] Sisi Fountain CRNP [address] [place] [address] Dyslipidemia, goal LDL below 100 Allergies Active Allergy Reactions Criticality Noted Date Comments Bee Venom Anaphylaxis High 02/21/2014 Insect Extract High 06/09/2014 documented as of this encounter (statuses as of 03/15/2024) Medications FISH OIL 300 MG PO CAPS One TAB TWICE DAILY Active ASPIRIN 81 MG PO TABS one tablet daily Act gurpreet Multi-Vitamins Oral Tablet Take 1 Tablet by mouth in the morning. Active Dexcom G6 SensorIndication s:Type 2 diabetes mellitus with hemoglobin A1c goal of less than 7.0% ([facility]) Use as directed. 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, with long-term current use of insulin, unspecified retinopathy severity ([facility]),Type 2 diabetes mellitus with hemoglobin A1c goal of less than 7.0% ([facility]) Use as directed to inject insulin 3 times daily with meals 500 Each 10/01/19 24 Active BD Pen Needle Short U/F 31G X 8 MM (Insulin Pen Needle)Indicatio ns:Type 2 diabetes mellitus with stage 3b chronic kidney disease, with long-term current use of insulin ([facility]),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 450 Each 10/09/19 24 Active Semaglutide 14 MG Oral Tablet (Rybelsus)Indica tions:Type 2 diabetes mellitus with hemoglobin A1c goal of less than 7.0% (HCC) Take 14 mg by mouth daily first thing in the morning. 90 Tablet 10/14/19 24 Active Losartan Potassium 100 MG [...] morning. 90 Tablet 2 03/15/20 24 Active Atorvastatin Calcium 40 MG Oral Tablet (Lipitor)Indicat ions:Dyslipidemi a, goal LDL below 100 Take 1 Tablet by mouth in the morning. 90 Tablet 1 07/25/19 24 024 Discontin ued(Refil l) documented as of this encounter (statuses as of 03/15/2024) Active Problems Problem Noted Date Diagnosed Date [...] as of this encounter (statuses as of 03/15/2024) Resolved Problems Problem Noted Date Diagnosed Date [...] PI: Dr. Jennifer Thomson [facility]- Griselda Dickson ([phone]) [facility]- Amy Werner ([phone]) [facility]- Ingris Devine ([phone]) Diagnosis changed due to Research Module. Go to Snapshot for study details. 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 Not on file Not on file documented as of this encounter Miscellaneous Notes * Telephone Encounter - Radha Soriano [facility] - 03/15/2024 5:36 PM ESTSigned Prescriptions: Disp Refills Atorvastatin Calcium 40 MG Oral Tablet (Li*90 Tab*2 Sig: Take 1 Tablet by mouth in the morning.Authorizing Provider: Tien FOUNTAIN User: RADHA SORIANO documented in this encounter Plan of Treatment Upcoming Encounters Date Type Department Care Team (Late st Contact Info) Description 03/17/2024 7:45 AM EST Office Visit Ophthalmology, [facility] [address] [place] [address] César Recinos DO [address] [place] [address] 04/12/2024 8:00 AM EST Office Visit Pharmacy, [facility] [address] [place] [address] [facility] [address] [place] [address] 08/19/2024 9:00 AM EDT Office Visit Nephrology, [address], [place] [address] Mee Coughlin MD [address] [place] [address] [place] [address] 08/23/2024 8:00 AM EDT Office Visit Cardiology, [facility] [address] [place] [address] Emile Palma PA-C [address] [place] [address] 09/08/2024 8:00 AM EDT Imaging Radiology [facility] [address] [place] [address] 09/15/2024 9:30 AM EDT Office Visit Cardiothoracic Surg [facility], [address] [address] Srinivasa Stanton MD [address] [place] [address] Scheduled Procedures Name Priority Associated Diagnoses Date/Ti [...] 02/23/2015, Additional history exists B-12 03/31/2024 03/31/2023, 07/27, 11/02/2019, Additional history exists Depression Screening 03/31/2024 03/31/2023 GFR 04/01/2024 10/01/2023, 05/0 04/2023, 05/13/2023, Additional history exists Diabetic Eye Exam 05/07/2024 05/07/2023, , 05/07/2023, Additional history exists HbA1c 06/30/2024 01/01/2024, 06/0 09/2023, 03/31/2023, Additional history exists CKD HGB USE SMARTSET 17142 09/30/202409/30, 10/01/2023, 07/29/2023, Additional history exists CKD PHOS USE SMARTSET 01840 09/30/2024 06/0 09/2023, 03/31/2022, 02/01/2021 Diabetic Foot [...] this encounter Medical Devices Implanted Type Area Ski Maker Device Identifier Shelf Expiration Date Model / Serial / Lot Lens [id number] 12.5mm+21.50 - [id number] - [id number] Implanted:Qty: 1 on 07/08/2023 by Naldo Rivera DO at OR [facility] Left: Eye BAUSCH & LOMB 02/24/2026 [id number] / [id number] / [id number] documented as of this encounter Visit Diagnoses Diagnosis Dyslipidemia, goal LDL below 100 Other and unspecified hyperlipidemia documented in this encounter Advance Directives * Full Code (Latest Code Status on File) Date Activated Date Inactivated Comments 07/08/2023 11:09 AM 07/08/2023 5:48 PM Question Answer Comments Discussion of Advance Direct sanford occurred with: Not Discussed due to patient's condition Care Teams Picker Machine Operator Relationship Specialty Start Date End Date Sisi Fountain CRNP [address] [place] [address] PCP - General Nurse Practitioner 01/14/23 documented as of this encounter
--- NOTE | 2024-09-02 10:14 | Emergency Department Note ---
Impression & Plan Diabetic foot ulcer, Diabetic foot infection ED Provider Note Provider: Jacoby Galvez MD CHIEF COMPLAINT: Chills, foot infection HISTORY OF PRESENT ILLNESS: Patient is a 59-year-old gentleman type 2 diabetes on insulin presenting here today reporting concerns for infection of his right foot. Has been trying to be more active and walking and noted last week or 2 a bit of ulceration on his left third toe. This morning woke up with discomfort into his lower leg. Has fairly severe neuropathy of the feet but now the right lower leg is painful and there is redness he is having chills. No fevers. No trauma. Significant history of a left foot infection and sepsis in the past although this foot is doing okay now. Denies sick cough or cold or shortness of breath or chest pain or abdominal pain. Follows podiatry but is due to see them next week and has not seen them in 9 weeks. PAST MEDICAL HISTORY: As noted above MEDICATIONS: Reviewed home medications includes OmniPod SOCIAL HISTORY: Non-smoker PHYSICAL EXAM: GENERAL: alert and oriented in no acute distress on stretcher Head: normocephalic and atraumatic EYES: No injection, discharge or icterus. NECK: Trachea midline. ENT: Mucous membranes pink and moist LUNGS: Airway patent. No retractions. Breath sounds clear HEART: Regular rate and rhythm. No chest wall tenderness ABDOMEN: Soft and non-tender, without guarding or rebound. SKIN: Acyanotic, warm, dry, without rashes EXTREMITIES: Without swelling, tenderness or deformity NEUROLOGICAL: No focal deficits. No aphasia. No facial droop or slurred speech. Ambulatory. CONTINUOUS CARDIAC MONITORING: was ordered and showed a heart rate of 80s to 90s bpm in normal sinus rhythm Patient's laboratory studies and imaging reviewed. Differential includes DVT, musculoskeletal, infection, joint effusion, trauma, lymphedema, idiopathic, CHF, as well as other pathologies. IMPRESSION/MEDICAL DECISION MAKING: Patient without significant tachycardia or hypoxia here. Not hypotensive or febrile. Diffuse redness right lower leg midway down. No crepitus. Does have ulceration and redness particular to the right third toe on the distal tip there is evidence of ulcerated wound trace discharge. Wound culture obtained here. Blood cultures inflammatory markers and blood work sent here. Lactate not elevated not hypotensive and doubt severe sepsis/septic shock at this time. Do question possible infection. Lower suspicion that this represents DVT given his other infectious symptoms. Not having any shortness of breath or chest discomfort and doubt PE. Denies other URI symptoms. Reviewed prior notes. Slight leukocytosis 13 CRP mildly evaded 2.1, ESR not severely out of 22 and procalcitonin not severely elevated. Will cover broadly with Zosyn and daptomycin given his habitus and renal dysfunction for broad-spectrum coverage. Again skin surface cultures with blood cultures are sent. In discussion with the patient well x-ray does not show evidence of osteomyelitis per the radiologist, do have concerns for this evolving infection and his foot with his underlying, but he is of diabetes. Will bring into the hospital for IV antibiotics and further care. Hospitalist team was consulted the patient was agreeable with this plan. DIAGNOSIS: Right diabetic foot infection/cellulitis, hyperglycemia type 2 diabetes DISPOSITION: Hospitalist will evaluate Patient was agreeable with this plan. Past Med/Surg History Problem List Cellulitis of left anterior lower leg Cellulitis of foot LIZ (acute kidney injury) DVT prophylaxis Diabetic foot infection (Acute) Severe sepsis S/P left knee arthroscopy (Chronic) S/P tonsillectomy and adenoidectomy (Chronic) Charcot foot due to diabetes mellitus (Chronic) Dyslipidemia (Chronic) Hypertension (Chronic) Diabetic foot ulcer (Chronic) Diabetic neuropathy (Chronic) Medical History Bicuspid aortic valve Obesity (BMI 30-39.9) Sepsis Asthma Type 2 diabetes mellitus Family History Other Adopted Family history unknown Social History Smoking Status: Former smoker Second Hand Exposure: Yes (On occasion); Do You Dip or Chew Tobacco: No; Hx Alcohol Use: No Hx Substance Use: No Preferred Language: Mauritian Communication Ability: Effective Log Cutter Required: No Beliefs That Will Affect Care: None marital status: Current Living Situation: Family How many Children do You have: 2 Other Information That Helps Us Care for You: No Feels Safe at Home: Yes Safety Concerns: Feels Safe At This Time Assistive Devices: Glasses Allergies Allergies Allergy/AdvReac Type Severity Reaction Status Date / Time insect venom Allergy Severe Hives Verified 09/02/24 15:16 No Known Drug Allergies Allergy Hives Verified 09/02/24 15:16 Home Meds Home Medications Medication Instructions Recorded Confirmed aspirin 81 mg tablet,delayed 81 mg PO DAILY 05/10/18 09/02/24 release epinephrine 0.3 mg/0.3 mL 0.3 mg IM DIRECTED PRN Allergic 05/10/18 09/02/24 injection, auto-injector (EpiPen) Reaction insulin aspart U-100 100 unit/mL 1 dose subcut UD 05/10/18 09/02/24 subcutaneous solution multivitamin-ferrous 1 tab PO DAILY 05/10/18 09/02/24 fumarate-folic acid 18 mg-400 mcg tablet (Centrum) omega-3 fatty acids-fish oil 300 2 cap PO DAILY 05/10/18 09/02/24 mg-1,000 mg capsule (Fish Oil) carvedilol 6.25 mg tablet 50 mg PO BID #180 tabs 01/03/19 09/02/24 amlodipine 5 mg tablet 5 mg PO DAILY 09/02/24 09/02/24 empagliflozin 25 mg tablet 25 mg PO DAILY 09/02/24 09/02/24 (Jardiance) hydrochlorothiazide 25 mg tablet 25 mg PO DAILY 09/02/24 09/02/24 losartan 100 mg tablet 100 mg PO DAILY 09/02/24 09/02/24 semaglutide 14 mg tablet (Rybelsus) 14 mg PO DAILY 09/02/24 09/02/24 Previous Rx's Medication Instructions Recorded atorvastatin 40 mg tablet (Lipitor) 40 mg PO DAILY #30 tabs 01/03/19 Results & Data (ED) Vital Signs Vital Signs - 24 hr 09/02/24 09:09 09/02/24 09:59 09/02/24 10:30 Temperature 36.8 C Temperature Source Temporal Artery Scan Pulse Rate 87 87 87 Respiratory Rate 20 21 Respiratory Effort / Characteristics Non-Labored Spontaneous Respiratory Depth Normal Respiratory Pattern Regular Blood Pressure 146/77 H 146/93 H Blood Pressure Mean 100 101 Blood Pressure Position Sitting Pulse Oximetry 97 93 Oxygen Delivery Method Room Air Sepsis Recent Fever Within 48 Hours No Sepsis New/Unexplained Change in Mental Status N/A Sepsis Action Taken by Nursing No Action Required Laboratory Data 09/02/24 09:50 09/02/24 09:50 Lab Results 09/02/24 09/02/24 09/02/24 Range/Units 09:50 09:55 10:12 WBC 13.25 H (4.8-10.8) K/ul RBC 5.67 (4.70-6.10) M/uL Hgb 16.7 (14.0-18.0) g/dl Hct 47.3 (42.0-52.0) % MCV 83.4 (80.0-100.0) fL MCH 29.5 (25.0-34.0) pg MCHC 35.3 (32.0-36.0) g/dL RDW Std Deviation 39.4 (36.4-46.3) fL RDW Coeff of [place] 13.2 (11.5-14.5) % Plt Count 281 (130-400) K/uL MPV 10.0 (9.4-12.4) fL Immature Gran % (Auto) 0.4 % Neut % (Auto) 75.2 % Lymph % (Auto) 12.5 % [place] % (Auto) 9.3 % Eos % (Auto) 2.0 % Baso % (Auto) 0.6 % Neut # (Auto) 9.96 H (1.40-6.50) K/uL Lymph # (Auto) 1.66 (1.20-3.40) K/uL [place] # (Auto) 1.23 H (0.11-0.59) K/uL Eos # (Auto) 0.27 (0.00-0.50) K/uL Baso # (Auto) 0.08 (0.00-0.20) K/uL Immature Gran # (Auto) 0.05 (0.01-0.20) K/uL ESR 22 H (0-20) mm/hr PT 10.5 (9.0-12.0) Seconds INR 1.0 (0.9-1.1) Sodium 133 L (136-145) mmol/L Potassium 4.3 (3.5-5.1) mmol/L Chloride 100 (98-107) mmol/L Carbon Dioxide 26 (21-32) mmol/L Anion Gap 7 (3-11) BUN 39 H (6-23) mg/dl Creatinine 1.92 H (0.6-1.4) mg/dl Est Cr Clr Drug Dosing 60.8 ml/min eGFR 40.13 BUN/Creatinine Ratio 20.3 H (10-20) Glucose 374 H* (70-99(Fasting)) mg/dl POC Glucose (70-99) mg/dl Lactate 1.6 (0.4-2.0) mmol/L Calcium 9.9 (8.6-10.3) mg/dl Total Bilirubin 0.6 (0.2-1.0) mg/dl AST 29 (13-39) U/L ALT 37 (7-52) U/L Alkaline Phosphatase 91 (34-104) U/L Troponin I High Sens 11.2 (0-20) pg/ml C-Reactive Protein 2.14 H (0-0.5) mg/dl Total Protein 7.5 (6.0-8.3) gm/dl Albumin 4.0 (3.4-5.0) gm/dl Globulin 3.5 (2.5-4.0) gm/dl Albumin/Globulin Ratio 1.1 (0.9-2) Procalcitonin 0.22 (0-0.5) ng/ml Urine Color Urine Appearance (Clear) Urine pH (4.5-7.5) Ur Specific [place] (1.000-1.030) Urine Protein (Negative) Urine Glucose (UA) (Negative) Urine Ketones (Negative) Urine Blood (Negative) Urine Nitrite (Negative) Urine Bilirubin (Negative) Urine Urobilinogen (Negative) Ur Leukocyte Esterase (Negative) Urine WBC (Auto) (0-5) /hpf Urine RBC (Auto) (0-2) /hpf U Hyaline Cast (Auto) (0-2) /lpf U Epithel Cells (Auto) (0-2) /hpf Urine Bacteria (Auto) (None Seen) SARS-CoV-2, RNA, NAAT NEGATIVE (NEGATIVE) 09/02/24 09/02/24 Range/Units 11:34 11:45 WBC (4.8-10.8) K/ul RBC (4.70-6.10) M/uL Hgb (14.0-18.0) g/dl Hct (42.0-52.0) % MCV (80.0-100.0) fL MCH (25.0-34.0) pg MCHC (32.0-36.0) g/dL RDW Std Deviation (36.4-46.3) fL RDW Coeff of [place] (11.5-14.5) % Plt Count (130-400) K/uL MPV (9.4-12.4) fL Immature Gran % (Auto) % Neut % (Auto) % Lymph % (Auto) % [place] % (Auto) % Eos % (Auto) % Baso % (Auto) % Neut # (Auto) (1.40-6.50) K/uL Lymph # (Auto) (1.20-3.40) K/uL [place] # (Auto) (0.11-0.59) K/uL Eos # (Auto) (0.00-0.50) K/uL Baso # (Auto) (0.00-0.20) K/uL Immature Gran # (Auto) (0.01-0.20) K/uL ESR (0-20) mm/hr PT (9.0-12.0) Seconds INR (0.9-1.1) Sodium (136-145) mmol/L Potassium (3.5-5.1) mmol/L Chloride (98-107) mmol/L Carbon Dioxide (21-32) mmol/L Anion Gap (3-11) BUN (6-23) mg/dl Creatinine (0.6-1.4) mg/dl Est Cr Clr Drug Dosing ml/min eGFR BUN/Creatinine Ratio (10-20) Glucose (70-99(Fasting)) mg/dl POC Glucose 318 H* (70-99) mg/dl Lactate (0.4-2.0) mmol/L Calcium (8.6-10.3) mg/dl Total Bilirubin (0.2-1.0) mg/dl AST (13-39) U/L ALT (7-52) U/L Alkaline Phosphatase (34-104) U/L Troponin I High Sens (0-20) pg/ml C-Reactive Protein (0-0.5) mg/dl Total Protein (6.0-8.3) gm/dl Albumin (3.4-5.0) gm/dl Globulin (2.5-4.0) gm/dl Albumin/Globulin Ratio (0.9-2) Procalcitonin (0-0.5) ng/ml Urine Color Yellow Urine Appearance Clear (Clear) Urine pH 5.5 (4.5-7.5) Ur Specific [place] 1.020 (1.000-1.030) Urine Protein 1+ H (Negative) Urine Glucose (UA) 3+ H (Negative) Urine Ketones Negative (Negative) Urine Blood Negative (Negative) Urine Nitrite Negative (Negative) Urine Bilirubin Negative (Negative) Urine Urobilinogen Negative (Negative) Ur Leukocyte Esterase Negative (Negative) Urine WBC (Auto) 0-5 (0-5) /hpf Urine RBC (Auto) 0-2 (0-2) /hpf U Hyaline Cast (Auto) 0-2 (0-2) /lpf U Epithel Cells (Auto) 0-2 (0-2) /hpf Urine Bacteria (Auto) None Seen (None Seen) SARS-CoV-2, RNA, NAAT (NEGATIVE) Administered Medications Acetaminophen (Acetaminophen 325 Mg Tab) 650 mg PO Q4H PRN PRN Reason: pain/fever Stop: 10/02/24 14:52 Last Admin: 09/02/24 15:30 Dose: 650 mg Documented By: CATARINA Sodium Chloride (Nss) 1,000 mls @ 80 mls/hr IV .[id number] ELIGIO Stop: 09/05/24 12:59 Last Admin: 09/02/24 13:09 Dose: 80 mls/hr Documented By: BOB Discontinued Medications Piperacillin Sod/Tazobactam Sod (Zosyn) 4.5 gm in 100 mls @ 200 mls/hr IV NOW ONE; Protocol Stop: 09/02/24 11:24 Last Infusion: 09/02/24 12:06 Dose: Infused Documented By: Admin: 09/02/24 11:24 Dose: 200 mls/hr Documented By: ANTHONY Daptomycin 775 mg/ Syringe 15.5 mls @ 7.75 mls/min IV NOW ONE; Protocol Stop: 09/02/24 12:15 Last Admin: 09/02/24 13:08 Dose: 7.75 mls/min Documented By: BOB Imaging Data Radiologist's Impression: Foot X-Ray 09/02/24 09:36 XR foot RT min 3V routine CLINICAL HISTORY: infection, right 3rd toe COMPARISON: 03/15/2007 FINDINGS: There are progressive degenerative changes at the midfoot with interval widening of the interspace between the first and second metatarsal bases and lateral subluxation of the second through fifth metatarsals. Findings are most consistent with Charcot joint. No acute fracture seen. No evidence of osteomyelitis. No radiopaque foreign body. There is a large plantar calcaneal spur. IMPRESSION: 1. No osteomyelitis seen. 2. Otherwise as described. ACT 112: Negative or not required by law. Electronically signed by: Merlin Hunter M.D. 09/02/2024 10:24 AM Discharge Plan Visit Data Chief Complaint: Infection Stated Complaint: INFECTION IN RT FOOT ED Provider: Jacoby Galvez Discharge Problem: Diabetic foot ulcer, Diabetic foot infection Patient Disposition: Admitted As Inpatient Condition: Fair Discharge Instructions Interventions: ED Discharge Assessment Last Done: 09/02/24 14:32
[2024-09-02 10:15] LABS: Basophils # (auto) 0.08 K/uL (0.00-0.20); Basophils % (auto) 0.6 %; Eosinophils # (auto) 0.27 K/uL (0.00-0.50); Hematocrit (blood only) 47.3 % (42.0-52.0); Hemoglobin 16.7 g/dl (14.0-18.0); Immature Granulocytes # (auto) 0.05 K/uL (0.01-0.20); Immature Granulocytes % (auto) 0.4 %; Lymphocytes # (auto) 1.66 K/uL (1.20-3.40); Lymphocytes % (auto) 12.5 %; Mean Corpuscular Hemoglobin 29.5 pg (25.0-34.0); Mean Corpuscular Hgb Conc 35.3 g/dL (32.0-36.0); Mean Corpuscular Volume 83.4 fL (80.0-100.0); Monocytes # (auto) 1.23 K/uL (0.11-0.59); Monocytes % (auto) 9.3 %; Neutrophils # (auto) 9.96 K/uL (1.40-6.50); Neutrophils % (auto) 75.2 %; Platelet Count 281 K/uL (130-400); RDW Coefficient of Variation 13.2 % (11.5-14.5); RDW Standard Deviation 39.4 fL (36.4-46.3); Red Blood Count 5.67 M/uL (4.70-6.10); White Blood Count 13.25 K/ul (4.8-10.8)
--- NOTE | 2024-09-02 10:25 | XRay Report ---
XR foot RT min 3V routine CLINICAL HISTORY: infection, right 3rd toe COMPARISON: 03/15/2007 FINDINGS: There are progressive degenerative changes at the midfoot with interval widening of the in terspace between the first and second metatarsal bases and lateral subluxation of the second through fifth metatarsals. Findings are most consistent with Charcot joint. No acute fracture seen. No eviden ce of osteomyelitis. No radiopaque foreign body. There is a large plantar calcaneal spur. IMPRESSION: 1. No osteomyelitis seen. 2. Otherwise as described. ACT 112: Negative or not required by law. Electronically signed by: Merlin Hunter M.D. 09/02/2024 10:24 AM
[2024-09-02 10:42] LABS: Prothrombin Time 10.5 Seconds (9.0-12.0)
[2024-09-02 10:54] LABS: Albumin Globulin Ratio 1.1 (0.9-2); BUN Creatinine Ratio 20.3 (10-20); Bilirubin,Total 0.6 mg/dl (0.2-1.0); C Reactive Protein 2.14 mg/dl (0-0.5); Calcium 9.9 mg/dl (8.6-10.3); Creatinine Clr Calc Pharmacy 60.8 ml/min; Globulin 3.5 gm/dl (2.5-4.0); Potassium 4.3 mmol/L (3.5-5.1); Total Protein 7.5 gm/dl (6.0-8.3); Troponin I High Sensitivity 11.2 pg/ml (0-20)
[2024-09-02] MEDS: PIPERACILLIN/TAZOBACTAM 4.5 GM/100 ML BAG IV ONE (11:24)
[2024-09-02 12:02] LABS: Appearance Urine Clear (Clear); Bacteria Urine Automated None Seen (None Seen); Bilirubin Urine Negative (Negative); Blood Urine Negative (Negative); Cast Urine Automated 0-2 /lpf (0-2); Color Urine Yellow; Epithelial Cell Urine Auto 0-2 /hpf (0-2); Glucose Urine UA 3+ (Negative); Ketones Urine Negative (Negative); Leukocyte Esterase Urine Negative (Negative); Nitrite Urine Negative (Negative); Protein Urine 1+ (Negative); RBC Urine Automated 0-2 /hpf (0-2); Urobilinogen Urine Negative (Negative); WBC Urine Automated 0-5 /hpf (0-5); pH Urine 5.5 (4.5-7.5)
[2024-09-02] MEDS: DAPTOmycin 775 MG in SYRINGE 0 ML IV ONE (13:08)
[2024-09-02] MEDS: SODIUM CHLORIDE 0.9% 1,000 ML IV SCH (13:09)
--- NOTE | 2024-09-02 13:23 | History & Physical Report ---
Date of Service September 02, 2024 Assessment & Plan (1) Diabetic foot ulcer: Plan: Patient is a 59 year old male with a past medical history of Insulin dependent DM Type II, Hypertension, Ascending Aortic Aneurysm, Bicuspid valve, Aortic valve, Dyslipidemia, Morbid obesity, CKD Stage 3, Charcot foot, s/p DVT LLE, who presents to the emergency department with complaint of right toe pain and redness with swelling to the right toe and calf. He has a history of diabetic foot wound to left foot ulcer with sepsis in 2019. He felt his symptoms today of chills were similar to when he had sepsis, which prompted him to seek care. Diabetic Foot Ulcer/Cellulitis of Foot/Charcot Foot due to diabetes mellitus: * Admit to MedSurg * Zosyn and Dapto given in Ed * Will continue IV antibiotics for Staph and pseudo coverage- continue Zosyn and will add Vancomycin with renal dosing; per external chart review baseline Creatinine 2-2.4 * Pharmacy consult for Vanc dosing ordered * Wound Culture pending- will adjust coverage as needed * Podiatry consult for possible debridement- ordered * Consider additional imaging for r/o osteomyelitis following Podiatry consult or if patient condition worsens * Trend CBC- Am lab ordered * PT consult-ordered * DVT prophylaxis with heparin * IV fluids with NSS ordered for rehydration in the setting of infection Type II Diabetes mellitus: * Patient desires Omnipod insulin pump and CGM while inpatient- order placed * Most recent A1C 10.1 on 08/23- no indication for repeat lab * BMP/Mag/Phos with AM labs- ordered * AccuStick at least daily, possible with ACHS while inpatient if requiring acetaminophen for pain management. Per Pharmacy-Difference in CGM reading with acetaminophen use up to 20% Hypertension: * BP elevated while inpatient in the setting of illness and pain * Goal 130/80 * Continue home BP meds amlodipine, carvedilol, HCTZ, losartan * CKD3 Baseline Cr from EPIC records showed baseline Cr of 2-2.2 in the past year Cr is 1.92 Monitor and avoid nephrotoxins (2) Charcot foot due to diabetes mellitus: (3) Cellulitis of foot: (4) Type 2 diabetes mellitus: (5) Hypertension: Plan DVT Ppx:Heparin Code status: Full PCP: JAQUELIN Cardenas Dispo: Admit to Med Surg Patient seen in collaboration with Dr. Eid . Please see addendum.I spent a total of 75 minutes coordinating, documenting and providing care for this patient excluding time spent in the performance of separately billed services or time spent by another provider/QHP. History of Present Illness Primary Care Provider: JAQUELIN Oliveira Patient is a 59 year old male with a past medical history of Insulin dependent DM Type II, Hypertension, Ascending Aortic Aneurysm, Bicuspid valve, Aortic valve, Dyslipidemia, Morbid obesity, CKD Stage 3, Charcot foot, s/p DVT LLE, who presents to the emergency department with complaint of right toe pain and redness with swelling to the right toe and calf. He has a history of diabetic foot wound to left foot ulcer with sepsis in 2019. He felt his symptoms today of chills were similar to when he had sepsis, which prompted him to seek care. In the emergency department, he was found to the third toe to right foot with erythema, warmth, swelling and pus drainage to the wound. Cultures sent. He had a elevated WBC at 13.25 without signs of sepsis; Procalcitonin 0.22, Lactate 1.6. He was hemodynamically stable with a oxygen sat at 93% on room air and stable blood pressure 140's/90's. Zosyn and Daptomycin were initiated. He endorsed severe leg right pain and chills but denied chest pain, dizziness, difficulty breathing, cold symptoms, profound weakness, N/V/D, abdominal pain, rashes, urinary symptoms, joint pain. He had no injury to the right foot and reports daily foot exams at home. He has diabetic neuropathy and Charcot disease from his diabetes. Foot Xray was done in the ED showing progressive degenerative changes at the midfoot with interval widening of the interspace between the first and second metatarsal bases and lateral subluxation of the second through fifth metatarsals. Findings most consistent with Charcot joint. No acute fracture seen. No evidence of osteomyelitis. No radiopaque foreign body. There is a large plantar calcaneal spur. Patient has a history of congenital bicuspid aortic valve with ascending aortic aneurysm and follows [facility], with last appointment 08/23/24. Per Cardiology note from that visit, the patient's congenital bicuspid aortic valve is monitored via CTA last showin.6 cm ascending aorta measuring (unchanged); echo from January 2024 showing 4.0 cm aortic root and 4.9 cm ascending aorta (unchanged compared to July 2022). Blood pressure with tight control for CV risk reduction and management of thoracic aortic aneurysm. He follows [facility] diabetes clinic. Most recent A1C is 10.1 on 08/23/24. He wears an Omnipod insulin pump with the following settings: Omnipod Insulin Pump: Novolog Basal Rate: 1.8 units/hour; Bolus: 15 carbs with breakfast, 45 carbs with lunch and dinner. Additionally, his takes Rybelsus and Jardiance for diabetes management. History obtained primarily from the patient, external chart review, and the patient's who was at bedside during the exam. Allergies Allergy/AdvReac Type Severity Reaction Status Date / Time No Known Drug Allergies Allergy Verified 03/07/19 Insect Bites Allergy Severe HIVES Uncoded 03/07/19: Home Medications Medication Instructions Recorded Confirmed Type aspirin 81 mg tablet,delayed 81 mg PO DAILY 05/10/18 09/02/24 History release epinephrine 0.3 mg/0.3 mL 0.3 mg IM DIRECTED PRN Allergic 05/10/18 09/02/24 History injection, auto-injector (EpiPen) Reaction insulin aspart U-100 100 unit/mL 1 dose subcut UD 05/10/18 09/02/24 History subcutaneous solution multivitamin-ferrous 1 tab PO DAILY 05/10/18 09/02/24 History fumarate-folic acid 18 mg-400 mcg tablet (Centrum) omega-3 fatty acids-fish oil 300 2 cap PO DAILY 05/10/18 09/02/24 History mg-1,000 mg capsule (Fish Oil) atorvastatin 40 mg tablet (Lipitor) 40 mg PO DAILY #30 tabs 01/03/19 09/02/24 Rx carvedilol 6.25 mg tablet 50 mg PO BID #180 tabs 01/03/19 09/02/24 History amlodipine 5 mg tablet 5 mg PO DAILY 09/02/24 09/02/24 History empagliflozin 25 mg tablet 25 mg PO DAILY 09/02/24 09/02/24 History (Jardiance) hydrochlorothiazide 25 mg tablet 25 mg PO DAILY 09/02/24 09/02/24 History losartan 100 mg tablet 100 mg PO DAILY 09/02/24 09/02/24 History semaglutide 14 mg tablet (Rybelsus) 14 mg PO DAILY 09/02/24 09/02/24 History Past Med/Surg History Problem List Cellulitis of left anterior lower leg Cellulitis of foot LIZ (acute kidney injury) DVT prophylaxis Diabetic foot infection (Acute) Severe sepsis S/P left knee arthroscopy (Chronic) S/P tonsillectomy and adenoidectomy (Chronic) Charcot foot due to diabetes mellitus (Chronic) Dyslipidemia (Chronic) Hypertension (Chronic) Diabetic foot ulcer (Chronic) Diabetic neuropathy (Chronic) Medical History Bicuspid aortic valve Obesity (BMI 30-39.9) Sepsis Asthma Type 2 diabetes mellitus Family History Other Adopted Family history unknown Social History Smoking Status: Never smoker Second Hand Exposure: Yes (On occasion); Do You Dip or Chew Tobacco: No; Hx Alcohol Use: Yes Alcohol type: hard liquor Hx Substance Use: No Preferred Language: [place] Communication Ability: Effective Beliefs That Will Affect Care: None marital status: Current Living Situation: Family How many Children do You have: 2 Feels Safe at Home: Yes Assistive Devices: Glasses Review of Systems Review of Systems: All systems reviewed & are unremarkable except as noted in HPI & below Physical Exam Physical Exam: VITALS: Reviewed. WEIGHT/BMI reviewed. GEN: Healthy appearing, well-developed, NAD. PSYCH: Good Judgment. AOx3. Normal memory, mood, and affect. HEENT -Head: NC/AT; -Eyes: PERRL, EOMI. No discharge or redn ess; -Ears: External ears are normal. Normal TMs. -Nose: Normal nares. -Mouth and throat: MMM. Normal gums, muc deja, palate,. Good dentition. NECK: Supple, with no masses. CV: RRR, no m/r/g. RLE edematous LUNGS: CTAB, no w/r/c. ABD: Soft, NT/ND, NBS, no masses or organomegaly. : N/A SKIN: Warm, well perfused. Erythema with stocking appearance to RLE, Third metatarsal to R foot erythematic and swollen, Necrotic 1-2 mm round ulcer to plantar area of Third metatarsal to R foot, No skin rashes. MSK: No deformities, Normal gait. EXT: No clubbing, cyanosis, or edema. NEURO: Normal muscle strength and tone. No focal deficits. Results & Data Results & Data Vital Signs (Past 12 Hours) Vital Signs Temp Pulse Resp BP Pulse Ox O2 Del Method 09/02/24 10:30 87 21 146/93 H 93 09/02/24 09:59 87 09/02/24 09:09 36.8 C 87 20 146/77 H 97 Room Air Laboratory Results Short CBC 09/02/24 Range/Units 09:50 WBC 13.25 H (4.8-10.8) K/ul Hgb 16.7 (14.0-18.0) g/dl Hct 47.3 (42.0-52.0) % Plt Count 281 (130-400) K/uL BMP 09/02/24 09:50 Sodium 133 L Potassium 4.3 Chloride 100 Carbon Dioxide 26 BUN 39 H Creatinine 1.92 H Glucose 374 H* Calcium 9.9 Liver Function 09/02/24 Range/Units 09:50 Total Bilirubin 0.6 (0.2-1.0) mg/dl AST 29 (13-39) U/L ALT 37 (7-52) U/L Alkaline Phosphatase 91 (34-104) U/L Albumin 4.0 (3.4-5.0) gm/dl Urine 09/02/24 Range/Units 11:34 Urine Color Yellow Urine Appearance Clear (Clear) Urine pH 5.5 (4.5-7.5) Ur Specific [place] 1.020 (1.000-1.030) Urine Protein 1+ H (Negative) Urine Glucose (UA) 3+ H (Negative) Diagnostic Findings Foot X-Ray 09/02/24 09:36 XR foot RT min 3V routine CLINICAL HISTORY: infection, right 3rd toe COMPARISON: 03/15/2007 FINDINGS: There are progressive degenerative changes at the midfoot with interval widening of the interspace between the first and second metatarsal bases and lateral subluxation of the second through fifth metatarsals. Findings are most consistent with Charcot joint. No acute fracture seen. No evidence of osteomyelitis. No radiopaque foreign body. There is a large plantar calcaneal spur. IMPRESSION: 1. No osteomyelitis seen. 2. Otherwise as described. ACT 112: Negative or not required by law. Electronically signed by: Merlin Hunter M.D. 09/02/2024 10:24 AM Code Status & VTE Plan VTE Prophylaxis Plan VTE Prophylaxis will be ordered: Yes Supervising Physician Co-Signing Physician Notes Patient seen and examined Exam notable for Right 3rd toe wound with plantar erythema. Patient has peripheral neuropathy. Also has erythema and tenderness over right jones IV vanc and zosyn renally dosed Follow up wound culture Get Podiatry c/s Cr is 1.92. Per Epic review, patient has CKD3 with Cr at 2-2.2 baseline over the past year HbA1c was 10.1 last month from 11 in 12/2023 Need better diabetic control Agree with other plans as detailed by Sammie HAMMER I spent a total of 35 minutes coordinating, documenting and providing care for this patient excluding time spent in performance of separately billed services
[2024-09-02] MEDS ORDERED: GLUCOSE 10 TAB/TUBE PO PRN (14:53)
[2024-09-02] MEDS ORDERED: DEXTROSE 50% 50 ML SYRINGE IV PRN (14:53)
[2024-09-02] MEDS ORDERED: MAGNESIUM HYDROXIDE SUSP 30 ML UDC PO PRN (14:53)
[2024-09-02] MEDS ORDERED: ALUMINUM/MAGNESIUM SUSP 30 ML UDC PO PRN (14:53)
[2024-09-02] MEDS ORDERED: CARBOHYDRATES FOR HYPOGLYCEMIA PO PRN (14:53)
[2024-09-02] MEDS ORDERED: VANCOMYCIN CONSULT ACTIVE PRN (14:53)
[2024-09-02] MEDS ORDERED: POLYETHYLENE (MIRALAX) 17 GM PACK PO PRN (14:53)
[2024-09-02] MEDS ORDERED: GLUCOSE 40% GEL 15 GM TUBE PO PRN (14:53)
[2024-09-02] MEDS ORDERED: GLUCAGON FOR INJ 1 MG VIAL SQ PRN (14:53)
[2024-09-02] MEDS ORDERED: INSULIN ASPART 100 UNITS/ML VIAL SC PRN (14:53)
[2024-09-02] MEDS: ACETAMINOPHEN 325 MG TAB PO PRN (15:30)
[2024-09-02] MEDS: INSULIN, Rapid-Acting PUMP SC SCH (17:39)
[2024-09-02] MEDS: PIPERACILLIN/TAZOBACTAM 4.5 GM/100 ML BAG IV SCH (17:39)
[2024-09-02] MEDS: Continuous Glucose Monitor SCH (17:44)
--- NOTE | 2024-09-02 19:39 | Podiatry Consultation ---
Date of Consultation September 02, 2024 Assessment & Plan (1) Osteomyelitis of third toe of right foot: (2) Diabetic ulcer of toe of right foot associated with diabetes mellitus due to underlying condition, with bone involvement without evidence of necrosis: (3) Cellulitis of left anterior lower leg: (4) Cellulitis of foot: Plan Cellulitis of the right lower extremity, diabetic ulcer right third toe, osteomyelitis right third toe: - Wound culture right third toe 09/02/2024: Pending - Continues IV Zosyn and daptomycin pending culture results. - Dressing change once daily flushing wound with normal sterile saline dressing with Betadine wet-to-dry dressing. - Will forego any further advanced imaging as patient is resolved to move forward with amputation of the third toe. Patient seen with family present in room. Lengthy discussion with patient regarding treatment options for right third toe wound. Plan for right third toe amputation Thursday. Would like patient to continue IV antibiotics and elevation of the right lower extremity with daily dressing changes throughout the weekend and attempt to improve the quality of soft tissue envelope with hopes for amputation and primary closure of wound. All patient questions answered. Thank for consulting podiatry in the care of this patient. Will continue to follow patient's course while he remains in the hospital make recommendations for follow-up at discharge. History of Present Illness Reason for Consultation: Diabetic foot infection right Diabetic ulcer right third toe Attending Physician: Symone Eid MD History of Present Illness 59-year-old male presents to [facility] with right lower extremity infection and diabetic ulceration to the right third toe. Past medical history significant for type 2 diabetes with diabetic peripheral neuropathy, hypertension, ascending aortic aneurysm, hyperlipidemia, morbid obesity, CKD stage III, Charcot neuroarthropathy, history of DVT left lower extremity. History of left diabetic foot ulcer 2018 which led to sepsis card hospitalization and I&D of the left foot with wound care to resolution. Developed a callus on the distal end of the right third toe for the past several months. 24 hours ago he reports increased redness swelling to the third toe with redness and swelling extending to the level of the leg and accompanying fever and chills which prompted him to report to the emergency department. Patient was admitted to the MedSur unit on the hospital and initiated on IV Zosyn and daptomycin. Plain film radiograph of the right foot with no signs of acute fracture or osteomyelitis. Wound culture collected in the emergency department. Procalcitonin 2.2. White blood count 13.25 on admission. Elevated ESR and CRP. Allergies Allergy/AdvReac Type Severity Reaction Status Date / Time insect venom Allergy Severe Hives Verified 09/02/24 15:16 No Known Drug Allergies Allergy Hives Verified 09/02/24 15:16 Home Medications Medication Instructions Recorded Confirmed Type aspirin 81 mg tablet,delayed 81 mg PO DAILY 05/10/18 09/02/24 History release epinephrine 0.3 mg/0.3 mL 0.3 mg IM DIRECTED PRN Allergic 05/10/18 09/02/24 History injection, auto-injector (EpiPen) Reaction insulin aspart U-100 100 unit/mL 1 dose subcut UD 05/10/18 09/02/24 History subcutaneous solution multivitamin-ferrous 1 tab PO DAILY 05/10/18 09/02/24 History fumarate-folic acid 18 mg-400 mcg tablet (Centrum) omega-3 fatty acids-fish oil 300 2 cap PO DAILY 05/10/18 09/02/24 History mg-1,000 mg capsule (Fish Oil) atorvastatin 40 mg tablet (Lipitor) 40 mg PO DAILY #30 tabs 01/03/19 09/02/24 Rx carvedilol 6.25 mg tablet 50 mg PO BID #180 tabs 01/03/19 09/02/24 History amlodipine 5 mg tablet 5 mg PO DAILY 09/02/24 09/02/24 History empagliflozin 25 mg tablet 25 mg PO DAILY 09/02/24 09/02/24 History (Jardiance) hydrochlorothiazide 25 mg tablet 25 mg PO DAILY 09/02/24 09/02/24 History losartan 100 mg tablet 100 mg PO DAILY 09/02/24 09/02/24 History semaglutide 14 mg tablet (Rybelsus) 14 mg PO DAILY 09/02/24 09/02/24 History Patient History Medical History (Updated 09/02/24 @ 19:32 by Jet Hayward DPM) Bicuspid aortic valve Obesity (BMI 30-39.9) Sepsis Asthma Type 2 diabetes mellitus Family History Other Adopted Family history unknown Social History Smoking Status: Former smoker Second Hand Exposure: Yes (On occasion); Do You Dip or Chew Tobacco: No; Hx Alcohol Use: No Hx Substance Use: No Preferred Language: Greenlandic Communication Ability: Effective Manager Reliability Required: No Beliefs That Will Affect Care: None marital status: Current Living Situation: Family How many Children do You have: 2 Other Information That Helps Us Care for You: No Feels Safe at Home: Yes Safety Concerns: Feels Safe At This Time Assistive Devices: Glasses Review of Systems Review of Systems: Nausea, fever and chills of the last 24 hours. Denies vomiting or diarrhea. Denies shortness of breath or chest pain. All other systems reviewed and negative unless stated in HPI. Physical Exam Physical Exam: Const: Appears well developed and well nourished. No signs of acute distress present. CV: Extremities: No cyanosis Capillary refill time is less than 2 seconds all digits of the bilateral foot. Posterior tibial and dorsalis pedis pulses are palpable bilateral. Lymph: No palpable or visible regional lymphadenopathy. Skin: Diabetic ulcer distal right third toe (see foot exam). Erythema and edema extending to the proximal calf right lower extremity. Neuro: Loss of protective sensation bilateral foot to the level of the ankle.. Psych: Mood/Affect: Mood is normal. Affect is normal. Cognition: Orientation is intact to person, place and time. Focused lower extremity musculoskeletal exam: Leg: No pain with compression of the calf muscle. Ankles: No tenderness bilaterally. Motor strength is intact. Range of motion pain-free and unlimited. Feet: Charcot deformity bilateral with collapse of the medial arch and midfoot prominence. Diabetic ulcer right third toe: Cellulitis to the right third toe with increased erythema and edema extending into the dorsal foot and right leg. Ulceration of the distal aspect of the right third toe with purulent drainage. Wound is debrided to level of subcutaneous tissue and bone at the distal phalanx. Significant necrotic tissue to the distal toe with surrounding purulence. Flushed with Betadine and dressed with a dry sterile dressing. No significant undermining or tracking. No crepitus on palpation of soft tissues. Results & Data Vital Signs (Past 12 Hours) Vital Signs Temp Pulse Pulse Resp BP BP Pulse Ox 09/02/24 14:54 37 C 95 H 18 152/86 H 95 09/02/24 14:32 89 22 123/80 97 09/02/24 10:30 87 21 146/93 H 93 09/02/24 09:59 87 09/02/24 09:09 36.8 C 87 20 146/77 H 97 O2 Del Method 09/02/24 14:54 Room Air 09/02/24 14:32 Room Air 09/02/24 10:30 09/02/24 09:59 09/02/24 09:09 Room Air Laboratory Results White blood count 13.25 CRP 2.14 ESR 22 Procalcitonin 0.22 Diagnostic Findings XR foot RT min 3V routine CLINICAL HISTORY: infection, right 3rd toe COMPARISON: 03/15/2007 FINDINGS: There are progressive degenerative changes at the midfoot with interval widening of the interspace between the first and second metatarsal bases and lateral subluxation of the second through fifth metatarsals. Findings are most consistent with Charcot joint. No acute fracture seen. No evidence of osteomyelitis. No radiopaque foreign body. There is a large plantar calcaneal spur. IMPRESSION: 1. No osteomyelitis seen. 2. Otherwise as described. PG Care Time/CCT Total # of Minutes Spent Total Time Spent with Patient: Total time spent is greater than 50% in coordination of care (as documented) at patient's floor/unit and/or counseling patient: Coding Level of Care Code 53815 INT INP/OBS CARE 2/MIN Diagnoses Osteomyelitis of third toe of right foot M86.9 Diabetic ulcer of toe of right foot associated with diabetes mellitus due to underlying condition, with bone involvement without evidence of necrosis E08.621; L97.516 Cellulitis of left anterior lower leg L03.116 Cellulitis of foot L03.119
[2024-09-02] MEDS: carvediloL 25 MG TAB PO SCH (21:22)
[2024-09-02] MEDS: HEPARIN SOD 5,000 UNIT/0.5 ML VIAL SQ SCH (21:27)
[2024-09-03 02:03] LABS: A calco-baum cmplx NotReported Not Detected (NotDetected); Bact fragilis Not Reported Not Detected (NotDetected); Blood Culture Id Panel See PCR Comment (NotDetected); C auris Not Reported Not Detected (NotDetected); Calbicans Not Reported Not Detected (NotDetected); Candida glabrata Not Reported Not Detected (NotDetected); Candida krusei Not Reported Not Detected (NotDetected); Cneoformans/gatti Not Reported Not Detected (NotDetected); Cparapsilosis Not Reported Not Detected (NotDetected); Ctropicalis Not Reported Not Detected (NotDetected); E cloacae compx Not Reported Not Detected (NotDetected); Efaecalis Not Reported Not Detected (NotDetected); Efaecium Not Reported Not Detected (NotDetected); Enterobacterales Not Reported Not Detected (NotDetected); Escherichia coli Not Reported Not Detected (NotDetected); H influenzae Not Reported Not Detected (NotDetected); K aerogenes Not Reported Not Detected (NotDetected); Koxytoca Not Reported Not Detected (NotDetected); Kpneumoniae grp Not Reported Not Detected (NotDetected); Lmonocyt Not Reported Not Detected (NotDetected); N meningitidis Not Reported Not Detected (NotDetected); P aeruginosa Not Reported Not Detected (NotDetected); Proteus spp Not Reported Not Detected (NotDetected); Salmonella spp Not Reported Not Detected (NotDetected); Staph lugdunensis Not Reported Not Detected (NotDetected); Staph spp. Not Reported DETECTED (NotDetected); Staphaureus Not Reported DETECTED (NotDetected); Staphepi Not Reported Not Detected (NotDetected); Staphylococcus spp. DETECTED (NotDetected); Stenmaltophilia Not Reported Not Detected (NotDetected); Strep agal(GrpB) Not Reported Not Detected (NotDetected); Strep pneum Not Reported Not Detected (NotDetected); Strep pyog (GrpA) Not Reported Not Detected (NotDetected); Strep spp Not Reported Not Detected (NotDetected); mecAC+MREJ Resistant Gene MRSA Not Detected (NotDetected)
[2024-09-03 06:08] LABS: Hematocrit (blood only) 42.9 % (42.0-52.0); Hemoglobin 14.9 g/dl (14.0-18.0); Mean Corpuscular Hemoglobin 29.3 pg (25.0-34.0); Mean Corpuscular Hgb Conc 34.7 g/dL (32.0-36.0); Mean Corpuscular Volume 84.4 fL (80.0-100.0); Mean Platelet Volume 9.9 fL (9.4-12.4); Platelet Count 253 K/uL (130-400); RDW Coefficient of Variation 13.1 % (11.5-14.5); RDW Standard Deviation 39.9 fL (36.4-46.3); Red Blood Count 5.08 M/uL (4.70-6.10); White Blood Count 11.21 K/ul (4.8-10.8)
[2024-09-03 06:23] LABS: BUN Creatinine Ratio 17.8 (10-20); Calcium 8.9 mg/dl (8.6-10.3); Creatinine Clr Calc Pharmacy 50.8 ml/min; Magnesium 1.9 mg/dl (1.7-2.4); Phosphorus 3.7 mg/dl (2.5-4.9); Potassium 3.8 mmol/L (3.5-5.1)
[2024-09-03] MEDS: ASPIRIN 81 MG ECTAB PO SCH (07:40)
[2024-09-03] MEDS: amLODIPine BESYLATE 5 MG TAB PO SCH (07:40)
[2024-09-03] MEDS: hydroCHLOROthiazide 25 MG TAB PO SCH (07:41)
[2024-09-03] MEDS: ATORVASTATIN 40 MG TAB PO SCH (07:41)
[2024-09-03] MEDS: LOSARTAN POTASSIUM 50 MG TAB PO SCH (07:42)
--- NOTE | 2024-09-03 12:04 | Pharmacy Report ---
Pharmacy PK ABX Note - Date of Service September 03, 2024 - Assessment and Plan Assessment 59 year old M receiving Vancomycin and Zosyn for treatment of diabetic foot ulcer. * Day #2 of antimicrobial therapy. Received daptomycin IV x 1 yesterday. Starting vancomycin today. * Plan for amputation of toe on Thursday. Continue IV abx until then. * LIZ noted - SCr up to 2.30 mg/dL today. Will give a vanc loading dose then check random level with AM labs. Plan Vancomycin * Loading dose: 2500 mg IV x 1 * Dose per level for LIZ. No maintenance dose as of now. * Regimen is predicted to achieve target AUC/ARLEEN of 400-600 mg/L.hr * Random level ordered for: 09/04/24 Zosyn * 4.5 g IV every 8 hours Pharmacy will continue to follow and will adjust dose/frequency as necessary. Thank you. Pharmacy has transitioned to AUC monitoring for vancomycin. AUC/ARLEEN is the preferred PK/PD target and is associated with decreased risk of nephrotoxicity compared to traditional trough targets.
[2024-09-03] MEDS: VANCOMYCIN HCL 2,500 MG in SODIUM CHLORIDE 0.9% 500 ML IV ONE (12:35)
--- NOTE | 2024-09-03 14:16 | Hospitalist Progress Note ---
Date of Service September 03, 2024 Assessment & Plan (1) Diabetic foot ulcer: Plan: Patient is a 59 year old male with a past medical history of Insulin dependent DM Type II, Hypertension, Ascending Aortic Aneurysm, Bicuspid valve, Aortic valve, Dyslipidemia, Morbid obesity, CKD Stage 3, Charcot foot, s/p DVT LLE, who presents to the emergency department with complaint of right toe pain and redness with swelling to the right toe and calf. He has a history of diabetic foot wound to left foot ulcer with sepsis in 2019. He felt his symptoms today of chills were similar to when he had sepsis, which prompted him to seek care. Diabetic Foot Ulcer/Cellulitis of Foot/Charcot Foot due to diabetes mellitus: Zosyn and Dapto given in Ed Will continue IV antibiotics for Staph and pseudo coverage- continue Zosyn and will add Vancomycin with renal dosing; per external chart review baseline Creatinine 2-2.4 Pharmacy consult for Vanc dosing ordered Wound Culture from the right foot is growing Staphylococcus aureus and Streptococcus mitis/oralis group; sensitivities pending Appreciate lap hand tool input and recommendation x-ray of the foot did not show any evidence of osteomyelitis Trend CBC- Am lab ordered PT consult-ordered DVT prophylaxis with heparin IV fluids with NSS ordered for rehydration in the setting of infection Clinically feeling much better and remains afebrile White count has decreased from 13.25-11.21 Waiting for amputation of the right third toe on Thursday Type II Diabetes mellitus: Patient desires Omnipod insulin pump and CGM while inpatient- order placed Most recent A1C 10.1 on 08/23- no indication for repeat lab AccuStick at least daily, possible with ACHS while inpatient if requiring acetaminophen for pain management. Per Pharmacy-Difference in CGM reading with acetaminophen use up to 20% Hypertension: BP elevated while inpatient in the setting of illness and pain Goal 130/80 Continue home BP meds amlodipine, carvedilol, HCTZ, losartan CKD3 Baseline Cr from [facility] records showed baseline Cr of 2-2.2 in the past year Cr is 1.92 Monitor and avoid nephrotoxins Creatinine has increased to 2.30 and will monitor while he is in the hospital (2) Charcot foot due to diabetes mellitus: (3) Cellulitis of foot: (4) Type 2 diabetes mellitus: (5) Hypertension: Plan DVT Ppx:Heparin Code status: Full PCP: JAQUELIN Cardenas Dispo: Admit to Med Surg Admission and Anticipated Discharge Date Admission Date: September 02, 2024 Subjective 09/03/2024 The patient was seen and examined in medical floor He has been feeling better today and inflammation and pain in the right foot has improved Denies any fever and/or chills Review of Systems Review of Systems: All systems reviewed and are unremarkable except as noted below Physical Exam Physical Exam: Lying in bed without any acute distress Constitutional: well developed, well nourished, + ill appearing and + obese Eyes: PERRL, conjunctivae normal, anicteric sclerae ENMT: external ear and nose normal, oropharynx normal Neck: trachea midline, no thyromegaly Respiratory: no respiratory distress Auscultation: lungs clear to auscultation bilaterally Cardiovascular: Rate/Rhythm: regular rate and regular rhythm; not tachycardic Heart Sounds: normal S1 and normal S2; no murmur Gastrointestinal (Abdomen): Inspection/Auscultation: normal bowel sounds; abdomen not distended Percussion/Palpation: abdomen soft; abdomen nontender Musculoskeletal: Swelling of the right lower extremity more than the left, swelling and redness involving the left foot mainly the adjoining area of the left 3rd toe Neurologic: moves all extremities; no focal motor deficits Has significant neuropathy involving both of the lower extremities Lymphatic: no cervical or axillary lymphadenopathy Results & Data Results & Data Vital Signs (Past 12 Hours) Vital Signs Temp Pulse Resp BP Pulse Ox O2 Del Method 09/03/24 07:40 36.9 C 81 16 167/94 H 95 Room Air 09/03/24 07:30 Room Air Laboratory Results Short CBC 09/03/24 Range/Units 05:45 WBC 11.21 H (4.8-10.8) K/ul Hgb 14.9 (14.0-18.0) g/dl Hct 42.9 (42.0-52.0) % Plt Count 253 (130-400) K/uL BMP 09/03/24 05:45 Sodium 136 Potassium 3.8 Chloride 105 Carbon Dioxide 26 BUN 41 H Creatinine 2.30 H D Glucose 160 H Calcium 8.9 Medications Administered Current Inpatient Medications Acetaminophen (Acetaminophen 325 Mg Tab) 650 mg PO Q4H PRN PRN Reason: pain/fever Stop: 10/02/24 14:52 Last Admin: 09/03/24 11:30 Dose: 650 mg Al Hydrox/Mg Hydrox/Simethicone (Aluminum/Magnesium Susp 30 Ml Udc) 30 ml PO Q6H PRN PRN Reason: Dyspepsia Stop: 10/02/24 14:52 Amlodipine Besylate (Amlodipine Besylate 5 Mg Tab) 5 mg PO DAILY ELIGIO Stop: 10/03/24 08:59 Last Admin: 09/03/24 07:40 Dose: 5 mg Aspirin (Aspirin 81 Mg Ectab) 81 mg PO DAILY ELIGIO Stop: 10/03/24 08:59 Last Admin: 09/03/24 07:40 Dose: 81 mg Atorvastatin Calcium (Atorvastatin 40 Mg Tab) 40 mg PO DAILY ELIGIO Stop: 10/03/24 08:59 Last Admin: 09/03/24 07:41 Dose: 40 mg Carvedilol (Carvedilol 25 Mg Tab) 50 mg PO BID ELIGIO Stop: 10/02/24 20:59 Last Admin: 09/03/24 07:43 Dose: 50 mg Dextrose (Dextrose 50% 50 Ml Syringe) 25 - 50 ml IV UD PRN; Protocol PRN Reason: Hypoglycemia Protocol Stop: 10/02/24 14:52 Glucagon (Glucagon For Inj 1 Mg Vial) 1 mg SQ UD PRN; Protocol PRN Reason: Hypoglycemia Protocol Stop: 10/02/24 14:52 Glucose (Glucose 40% Gel 15 Gm Tube) 15 - 30 gm PO UD PRN; Protocol PRN Reason: Hypoglycemia Protocol Stop: 10/02/24 14:52 Glucose (Glucose 10 Tab/Tube) 4 - 8 tab PO UD PRN; Protocol PRN Reason: Hypoglycemia Protocol Stop: 10/02/24 14:52 Heparin Sodium (Porcine) (Heparin Sod 5,000 Unit/0.5 Ml Vial) 5,000 units SQ Q12 ELIGIO Stop: 10/02/24 20:59 Last Admin: 09/03/24 07:53 Dose: 5,000 units Hydrochlorothiazide (Hydrochlorothiazide 25 Mg Tab) 25 mg PO DAILY ELIGIO Stop: 10/03/24 08:59 Last Admin: 09/03/24 07:41 Dose: 25 mg Sodium Chloride (Nss) 1,000 mls @ 80 mls/hr IV .[id number] [facility] Stop: 09/05/24 12:59 Last Admin: 09/03/24 14:00 Dose: 80 mls/hr Piperacillin Sod/Tazobactam Sod (Zosyn) 4.5 gm in 100 mls @ 25 mls/hr IV Q8H [facility]; Protocol Stop: 09/09/24 16:29 Last Infusion: 09/03/24 11:35 Dose: Infused Vancomycin HCl 2,500 mg/ (Sodium Chloride) 550 mls @ 180 mls/hr IV NOW ONE Stop: 09/03/24 15:03 Last Admin: 09/03/24 12:35 Dose: 180 mls/hr Insulin Aspart (Insulin, Rapid-Acting Pump) 0 each SC ACHS ELIGIO; Protocol Stop: 10/02/24 16:29 Last Admin: 09/03/24 12:19 Dose: 1 each Insulin Aspart (Insulin Aspart 100 Units/Ml Vial) 0 units SC PRN PRN PRN Reason: Insulin (Rapid-Acting) Pump Refill Stop: 10/02/24 14:52 Losartan Potassium (Losartan Potassium 50 Mg Tab) 100 mg PO DAILY ELIGIO Stop: 10/03/24 08:59 Last Admin: 09/03/24 07:42 Dose: 100 mg Magnesium Hydroxide (Magnesium Hydroxide Susp 30 Ml Udc) 30 ml PO Q6H PRN PRN Reason: Constipation Stop: 10/02/24 14:52 Miscellaneous (Continuous Glucose Monitor) 0 each N/A ACHS ELIGIO Stop: 10/02/24 16:29 Last Admin: 09/03/24 12:19 Dose: 1 each Miscellaneous (Carbohydrates For Hypoglycemia ) 15 - 30 gm PO UD PRN PRN Reason: Hypoglycemia Protocol Stop: 10/02/24 14:52 Miscellaneous Information (Vancomycin Consult Active) 1 each N/A UD PRN PRN Reason: Consult Stop: 10/02/24 14:52 Polyethylene Glycol (Polyethylene (Miralax) 17 Gm Pack) 17 gm PO DAILY PRN PRN Reason: Constipation Stop: 10/02/24 14:52
[2024-09-04 05:48] LABS: Basophils % (auto) 0.7 %; Eosinophils % (auto) 3.7 %; Hematocrit (blood only) 43.2 % (42.0-52.0); Immature Granulocytes % (auto) 0.3 %; Lymphocytes # (auto) 2.24 K/uL (1.20-3.40); Lymphocytes % (auto) 21.6 %; Mean Corpuscular Hemoglobin 29.4 pg (25.0-34.0); Mean Corpuscular Hgb Conc 34.7 g/dL (32.0-36.0); Mean Corpuscular Volume 84.5 fL (80.0-100.0); Mean Platelet Volume 9.8 fL (9.4-12.4); Monocytes % (auto) 11.7 %; Neutrophils # (auto) 6.45 K/uL (1.40-6.50); Platelet Count 266 K/uL (130-400); RDW Coefficient of Variation 13.1 % (11.5-14.5); RDW Standard Deviation 40.2 fL (36.4-46.3); Red Blood Count 5.11 M/uL (4.70-6.10); White Blood Count 10.39 K/ul (4.8-10.8)
[2024-09-04 05:49] LABS: Basophils # (auto) 0.07 K/uL (0.00-0.20); Eosinophils # (auto) 0.38 K/uL (0.00-0.50); Immature Granulocytes # (auto) 0.03 K/uL (0.01-0.20); Monocytes # (auto) 1.22 K/uL (0.11-0.59)
[2024-09-04 06:05] LABS: BUN Creatinine Ratio 17.9 (10-20); Calcium 8.6 mg/dl (8.6-10.3); Creatinine Clr Calc Pharmacy 55.1 ml/min
[2024-09-04] MEDS: traMADol HCL 50 MG TABLET PO PRN (07:25)
--- NOTE | 2024-09-04 09:56 | Pharmacy Report ---
Pharmacy PK ABX Note - Date of Service September 04, 2024 - Assessment and Plan Assessment 09/04: * Day #3 of Vancomycin + Zosyn for treatment of diabetic foot ulcer. * Planned amputation of toe for tomorrow. * SCr improving, 2.12 mg/dL this AM. Remains afebrile. 09/03: 59 year old M receiving Vancomycin and Zosyn for treatment of diabetic foot ulcer. * Day #2 of antimicrobial therapy. Received daptomycin IV x 1 yesterday. Starting vancomycin today. * Plan for amputation of toe on Thursday. Continue IV abx until then. * LIZ noted - SCr up to 2.30 mg/dL today. Will give a vanc loading dose then check random level with AM labs. Plan Vancomycin * Current regimen: received a 2500 mg IV loading dose yesterday at 1235. * Random level obtained 09/04/24 resulted as 11.8 mcg/mL. This is predicted to achieve target AUC/ARLEEN of 400-600 mg/L.hr * Predicted AUC at steady state: 484 mg/L.hr * Continue with 1500 mg IV every 24 hours * Repeat random level ordered for: 09/06/24 Zosyn * 4.5 g IV every 8 hours Pharmacy will continue to follow and will adjust dose/frequency as necessary. Thank you. Pharmacy has transitioned to AUC monitoring for vancomycin. AUC/ARLEEN is the preferred PK/PD target and is associated with decreased risk of nephrotoxicity compared to traditional trough targets.
[2024-09-04] MEDS: VANCOMYCIN HCL 1,500 MG in SODIUM CHLORIDE 0.9% 500 ML IV SCH (10:00)
--- NOTE | 2024-09-04 12:47 | Hospitalist Progress Note ---
Date of Service September 04, 2024 Assessment & Plan (1) Diabetic foot ulcer: Plan: Patient is a 59 year old male with a past medical history of Insulin dependent DM Type II, Hypertension, Ascending Aortic Aneurysm, Bicuspid valve, Aortic valve, Dyslipidemia, Morbid obesity, CKD Stage 3, Charcot foot, s/p DVT LLE, who presents to the emergency department with complaint of right toe pain and redness with swelling to the right toe and calf. He has a history of diabetic foot wound to left foot ulcer with sepsis in 2019. He felt his symptoms today of chills were similar to when he had sepsis, which prompted him to seek care. Diabetic Foot Ulcer/Cellulitis of Foot/Charcot Foot due to diabetes mellitus: Zosyn and Dapto given in Ed Will continue IV antibiotics for Staph and pseudo coverage- continue Zosyn and will add Vancomycin with renal dosing; per external chart review baseline Creatinine 2-2.4 Pharmacy consult for Vanc dosing ordered Wound Culture from the right foot is growing Staphylococcus aureus and Streptococcus mitis/oralis group; sensitivities pending Appreciate risk investigator input and recommendation x-ray of the foot did not show any evidence of osteomyelitis Trend CBC- Am lab ordered PT consult-ordered DVT prophylaxis with heparin IV fluids with NSS ordered for rehydration in the setting of infection Clinically feeling much better and remains afebrile White count has decreased from 13.25-11.21 Waiting for amputation of the right third toe on Thursday Clinically much better with improvement of the inflammation around the right third toe Continue current antibiotic and will have amputation as planned tomorrow Type II Diabetes mellitus: Patient desires Omnipod insulin pump and CGM while inpatient- order placed Most recent A1C 10.1 on 08/23- no indication for repeat lab AccuStick at least daily, possible with ACHS while inpatient if requiring acetaminophen for pain management. Hypertension: BP elevated while inpatient in the setting of illness and pain Goal 130/80 Continue home BP meds amlodipine, carvedilol, HCTZ, losartan CKD3 Baseline Cr from [facility] records showed baseline Cr of 2-2.2 in the past year Cr is 1.92 Monitor and avoid nephrotoxins Creatinine has increased to 2.30 and will monitor while he is in the hospital (2) Charcot foot due to diabetes mellitus: (3) Cellulitis of foot: (4) Type 2 diabetes mellitus: (5) Hypertension: Plan DVT Ppx:Heparin Code status: Full PCP: JAQUELIN Cardenas Dispo: Admit to Med Surg Admission and Anticipated Discharge Date Admission Date: September 02, 2024 Subjective 09/03/2024 The patient was seen and examined in medical floor He has been feeling better today and inflammation and pain in the right foot has improved Denies any fever and/or chills 09/04/2024 The patient was seen and examined in medical floor He has been feeling better and the redness and swelling in the right foot adjoining right third toe has improved a lot No fever and/or chills and the white count is normal He will have right third toe amputation tomorrow Review of Systems Review of Systems: All systems reviewed and are unremarkable except as noted below Physical Exam Physical Exam: Lying in bed without any acute distress Constitutional: well developed, well nourished, + ill appearing and + obese Eyes: PERRL, conjunctivae normal, anicteric sclerae ENMT: external ear and nose normal, oropharynx normal Neck: trachea midline, no thyromegaly Respiratory: no respiratory distress Auscultation: lungs clear to auscultation bilaterally Cardiovascular: Rate/Rhythm: regular rate and regular rhythm; not tachycardic Heart Sounds: normal S1 and normal S2; no murmur Gastrointestinal (Abdomen): Inspection/Auscultation: normal bowel sounds; abdomen not distended Percussion/Palpation: abdomen soft; abdomen nontender Musculoskeletal: Right foot and joining the third toe has inflammation with redness and swelling and tenderness Neurologic: moves all extremities; no focal motor deficits Lymphatic: no cervical or axillary lymphadenopathy Results & Data Results & Data Vital Signs (Past 12 Hours) Vital Signs Temp Pulse BP Pulse Ox O2 Del Method 09/04/24 08:00 36.6 C 78 151/82 H 95 Room Air 09/04/24 07:15 Room Air Laboratory Results Short CBC 09/04/24 Range/Units 05:29 WBC 10.39 (4.8-10.8) K/ul Hgb 15.0 (14.0-18.0) g/dl Hct 43.2 (42.0-52.0) % Plt Count 266 (130-400) K/uL BMP 09/04/24 05:29 Sodium 137 Potassium 4.0 Chloride 108 H Carbon Dioxide 24 BUN 38 H Creatinine 2.12 H Glucose 141 H Calcium 8.6 Medications Administered Current Inpatient Medications Acetaminophen (Acetaminophen 325 Mg Tab) 650 mg PO Q4H PRN PRN Reason: pain/fever Stop: 10/02/24 14:52 Last Admin: 09/04/24 04:53 Dose: 650 mg Al Hydrox/Mg Hydrox/Simethicone (Aluminum/Magnesium Susp 30 Ml Udc) 30 ml PO Q6H PRN PRN Reason: Dyspepsia Stop: 10/02/24 14:52 Amlodipine Besylate (Amlodipine Besylate 5 Mg Tab) 5 mg PO DAILY [facility] Stop: 10/03/24 08:59 Last Admin: 09/04/24 07:26 Dose: 5 mg Aspirin (Aspirin 81 Mg Ectab) 81 mg PO DAILY [facility] Stop: 10/03/24 08:59 Last Admin: 09/04/24 07:26 Dose: 81 mg Atorvastatin Calcium (Atorvastatin 40 Mg Tab) 40 mg PO DAILY [facility] Stop: 10/03/24 08:59 Last Admin: 09/04/24 07:27 Dose: 40 mg Carvedilol (Carvedilol 25 Mg Tab) 50 mg PO BID [facility] Stop: 10/02/24 20:59 Last Admin: 09/04/24 07:27 Dose: 50 mg Dextrose (Dextrose 50% 50 Ml Syringe) 25 - 50 ml IV UD PRN; Protocol PRN Reason: Hypoglycemia Protocol Stop: 10/02/24 14:52 Glucagon (Glucagon For Inj 1 Mg Vial) 1 mg SQ UD PRN; Protocol PRN Reason: Hypoglycemia Protocol Stop: 10/02/24 14:52 Glucose (Glucose 40% Gel 15 Gm Tube) 15 - 30 gm PO UD PRN; Protocol PRN Reason: Hypoglycemia Protocol Stop: 10/02/24 14:52 Glucose (Glucose 10 Tab/Tube) 4 - 8 tab PO UD PRN; Protocol PRN Reason: Hypoglycemia Protocol Stop: 10/02/24 14:52 Heparin Sodium (Porcine) (Heparin Sod 5,000 Unit/0.5 Ml Vial) 5,000 units SQ Q12 [facility] Stop: 10/02/24 20:59 Last Admin: 09/04/24 07:28 Dose: 5,000 units Hydrochlorothiazide (Hydrochlorothiazide 25 Mg Tab) 25 mg PO DAILY [facility] Stop: 10/03/24 08:59 Last Admin: 09/04/24 07:27 Dose: 25 mg Sodium Chloride (Nss) 1,000 mls @ 80 mls/hr IV .[id number] [facility] Stop: 09/05/24 12:59 Last Admin: 09/04/24 02:35 Dose: 80 mls/hr Piperacillin Sod/Tazobactam Sod (Zosyn) 4.5 gm in 100 mls @ 25 mls/hr IV Q8H [facility]; Protocol Stop: 09/09/24 16:29 Last Infusion: 09/04/24 11:25 Dose: Infused Vancomycin HCl 1,500 mg/ (Sodium Chloride) 530 mls @ 200 mls/hr IV Q24H [facility] Stop: 09/11/24 09:59 Last Infusion: 09/04/24 12:40 Dose: Infused Insulin Aspart (Insulin, Rapid-Acting Pump) 0 each SC [facility]; Protocol Stop: 10/02/24 16:29 Last Admin: 09/04/24 12:14 Dose: 1 each Insulin Aspart (Insulin Aspart 100 Units/Ml Vial) 0 units SC PRN PRN PRN Reason: Insulin (Rapid-Acting) Pump Refill Stop: 10/02/24 14:52 Losartan Potassium (Losartan Potassium 50 Mg Tab) 100 mg PO DAILY [facility] Stop: 10/03/24 08:59 Last Admin: 09/04/24 07:27 Dose: 100 mg Magnesium Hydroxide (Magnesium Hydroxide Susp 30 Ml Udc) 30 ml PO Q6H PRN PRN Reason: Constipation Stop: 10/02/24 14:52 Miscellaneous (Continuous Glucose Monitor) 0 each N/A ACHS [facility] Stop: 10/02/24 16:29 Last Admin: 09/04/24 12:14 Dose: 1 each Miscellaneous (Carbohydrates For Hypoglycemia ) 15 - 30 gm PO UD PRN PRN Reason: Hypoglycemia Protocol Stop: 10/02/24 14:52 Miscellaneous Information (Vancomycin Consult Active) 1 each N/A UD PRN PRN Reason: Consult Stop: 10/02/24 14:52 Polyethylene Glycol (Polyethylene (Miralax) 17 Gm Pack) 17 gm PO DAILY PRN PRN Reason: Constipation Stop: 10/02/24 14:52 Tramadol HCl (Tramadol Hcl 50 Mg Tablet) 50 mg PO Q6H PRN PRN Reason: Severe Pain (Scale 7, 8, 9,10) Stop: 10/04/24 04:45 Last Admin: 09/04/24 12:30 Dose: 50 mg
--- NOTE | 2024-09-05 07:01 | Podiatry Progress Note ---
Date of Service September 05, 2024 Assessment & Plan (1) Osteomyelitis of third toe of right foot: (2) Diabetic ulcer of toe of right foot associated with diabetes mellitus due to underlying condition, with bone involvement without evidence of necrosis: (3) Cellulitis of foot: (4) Cellulitis of left anterior lower leg: Plan Cellulitis of the right lower extremity, diabetic ulcer right third toe, osteomyelitis right third toe: - Wound culture right third toe 09/02/2024: Staph aureus, Streptococcus Winston/oralis group. Sensitivities pending - Blood culture 09/02/2024: Preliminary-Staph aureus. Repeat cultures pending - Continues IV Zosyn and vancomycin pending culture results. - Dressing change once daily flushing wound with normal sterile saline dressing with Betadine wet-to-dry dressing. - Right third toe amputation scheduled 09/05/2024. Continue n.p.o. until postoperative. Written informed consent reviewed with patient including risks and benefits to suggested procedure. All questions answered. Consent form signed and witnessed. Patient's right lower extremity is marked with a skin scribe. Thank for consulting podiatry in the care of this patient. Will continue to follow patient's course while he remains in the hospital make recommendations for follow-up at discharge. Admission and Anticipated Discharge Date Admission Date: September 02, 2024 Subjective Patient seen resting comfortably in hospital bed with present at bedside. Plan for right third digit amputation today. N.p.o. since midnight. Denies pain in the right foot. Denies nausea vomiting fever chills over the weekend. Review of Systems Review of Systems: Nausea, fever and chills of the last 24 hours. Denies vomiting or diarrhea. Denies shortness of breath or chest pain. All other systems reviewed and negative unless stated in HPI. Physical Exam Physical Exam: Const: Appears well developed and well nourished. No signs of acute distress present. CV: Extremities: No cyanosis Capillary refill time is less than 2 seconds all digits of the bilateral foot. Posterior tibial and dorsalis pedis pulses are palpable bilateral. Lymph: No palpable or visible regional lymphadenopathy. Skin: Diabetic ulcer distal right third toe (see foot exam). Erythema and edema extending to the proximal calf right lower extremity. Neuro: Loss of protective sensation bilateral foot to the level of the ankle.. Psych: Mood/Affect: Mood is normal. Affect is normal. Cognition: Orientation is intact to person, place and time. Focused lower extremity musculoskeletal exam: Leg: No pain with compression of the calf muscle. Ankles: No tenderness bilaterally. Motor strength is intact. Range of motion pain-free and unlimited. Feet: Charcot deformity bilateral with collapse of the medial arch and midfoot prominence. Diabetic ulcer right third toe: Cellulitis to the right third toe with increased erythema and edema extending into the dorsal foot. Ulceration of the distal aspect of the right third toe. No active drainage. Significant necrotic tissue to the distal toe with surrounding purulence. No significant undermining or tracking. No crepitus on palpation of soft tissues. Results & Data Results & Data Vital Signs (Past 12 Hours) Vital Signs Temp Pulse Resp BP Pulse Ox O2 Del Method 09/04/24 20:00 36.8 C 84 14 133/77 95 Room Air Laboratory Results 09/04/2024: - WBC-10.39 - Hemoglobin 15.0 - Hematocrit 43.2 - Random vancomycin-11.8 - Creatinine-2.12 Diagnostic Findings X-ray right foot 3 views 09/02/2024: XR foot RT min 3V routine CLINICAL HISTORY: infection, right 3rd toe COMPARISON: 03/15/2007 FINDINGS: There are progressive degenerative changes at the midfoot with interval widening of the interspace between the first and second metatarsal bases and lateral subluxation of the second through fifth metatarsals. Findings are most consistent with Charcot joint. No acute fracture seen. No evidence of osteomyelitis. No radiopaque foreign body. There is a large plantar calcaneal spur. IMPRESSION: 1. No osteomyelitis seen. 2. Otherwise as described. Coding Level of Care Code 40236 SUB INP/OBS CARE 2/35MIN Diagnoses Osteomyelitis of third toe of right foot M86.9 Diabetic ulcer of toe of right foot associated with diabetes mellitus due to underlying condition, with bone involvement without evidence of necrosis E08.621; L97.516 Cellulitis of foot L03.119 Cellulitis of left anterior lower leg L03.116
[2024-09-05 07:09] LABS: Creatinine Clr Calc Pharmacy 56.2 ml/min
--- NOTE | 2024-09-05 08:29 | Hospitalist Progress Note ---
Date of Service September 05, 2024 Assessment & Plan (1) Diabetic foot ulcer: (2) Charcot foot due to diabetes mellitus: (3) Cellulitis of foot: (4) Type 2 diabetes mellitus: (5) Hypertension: Plan 59 year old male with PMH significant for insulin dependent DM II with polyneuropathy, charcot foot due to DM II, hypertension, dyslipidemia, CKD III, ascending aortic aneurysm, and congenital bicuspid aortic valve with moderate aortic valve stenosis who presented to the ED on 09/02 with right toe pain who is admitted for diabetic foot ulcer with cellulitis. Diabetic foot ulcer Cellulitis of right foot Charcot Foot due to DM II Foot x-ray showed no osteomyelitis Initially started on IV Zosyn and daptomycin Podiatry consulted and patient agreeable to amputation of right third toe Vancomycin renally dosed instead of daptomycin on 09/03 - pharmacy consulted for vancomycin Wound culture from the right foot is growing Staph aureus and Strep mitis/oralis group Blood culture prelim growing MSSA - infectious disease consult ordered on 09/05 s/p amputation of right third toe on 09/05 PT to follow post-op DM II A1C 10.1 on 08/23 Patient desires Omnipod insulin pump and CGM while inpatient BSG achs Hypertension Intermittent hypertension likely due to pain Continue amlodipine, carvedilol, HCTZ, losartan per home dosing Dyslipidemia Continue atorvastatin per home dosing CKD III Baseline Cr 2-2.2 in the past year per record review Cr is 2.08 today Monitor and avoid nephrotoxins Ascending aortic aneurysm Aortic valve stenosis Follows with Cardiology (last seen 08/23/24) and CT surgery (last seen 09/10/23) Scheduled chest CT on 09/08/[address] surgery follow up on 09/15/24 DVT Prophylaxis: SQ Heparin Code Status: FULL CODE PCP: Sisi Fountain Disposition: Appreciate post-op recs from podiatry Patient seen in collaboration with Dr Arrington. Please see addendum. I spent a total of 60 minutes coordinating, documenting and providing care for this patient excluding time spent in the performance of separately billed services or time spent by another provider/QHP. Admission and Anticipated Discharge Date Admission Date: September 02, 2024 Supervising Physician Co-Signing Physician Notes Attending addendum: The patient was seen and examined in medical floor He has been feeling much better with minimal symptoms in the right foot Will have right third toe amputation today Noted to have positive blood culture for MSSA.. On examination Lying in bed without any apparent discomfort Remains hemodynamically stable and afebrile Positive findings on examination is swelling and redness involving right third toe and adjoining area of the right forefoot Has diabetic ulceration of the right third toe without swelling cellulitis Positive blood culture for MSSA Continue current antibiotic and also ID evaluation for recommendation Appreciate podiatry's input and recommendation Agree with assessment and plan as outlined above by JAQUELIN Nascimento and take the full responsible care in the hospital Total time taken to document all this was [address] Casey arrington Subjective Patient seen sitting up in bed Reports pain in his right toe and is ready for scheduled amputation today Denies chest pain, SOB, abdominal pain, N/V/D Review of Systems Review of Systems: All systems reviewed & are unremarkable except as noted in Subjective Physical Exam Physical Exam: Gen/Psych: WD/WN, sitting up in bed, NAD, A&Ox3 HEENT: Normocephalic, atraumatic, conjunctivae pink, sclerae anicteric, mucous membranes moist Lung: Clear to auscultation bilaterally, no wheezes/rales/rhonchi Heart: Regular rate and rhythm, no murmurs/rubs/gallops Extremities: Normal peripheral pulses, BLE edema non-pitting Abdomen: Soft, NT, ND, +BS x 4 Skin: Warm and dry, ulcer on underside of right third toe, cellulitis of dorsal right foot Results & Data Results & Data Vital Signs (Past 12 Hours) Vital Signs Temp Pulse Pulse Resp BP BP Pulse Ox 09/05/24 07:39 73 15 185/113 H 96 09/05/24 07:29 35.8 C L 71 16 170/104 H 95 O2 Del Method 09/05/24 07:39 Room Air 09/05/24 07:29 Room Air Laboratory Results BMP 09/05/24 06:03 Creatinine 2.08 H I have independently reviewed and interpreted patient's admitting labs including creatinine Medications Administered Current Inpatient Medications Acetaminophen (Acetaminophen 325 Mg Tab) 650 mg PO Q4H PRN PRN Reason: pain/fever Stop: 10/02/24 14:52 Last Admin: 09/04/24 04:53 Dose: 650 mg Al Hydrox/Mg Hydrox/Simethicone (Aluminum/Magnesium Susp 30 Ml Udc) 30 ml PO Q6H PRN PRN Reason: Dyspepsia Stop: 10/02/24 14:52 Amlodipine Besylate (Amlodipine Besylate 5 Mg Tab) 5 mg PO DAILY [facility] Stop: 10/03/24 08:59 Last Admin: 09/05/24 07:41 Dose: 5 mg Aspirin (Aspirin 81 Mg Ectab) 81 mg PO DAILY [facility] Stop: 10/03/24 08:59 Last Admin: 09/05/24 10:32 Dose: Not Given Atorvastatin Calcium (Atorvastatin 40 Mg Tab) 40 mg PO DAILY [facility] Stop: 10/03/24 08:59 Last Admin: 09/05/24 10:32 Dose: Not Given Atropine Sulfate (Atropine Sulfate 0.1 Mg/Ml 10ml Syr) 0.5 mg IV Q1M PRN PRN Reason: PACU Use-HR<40 &/or Bradycardi Stop: 09/05/24 18:43 Carvedilol (Carvedilol 25 Mg Tab) 50 mg PO BID [facility] Stop: 10/02/24 20:59 Last Admin: 09/05/24 07:41 Dose: 50 mg Dextrose (Dextrose 50% 50 Ml Syringe) 25 - 50 ml IV UD PRN; Protocol PRN Reason: Hypoglycemia Protocol Stop: 10/02/24 14:52 Ephedrine Sulfate (Ephedrine Sulfate 50 Mg/Ml Amp) 5 mg IV Q5M PRN PRN Reason: PACU Use Only-SBP<90 mmHg Stop: 09/05/24 18:43 Fentanyl Citrate (Fentanyl Citrate Pf 100 Mcg/2 Ml Vial) 25 mcg IV Q5M PRN PRN Reason: PACU Use Only-Pain Stop: 09/05/24 18:43 Glucagon (Glucagon For Inj 1 Mg Vial) 1 mg SQ UD PRN; Protocol PRN Reason: Hypoglycemia Protocol Stop: 10/02/24 14:52 Glucose (Glucose 40% Gel 15 Gm Tube) 15 - 30 gm PO UD PRN; Protocol PRN Reason: Hypoglycemia Protocol Stop: 10/02/24 14:52 Glucose (Glucose 10 Tab/Tube) 4 - 8 tab PO UD PRN; Protocol PRN Reason: Hypoglycemia Protocol Stop: 10/02/24 14:52 Heparin Sodium (Porcine) (Heparin Sod 5,000 Unit/0.5 Ml Vial) 5,000 units SQ Q12 [facility] Stop: 10/02/24 20:59 Last Admin: 09/05/24 10:32 Dose: Not Given Hydrochlorothiazide (Hydrochlorothiazide 25 Mg Tab) 25 mg PO DAILY [facility] Stop: 10/03/24 08:59 Last Admin: 09/05/24 07:42 Dose: 25 mg Sodium Chloride (Nss) 1,000 mls @ 80 mls/hr IV .[id number] [facility] Stop: 09/05/24 12:59 Last Admin: 09/05/24 04:49 Dose: 80 mls/hr Piperacillin Sod/Tazobactam Sod (Zosyn) 4.5 gm in 100 mls @ 25 mls/hr IV Q8H [facility]; Protocol Stop: 09/09/24 16:29 Last Admin: 09/05/24 08:44 Dose: 25 mls/hr Vancomycin HCl 1,500 mg/ (Sodium Chloride) 530 mls @ 200 mls/hr IV Q24H [facility] Stop: 09/11/24 09:59 Last Admin: 09/05/24 10:43 Dose: 200 mls/hr Insulin Aspart (Insulin, Rapid-Acting Pump) 0 each SC ACHS [facility]; Protocol Stop: 10/02/24 16:29 Last Admin: 09/05/24 09:06 Dose: 1.8 each Insulin Aspart (Insulin Aspart 100 Units/Ml Vial) 0 units SC PRN PRN PRN Reason: Insulin (Rapid-Acting) Pump Refill Stop: 10/02/24 14:52 Losartan Potassium (Losartan Potassium 50 Mg Tab) 100 mg PO DAILY [facility] Stop: 10/03/24 08:59 Last Admin: 09/05/24 07:42 Dose: 100 mg Magnesium Hydroxide (Magnesium Hydroxide Susp 30 Ml Udc) 30 ml PO Q6H PRN PRN Reason: Constipation Stop: 10/02/24 14:52 Miscellaneous (Continuous Glucose Monitor) 0 each N/A ACHS [facility] Stop: 10/02/24 16:29 Last Admin: 09/05/24 08:41 Dose: 1 each Miscellaneous (Carbohydrates For Hypoglycemia ) 15 - 30 gm PO UD PRN PRN Reason: Hypoglycemia Protocol Stop: 10/02/24 14:52 Miscellaneous Information (Vancomycin Consult Active) 1 each N/A UD PRN PRN Reason: Consult Stop: 10/02/24 14:52 Ondansetron HCl (Ondansetron Inj 2 Mg/Ml 2 Ml Vial) 4 mg IV ONCE PRN PRN Reason: PACU Use Only-Nausea/Vomiting Stop: 09/05/24 18:43 Polyethylene Glycol (Polyethylene (Miralax) 17 Gm Pack) 17 gm PO DAILY PRN PRN Reason: Constipation Stop: 10/02/24 14:52 Tramadol HCl (Tramadol Hcl 50 Mg Tablet) 50 mg PO Q6H PRN PRN Reason: Severe Pain (Scale 7, 8, 9,10) Stop: 10/04/24 04:45 Last Admin: 09/05/24 08:49 Dose: 50 mg
--- NOTE | 2024-09-05 10:37 | Anesthesiology Consultation ---
Date of Service September 05, 2024 Assessment & Plan (1) Encounter for pre-operative examination: Chart Review Chart Review: Acceptable Risk for Surgery and Patient NOT seen in Pre Admission Testing Consults Requested none History Surgery Operation Date: 09/05/24 07:00 Proposed Procedures p Right Third Toe Amputation - Jet Hayward DPM Height/Weight Height: 6 ft 2 in Weight: 130 kg Allergies Allergy/AdvReac Type Severity Reaction Status Date / Time insect venom Allergy Severe Hives Verified 09/02/24 15:16 No Known Drug Allergies Allergy Hives Verified 09/02/24 15:16 Medications Home Medications Medication Instructions Recorded Confirmed Last Taken aspirin 81 mg tablet,delayed 81 mg PO DAILY 05/10/18 09/02/24 Unknown release epinephrine 0.3 mg/0.3 mL 0.3 mg IM DIRECTED PRN Allergic 05/10/18 09/02/24 Unknown injection, auto-injector (EpiPen) Reaction insulin aspart U-100 100 unit/mL 1 dose subcut UD 05/10/18 09/02/24 Unknown subcutaneous solution multivitamin-ferrous 1 tab PO DAILY 05/10/18 09/02/24 Unknown fumarate-folic acid 18 mg-400 mcg tablet (Centrum) omega-3 fatty acids-fish oil 300 2 cap PO DAILY 05/10/18 09/02/24 Unknown mg-1,000 mg capsule (Fish Oil) atorvastatin 40 mg tablet (Lipitor) 40 mg PO DAILY #30 tabs 01/03/19 09/02/24 Unknown carvedilol 6.25 mg tablet 50 mg PO BID #180 tabs 01/03/19 09/02/24 Unknown amlodipine 5 mg tablet 5 mg PO DAILY 09/02/24 09/02/24 Unknown empagliflozin 25 mg tablet 25 mg PO DAILY 09/02/24 09/02/24 Unknown (Jardiance) hydrochlorothiazide 25 mg tablet 25 mg PO DAILY 09/02/24 09/02/24 Unknown losartan 100 mg tablet 100 mg PO DAILY 09/02/24 09/02/24 Unknown semaglutide 14 mg tablet (Rybelsus) 14 mg PO DAILY 09/02/24 09/02/24 Unknown Active Medications Generic Name Dose Route Start Last Admin Trade Name Freq PRN Reason Stop Dose Admin Acetaminophen 650 mg 09/02/24 14:53 09/04/24 04:53 Acetaminophen 325 Mg Tab PO 10/02/24 14:52 650 mg Q4H PRN Administration pain/fever Amlodipine Besylate 5 mg 09/03/24 09:00 09/05/24 07:41 Amlodipine Besylate 5 Mg Tab PO 10/03/24 08:59 5 mg DAILY ELIGIO Administration Aspirin 81 mg 09/03/24 09:00 09/05/24 10:32 Aspirin 81 Mg Ectab PO 10/03/24 08:59 Not Given DAILY ELIGIO Atorvastatin Calcium 40 mg 09/03/24 09:00 09/05/24 10:32 Atorvastatin 40 Mg Tab PO 10/03/24 08:59 Not Given DAILY ELIGIO Carvedilol 50 mg 09/02/24 21:00 09/05/24 07:41 Carvedilol 25 Mg Tab PO 10/02/24 20:59 50 mg BID ELIGIO Administration Heparin Sodium (Porcine) 5,000 units 09/02/24 21:00 09/05/24 10:32 Heparin Sod 5,000 Unit/0.5 Ml Vial SQ 10/02/24 20:59 Not Given Q12 ELIGIO Hydrochlorothiazide 25 mg 09/03/24 09:00 09/05/24 07:42 Hydrochlorothiazide 25 Mg Tab PO 10/03/24 08:59 25 mg DAILY ELIGIO Administration Sodium Chloride 1,000 mls @ 80 mls/hr 09/02/24 13:00 09/05/24 04:49 Nss IV 09/05/24 12:59 80 mls/hr .[id number] ELIGIO Administration Piperacillin Sod/Tazobactam Sod 4.5 gm in 100 mls @ 25 mls/hr 09/02/24 16:30 09/05/24 08:44 Zosyn IV 09/09/24 16:29 25 mls/hr Q8H ELIGIO Administration Protocol Vancomycin HCl 1,500 mg/ 530 mls @ 200 mls/hr 09/04/24 10:00 09/04/24 12:40 Sodium Chloride IV 09/11/24 09:59 Infused Q24H ELIGIO Infusion Insulin Aspart 0 each 09/02/24 16:30 09/05/24 09:06 Insulin, Rapid-Acting Pump SC 10/02/24 16:29 1.8 each ACHS ELIGIO Administration Protocol Losartan Potassium 100 mg 09/03/24 09:00 09/05/24 07:42 Losartan Potassium 50 Mg Tab PO 10/03/24 08:59 100 mg DAILY ELIGIO Administration Miscellaneous 0 each 09/02/24 16:30 09/05/24 08:41 Continuous Glucose Monitor N/A 10/02/24 16:29 1 each ACHS ELIGIO Administration Tramadol HCl 50 mg 09/04/24 04:46 09/05/24 08:49 Tramadol Hcl 50 Mg Tablet PO 10/04/24 04:45 50 mg Q6H PRN Administration Severe Pain (Scale 7, 8, 9,10) NPO Date Last Intake of Fluids: 09/05/24 Time Last Intake of Fluids: 00:00 Date Last Intake of Solids: 09/04/24 Past Medical History Medical History (Updated 09/05/24 @ 10:37 by Antonio Levin DO) Bicuspid aortic valve Obesity (BMI 30-39.9) Sepsis Asthma Type 2 diabetes mellitus Past Family History Family History Other Adopted Family history unknown Social History Smoking Status: Former smoker Do You Dip or Chew Tobacco: No Hx Alcohol Use: No Alcohol type: hard liquor alcohol intake frequency: 0-2 drinks per day Hx Substance Use: No substance use type: does not use Physical Exam Vital Signs Last Vital Signs Temp 96.4 F L 09/05/24 07:29 Pulse 73 09/05/24 07:39 Resp 15 09/05/24 07:39 BP 159/97 H 09/05/24 08:58 Pulse Ox 96 09/05/24 07:39 O2 Del Method Room Air 09/05/24 07:39 Testing Laboratory Results 09/04/24 05:29 09/05/24 06:03 PT 10.5 Seconds (9.0-12.0) 09/02/24 09:50 INR 1.0 (0.9-1.1) 09/02/24 09:50 Urine Color Yellow 09/02/24 11:34 Urine Appearance Clear (Clear) 09/02/24 11:34 Urine pH 5.5 (4.5-7.5) 09/02/24 11:34 Ur Specific [place] 1.020 (1.000-1.030) 09/02/24 11:34 Urine Protein 1+ (Negative) H 09/02/24 11:34 Urine Glucose (UA) 3+ (Negative) H 09/02/24 11:34 Urine Ketones Negative (Negative) 09/02/24 11:34 Urine Nitrite Negative (Negative) 09/02/24 11:34 Ur Leukocyte Esterase Negative (Negative) 09/02/24 11:34 Urine WBC (Auto) 0-5 /hpf (0-5) 09/02/24 11:34 Urine RBC (Auto) 0-2 /hpf (0-2) 09/02/24 11:34 U Hyaline Cast (Auto) 0-2 /lpf (0-2) 09/02/24 11:34 U Epithel Cells (Auto) 0-2 /hpf (0-2) 09/02/24 11:34 Urine Bacteria (Auto) None Seen (None Seen) 09/02/24 11:34 09/02/24 09:55 Gram Stain - Final Foot,Right Wound Culture - Final Staphylococcus aureus Staphylococcus aureus#2 Streptococcus mitis/oralis grp 09/02/24 09:50 Aerobic Blood Culture - Preliminary Blood Staphylococcus aureus Anaerobic Blood Culture - Preliminary Staphylococcus aureus Staphylococcus aureus#2 09/02/24 09:55 Aerobic Blood Culture - Preliminary Blood Staphylococcus aureus Anaerobic Blood Culture - Preliminary Staphylococcus aureus 09/05/24 09/05/24 10:24 06:59 POC Glucose 117 H 129 H
[2024-09-05] MEDS ORDERED: ePHEDrine sulfate 50 MG/ML AMP IV PRN (10:43)
[2024-09-05] MEDS ORDERED: ATROPINE SULFATE 0.1 MG/ML 10ML SYR IV PRN (10:43)
[2024-09-05] MEDS ORDERED: fentaNYL citrate PF 100 MCG/2 ML VIAL IV PRN (10:43)
[2024-09-05] MEDS ORDERED: ONDANSETRON INJ 2 MG/ML 2 ML VIAL IV PRN (10:43)
[2024-09-05] MEDS ORDERED: fentaNYL citrate PF 100 MCG/2 ML VIAL ONE (10:50)
[2024-09-05] MEDS ORDERED: PROPOFOL IV EMULSION 10 MG/ML 20 ML VIAL IV ONE (10:50)
[2024-09-05] MEDS ORDERED: MIDAZOLAM HCL 1 MG/ML 2ML VIAL ONE (10:50)
[2024-09-05] MEDS ORDERED: KETAMINE HCL 10MG/ML SYR ONE (11:00)
[2024-09-05] MEDS: BUPIVACAINE 0.5 % 5 MG/1 ML MPF 30ML VIAL ONE (11:28)
[2024-09-05] MEDS ORDERED: ePHEDrine sulfate 50 MG/5 ML SYR ONE (11:32)
--- NOTE | 2024-09-05 11:49 | Post Operative Brief Note ---
PG Immediate Post Op with CF Date of Surgery September 05, 2024 Pre & Post Diagnosis Operation Date: 09/05/24 07:00 Pre-Op Diagnosis: Diabetic Foot Ulcer Post-Op Diagnosis: Diabetic Foot Ulcer I identified the patient and participated in the time-out.: Yes Procedure Operation Date: 09/05/24 07:00 Actual Procedures p Right Third Toe Amputation(Right) - Jet Hayward DPM Surgeon Jet Hayward DPM Registered Medical Transcriptionist na Estimated Blood Loss 2 Findings Consistent with Post-Op Diagnosis Specimens Specimen Description: A: Right third toe proximal margin B: Right third toe Culture #1- Right third toe for culture
--- NOTE | 2024-09-05 11:57 | Anesthesiology Progress Note ---
Date of Service September 05, 2024 Anesthesia Post Procedure Vital Signs Vital Signs: Temp Pulse Pulse Pulse Resp BP BP 09/05/24 10:46 98.4 F 71 20 152/97 H 09/05/24 08:58 159/97 H 09/05/24 07:39 73 15 185/113 H 09/05/24 07:29 96.4 F L 71 16 170/104 H 09/04/24 20:00 98.2 F 84 14 133/77 09/04/24 16:05 98.2 F 76 136/79 Pulse Ox O2 Del Method 09/05/24 10:46 96 Room Air 09/05/24 08:58 09/05/24 07:39 96 Room Air 09/05/24 07:29 95 Room Air 09/04/24 20:00 95 Room Air 09/04/24 16:05 96 Room Air Pain Intensity Right Foot: Pain Intensity: 8 Lower Leg: Pain Intensity: 6 Transfer of Care Handoff Completed per policy Notes Mental Status: alert / awake / arousable and participated in evaluation Patient Amnestic to Procedure: Yes Nausea / Vomiting: adequately controlled Pain: adequately controlled Airway Patency, RR, SpO2: stable & adequate BP & HR: stable & adequate Hydration State: stable & adequate Anesthetic Complications: no major complications apparent and Pt Satisfied with anesthetic care
[2024-09-05] MEDS: VANCOMYCIN HCL 1000MG/20ML VIAL ONE (13:08)
--- NOTE | 2024-09-05 14:06 | Operative Report ---
PG Post Operative Report Pre & Post Diagnosis Operation Date: 09/05/24 07:00 Pre-Op Diagnosis: Diabetic Foot Ulcer Post-Op Diagnosis: Diabetic Foot Ulcer I identified the patient and participated in the time-out.: Yes Procedure Operation Date: 09/05/24 07:00 Actual Procedures p Right Third Toe Amputation(Right) - Jet Hayward DPM Surgeon Jet Hayward DPM Type Mapper na Estimated Blood Loss 2 Findings Consistent with Post-Op Diagnosis Specimens Right third toe proximal phalanx proximal margin to pathology Right third toe to pathology Bone and soft tissue for culture right third toe (bone culture collected from the base of the wound) Description of Procedure Patient brought to the operating room placed on the operating table in the supine position. Following IV anesthesia local anesthesia obtained about the patient's right third toe utilizing a total of 10 cc of half percent Marcaine plain in a modified Pritchett block fashion. A well-padded nonsterile ankle tourniquet was placed about the patient's right ankle utilizing adequate cast padding protect soft tissues. Timeout is held confirming correct patient, side, site, procedure with all necessary parties confirmed. Right lower extremity scrubbed prepped and draped in the usual aseptic fashion to the level of the ankle tourniquet. Attention was directed to the right third toe where ulceration is noted to the distal aspect of the toe extending directly to the bone of the distal phalanx. Skin Skribe was utilized to plan a teardrop or a racquet shaped incision surrounding the base of the third digit maintaining adequate soft tissue for primary closure. 15 blade was utilized to create an incision which carried straight to the level of bone of the proximal phalanx following planned surgical incision. This time the 15 blade is utilized to disarticulate the digit at the proximal interphalangeal joint and the digit is passed from the operative field. Clean 15 blade and pickup were utilized to free periosteal tissue from the distal two thirds of the proximal phalanx. It is noted that the soft tissue at this level appears to be quite healthy and relatively well-vascularized with no signs of purulence or necrosis of the tissue. Bone of the proximal phalanx is healthy firm and white to visible inspection. Sagittal saw was utilized to resect the proximal phalanx at the level of the proximal one third of the shaft. Sagittal saw was then utilized to resect a proximal margin which is placed in a blue top vessel to be sent to p athology for evaluation for osteomyelitis. Rongeur was utilized to correct a bone sample from the distal phalanx to be sent for culture and sensitivity. The remainder of the proximal phalanx and the second digit are placed in a blue top vessel to be sent to pathology for gross pathologic analysis. Surgical wound is flushed with copious amounts of normal sterile saline. Clean instruments are ut ilized as well as clean gloves remainder of the procedure. Tendons within the surgical site are pulled distally cut and allowed to retract proximally into the surrounding soft tissues. Wound is again flushed with copious muscle normal sterile saline. Approximately 0.25 g of vancomycin powder placed within the surgical wound. Hemostasis is achieved with direct pressure. Wound edges are reapproximated and closed with a 4-0 nylon suture in simple interrupted fashion. Foot is cleansed with normal sterile saline dried and dressed with Betadine soaked Adaptic 4 x 4 fluff gauze ABD pad x 3 Nicole and a lightly applied Anselmo bandage total dressings in place. Patient tolerated the procedure and anesthesia well. Is transferred to cover room with vital signs stable and vascular status intact to all remaining digits of the right foot. Following a brief period of postoperative monitoring recovery room patient was transferred back to his bed on the medical floor the hospital for continued administration of IV antibiotics and medical management. Patient is okay to weight-bear as tolerated in a postoperative shoe. Order placed for postop shoe for the right foot. Assumed surgical cure for suspected osteomyelitis of the distal phalanx of the right third toe. Patient will be cleared for discharge from podiatry once antibiotic adjustment recommendations are made by infectious disease. I attest to the content of the Intraoperative Record and any orders documented therein. Any exceptions are noted below.
--- NOTE | 2024-09-05 15:45 | Infectious Disease Consult ---
Date of Service September 05, 2024 Telehealth Information I performed this visit using a real-time telehealth connection between my location and the patients location ([facility]). After connecting through interactive tele-video, patient was identified by name and date of and/or wristband check.Patient (or authorized healthcare solar sales representative) was informed that this was a telemedicine visit and it was being conducted confidentially over secure lines. My office door was closed and no one else was present in the room with me.Patient (or authorized healthcare solar sales representative) provided consent to proceed with the visit, expressed an understanding of privacy and security of the telemedicine visit, and gave permission to have a hospital solar sales representative in the room in order to assist with the visit and to conduct portions of the visit, as needed. I informed the patient (or authorized healthcare solar sales representative) that I reviewed their record and presented the opportunity for them to ask any questions regarding the visit today. The patient agreed to participate. Assessment & Plan (1) MSSA bacteremia: (2) Osteomyelitis of third toe of right foot: Plan: s/p right third toe amputation on 09/05/2024 (3) Diabetic foot infection: Plan -Discontinue Vancomycin and Zosyn. -Initiate treatment with IV cefazolin 2g every 8 hours. -Repeat blood cultures every 48 hours until they return negative. -Recommend obtaining a transthoracic echocardiogram (TTE). -We will continue to monitor the cultures and test results. -It is anticipated that the patient will require 6 weeks of antibiotics. -Final antibiotic recommendations remain pending. -The Infectious Disease team will continue to follow the patient. History of Present Illness History of Present Illness The patient is a 59-year-old male with a significant medical history, including insulin-dependent type II diabetes mellitus, hypertension, ascending aortic aneurysm, congenital bicuspid aortic valve, dyslipidemia, morbid obesity, chronic kidney disease stage 3, Charcot foot, and a history of deep vein thrombo sis in the left lower extremity. He presented to the emergency department with complaints of pain, redness, and swelling in the right toe and calf. He reported chills that he associated with a previous episode of sepsis related to a diabetic foot ulcer on his left foot in 2019, prompting him to seek medical attention. On examination in the emergency department, an ulcer was noted on the third toe of the right foot, characterized by erythema, warmth, swelling, and purulent drainage. Cultures were obtained. Laboratory tests revealed an elevated white blood cell count of 13.25, though there were no signs of sepsis; procalcitonin was 0.22 and lactate was 1.6. The patient remained hemodynamically stable with an oxygen saturation of 93% on room air and a stable blood pressure in the 140s/90s. Empiric treatment with Zosyn and Daptomycin was initiated. The patient reported severe pain in the right leg and chills but denied experiencing chest pain, dizziness, difficulty breathing, cold symptoms, profound weakness, nausea, vomiting, diarrhea, abdominal pain, rashes, urinary symptoms, or joint pain. He had no history of injury to the right foot and performs daily foot examinations at home. His diabetes has resulted in diabetic neuropathy and Charcot disease. A foot X-ray taken in the emergency department showed progressive degenerative changes at the midfoot, with interval widening of the interspace between the first and second metatarsal bases and lateral subluxation of the second through fifth metatarsals, consistent with Charcot joint. There was no evidence of acute fracture, osteomyelitis, or radiopaque foreign body, although a large plantar calcaneal spur was noted. He is now s/p right third toe amputation on 09/05/2024. Blood cultures and wound cultures both returned positive for methicillin-sensitive Staphylococcus aureus (MSSA). Infectious Disease was consulted for further management of the infection. Patient is currently on zosyn and vancomycin. Allergies Allergy/AdvReac Type Severity Reaction Status Date / Time insect venom Allergy Severe Hives Verified 09/02/24 15:16 No Known Drug Allergies Allergy Hives Verified 09/02/24 15:16 Home Medications Medication Instructions Recorded Confirmed Type aspirin 81 mg tablet,delayed 81 mg PO DAILY 05/10/18 09/02/24 History release epinephrine 0.3 mg/0.3 mL 0.3 mg IM DIRECTED PRN Allergic 05/10/18 09/02/24 History injection, auto-injector (EpiPen) Reaction insulin aspart U-100 100 unit/mL 1 dose subcut UD 05/10/18 09/02/24 History subcutaneous solution multivitamin-ferrous 1 tab PO DAILY 05/10/18 09/02/24 History fumarate-folic acid 18 mg-400 mcg tablet (Centrum) omega-3 fatty acids-fish oil 300 2 cap PO DAILY 05/10/18 09/02/24 History mg-1,000 mg capsule (Fish Oil) atorvastatin 40 mg tablet (Lipitor) 40 mg PO DAILY #30 tabs 01/03/19 09/02/24 Rx carvedilol 6.25 mg tablet 50 mg PO BID #180 tabs 01/03/19 09/02/24 History amlodipine 5 mg tablet 5 mg PO DAILY 09/02/24 09/02/24 History empagliflozin 25 mg tablet 25 mg PO DAILY 09/02/24 09/02/24 History (Jardiance) hydrochlorothiazide 25 mg tablet 25 mg PO DAILY 09/02/24 09/02/24 History losartan 100 mg tablet 100 mg PO DAILY 09/02/24 09/02/24 History semaglutide 14 mg tablet (Rybelsus) 14 mg PO DAILY 09/02/24 09/02/24 History Patient History Medical History (Updated 09/05/24 @ 15:50 by Enma Davis MD) Bicuspid aortic valve Obesity (BMI 30-39.9) Sepsis Asthma Type 2 diabetes mellitus Family History Other Adopted Family history unknown Social History Smoking Status: Former smoker Second Hand Exposure: Yes (On occasion); Do You Dip or Chew Tobacco: No; Hx Alcohol Use: No Hx Substance Use: No Preferred Language: Omani Communication Ability: Effective Eligibility Counselor Required: No Beliefs That Will Affect Care: None marital status: Current Living Situation: Family How many Children do You have: 2 Other Information That Helps Us Care for You: No Feels Safe at Home: Yes Safety Concerns: Feels Safe At This Time Assistive Devices: Glasses Review of Systems Constitutional: No Weight Change, No Fever, No Chills, No Night Sweats, No Fatigue, No Malaise ENT/Mouth: No Hearing Changes, No Ear Pain, No Nasal Congestion, No Sinus Pain, No Hoarseness, No sore throat, No Rhinorrhea, No Swallowing Difficulty Eyes: No Eye Pain, No Swelling, No Redness, No Foreign Body, No Discharge, No Vision Changes Cardiovascular: No Chest Pain, No SOB, No PND, No Dyspnea on Exertion, No Orthopnea, No Claudication, No Edema, No Palpitations Respiratory: No Cough, No Sputum, No Wheezing, No Smoke Exposure, No Dyspnea Gastrointestinal: No Nausea, No Vomiting, No Diarrhea, No Constipation, No Pain, No Heartburn, No Anorexia, No Dysphagia, No Hematochezia, No Melena, No Flatulence, No Jaundice Genitourinary: No Dysmenorrhea, No DUB, No Dyspareunia, No Dysuria, No Urinary Frequency, No Hematuria, No Urinary Incontinence, No Urgency, No Flank Pain, No Urinary Flow Changes, No Hesitancy Musculoskeletal: No Arthralgias, No Myalgias, No Joint Swelling, No Joint Stiffness, No Back Pain, No Neck Pain, No Injury History Skin: No Skin Lesions, No Pruritis, No Hair Changes, No Breast/Skin Changes, No Nipple Discharge Neuro: No Weakness, No Numbness, No Paresthesias, No Loss of Consciousness, No Syncope, No Dizziness, No Headache, No Coordination Changes, No Recent Falls Psych: No Anxiety/Panic, No Depression, No Insomnia, No Personality Changes, No Delusions, No Rumination, No SI/HI/AH/VH, No Social Issues, No Memory Change s, No Violence/Abuse Hx., No Eating Concerns Heme/Lymph: No Bruising, No Bleeding, No Transfusions History, No Lymphadenopathy Endocrine: No Polyuria, No Polydipsia, No Temperature Intolerance Physical Exam could not be performed as it was a video visit Results & Data Vital Signs (Past 12 Hours) Vital Signs Temp Pulse Pulse Pulse Pulse Resp BP 09/05/24 14:18 36.7 C 71 16 134/85 09/05/24 13:28 35.6 C L 65 17 09/05/24 12:50 37.0 C 66 17 09/05/24 12:01 70 16 09/05/24 11:50 74 14 09/05/24 11:43 36.0 C L 72 10 L 09/05/24 10:46 36.9 C 71 20 09/05/24 08:58 159/97 H 09/05/24 07:39 73 15 185/113 H 09/05/24 07:29 35.8 C L 71 16 BP Pulse Ox O2 Del Method 09/05/24 14:18 96 Room Air 09/05/24 13:28 176/84 H 96 Room Air 09/05/24 12:50 150/83 H 94 Room Air 09/05/24 12:01 139/89 95 Room Air 09/05/24 11:50 152/83 H 95 Room Air 09/05/24 11:43 134/74 95 Room Air 09/05/24 10:46 152/97 H 96 Room Air 09/05/24 08:58 09/05/24 07:39 96 Room Air 09/05/24 07:29 170/104 H 95 Room Air Laboratory Results 09/05/24 Unknown Gram Stain - Final Foot Aerobic and Anaerobic Culture - Pending 09/02/24 09:50 Aerobic Blood Culture - Preliminary Blood Staphylococcus aureus Anaerobic Blood Culture - Preliminary Staphylococcus aureus Staphylococcus aureus#2 09/02/24 09:55 Gram Stain - Final Foot,Right Wound Culture - Final Staphylococcus aureus Staphylococcus aureus#2 Streptococcus mitis/oralis grp 09/05/24 09/05/24 09/05/24 13:08 11:49 10:24 Creatinine Est Cr Clr Drug Dosing eGFR POC Glucose 108 H 112 H 117 H 09/05/24 09/05/24 06:59 06:03 Creatinine 2.08 H Est Cr Clr Drug Dosing 56.2 eGFR 36.45 POC Glucose 129 H Diagnostic Findings XR foot RT min 3V routine 09/02/2024 CLINICAL HISTORY: infection, right 3rd toe COMPARISON: 03/15/2007 FINDINGS: There are progressive degenerative changes at the midfoot with interval widening of the interspace between the first and second metatarsal bases and lateral subluxation of the second through fifth metatarsals. Findings are most consistent with Charcot joint. No acute fracture seen. No evidence of osteomyelitis. No radiopaque foreign body. There is a large plantar calcaneal spur. IMPRESSION: 1. No osteomyelitis seen. 2. Otherwise as described. Medications Administered Home Medications Medication Instructions Recorded Confirmed Last Taken aspirin 81 mg tablet,delayed 81 mg PO DAILY 05/10/18 09/02/24 Unknown release epinephrine 0.3 mg/0.3 mL 0.3 mg IM DIRECTED PRN Allergic 05/10/18 09/02/24 Unknown injection, auto-injector (EpiPen) Reaction insulin aspart U-100 100 unit/mL 1 dose subcut UD 05/10/18 09/02/24 Unknown subcutaneous solution multivitamin-ferrous 1 tab PO DAILY 05/10/18 09/02/24 Unknown fumarate-folic acid 18 mg-400 mcg tablet (Centrum) omega-3 fatty acids-fish oil 300 2 cap PO DAILY 05/10/18 09/02/24 Unknown mg-1,000 mg capsule (Fish Oil) atorvastatin 40 mg tablet (Lipitor) 40 mg PO DAILY #30 tabs 01/03/19 09/02/24 Unknown carvedilol 6.25 mg tablet 50 mg PO BID #180 tabs 01/03/19 09/02/24 Unknown amlodipine 5 mg tablet 5 mg PO DAILY 09/02/24 09/02/24 Unknown empagliflozin 25 mg tablet 25 mg PO DAILY 09/02/24 09/02/24 Unknown (Jardiance) hydrochlorothiazide 25 mg tablet 25 mg PO DAILY 09/02/24 09/02/24 Unknown losartan 100 mg tablet 100 mg PO DAILY 09/02/24 09/02/24 Unknown semaglutide 14 mg tablet (Rybelsus) 14 mg PO DAILY 09/02/24 09/02/24 Unknown Active Medications Generic Name Dose Route Start Last Admin Trade Name Freq PRN Reason Stop Dose Admin Amlodipine Besylate 5 mg 09/03/24 09:00 09/05/24 07:41 Amlodipine Besylate 5 Mg Tab PO 10/03/24 08:59 5 mg DAILY ELIGIO Administration Aspirin 81 mg 09/03/24 09:00 09/05/24 10:32 Aspirin 81 Mg Ectab PO 10/03/24 08:59 Not Given DAILY ELIGIO Atorvastatin Calcium 40 mg 09/03/24 09:00 09/05/24 10:32 Atorvastatin 40 Mg Tab PO 10/03/24 08:59 Not Given DAILY ELIGIO Carvedilol 50 mg 09/02/24 21:00 09/05/24 07:41 Carvedilol 25 Mg Tab PO 10/02/24 20:59 50 mg BID ELIGIO Administration Heparin Sodium (Porcine) 5,000 units 09/02/24 21:00 09/05/24 10:32 Heparin Sod 5,000 Unit/0.5 Ml Vial SQ 10/02/24 20:59 Not Given Q12 ELIGIO Hydrochlorothiazide 25 mg 09/03/24 09:00 09/05/24 07:42 Hydrochlorothiazide 25 Mg Tab PO 10/03/24 08:59 25 mg DAILY ELIGIO Administration Piperacillin Sod/Tazobactam Sod 4.5 gm in 100 mls @ 25 mls/hr 09/02/24 16:30 09/05/24 13:09 Zosyn IV 09/09/24 16:29 Infused Q8H ELIGIO Infusion Protocol Vancomycin HCl 1,500 mg/ 530 mls @ 200 mls/hr 09/04/24 10:00 09/05/24 14:35 Sodium Chloride IV 09/11/24 09:59 Infused Q24H ELIGIO Infusion Insulin Aspart 0 each 09/02/24 16:30 09/05/24 13:08 Insulin, Rapid-Acting Pump SC 10/02/24 16:29 Not Given ACHS ELIGIO Protocol Losartan Potassium 100 mg 09/03/24 09:00 09/05/24 07:42 Losartan Potassium 50 Mg Tab PO 10/03/24 08:59 100 mg DAILY ELIGIO Administration Miscellaneous 0 each 09/02/24 16:30 09/05/24 13:08 Continuous Glucose Monitor N/A 10/02/24 16:29 Not Given ACHS ELIGIO
[2024-09-05] MEDS: ACETAMINOPHEN 325 MG TAB PO PRN (19:15)
[2024-09-05] MEDS: oxyCODONE HCL IR 5 MG TAB (IMMEDIATE RELEASE) PO PRN (19:15)
[2024-09-06 06:04] LABS: Hematocrit (blood only) 42.2 % (42.0-52.0); Hemoglobin 14.5 g/dl (14.0-18.0); Mean Corpuscular Hemoglobin 29.2 pg (25.0-34.0); Mean Corpuscular Hgb Conc 34.4 g/dL (32.0-36.0); Mean Corpuscular Volume 85.1 fL (80.0-100.0); Mean Platelet Volume 9.5 fL (9.4-12.4); Platelet Count 265 K/uL (130-400); RDW Coefficient of Variation 13.3 % (11.5-14.5); Red Blood Count 4.96 M/uL (4.70-6.10); White Blood Count 8.27 K/ul (4.8-10.8)
[2024-09-06 06:33] LABS: BUN Creatinine Ratio 16.1 (10-20); Calcium 8.7 mg/dl (8.6-10.3); Creatinine Clr Calc Pharmacy 53.8 ml/min; Potassium 4.5 mmol/L (3.5-5.1)
--- NOTE | 2024-09-06 08:15 | Hospitalist Progress Note ---
<Statement entered by Morro Peña, - 09/06/24 14:28> I have seen and examined the patient and have discussed the case with the advance practice provider. I have reviewed the advanced practitioner's documentation, and I agree with, and take responsibility for that plan of care. I spent a total of 22 minutes coordinating, documenting, and providing care for this patient excluding time spent by another provider/QHP. Patient overall doing well, recovering from amputation. No chest pain shortness of breath. Reviewed echocardiogram, high suspicion for vegetation/endocarditis Repeat/surveillance blood cultures drawn today Reviewed ID recommendations, though in light of endocarditis for sure will need 6 weeks of antibiotics Discussed plan of care as outlined below. Date of Service September 06, 2024 Assessment & Plan (1) Diabetic foot ulcer: (2) Charcot foot due to diabetes mellitus: (3) Cellulitis of foot: (4) Type 2 diabetes mellitus: (5) Hypertension: Plan 59 year old male with PMH significant for insulin dependent DM II with po lyneuropathy, charcot foot due to DM II, hypertension, dyslipidemia, CKD III, ascending aortic aneurysm, and congenital bicuspid aortic valve with moderate aortic valve stenosis who presented to the ED on 09/02 with right toe pain who is admitted for diabetic foot ulcer with cellulitis. Diabetic foot ulcer Cellulitis of right foot Charcot Foot due to DM II Foot x-ray showed no osteomyelitis Initially started on IV Zosyn and daptomycin Vancomycin renally dosed instead of daptomycin on 09/03 - pharmacy consulted for vancomycin Wound culture from the right foot on 09/02 is growing Staph aureus and Strep mitis/oralis group Podiatry consulted and patient agreeable to amputation s/p amputation of right third toe on 09/05 -Suspected osteomyelitis of the distal phalanx of the right third santillan per operative report by Dr Hayward -Wound culture from OR on 09/05 is prelim growing Staph aureus -Post op weight bearing as tolerated in postop shoe - patient is ambulating independently without issue -Pain control with PO tylenol and oxycodone MSSA bacteremia Blood culture on 09/02 confirmed MSSA - infectious disease evaluated patient on 09/05 with recs: -Discontinue Vancomycin and Zosyn - discontinued -Initiate treatment with IV cefazolin 2g every 8 hours - ordered -Repeat blood cultures every 48 hours until they return negative - repeat drawn on 09/06 -Recommend obtaining a transthoracic echocardiogram (TTE) - showed possible vegetation per Dr Godinez (ID aware) -ID will continue to monitor the cultures and test results. -It is anticipated that the patient will require 6 weeks of antibiotics - patient is aware and we will plan for PICC once negative blood cultures -Final antibiotic recommendations remain pending. DM II A1C 10.1 on 08/23 - A1C ordered for am Patient on Jardiance and Rybelsus at home - holding while inpt Patient was initially using Omnipod insulin pump and CGM while inpatient Advised by paraeducator to turn off insulin pump on 09/06 Pharmacy glycemic consult placed 09/06 for insulin orders Lantus and SSI ordered Hypertension Intermittent hypertension likely due to pain Continue amlodipine, carvedilol, HCTZ, losartan per home dosing Monitor BPs Dyslipidemia Continue atorvastatin per home dosing CKD III Baseline Cr 2-2.2 in the past year per record review Cr is 2.17 today Monitor and avoid nephrotoxins Ascending aortic aneurysm Aortic valve stenosis Follows with Cardiology (last seen 08/23/24) and CT surgery (last seen 09/10/23) Scheduled chest CT on 09/08/[address] surgery follow up on 09/15/24 - patient aware this will need rescheduled DVT Prophylaxis: SQ Heparin Code Status: FULL CODE PCP: Sisi Fountain Disposition: Awaiting negative blood cultures for PICC placement for 6 weeks of IV abx Patient seen in collaboration with Dr Peña. Please see addendum. I spent a total of 70 minutes coordinating, documenting and providing care for this patient excluding time spent in the performance of separately billed services or time spent by another provider/QHP. Admission and Anticipated Discharge Date Admission Date: September 02, 2024 Subjective Patient seen laying in bed Denies pain to his right foot Denies chest pain, SOB, abdominal pain, N/V/D Eating and drinking well Review of Systems Review of Systems: All systems reviewed & are unremarkable except as noted in Subjective Physical Exam Physical Exam: Gen/Psych: WD/WN, sitting up in bed, NAD, A&Ox3 HEENT: Normocephalic, atraumatic, conjunctivae pink, sclerae anicteric, mucous membranes moist Lung: Clear to auscultation bilaterally, no wheezes/rales/rhonchi Heart: Regular rate and rhythm, no murmurs/rubs/gallops Extremities: Normal peripheral pulses, BLE edema non-pitting Abdomen: Soft, NT, ND, +BS x 4 Skin: Warm and dry, right foot dressing c/d/i Results & Data Results & Data Vital Signs (Past 12 Hours) Vital Signs Temp Pulse Resp BP BP Pulse Ox O2 Del Method 09/06/24 07:52 36.6 C 64 16 150/95 H 96 Room Air 09/06/24 03:11 36.5 C 69 18 169/98 H 97 Room Air 09/05/24 23:12 36.6 C 69 18 146/82 H 96 Room Air Laboratory Results Short CBC 09/06/24 Range/Units 05:45 WBC 8.27 (4.8-10.8) K/ul Hgb 14.5 (14.0-18.0) g/dl Hct 42.2 (42.0-52.0) % Plt Count 265 (130-400) K/uL BMP 09/06/24 05:45 Sodium 137 Potassium 4.5 Chloride 109 H Carbon Dioxide 24 BUN 35 H Creatinine 2.17 H Glucose 144 H Calcium 8.7 I have independently reviewed and interpreted patient's labs including CBC and BMP
--- NOTE | 2024-09-06 08:40 | Podiatry Progress Note ---
Date of Service September 06, 2024 Assessment & Plan (1) Osteomyelitis of third toe of right foot: (2) Diabetic ulcer of toe of right foot associated with diabetes mellitus due to underlying condition, with bone involvement without evidence of necrosis: (3) Cellulitis of left anterior lower leg: (4) Cellulitis of foot: Plan Postop day 1 status post right third digit amputation with primary closure 09/05/2024. - Surgical wound dressing changed and redressed with dry sterile dressing. - Wound culture right third toe 09/02/2024: Staph aureus, Streptococcus Winston/oralis group. Sensitivities pending - Blood culture 09/02/2024: Preliminary-Staph aureus. Repeat cultures pending - Weightbearing as tolerated right foot in postop shoe. Thank for consulting podiatry in the care of this patient. Will continue to follow patient's course while he remains in the hospital make recommendations for follow-up at discharge. Admission and Anticipated Discharge Date Admission Date: September 02, 2024 Subjective Patient seen resting comfortably in hospital bed eating lunch with mother present in room. Denies pain to the right foot. Surgical dressing remains clean dry and intact without strikethrough. Patient has received postop shoe reports reasonable fit and stability with weightbearing. Review of Systems Review of Systems: Nausea, fever and chills of the last 24 hours. Denies vomiting or diarrhea. Denies shortness of breath or chest pain. All other systems reviewed and negative unless stated in HPI. Physical Exam Physical Exam: Const: Appears well developed and well nourished. No signs of acute distress present. CV: Extremities: No cyanosis Capillary refill time is less than 2 seconds all digits of the bilateral foot. Posterior tibial and dorsalis pedis pulses are palpable bilateral. Lymph: No palpable or visible regional lymphadenopathy. Skin: Diabetic ulcer distal right third toe (see foot exam). Erythema and edema extending to the proximal calf right lower extremity. Neuro: Loss of protective sensation bilateral foot to the level of the ankle.. Psych: Mood/Affect: Mood is normal. Affect is normal. Cognition: Orientation is intact to person, place and time. Focused lower extremity musculoskeletal exam: Leg: No pain with compression of the calf muscle. Ankles: No tenderness bilaterally. Motor strength is intact. Range of motion pain-free and unlimited. Feet: Charcot deformity bilateral with collapse of the medial arch and midfoot prominence. Postop day 1 status post right third digit amputation 09/05/2024. Wound edges well-approximated with all sutures intact. Decreased erythema and edema to the right foot. Scant sanguinous drainage to surgical dressing. No lymphangitis or streaking. Results & Data Results & Data Vital Signs (Past 12 Hours) Vital Signs Temp Pulse Resp BP BP Pulse Ox O2 Del Method 09/06/24 07:52 36.6 C 64 16 150/95 H 96 Room Air 09/06/24 03:11 36.5 C 69 18 169/98 H 97 Room Air 09/05/24 23:12 36.6 C 69 18 146/82 H 96 Room Air Coding Level of Care Code 24502 SUB INP/OBS CARE 05/21MIN Diagnoses Osteomyelitis of third toe of right foot M86.9 Diabetic ulcer of toe of right foot associated with diabetes mellitus due to underlying condition, with bone involvement without evidence of necrosis E08.621; L97.516 Cellulitis of left anterior lower leg L03.116 Cellulitis of foot L03.119
[2024-09-06] MEDS: Continuous Glucose Monitor SCH (09:28)
[2024-09-06] MEDS: ceFAZolin 2000MG 2,000 MG/15 ML SYR IV SCH (10:43)
[2024-09-06] MEDS ORDERED: PHARMACY GLYCEMIC MGMT CONSULT PRN (11:11)
[2024-09-06] MEDS: LANTUS PER UNIT CHARGE SC ONE (13:09)
[2024-09-06] MEDS: INSULIN ASPART PER UNIT CHARGE SC SCH (13:09)
--- NOTE | 2024-09-06 13:16 | Pharmacy Report ---
Pharmacy Glycemic Short Note 2 - Date of Service September 06, 2024 - Glycemic Short BSG Results (Last 24 hours): 09/05/24 09/06/24 09/06/24 13:08 05:45 07:46 Glucose 144 H POC Glucose 108 H 123 H 09/06/24 11:10 Glucose POC Glucose 158 H OUTPATIENT ANTIDIABETIC REGIMEN: * Aspart via OmniPod5 insulin Pump in AID mode * basal 5 units/hr (max 15 units/hr) * bolus CR:5, SF: 7, BSG goal range 70-180 * (Most recent data from this admission: basal 63 units, bolus 45 units--total/24 hours is 117 units) * empagliflozin 25mg PO daily * Rybelsus 15mg PO daily HbA1c ordered for 09/07/24 ASSESSMENT: * Karl is a 59 year old male admitted 09/02 with an infection of his right foot--Found to be osteomyelitis s/p right third digit amputation (POD #1). Pharmacy has been consulted for glycemic management as he was instructed to remove his pump. * Using most recent data from his insulin pump (see above), Lantus 60 units x 1 was given at lunch time and a bolus insulin regimen was started using the calculation for the best estimate of total insulin daily. PLAN FOR INPATIENT GLYCEMIC CONTROL: * Hold outpatient diabetes medications * Basal insulin * Lantus 60 units SQ x 1 today, further dosing will be reassessed tomorrow morning. * Bolus insulin * NovoLog per scale ACHS or Q6hrs while NPO * Goal Range: Low 110 mg/dL - High 140 mg/dL * Correction Factor: 15 mg/dL/unit * Nutritional / Prandial insulin per carb ratio of 1 unit per 5 grams CHO consumed
[2024-09-07 06:39] LABS: Basophils # (auto) 0.07 K/uL (0.00-0.20); Eosinophils # (auto) 0.53 K/uL (0.00-0.50); Eosinophils % (auto) 7.3 %; Hematocrit (blood only) 43.5 % (42.0-52.0); Immature Granulocytes # (auto) 0.02 K/uL (0.01-0.20); Immature Granulocytes % (auto) 0.3 %; Lymphocytes # (auto) 2.32 K/uL (1.20-3.40); Lymphocytes % (auto) 31.9 %; Mean Corpuscular Hemoglobin 29.2 pg (25.0-34.0); Mean Corpuscular Hgb Conc 34.5 g/dL (32.0-36.0); Mean Corpuscular Volume 84.6 fL (80.0-100.0); Mean Platelet Volume 9.6 fL (9.4-12.4); Monocytes # (auto) 0.74 K/uL (0.11-0.59); Monocytes % (auto) 10.2 %; Neutrophils # (auto) 3.59 K/uL (1.40-6.50); Neutrophils % (auto) 49.3 %; Platelet Count 299 K/uL (130-400); RDW Coefficient of Variation 13.1 % (11.5-14.5); RDW Standard Deviation 40.5 fL (36.4-46.3); Red Blood Count 5.14 M/uL (4.70-6.10); White Blood Count 7.27 K/ul (4.8-10.8)
[2024-09-07 07:23] LABS: BUN Creatinine Ratio 20.2 (10-20); Calcium 9.1 mg/dl (8.6-10.3); Creatinine Clr Calc Pharmacy 63.8 ml/min; Potassium 4.2 mmol/L (3.5-5.1)
[2024-09-07] MEDS: LANTUS PER UNIT CHARGE SC ONE (08:28)
[2024-09-07 09:03] LABS: Estimated Average Glucose 280 mg/dl; Hemoglobin A1C 11.4 % (4.5-5.6)
--- NOTE | 2024-09-07 12:28 | Hospitalist Progress Note ---
Date of Service September 07, 2024 Assessment & Plan (1) Osteomyelitis of third toe of right foot: (2) MSSA bacteremia: (3) Status post amputation of toe of right foot: (4) Diabetic ulcer of toe of right foot associated with diabetes mellitus due to underlying condition, with bone involvement without evidence of necrosis: (5) Endocarditis due to methicillin susceptible Staphylococcus aureus (MSSA): (6) Acute renal failure superimposed on stage 3 chronic kidney disease: (7) Bicuspid aortic valve: (8) Uncontrolled type 2 diabetes mellitus with hyperglycemia: (9) Cellulitis of foot: (10) Charcot foot due to diabetes mellitus: (11) Hypertension, uncontrolled: Plan Patient with MSSA bacteremia and endocarditis due to MSSA Charcot/osteomyelitis of the right third toe. Patient is status post amputation of the toe and has done well postoperatively. Patient tolerating IV Ancef, continue anticipated 6 weeks of treatment Surveillance blood cultures sterile 24 hours, continue to monitor if remained sterile anticipate placing PICC line tomorrow and coordinating outpatient antibiotics Continue wound care as directed by podiatry Continue to monitor glucose and adjust insulin. As evidenced by hemoglobin A1c patient's diabetes significantly uncontrolled prior to admission will need close outpatient follow-up Amlodipine just initiated for better blood pressure control, continue to monitor effects of this new medication, may need to be titrated upward further if still uncontrolled blood pressures Patient aware of need for ongoing antibiotics even after discharge Admission and Anticipated Discharge Date Admission Date: September 02, 2024 Subjective No acute issues overnight. No chest pain or shortness of breath. Physical Exam Physical Exam: Constitutional: Alert, nontoxic HEENT: Mucous membranes moist. Lungs: Clear to auscultation, decreased, no wheezes rales or rhonchi CV: S1-S2, regular, systolic murmur Abdomen: Soft, nontender, nondistended Extremities: Surgical dressing dry and intact on right foot Neuro: No focal deficits Psych: Cooperative, normal mood Results & Data Results & Data Vital Signs (Past 12 Hours) Vital Signs Temp Pulse Resp BP Pulse Ox O2 Del Method 09/07/24 07:38 37.1 C 70 14 173/91 H 96 Room Air Diagnostic Findings Reviewed imaging, laboratory and diagnostic studies. Pertinent findings as below. Creatinine 1.83, improved, baseline CBC stable Glucose was reviewed Hemoglobin A1c 11.4% Surveillance blood cultures no growth at 24 hours
[2024-09-08] MEDS: LANTUS PER UNIT CHARGE SC ONE (09:09)
--- NOTE | 2024-09-08 14:23 | Hospitalist Progress Note ---
Date of Service September 08, 2024 Assessment & Plan (1) Osteomyelitis of third toe of right foot: (2) MSSA bacteremia: (3) Status post amputation of toe of right foot: (4) Diabetic ulcer of toe of right foot associated with diabetes mellitus due to underlying condition, with bone involvement without evidence of necrosis: (5) Endocarditis due to methicillin susceptible Staphylococcus aureus (MSSA): (6) Acute renal failure superimposed on stage 3 chronic kidney disease: (7) Bicuspid aortic valve: (8) Uncontrolled type 2 diabetes mellitus with hyperglycemia: (9) Cellulitis of foot: (10) Charcot foot due to diabetes mellitus: (11) Hypertension, uncontrolled: Plan Blood cultures sterile at 48 hours, PICC consent obtained, anticipate PICC being placed today Communication with case management have home health and home IV antibiotics set up, awaiting final confirmation of PICC placement and when home IV antibiotics can be commenced Continue wound care as directed by podiatry Increase Norvasc for better blood pressure control Discussed with patient starting his home insulin pod today, he prefers just to start that when he returns home and continue with subcutaneous insulin here. Check basic labs in a.m. in anticipation of discharge tomorrow Admission and Anticipated Discharge Date Admission Date: September 02, 2024 Subjective No acute issues overnight. Patient agreeable to PICC line, consent obtained Physical Exam Physical Exam: Constitutional: Alert, nontoxic HEENT: Mucous membranes moist. Lungs: Clear to auscultation, decreased, no wheezes rales or rhonchi CV: S1-S2, regular Abdomen: Soft, nontender, nondistended Extremities: No significant edema, surgical dressing intact on foot Neuro: No focal deficits Psych: Cooperative, normal mood Results & Data Results & Data Vital Signs (Past 12 Hours) Vital Signs Temp Pulse Resp BP Pulse Ox O2 Del Method 09/08/24 07:32 36.6 C 63 16 171/103 H 96 Room Air Diagnostic Findings Glucose reviewed
--- NOTE | 2024-09-08 15:03 | Pharmacy Report ---
Pharmacy Glycemic Short Note 2 - Date of Service September 08, 2024 - Glycemic Short BSG Results (Last 24 hours): 09/07/24 09/07/24 09/08/24 16:28 20:11 07:32 POC Glucose 153 H 169 H 178 H 09/08/24 11:21 POC Glucose 257 H OUTPATIENT ANTIDIABETIC REGIMEN: * Aspart via OmniPod5 insulin Pump in AID mode * basal 5 units/hr (max 15 units/hr) * bolus CR:5, SF: 7, BSG goal range 70-180 * (Most recent data from this admission: basal 63 units, bolus 45 units--total/24 hours is 117 units) * empagliflozin 25mg PO daily * Rybelsus 15mg PO daily HbA1c ordered for 09/07/24 ASSESSMENT: 09/08 * Karl received a total of 100 units of insulin yesterday (60 units were basal and 40 units were bolus). BSGs were above goal yesterday despite tightening bolus insulin parameters. * Fasting BSG was 178mg/dL this morning. Since he is not being discharged today, Lantus 60 units SQ x 1 has been ordered for this morning and the CF has been tightened for the bolus insulin. 09/06 * Karl is a 59 year old male admitted 09/02 with an infection of his right foot--Found to be osteomyelitis s/p right third digit amputation (POD #1). Pharmacy has been consulted for glycemic management as he was instructed to remove his pump. * Using most recent data from his insulin pump (see above), Lantus 60 units x 1 was given at lunch time and a bolus insulin regimen was started using the calculation for the best estimate of total insulin daily. PLAN FOR INPATIENT GLYCEMIC CONTROL: * Hold outpatient diabetes medications * Basal insulin * Lantus 60 units SQ x 1 today..Will reassess need tomorrow morning. If patient is being discharged, he prefers not to have basal insulin here and will restart his insulin pump as soon has he gets home (no supplies here). * Bolus insulin * NovoLog per scale ACHS or Q6hrs while NPO * Goal Range: Low 110 mg/dL - High 140 mg/dL * Correction Factor: 10 mg/dL/unit * Nutritional / Prandial insulin per carb ratio of 1 unit per 5 grams CHO consumed
[2024-09-08 19:27] VITALS: RESP 16
--- NOTE | 2024-09-08 22:03 | Podiatry Progress Note ---
Date of Service September 08, 2024 Assessment & Plan (1) Osteomyelitis of third toe of right foot: (2) Diabetic ulcer of toe of right foot associated with diabetes mellitus due to underlying condition, with bone involvement without evidence of necrosis: (3) Cellulitis of left anterior lower leg: (4) Cellulitis of foot: Plan Postop day 3 status post right third digit amputation with primary closure 09/05/2024. - Wound dressing changed and redressed with dry sterile dressing. - Wound culture right third toe 09/02/2024: Staph aureus, Streptococcus Winston/oralis group. Sensitivities pending - Blood culture 09/02/2024: MSSA. Patient will receive 6 weeks IV antibiotics administered at home via PICC line. - Continue weightbearing as tolerated right foot in postop shoe. - At time of discharge patient okay to leave dressing clean dry and intact until follow-up in the dietary office. Should dressing becomes soiled, wet or displaced okay to redress with gauze and an Anselmo bandage. Patient to follow-up in podiatry office within 1 week of discharge. Following resolution of surgical wound will recommend patient be seen in the diabetic foot clinic to be fit with custom fabricated foot wear to offload bilateral Charcot deformity and reduce risk of future ulceration. Thank for consulting podiatry in the care of this patient. Admission and Anticipated Discharge Date Admission Date: September 02, 2024 Subjective Patient seen resting comfortably in hospital bed with nurse patient in room. Denies nausea vomiting fever chills. Denies pain in the right foot. Review of Systems Review of Systems: Denies nausea vomiting fever chills. Denies pain in right foot. Physical Exam Physical Exam: Const: Appears well developed and well nourished. No signs of acute distress present. CV: Extremities: No cyanosis Capillary refill time is less than 2 seconds all digits of the bilateral foot. Posterior tibial and dorsalis pedis pulses are palpable bilateral. Lymph: No palpable or visible regional lymphadenopathy. Skin: Diabetic ulcer distal right third toe (see foot exam). Erythema and edema extending to the proximal calf right lower extremity. Neuro: Loss of protective sensation bilateral foot to the level of the ankle.. Psych: Mood/Affect: Mood is normal. Affect is normal. Cognition: Orientation is intact to person, place and time. Focused lower extremity musculoskeletal exam: Leg: No pain with compression of the calf muscle. Ankles: No tenderness bilaterally. Motor strength is intact. Range of motion pain-free and unlimited. Feet: Charcot deformity bilateral with collapse of the medial arch and midfoot prominence. Postop day 3 status post right third digit amputation 09/05/2024. Wound edges well-approximated with all sutures intact. Decreased erythema and edema to the right foot. Scant serosanguineous drainage to dressing at the dorsal proximal extent of the incision. No lymphangitis or streaking. Results & Data Results & Data Vital Signs (Past 12 Hours) Vital Signs Temp Pulse Resp BP Pulse Ox O2 Del Method 09/08/24 19:26 36.4 C L 64 16 145/84 H 95 Room Air 09/08/24 15:16 36.7 C 69 18 168/101 H 97 Room Air Coding Level of Care Code 26148 SUB INP/OBS CARE 2/35MIN Diagnoses Osteomyelitis of third toe of right foot M86.9 Diabetic ulcer of toe of right foot associated with diabetes mellitus due to underlying condition, with bone involvement without evidence of necrosis E08.621; L97.516 Cellulitis of left anterior lower leg L03.116 Cellulitis of foot L03.119
[2024-09-09 06:28] LABS: Hematocrit (blood only) 43.5 % (42.0-52.0); Mean Corpuscular Hemoglobin 29.2 pg (25.0-34.0); Mean Corpuscular Hgb Conc 34.5 g/dL (32.0-36.0); Mean Corpuscular Volume 84.8 fL (80.0-100.0); Mean Platelet Volume 9.8 fL (9.4-12.4); Platelet Count 328 K/uL (130-400); RDW Standard Deviation 40.2 fL (36.4-46.3); Red Blood Count 5.13 M/uL (4.70-6.10); White Blood Count 8.61 K/ul (4.8-10.8)
[2024-09-09 07:13] LABS: BUN Creatinine Ratio 21.7 (10-20); Calcium 9.4 mg/dl (8.6-10.3); Creatinine Clr Calc Pharmacy 56.4 ml/min; Potassium 4.3 mmol/L (3.5-5.1)
[2024-09-09 07:40] VITALS: PULSE 62; O2SAT 96
[2024-09-09] MEDS: amLODIPine BESYLATE 5 MG TAB PO SCH (08:09)
--- NOTE | 2024-09-09 10:13 | Discharge Summary ---
Discharge Summary Date of Service September 09, 2024 Principal Dx & Hospital Course #1 = Principal Diagnosis (1) Osteomyelitis of third toe of right foot: (2) MSSA bacteremia: (3) Status post amputation of toe of right foot: (4) Diabetic ulcer of toe of right foot associated with diabetes mellitus due to underlying condition, with bone involvement without evidence of necrosis: (5) Endocarditis due to methicillin susceptible Staphylococcus aureus (MSSA): (6) Acute renal failure superimposed on stage 3 chronic kidney disease: (7) Bicuspid aortic valve: (8) Uncontrolled type 2 diabetes mellitus with hyperglycemia: (9) Cellulitis of foot: (10) Charcot foot due to diabetes mellitus: (11) Hypertension, uncontrolled: Plan Patient 59-year-old gentleman, known diabetic presenting with significant right foot infection. Patient was admitted the hospital. Placed on broad-spectrum antibiotics. Podiatry consultation was obtained. Follow-up imaging was consistent with osteomyelitis. Blood cultures grew methicillin sensitive Staph aureus. Infectious disease consultation was obtained for guidance and antibiotics. Recommended ongoing cefazolin with methicillin sensitive Staph aureus infection. Patient underwent podiatric surgery with amputation of the third toe. His postoperative course was uneventful. Surveillance blood cultures were sterile. Echocardiogram showed concern for possible mitral valve vegetation. With these findings it was recommended patient remain on IV antibiotics for 6 weeks despite the fact that nidus of infection had been amputated. Patient had a PICC line placed. Case management was involved and coordinate home health care for wound care as well as home IV antibiotics. During his hospitalization the patient's renal function overall remained stable. He was managed with diabetes with insulin. He is on a insulin pod at home. This will be restarted at the time of discharge. On the day of discharge patient is doing well. Understand the plan for ongoing IV antibiotics and home care. Laboratory studies have been stable. Surveillance blood cultures no growth to date. Will continue antibiotics through 10/18/2024. He will follow-up with his PCP, infectious disease, cardiology Notes For Next Care Provider Follow-up with outpatient specialists as mentioned above Continue IV antibiotics through 10/18/2024 Can remove PICC line after antibiotics completed Consider monitoring CBC BMP weekly while on antibiotics May need ongoing adjustment of his insulin dosing for optimal diabetes management and control Medication Changes From Visit IV cefazolin for endocarditis and bacteremia through 10/18/2024 Amlodipine dose increased to 10 mg Admission HPI Per Admitting Provider Patient is a 59 year old male with a past medical history of Insulin dependent DM Type II, Hypertension, Ascending Aortic Aneurysm, Bicuspid valve, Aortic valve, Dyslipidemia, Morbid obesity, CKD Stage 3, Charcot foot, s/p DVT LLE, who presents to the emergency department with complaint of right toe pain and redness with swelling to the right toe and calf. He has a history of diabetic foot wound to left foot ulcer with sepsis in 2019. He felt his symptoms today of chills were similar to when he had sepsis, which prompted him to seek care. In the emergency department, he was found to the third toe to right foot with erythema, warmth, swelling and pus drainage to the wound. Cultures sent. He had a elevated WBC at 13.25 without signs of sepsis; Procalcitonin 0.22, Lactate 1.6. He was hemodynamically stable with a oxygen sat at 93% on room air and stable blood pressure 140's/90's. Zosyn and Daptomycin were initiated. He endorsed severe leg right pain and chills but denied chest pain, dizziness, difficulty breathing, cold symptoms, profound weakness, N/V/D, abdominal pain, rashes, urinary symptoms, joint pain. He had no injury to the right foot and reports daily foot exams at home. He has diabetic neuropathy and Charcot disease from his diabetes. Foot Xray was done in the ED showing progressive degenerative changes at the midfoot with interval widening of the interspace between the first and second metatarsal bases and lateral subluxation of the second through fifth metatarsals. Findings most consistent with Charcot joint. No acute fracture seen. No evidence of osteomyelitis. No radiopaque foreign body. There is a large plantar calcaneal spur. Patient has a history of congenital bicuspid aortic valve with ascending aortic aneurysm and follows [facility], with last appointment 08/23/24. Per Cardiology note from that visit, the patient's congenital bicuspid aortic valve is monitored via CTA last showin.6 cm ascending aorta measuring (unchanged); echo from January 2024 showing 4.0 cm aortic root and 4.9 cm ascending aorta (unchanged compared to July 2022). Blood pressure with tight control for CV risk reduction and management of thoracic aortic aneurysm. He follows [facility] diabetes clinic. Most recent A1C is 10.1 on 08/23/24. He wears an Omnipod insulin pump with the following settings: Omnipod Insulin Pump: Novolog Basal Rate: 1.8 units/hour; Bolus: 15 carbs with breakfast, 45 carbs with lunch and dinner. Additionally, his takes Rybelsus and Jardiance for diabetes management. History obtained primarily from the patient, external chart review, and the patient's who was at bedside during the exam. Admission Exam Per Admitting Provider See H&P Discharge Exam Constitutional: Alert, nontoxic HEENT: Mucous membranes moist. Lungs: Clear to auscultation, decreased, no wheezes rales or rhonchi CV: S1-S2, regular, systolic murmur, chronic Abdomen: Soft, nontender, nondistended Extremities: No significant edema, surgical dressing dry and intact right foot, PICC line right upper extremity Neuro: No focal deficits Psych: Cooperative, normal mood Updated Medication List Medication Instructions Recorded Confirmed Type aspirin 81 mg tablet,delayed 81 mg PO DAILY 05/10/18 09/02/24 History release epinephrine 0.3 mg/0.3 mL 0.3 mg IM DIRECTED PRN Allergic 05/10/18 09/02/24 History injection, auto-injector (EpiPen) Reaction insulin aspart U-100 100 unit/mL 1 dose subcut UD 05/10/18 09/02/24 History subcutaneous solution multivitamin-ferrous 1 tab PO DAILY 05/10/18 09/02/24 History fumarate-folic acid 18 mg-400 mcg tablet (Centrum) omega-3 fatty acids-fish oil 300 2 cap PO DAILY 05/10/18 09/02/24 History mg-1,000 mg capsule (Fish Oil) atorvastatin 40 mg tablet (Lipitor) 40 mg PO DAILY #30 tabs 01/03/19 09/02/24 Rx carvedilol 6.25 mg tablet 50 mg PO BID #180 tabs 01/03/19 09/02/24 History amlodipine 5 mg tablet 5 mg PO DAILY 09/02/24 09/02/24 History empagliflozin 25 mg tablet 25 mg PO DAILY 09/02/24 09/02/24 History (Jardiance) hydrochlorothiazide 25 mg tablet 25 mg PO DAILY 09/02/24 09/02/24 History losartan 100 mg tablet 100 mg PO DAILY 05/09/25 05/09/25 History semaglutide 14 mg tablet (Rybelsus) 14 mg PO DAILY 09/02/24 09/02/24 History amlodipine 10 mg tablet 10 mg PO DAILY #30 tabs 09/08/24 Rx carvedilol 25 mg tablet (Coreg) 50 mg (2 x 25 mg) PO BID 30 days 09/08/24 Rx #120 tabs oxycodone 5 mg tablet 5 mg PO Q6H PRN pain #10 tabs 09/08/24 Rx Hospital Stay Data Consultations 09/02/24 12:45 Consult Podiatry Routine 09/05/24 08:00 Consult Infectious Diseases Routine Procedures Performed Operation Date: 09/05/24 07:00 Actual Procedures p Right Third Toe Amputation(Right) - Jet Hayward DPM Diagnostic Imagining Performed Reviewed imaging, laboratory and diagnostic studies. Pertinent findings as below. WBCs 8.6 Hemoglobin 15.0 Platelets of 328 Electrolytes within normal range BUN 45 Creatinine 2.07 Glucose 163 Surveillance blood cultures no growth after 48 hours Surgical pathology right third toe consistent with osteomyelitis and Charcot Hemoglobin A1c 11.4% Pending Results Patient Have Any Pending Studies at Discharge: No Discharge Instructions Given to Patient (Per Discharging Provider) Continue with wound care as directed by podiatry Continue to monitor glucose and follow-up with PCP as scheduled for diabetes management Complete 6 weeks of IV antibiotics Follow-up with cardiology, will need repeat echocardiogram May remove PICC line after antibiotics complete Home Health Attestation I certify that this patient is under my care and that I, or a physicians administrative assistant coordinator working with me, had a face to-face encounter that meets the home health [id number] encounter requirements with this patient. The encounter with the patient was in whole, or in part, for the following medical condition, which is the primary reason for home health care (list medical condition): IV antibiotics/PICC care/wound care I certify that, based on my findings, the following services are medically necessary home health services: My clinical findings support the need for the above services because: Skilled Nsg Assessment Surgical Incision / Wound Skilled Nsg Instruction New Medications Skilled Nsg Assess Pt Illness, Disease and Sx Monitoring Skilled Nsg to Assess, Perform and Teach Wound Care Further, I certify that my clinical findings support that this patient is homebound (i.e. absences from home require considerable and taxing effort and are for medical reasons or [employer] services or infrequently or of short duration when for other reasons) because: Certification for Home Health Services: Based on the above findings, I certify that this patient is confined to the home and needs intermittent snf care, physical therapy and/or speech therapy or continues to need occupational therapy. The patient is under my care, and I have initiated the establishment of the plan of care. This patient will be followed by a physician who will periodically review the plan of care. Total Time Total Time Spent Total Time Spent (In Minutes): 39
[2024-09-09 11:34] VITALS: BP 148/86; TEMP 98.2
== END 2024-09-09 15:07 | disposition home health service (06) | DRG 616 ==
LOC: ED 09:08 → 3E 12:39 → SUATTDRO 12:39 → 3E 14:32

== ENCOUNTER 2025-03-07 07:47 | Inpatient (IN) ==
[2025-03-07 08:30] LABS: Hematocrit (blood only) 43.7 % (42.0-52.0); Hemoglobin 15.3 g/dl (14.0-18.0); Immature Granulocytes # (auto) 0.10 K/uL (0.01-0.20); Immature Granulocytes % (auto) 0.6 %; Mean Corpuscular Hemoglobin 28.6 pg (25.0-34.0); Mean Corpuscular Volume 81.7 fL (80.0-100.0); Platelet Count 262 K/uL (130-400); RDW Standard Deviation 36.8 fL (36.4-46.3); Red Blood Count 5.35 M/uL (4.70-6.10); White Blood Count 16.95 K/ul (4.8-10.8)
[2025-03-07] MEDS: ACETAMINOPHEN 1,000 MG/100 ML VIAL IV STA (08:32)
[2025-03-07] MEDS: SODIUM CHLORIDE 0.9% 1,000 ML IV ONE (08:37)
[2025-03-07 08:50] LABS: Alanine Aminotransferase 29.0 U/L (7-52); Albumin Globulin Ratio 0.8 (0.9-2); Albumin Level 3.4 gm/dl (3.4-5.0); Alkaline Phosphatase 67.0 U/L (34-104); Anion Gap 9.0 (3-11); Bilirubin,Total 0.8 mg/dl (0.2-1.0); Blood Urea Nitrogen 47.0 mg/dl (6-23); Calcium 9.1 mg/dl (8.6-10.3); Carbon Dioxide 23.0 mmol/L (21-32); Chloride 102.0 mmol/L (98-107); Creatinine Clr Calc Pharmacy 50.4 ml/min; Globulin 4.2 gm/dl (2.5-4.0); Glucose 246.0 mg/dl (70-99(Fasting)); Potassium 3.7 mmol/L (3.5-5.1); Sodium 134.0 mmol/L (136-145); Total Protein 7.6 gm/dl (6.0-8.3)
[2025-03-07] MEDS ORDERED: VANCOMYCIN CONSULT ACTIVE PRN (09:18)
[2025-03-07] MEDS: cefTRIAXone SODIUM 2,000 MG/50 ML BAG IV STA (09:53)
[2025-03-07] MEDS: VANCOMYCIN HCL 2,500 MG in SODIUM CHLORIDE 0.9% 500 ML IV ONE (09:58)
--- NOTE | 2025-03-07 10:03 | CT Scan Report ---
RIGHT FOOT CT WITHOUT CONTRAST CLINICAL HISTORY: Infected wound. COMPARISON STUDY: Right foot radiographs December 08, 2024. TECHNIQUE: Axial images of the right foot were obtained without IV contrast. Sagittal and coronal ref ormats were viewed. A dose lowering technique was utilized adhering to the principles of ALARA. FINDINGS: Note is again made of extensive midfoot sclerosis and osteophytosis with fusion of multiple bones. Widening between the first and second metatarsals is unchanged. No acute fractures are identi fied. The appearance is similar to radiographs of December 08, 2024 and suggests neuropathic arthropath y. There are no osseous lesions. Note is made of a plantar mid foot wound which overlies the distal c uboid. There is associated moderate subcutaneous stranding and edema which extends to the distal cubo id. However, no bony erosion is identified to suggest acute osteomyelitis by CT. No soft tissue gas i s present. No fluid collection is identified on unenhanced exam to suggest an abscess. Third digit am putation is again noted. There is extensive plantar and mild posterior calcaneal spurring. Subtalar a nd tibiotalar joints are intact with moderate degenerative changes. There is extensive vascular calci fication. IMPRESSION: 1. Plantar mid foot wound with associated subcutaneous edema suggestive of cellulitis which extends t o the distal cuboid. However, no bony erosion to indicate acute osteomyelitis by CT. No well-defined fluid collection on unenhanced exam to suggest abscess. 2. 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 3. Expected findings following third digit amputation. ACT 112: Negative or not required by law. Electronically signed by: Rojas Taylor M.D. 03/07/2025 10:02 AM
--- NOTE | 2025-03-07 10:22 | Emergency Department Note ---
Impression & Plan Cellulitis of right foot, Diabetic ulcer of right foot, CKD (chronic kidney disease) ED Provider Note CHIEF COMPLAINT: Right foot wound, fevers and chills HISTORY OF PRESENTING ILLNESS: The patient is a 59-year-old male who presents to the emergency department today for complaints of right foot wound with development of fevers and chills over the past 24 to 48 hours. He reports following wound clinic frequently for the wound. He has been on multiple antibiotics recently including Keflex and doxycycline. His last dose was about 2 weeks ago of the Keflex. Has a history of diabetic neuropathy with no sensation to the right foot. He denies any dizziness, lightheadedness, syncope. Temperature was not checked at home. Patient denies chest pain, sob, breathing difficulties, abdominal pain, headache. REVIEW OF SYSTEMS: See HPI for pertinent positives and pertinent negatives. ALLERGIES: See below MEDICATIONS: See below PAST MEDICAL HISTORY: See below PHYSICAL EXAM: VITALS: Vitals are noted on the nurse's note and reviewed by myself. GENERAL: Non toxic, in no acute distress, non-diaphoretic. SKIN: There is a small 0.5 cm sized wound to the mid plantar aspect of the right foot. No obvious drainage or bleeding noted. Surrounding area is mildly erythematous and hard to palpation. Capillary refill <2 sec. EYES: PERRLA. EOMI. Conjunctivae without injection, sclerae without icterus. NOSE: Patent without discharge. MOUTH: Mucous membranes moist. Uvula midline. Airway patent. NECK: Supple without nuchal rigidity. HEART: Regular rate and rhythm without murmurs gallops or rubs. LUNGS: Clear to auscultation bilaterally without wheezes, rales or rhonchi. No retractions or accessory muscle use. ABDOMEN: Positive bowel sounds x 4. Normal tympanic percussion. Soft, nontender to palpation. No masses or hepatosplenomegaly. Fuchs sign negative. No CVA tenderness. No guarding, rigidity, or rebound tenderness. No focal RLQ or LLQ tenderness. MUSCULOSKELETAL: Strength 4/5. No gross musculoskeletal defects. NEURO: Patient reports a baseline of no sensation to that foot. Right pedal pulse +2/4. Patient was alert and oriented. No focal neurological deficits. DIFFERENTIAL DIAGNOSIS: Osteomyelitis, cellulitis, infection, fracture, plantar fasciitis, injury, among others. ED COURSE AND MEDICAL DECISION MAKING: HISTORY FROM INDEPENDENT HISTORIAN: History was provided by the patient and his who is at bedside and secondary historian. MONITOR: Continuous obiee architect: Order was placed for continuous obiee architect. Patient was placed on the obiee architect and continuous pulse ox. Patient was noted to be in normal sinus rhythm at an initial rate of 65 bpm per my interpretation. INTERPRETATION OF LABS: I interpreted the labs with full lab results as below in the lab section of this note. Laboratory results pertinent to the emergent complaint are discussed in the MDM section below. The patient was advised to follow up with their PCP and/or specialist(s) for further outpatient monitoring and management of any abnormal results. INTERPRETATION OF IMAGING: Imaging studies were interpreted by myself and read by radiology as per the imaging section of this note. The patient was advised to follow up with their PCP and/or specialist(s) for further outpatient management of any non-emergent abnormal findings. CHRONIC MEDICAL/SOCIAL CONDITIONS AFFECTING CARE: No social concerns were identified as barriers to patients care. EXTERNAL RECORDS REVIEWED: Patient's multiple visits over the past several months. As well as the patient's previous hospitalization from August 2024. ESCALATION OF CARE CONSIDERED: I considered admission on this patient due to the elevated white blood cell count and cellulitis around the patient's wound. CONSULTATIONS: I had a meaningful discussion about this patient with Dr. Davise who agrees with my assessment and the treatment plan. I also consulted with Lior with the hospitalist who accepts the patient for admission under Dr. Giang. SUMMARY: I examined the patient for complaints of fevers and chills with a right foot wound. A physical exam and history were performed. Nursing notes, EMR, and medication list were personally reviewed. CBC showed a leukocytosis with white blood cell count of 16.95. No anemia or thrombocytopenia. BioFire was negative. CMP showed no emergent findings however an elevated creatinine at 2.25. Patient does have a known history of renal failure but this is slightly elevated above the patient's baseline. CT of the right foot was ordered with contrast however was switched to without contrast due to the renal function. CT without contrast of the right foot showed a mid plantar foot wound with cellulitis. No signs of osteomyelitis. Procalcitonin was 2.69. Lactate was 0.9. Patient was given his loading dose of vancomycin as well as 2 g of Rocephin. He was also given 1 L normal saline. Patient also had a gram of Tylenol IV with improvement in pain and discomfort. I did consult with lior with the hospitalist Dr. Giang for admission and the patient was accepted. The patient is to have close outpatient follow-up with a recheck of their symptoms. To return to the ER sooner for any significantly changing or worsening symptoms. The patient was educated on the treatment plan and the discharge instructions. The patient was discharged home in stable condition and verbalized understanding of all discharge instructions and treatment plan. DIAGNOSIS: Plantar midfoot wound, cellulitis of the right foot, CKD TREATMENT PLAN/DISCHARGE INSTRUCTIONS: Admit to hospitalist services. The chart was completed utilizing [employer] voice recognition software.Grammatical errors, random word insertions, pronoun errors, and incomplete sentences are an occasional consequence of this system due to software limitations, ambient noise, and hardware issues.Any formal questions or concerns about the content, text, or information contained within the body of this dictation should be directly addressed to the physician for clarification. Past Med/Surg History Problem List (Updated 03/07/25 @ 14:55 by JAQUELIN Lawrence) CKD (chronic kidney disease) (Acute) Cellulitis of right foot (Acute) Diabetic ulcer of right foot (Acute) Loss of protective sensation of skin of deformed foot Charcot joint of left foot Charcot's joint of right foot (Chronic) Hypertension, uncontrolled Status post amputation of toe of right foot Uncontrolled type 2 diabetes mellitus with hyperglycemia (Chronic) Acute renal failure superimposed on stage 3 chronic kidney disease Endocarditis due to methicillin susceptible Staphylococcus aureus (MSSA) MSSA bacteremia Diabetic ulcer of toe of right foot associated with diabetes mellitus due to underlying condition, with bone involvement without evidence of necrosis Osteomyelitis of third toe of right foot Cellulitis of left anterior lower leg Cellulitis of foot LIZ (acute kidney injury) DVT prophylaxis Diabetic foot infection (Acute) Severe sepsis S/P left knee arthroscopy (Chronic) S/P tonsillectomy and adenoidectomy (Chronic) Charcot foot due to diabetes mellitus (Chronic) Dyslipidemia (Chronic) Hypertension (Chronic) Diabetic foot ulcer (Chronic) Diabetic neuropathy (Chronic) Medical History (Updated 03/07/25 @ 14:55 by JAQUELIN Lawrence) Bicuspid aortic valve Obesity (BMI 30-39.9) Sepsis Asthma Type 2 diabetes mellitus Family History Other Adopted Family history unknown Social History Smoking Status: Never smoker Second Hand Exposure: Yes (On occasion); Do You Dip or Chew Tobacco: No; Hx Alcohol Use: No Hx Substance Use: No Preferred Language: Singaporean Communication Ability: Effective Visual Impairment: No Limitations Chief Security And Safety Officer Required: No Beliefs That Will Affect Care: None marital status: Current Living Situation: Spouse How many Children do You have: 2 Feels Safe at Home: Yes Safety Concerns: Feels Safe At This Time Assistive Devices: None Allergies Allergies Allergy/AdvReac Type Severity Reaction Status Date / Time insect venom Allergy Severe Hives Verified 03/02/25 08:43 No Known Drug Allergies Allergy Hives Verified 03/02/25 08:43 Home Meds Home Medications Medication Instructions Recorded Confirmed aspirin 81 mg tablet,delayed 81 mg PO DAILY 05/10/18 03/07/25 release epinephrine 0.3 mg/0.3 mL 0.3 mg IM DIRECTED PRN Allergic 05/10/18 03/07/25 injection, auto-injector (EpiPen) Reaction insulin aspart U-100 100 unit/mL 1 dose subcut UD 05/10/18 03/07/25 subcutaneous solution multivitamin-ferrous 1 tab PO DAILY 05/10/18 03/07/25 fumarate-folic acid 18 mg-400 mcg tablet (Centrum) omega-3 fatty acids-fish oil 300 2 cap PO DAILY 05/10/18 03/07/25 mg-1,000 mg capsule (Fish Oil) empagliflozin 25 mg tablet 25 mg PO DAILY 09/02/24 03/07/25 (Jardiance) hydrochlorothiazide 25 mg tablet 25 mg PO DAILY 09/02/24 03/07/25 losartan 100 mg tablet 100 mg PO DAILY 09/02/24 03/07/25 semaglutide 14 mg tablet (Rybelsus) 14 mg PO DAILY 09/02/24 03/07/25 amlodipine 10 mg tablet 5 mg PO DAILY 12/08/24 03/07/25 carvedilol 25 mg tablet 25 mg PO BID 03/07/25 03/07/25 Previous Rx's Medication Instructions Recorded atorvastatin 40 mg tablet (Lipitor) 40 mg PO DAILY #30 tabs 01/03/19 Results & Data (ED) Vital Signs Vital Signs - 24 hr 03/07/25 07:47 03/07/25 07:49 03/07/25 08:12 Temperature 36.4 C L Temperature Source Oral Pulse Rate 79 76 Pulse Rate [Right Finger] 77 Pulse Rate from SpO2 Sensor 76 Respiratory Rate 22 18 21 Respiratory Effort / Characteristics Non-Labored Spontaneous Respiratory Depth Normal Respiratory Pattern Regular Blood Pressure 95/62 L Blood Pressure [Right Arm] 122/72 Blood Pressure Mean 73 Blood Pressure Mean [Right Arm] 88 Pulse Oximetry 98 98 97 Oxygen Delivery Method Room Air Room Air Sepsis New/Unexplained Change in Mental Status No Sepsis Action Taken by Nursing No Action Required 03/07/25 08:21 03/07/25 08:30 03/07/25 08:39 Temperature Temperature Source Pulse Rate 72 69 Pulse Rate [Right Finger] Pulse Rate from SpO2 Sensor 72 73 70 Respiratory Rate 15 19 18 Respiratory Effort / Characteristics Respiratory Depth Respiratory Pattern Blood Pressure Blood Pressure [Right Arm] Blood Pressure Mean Blood Pressure Mean [Right Arm] Pulse Oximetry 93 97 96 Oxygen Delivery Method Sepsis New/Unexplained Change in Mental Status Sepsis Action Taken by Nursing 03/07/25 08:40 03/07/25 08:40 03/07/25 08:40 Temperature Temperature Source Pulse Rate Pulse Rate [Right Finger] Pulse Rate from SpO2 Sensor Respiratory Rate Respiratory Effort / Characteristics Respiratory Depth Respiratory Pattern Blood Pressure 102/65 102/65 102/65 Blood Pressure [Right Arm] Blood Pressure Mean 75 75 75 Blood Pressure Mean [Right Arm] Pulse Oximetry Oxygen Delivery Method Sepsis New/Unexplained Change in Mental Status Sepsis Action Taken by Nursing 03/07/25 08:40 03/07/25 08:40 03/07/25 08:42 Temperature Temperature Source Pulse Rate 70 Pulse Rate [Right Finger] Pulse Rate from SpO2 Sensor 70 Respiratory Rate 26 H Respiratory Effort / Characteristics Respiratory Depth Respiratory Pattern Blood Pressure 102/65 102/65 Blood Pressure [Right Arm] Blood Pressure Mean 75 75 Blood Pressure Mean [Right Arm] Pulse Oximetry 95 Oxygen Delivery Method Sepsis New/Unexplained Change in Mental Status Sepsis Action Taken by Nursing 03/07/25 08:51 03/07/25 09:00 03/07/25 09:12 Temperature Temperature Source Pulse Rate 69 67 65 Pulse Rate [Right Finger] Pulse Rate from SpO2 Sensor 69 67 65 Respiratory Rate 15 18 14 Respiratory Effort / Characteristics Respiratory Depth Respiratory Pattern Blood Pressure Blood Pressure [Right Arm] Blood Pressure Mean Blood Pressure Mean [Right Arm] Pulse Oximetry 96 95 94 Oxygen Delivery Method Sepsis New/Unexplained Change in Mental Status Sepsis Action Taken by Nursing 03/07/25 09:21 03/07/25 09:30 03/07/25 09:34 Temperature Temperature Source Pulse Rate 66 68 65 Pulse Rate [Right Finger] Pulse Rate from SpO2 Sensor 66 69 Respiratory Rate 16 19 Respiratory Effort / Characteristics Respiratory Depth Respiratory Pattern Blood Pressure Blood Pressure [Right Arm] Blood Pressure Mean Blood Pressure Mean [Right Arm] Pulse Oximetry 94 96 Oxygen Delivery Method Sepsis New/Unexplained Change in Mental Status Sepsis Action Taken by Nursing 03/07/25 09:45 03/07/25 09:51 03/07/25 10:00 Temperature Temperature Source Pulse Rate 66 65 65 Pulse Rate [Right Finger] Pulse Rate from SpO2 Sensor 67 65 66 Respiratory Rate 17 13 13 Respiratory Effort / Characteristics Respiratory Depth Respiratory Pattern Blood Pressure Blood Pressure [Right Arm] Blood Pressure Mean Blood Pressure Mean [Right Arm] Pulse Oximetry 96 96 94 Oxygen Delivery Method Sepsis New/Unexplained Change in Mental Status Sepsis Action Taken by Nursing 03/07/25 10:12 03/07/25 10:21 Temperature Temperature Source Pulse Rate 65 67 Pulse Rate [Right Finger] Pulse Rate from SpO2 Sensor 65 67 Respiratory Rate 15 20 Respiratory Effort / Characteristics Respiratory Depth Respiratory Pattern Blood Pressure Blood Pressure [Right Arm] Blood Pressure Mean Blood Pressure Mean [Right Arm] Pulse Oximetry 94 97 Oxygen Delivery Method Sepsis New/Unexplained Change in Mental Status Sepsis Action Taken by Nursing Laboratory Data 03/07/25 08:10 03/07/25 08:10 Lab Results 03/07/25 03/07/25 03/07/25 Range/Units 08:10 08:30 09:30 WBC 16.95 H (4.8-10.8) K/ul RBC 5.35 (4.70-6.10) M/uL Hgb 15.3 (14.0-18.0) g/dl Hct 43.7 (42.0-52.0) % MCV 81.7 (80.0-100.0) fL MCH 28.6 (25.0-34.0) pg MCHC 35.0 (32.0-36.0) g/dL RDW Std Deviation 36.8 (36.4-46.3) fL RDW Coeff of Galina 12.5 (11.5-14.5) % Plt Count 262 (130-400) K/uL MPV 9.8 (9.4-12.4) fL Immature Gran % (Auto) 0.6 % Neut % (Auto) 79.8 % Lymph % (Auto) 11.6 % Pettis % (Auto) 6.8 % Eos % (Auto) 0.8 % Baso % (Auto) 0.4 % Neut # (Auto) 13.55 H (1.40-6.50) K/uL Lymph # (Auto) 1.96 (1.20-3.40) K/uL Pettis # (Auto) 1.15 H (0.11-0.59) K/uL Eos # (Auto) 0.13 (0.00-0.50) K/uL Baso # (Auto) 0.06 (0.00-0.20) K/uL Immature Gran # (Auto) 0.10 (0.01-0.20) K/uL Sodium 134 L (136-145) mmol/L Potassium 3.7 (3.5-5.1) mmol/L Chloride 102 (98-107) mmol/L Carbon Dioxide 23 (21-32) mmol/L Anion Gap 9 (3-11) BUN 47 H (6-23) mg/dl Creatinine 2.25 H (0.6-1.4) mg/dl Est Cr Clr Drug Dosing 50.4 ml/min eGFR 33.17 BUN/Creatinine Ratio 20.9 H (10-20) Glucose 246 H (70-99(Fasting)) mg/dl Lactate 0.9 (0.4-2.0) mmol/L Calcium 9.1 (8.6-10.3) mg/dl Total Bilirubin 0.8 (0.2-1.0) mg/dl AST 23 (13-39) U/L ALT 29 (7-52) U/L Alkaline Phosphatase 67 (34-104) U/L Total Protein 7.6 (6.0-8.3) gm/dl Albumin 3.4 (3.4-5.0) gm/dl Globulin 4.2 H (2.5-4.0) gm/dl Albumin/Globulin Ratio 0.8 L (0.9-2) Procalcitonin 2.69 H (0-0.5) ng/ml Adenovirus (PCR) Not Detected (NotDetected) B. pertussis DNA (PCR) Not Detected (NotDetected) B.parapertussis DNA PCR Not Detected (NotDetected) C. pneumoniae DNA (PCR) Not Detected (NotDetected) Coronavirus OC43 (PCR) Not Detected (NotDetected) Coronavirus HKU1 (PCR) Not Detected (NotDetected) Coronavirus 229E (PCR) Not Detected (NotDetected) SARS-CoV-2 (PCR) Not Detected (NotDetected) Coronavirus NL63 (PCR) Not Detected (NotDetected) Human Metapneumovir PCR Not Detected (NotDetected) Influenza Type A (PCR) Not Detected (NotDetected) Influenza Type B (PCR) Not Detected (NotDetected) M. pneumoniae (PCR) Not Detected (NotDetected) Parainfluenza 1 (PCR) Not Detected (NotDetected) Parainfluenza 2 (PCR) Not Detected (NotDetected) Parainfluenza 3 (PCR) Not Detected (NotDetected) Parainfluenza 4 (PCR) Not Detected (NotDetected) RSV (PCR) Not Detected (NotDetected) Entero/Rhino (PCR) Not Detected (NotDetected) Administered Medications Insulin Aspart (Insulin Aspart Per Unit Charge) 0 units SC ACHS ELIGIO Stop: 04/06/25 12:29 Last Admin: 03/07/25 13:55 Dose: 10 units Documented By: HAROON Co-signed By: DRU Discontinued Medications Acetaminophen (Ofirmev) 1,000 mg in 100 mls @ 400 mls/hr IV NOW STA Stop: 03/07/25 08:19 Last Infusion: 03/07/25 13:21 Dose: Infused Documented By: Admin: 03/07/25 08:32 Dose: 400 mls/hr Documented By: jordan Sodium Chloride (Nss) 1,000 mls @ 999 mls/hr IV .Q1H1M ONE Stop: 03/07/25 09:05 Last Infusion: 03/07/25 12:34 Dose: Infused Documented By: Admin: 03/07/25 08:37 Dose: 999 mls/hr Documented By: jordan Ceftriaxone Sodium (Rocephin) 2,000 mg in 50 mls @ 100 mls/hr IV NOW STA Stop: 03/07/25 09:47 Last Infusion: 03/07/25 12:35 Dose: Infused Documented By: Admin: 03/07/25 09:53 Dose: 100 mls/hr Documented By: jordan Vancomycin HCl 2,500 mg/ (Sodium Chloride) 550 mls @ 200 mls/hr IV NOW ONE Stop: 03/07/25 12:02 Last Infusion: 03/07/25 13:22 Dose: Infused Documented By: Admin: 03/07/25 09:58 Dose: 200 mls/hr Documented By: [email or web address] Imaging Data Radiologist's Impression: Foot CT 03/07/25 09:[address] WITHOUT CONTRAST CLINICAL HISTORY: Infected wound. COMPARISON STUDY: Right foot radiographs December 08, 2024. TECHNIQUE: Axial images of the right foot were obtained without IV contrast. Sagittal and coronal reformats were viewed. A dose lowering technique was utilized adhering to the principles of ALARA. FINDINGS: Note is again made of extensive midfoot sclerosis and osteophytosis with fusion of multiple bones. Widening between the first and second metatarsals is unchanged. No acute fractures are identified. The appearance is similar to radiographs of December 08, 2024 and suggests neuropathic arthropathy. There are no osseous lesions. Note is made of a plantar mid foot wound which overlies the distal cuboid. There is associated moderate subcutaneous stranding and edema which extends to the distal cuboid. However, no bony erosion is identified to suggest acute osteomyelitis by CT. No soft tissue gas is present. No fluid collection is identified on unenhanced exam to suggest an abscess. Third digit amputation is again noted. There is extensive plantar and mild posterior calcaneal spurring. Subtalar and tibiotalar joints are intact with moderate degenerative changes. There is extensive vascular calcification. IMPRESSION: 1. Plantar mid foot wound with associated subcutaneous edema suggestive of cellulitis which extends to the distal cuboid. However, no bony erosion to indicate acute osteomyelitis by CT. No well-defined fluid collection on unenhanced exam to suggest abscess. 2. 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 3. Expected findings following third digit amputation. ACT 112: Negative or not required by law. Electronically signed by: Rojas Taylor M.D. 03/07/2025 10:02 AM Discharge Plan Visit Data Chief Complaint: Fever Stated Complaint: FEVER, CHILLS ED Provider: Jorge Davies ED Midlevel Provider: Sharonda Cee Discharge Problem: Cellulitis of right foot, Diabetic ulcer of right foot, CKD (chronic kidney disease) Patient Disposition: Admitted As Inpatient Condition: Good Discharge Instructions Interventions: ED Discharge Assessment Last Done: 03/07/25 11:00 Discharge Problem: Diabetic ulcer of right foot Qualifiers: Diabetic foot ulcer location: midfoot Diabetes mellitus type: type 2 Non- pressure ulcer stage: unspecified non-pressure ulcer stage Qualified Code(s): E 11.621 - Type 2 diabetes mellitus with foot ulcer; L97.419 - Non-pressure chronic ulcer of right heel and midfoot with unspecified severity CKD (chronic kidney disease) Qualifiers: Chronic kidney disease stage: unspecified stage Qualified Code(s): N18.9 - Chronic kidney disease, unspecified
--- NOTE | 2025-03-07 10:28 | History & Physical Report ---
Date of Service March 07, 2025 Assessment & Plan (1) Cellulitis of right foot: (2) Charcot's joint of right foot: (3) Diabetic ulcer of right foot: (4) Hypertension: (5) Dyslipidemia: Plan Patient will be admitted for further evaluation and management of his right foot cellulitis with continued IV antibiotics including Cefepime and daptomycin given his LIZ 2 provide Pseudomonas and MRSA coverage, podiatry consult, infectious disease consult given persistent history of endocarditis, repeat echocardiogram, repeat, WOCN, repeat BMP to monitor creatinine. Will involve podiatry and WOCN and trend BMP to assess for any worsening LIZ; avoid nephrotoxic agents if possible. # Cellulitis of R foot: ISO Charcot foot Leukocytosis 16.95, elevated Pro-Tor 2.69 No elevated lactate R foot CT shows cellulitis without osteomyelitis or abscess History of toe amputation in the setting of sepsis August 2024 Here in the ED started on IV Rocephin plus IV vancomycin; will transition to cefepime plus Dapto for Staph Aureus coverage plus MRSA Follows with Dr. Hayward podiatry outpatient; consult placed WOCN placed Given history of Staph Aureus, will consult ID PRN Tylenol for pain #H/O Endocarditis: Secondary to osteomyelitis of right foot August 2024 Given history will repeat echo to r/o vegetations Most recent echo 11/16/2024 EF 59% with normal motion, no pericardial effusion. G1DDx. #CKD: serum creatinine 2.25; baseline 1.8 Received 1LNSB in ED; reports adequate PO intake Trend BMP If worsening, consider renal US Avoid nephrotoxic agents as able #IDDM2: Has a Dexcom and Omnipod; will discontinue while here ACHS SSI while here A1C: 10.6 12/2024 Glycemic pharmacy #HTN: Takes Losartan, HCTZ, amlodipine; continue #HLD: Chronic Takes atorvastatin; continue Disposition: PCP: Dr. Fountain CodeStatus: Full VTE Prophylaxis: Lovenox SQ I spent a total of 81 minutes coordinating, documenting, and providing care for this patient excluding time spent inthe performance of separately billed services or time spent by another provider/QHP. History of Present Illness Chief Complaint: Right foot cellulitis/fever/chills Primary Care Provider: JAQUELIN Oliveira Mr. Wilkerson is a 59-year-old male who presented to the emergency room today with complaints of fever and chills that started over the last 2 days. He has chronically been experiencing cellulitis in his right foot Had a septic back in August 2024 resulting in a third digit amputation of his right foot along with developing vegetations and chronic endocarditis.Patient does have a longstanding history of Charcot foot. Most recently as an outpatient was on doxycycline and not tolerating it so he was switched to Keflex ? oral but reportedly has not been taking any antibiotics for the last few weeks. His last wound culture from 02/08/25 was (+) for Staph Aureus. In the ED leukocytosis 16.95, lactate normal elevated procalcitonin 2.69, LIZ creatinine 2.25; Baseline 1.8 from 11/2024. Most recent echo 11/16/2024 EF 59% with normal motion, no pericardial effusion. G1DDx. Right foot CT in the ED without contrast indicated Plantar mid foot wound with associated subcutaneous edema suggestive of cellulitis which extends to the distal cuboid. However, no bony erosion to indicate acute osteomyelitis by CT. No well-defined fluid collection on unenhanced exam to suggest abscess. Additional past medical history includes insulin-dependent diabetes type 2, HTN, HLD and 3rd toe amputation. His last A1C was: 10.6 in 12/2024. Dexcon-DM has developed fluid she said he prefers to have inpatient diabetes management disconnect his OmniPod and Dexcom. 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 In the ED he was given 1 L IVF started on IV Rocephin and vancomycin for Pseudomonas coverage and IV Tylenol for pain control. He is hemodynamically stable and afebrile since he has been here. PA reportedly states that his p.o. intake has been adequate. Patient denies MADERA, dizziness, SOB, chest pain or palpitations, N/V/D, abdominal pain or tenderness, visual or auditory changes, increased pain in hid foot, recent falls or trauma. He denies tobacco, alcohol or recreational drug use. On examination, He is an obese gentleman in no apparent distress. Denies pain. ANO x 4. Lungs CTA, S1-S2, dorsal quarter sized wound without malodor or s ignificant drainage. Patient will be admitted for further evaluation and management of his right foot cellulitis with continued IV antibiotics including Cefepime and daptomycin given his LIZ 2 provide Pseudomonas and MRSA coverage, podiatry consult, infectious disease consult given persistent history of endocarditis, repeat echocardiogram, repeat, WOCN, repeat BMP to monitor creatinine. Will involve podiatry and WOCN and trend BMP to assess for any worsening LIZ; avoid nephrotoxic agents if possible. Please see A/P for further details. Allergies Allergy/AdvReac Type Severity Reaction Status Date / Time insect venom Allergy Severe Hives Verified 03/02/25 08:43 No Known Drug Allergies Allergy Hives Verified 03/02/25 08:43 Home Medications Medication Instructions Recorded Confirmed Type aspirin 81 mg tablet,delayed 81 mg PO DAILY 05/10/18 03/07/25 History release epinephrine 0.3 mg/0.3 mL 0.3 mg IM DIRECTED PRN Allergic 05/10/18 03/07/25 History injection, auto-injector (EpiPen) Reaction insulin aspart U-100 100 unit/mL 1 dose subcut UD 05/10/18 03/07/25 History subcutaneous solution multivitamin-ferrous 1 tab PO DAILY 05/10/18 03/07/25 History fumarate-folic acid 18 mg-400 mcg tablet (Centrum) omega-3 fatty acids-fish oil 300 2 cap PO DAILY 05/10/18 03/07/25 History mg-1,000 mg capsule (Fish Oil) atorvastatin 40 mg tablet (Lipitor) 40 mg PO DAILY #30 tabs 01/03/19 03/07/25 Rx empagliflozin 25 mg tablet 25 mg PO DAILY 09/02/24 03/07/25 History (Jardiance) hydrochlorothiazide 25 mg tablet 25 mg PO DAILY 09/02/24 03/07/25 History losartan 100 mg tablet 100 mg PO DAILY 09/02/24 03/07/25 History semaglutide 14 mg tablet (Rybelsus) 14 mg PO DAILY 09/02/24 03/07/25 History amlodipine 10 mg tablet 5 mg PO DAILY 12/08/24 03/07/25 History carvedilol 25 mg tablet 25 mg PO BID 03/07/25 03/07/25 History Past Med/Surg History Problem List (Updated 03/07/25 @ 10:28 by JAQUELIN Whitfield) Cellulitis of right foot Diabetic ulcer of right foot (Acute) Loss of protective sensation of skin of deformed foot Charcot joint of left foot Charcot's joint of right foot (Chronic) Hypertension, uncontrolled Status post amputation of toe of right foot Uncontrolled type 2 diabetes mellitus with hyperglycemia (Chronic) Acute renal failure superimposed on stage 3 chronic kidney disease Endocarditis due to methicillin susceptible Staphylococcus aureus (MSSA) MSSA bacteremia Diabetic ulcer of toe of right foot associated with diabetes mellitus due to underlying condition, with bone involvement without evidence of necrosis Osteomyelitis of third toe of right foot Cellulitis of left anterior lower leg Cellulitis of foot LIZ (acute kidney injury) DVT prophylaxis Diabetic foot infection (Acute) Severe sepsis S/P left knee arthroscopy (Chronic) S/P tonsillectomy and adenoidectomy (Chronic) Charcot foot due to diabetes mellitus (Chronic) Dyslipidemia (Chronic) Hypertension (Chronic) Diabetic foot ulcer (Chronic) Diabetic neuropathy (Chronic) Medical History (Updated 03/07/25 @ 10:28 by JAQUELIN Whitfield) Bicuspid aortic valve Obesity (BMI 30-39.9) Sepsis Asthma Type 2 diabetes mellitus Family History Other Adopted Family history unknown Social History Smoking Status: Former smoker Second Hand Exposure: Yes (On occasion); Do You Dip or Chew Tobacco: No; Hx Alcohol Use: No Hx Substance Use: No Preferred Language: Vincentian Communication Ability: Effective Visual Impairment: No Limitations 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 Recording 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 Required: No Beliefs That Will Affect Care: None marital status: Current Living Situation: Family How many Children do You have: 2 Feels Safe at Home: Yes Assistive Devices: None Review of Systems Review of Systems: Neuro: (-) Falls, trauma, slurred speech HEENT: (-) MADERA, dizziness, dysphagia, visual or auditory changes CV: (-) CP, palpitations, swelling Resp: (-) SOB GI: (-) appetite changes, N/V/D, bowel changes : (-) urinary changes Skin: (-) rashes Psych: (-) anxiety, depression Physical Exam Physical Exam: Neuro: AAOx4, PERRLA, no aphagia, memory changes, CNII-XII grossly intact HEENT: head normocephalic, moist mucus membranes CV: S1/S2, (-) M/G/R, (-) edema, cap refill < 3 seconds Resp: Lungs CTA in all carlson. On RA GI: Abdomen S/NT/ND, Ax4 bowel sounds, (-) CVA tenderness Musculoskeletal: 5/5 B/L UE strength, 5/5 B/L LE strength. No gait disturbance Skin: (-) rashes , (-) erythema. Psych: euthymic mood Results & Data Results & Data Vital Signs (Past 12 Hours) Vital Signs Temp Pulse Pulse Resp BP BP Pulse Ox 03/07/25 10:00 65 13 94 03/07/25 09:51 65 13 96 03/07/25 09:45 66 17 96 03/07/25 09:34 65 03/07/25 09:30 68 19 96 03/07/25 09:21 66 16 94 03/07/25 09:12 65 14 94 03/07/25 09:00 67 18 95 03/07/25 08:51 69 15 96 03/07/25 08:42 70 26 H 95 03/07/25 08:40 102/65 03/07/25 08:40 102/65 03/07/25 08:40 102/65 03/07/25 08:40 102/65 03/07/25 08:40 102/65 03/07/25 08:39 69 18 96 03/07/25 08:30 19 97 03/07/25 08:21 72 15 93 03/07/25 08:12 76 21 97 03/07/25 07:49 36.4 C L 79 18 95/62 L 98 03/07/25 07:47 77 22 122/72 98 O2 Del Method 03/07/25 10:00 03/07/25 09:51 03/07/25 09:45 03/07/25 09:34 03/07/25 09:30 03/07/25 09:21 03/07/25 09:12 03/07/25 09:00 03/07/25 08:51 03/07/25 08:42 03/07/25 08:40 03/07/25 08:40 03/07/25 08:40 03/07/25 08:40 03/07/25 08:40 03/07/25 08:39 03/07/25 08:30 03/07/25 08:21 03/07/25 08:12 03/07/25 07:49 Room Air 03/07/25 07:47 Room Air Laboratory Results Short CBC 03/07/25 Range/Units 08:10 WBC 16.95 H (4.8-10.8) K/ul Hgb 15.3 (14.0-18.0) g/dl Hct 43.7 (42.0-52.0) % Plt Count 262 (130-400) K/uL BMP 03/07/25 08:10 Sodium 134 L Potassium 3.7 Chloride 102 Carbon Dioxide 23 BUN 47 H Creatinine 2.25 H Glucose 246 H Calcium 9.1 Liver Function 03/07/25 Range/Units 08:10 Total Bilirubin 0.8 (0.2-1.0) mg/dl AST 23 (13-39) U/L ALT 29 (7-52) U/L Alkaline Phosphatase 67 (34-104) U/L Albumin 3.4 (3.4-5.0) gm/dl Diagnostic Findings Foot CT 03/07/25 09:[address] WITHOUT CONTRAST CLINICAL HISTORY: Infected wound. COMPARISON STUDY: Right foot radiographs December 08, 2024. TECHNIQUE: Axial images of the right foot were obtained without IV contrast. Sagittal and coronal reformats were viewed. A dose lowering technique was utilized adhering to the principles of ALARA. FINDINGS: Note is again made of extensive midfoot sclerosis and osteophytosis with fusion of multiple bones. Widening between the first and second metatarsals is unchanged. No acute fractures are identified. The appearance is similar to radiographs of December 08, 2024 and suggests neuropathic arthropathy. There are no osseous lesions. Note is made of a plantar mid foot wound which overlies the distal cuboid. There is associated moderate subcutaneous stranding and edema which extends to the distal cuboid. However, no bony erosion is identified to suggest acute osteomyelitis by CT. No soft tissue gas is present. No fluid collection is identified on unenhanced exam to suggest an abscess. Third digit amputation is again noted. There is extensive plantar and mild posterior calcaneal spurring. Subtalar and tibiotalar joints are intact with moderate degenerative changes. There is extensive vascular calcification. IMPRESSION: 1. Plantar mid foot wound with associated subcutaneous edema suggestive of cellulitis which extends to the distal cuboid. However, no bony erosion to indicate acute osteomyelitis by CT. No well-defined fluid collection on unenhanced exam to suggest abscess. 2. 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 3. Expected findings following third digit amputation. ACT 112: Negative or not required by law. Electronically signed by: Rojas Taylor M.D. 03/07/2025 10:02 AM Code Status & VTE Plan Code Status full code in the event of cardiac or respiratory arrest VTE Prophylaxis Plan VTE Prophylaxis will be ordered: Yes Supervising Physician Co-Signing Physician Notes Patient was seen and examined at bedside. 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 Patient reports he examined his right foot wound daily and has not noticed any increasing drainage or redness. 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 Patient denies sore throat/cough/acute changes in bowel or bladder habits. Right foot CT shows cellulitis without osteomyelitis or abscess. Leukocytosis and elevated Pro-Tor noted. Patient has history of endocarditis. Will get echo to rule out persistent endocarditis, will get blood culture. Cefepime and daptomycin until blood cultures resulted. ID and podiatry consult. On exam: Patient on room air, right foot plantar wound with some drainage, no fluctuance noted, some swelling, no tenderness [patient does have neuropathy], no erythema noted. Heart/lung/abdominal examination WNL. Rest of the examination as above. Total time spent independently: About 22 minutes. I have seen and examined the patient and have discussed the case with the provider above. I agree with the assessment and plan as stated. (3) Diabetic ulcer of right foot Diabetes mellitus type: type 2 Diabetic foot ulcer location: midfoot Non- pressure ulcer stage: with fat layer exposed Qualified Code(s): E11.621 - Type 2 diabetes mellitus with foot ulcer; L97.412 - Non-pressure chronic ulcer of right heel and midfoot with fat layer exposed
[2025-03-07 10:30] LABS: Chlamydia pneumoniae PCR Not Detected (NotDetected); Coronavirus 229E PCR Not Detected (NotDetected); Coronavirus CoV-2 (COVID19)PCR Not Detected (NotDetected); Coronavirus HKU1 PCR Not Detected (NotDetected); Coronavirus NL63 PCR Not Detected (NotDetected); Coronavirus OC43PCR Not Detected (NotDetected); Human Metapneumovirus PCR Not Detected (NotDetected); Parainfluenza Virus 1 PCR Not Detected (NotDetected); Parainfluenza Virus 2 PCR Not Detected (NotDetected); Parainfluenza Virus 3 PCR Not Detected (NotDetected); Parainfluenza Virus 4 PCR Not Detected (NotDetected); Respiratory Syncytial VirusPCR Not Detected (NotDetected); Rhinovirus/Enterovirus PCR Not Detected (NotDetected)
[2025-03-07] MEDS ORDERED: DEXTROSE 50% 50 ML SYRINGE IV PRN (12:30)
[2025-03-07] MEDS ORDERED: PHARMACY GLYCEMIC MGMT CONSULT PRN (12:30)
[2025-03-07] MEDS ORDERED: CARBOHYDRATES FOR HYPOGLYCEMIA PO PRN (12:30)
[2025-03-07] MEDS ORDERED: ONDANSETRON INJ 2 MG/ML 2 ML VIAL IV PRN (12:30)
[2025-03-07] MEDS ORDERED: GLUCAGON FOR INJ 1 MG VIAL SQ PRN (12:30)
[2025-03-07] MEDS ORDERED: MAGNESIUM HYDROXIDE SUSP 30 ML UDC PO PRN (12:30)
[2025-03-07] MEDS ORDERED: ALUMINUM/MAGNESIUM SUSP 30 ML UDC PO PRN (12:30)
[2025-03-07] MEDS ORDERED: GLUCOSE 40% GEL 15 GM TUBE PO PRN (12:30)
[2025-03-07] MEDS ORDERED: ACETAMINOPHEN 325 MG TAB PO PRN (12:30)
[2025-03-07] MEDS ORDERED: POLYETHYLENE (MIRALAX) 17 GM PACK PO PRN (12:30)
[2025-03-07] MEDS ORDERED: GLUCOSE 10 TAB/TUBE PO PRN (12:30)
--- NOTE | 2025-03-07 13:46 | Pharmacy Report ---
Pharmacy Glycemic Short Note 2 - Date of Service March 07, 2025 - Glycemic Short BSG Results (Last 24 hours): 03/07/25 03/07/25 08:10 12:29 Glucose 246 H POC Glucose 194 H OUTPATIENT ANTIDIABETIC REGIMEN: * Rybelsus 14mg daily * Jardiance 25mg daily * Omnipod insulin pump: * Novolog - 1.8 units/hour (~43 units total daily) * CR: 5 * CF: 7 * Glucose goal 70-150 * HbA1c: pending ASSESSMENT: * Karl is a 59 year old male who presents to the hospital with cellulitis * Based on [facility] visit 12/2024, his diabetes was not controlled due to stress from work and moving, and he was unable to obtain refills for pump from the pharmacy * Pump settings have tight CF and CR * Will initiate Lantus to replace the continuous Novolog that he normally gets from his pump * Loosened CF and CR a little bit to see what his glucose looks like and will need to adjust accordingly * SCr today above his baseline, may have slower clearance of insulin with reduced renal function - continue to monitor * T2DM diet * Stressors: infection PLAN FOR INPATIENT GLYCEMIC CONTROL: * Hold outpatient oral diabetes medications * Basal insulin * Lantus 15 units SQ BID * Bolus insulin * NovoLog per scale ACHS or Q6hrs while NPO * Goal Range: Low 120 mg/dL - High 160 mg/dL * Correction Factor: 10 mg/dL/unit * Nutritional / Prandial insulin per carb ratio of 1 unit per 6 grams CHO consumed
[2025-03-07] MEDS: INSULIN ASPART PER UNIT CHARGE SC SCH (13:55)
--- NOTE | 2025-03-07 15:07 | Infectious Disease Consult ---
Date of Service March 07, 2025 Telehealth Information I performed this visit using a real-time telehealth connection between my location and the patients location ([facility]). After connecting through interactive tele-video, patient was identified by name and date of and/or wristband check.Patient (or authorized healthcare employee's representative) was informed that this was a telemedicine visit and it was being conducted confidentially over secure lines. My office door was closed and no one else was present in the room with me.Patient (or authorized healthcare employee's representative) provided consent to proceed with the visit, expressed an understanding of privacy and security of the telemedicine visit, and gave permission to have a hospital employee's representative in the room in order to assist with the visit and to conduct portions of the visit, as needed. I informed the patient (or authorized healthcare employee's representative) that I reviewed their record and presented the opportunity for them to ask any questions regarding the visit today. The patient agreed to participate. Assessment & Plan (1) Sepsis: (2) Diabetic infection of right foot: (3) Uncontrolled type 2 diabetes mellitus with hyperglycemia: (4) Acute kidney injury superimposed on CKD: Plan At this point, the only potential source of infection is the diabetic foot ulcer. Given that all the recent cultures from the wound have grown MSSA, I would recommend stopping IV daptomycin. Can continue IV cefepime for now. I would recommend obtaining an MRI of the right foot to investigate for osteomyelitis. We appreciate the podiatry assessment and management as needed. History of Present Illness History of Present Illness Mr. Wilkerson is a 59-year-old man with past medical history of poorly controlled type 2 diabetes and peripheral neuropathy, HTN, dyslipidemia, CKD stage 3 and right foot Charcot who was admitted to [facility] today because of fever and chills. Patient is known to our service from mid August 2024 when he presented with MSSA bacteremia and right 3rd toe infected diabetic foot ulcer/osteomyelitis as well as presumed mitral valve endocarditis. At that time, he underwent right 3rd toe amputation and was sent out on a 6-week course of IV cefazolin. He mentioned that in early November, he developed a wound on the bottom of his midfoot and for which, he has been following up with Wound Care. For around 2 days prior to presentation, he started having fevers and rigors associated with generalized fatigue and nausea. He did not have any recent drainage from his right foot wound and no pain or redness in the foot. On presentation, he was found to be afebrile but hypotensive at 98/56; the rest of the vitals were within normal limits. Initial workup showed leukocytosis of 16.9 (ANC 13.5), elevated creatinine at 2.25 (baseline around 1.8), and negative respiratory viral panel. CT scan of the right foot was obtained which showed plantar midfoot wound with subcutaneous edema suggesting cellulitis and extending to the distal cuboid. However, no bony erosion was appreciated on the CT scan. ID team was consulted for further recommendations and to help guide antibiotic treatment. Allergies Allergy/AdvReac Type Severity Reaction Status Date / Time insect venom Allergy Severe Hives Verified 03/02/25 08:43 No Known Drug Allergies Allergy Hives Verified 03/02/25 08:43 Home Medications Medication Instructions Recorded Confirmed Type aspirin 81 mg tablet,delayed 81 mg PO DAILY 05/10/18 03/07/25 History release epinephrine 0.3 mg/0.3 mL 0.3 mg IM DIRECTED PRN Allergic 05/10/18 03/07/25 History injection, auto-injector (EpiPen) Reaction insulin aspart U-100 100 unit/mL 1 dose subcut UD 05/10/18 03/07/25 History subcutaneous solution multivitamin-ferrous 1 tab PO DAILY 05/10/18 03/07/25 History fumarate-folic acid 18 mg-400 mcg tablet (Centrum) omega-3 fatty acids-fish oil 300 2 cap PO DAILY 05/10/18 03/07/25 History mg-1,000 mg capsule (Fish Oil) atorvastatin 40 mg tablet (Lipitor) 40 mg PO DAILY #30 tabs 01/03/19 03/07/25 Rx empagliflozin 25 mg tablet 25 mg PO DAILY 09/02/24 03/07/25 History (Jardiance) hydrochlorothiazide 25 mg tablet 25 mg PO DAILY 09/02/24 03/07/25 History losartan 100 mg tablet 100 mg PO DAILY 09/02/24 03/07/25 History semaglutide 14 mg tablet (Rybelsus) 14 mg PO DAILY 09/02/24 03/07/25 History amlodipine 10 mg tablet 5 mg PO DAILY 12/08/24 03/07/25 History carvedilol 25 mg tablet 25 mg PO BID 03/07/25 03/07/25 History Patient History Medical History (Updated 03/07/25 @ 15:06 by Jovana Tomas MD) Bicuspid aortic valve Obesity (BMI 30-39.9) Sepsis Asthma Type 2 diabetes mellitus Family History Other Adopted Family history unknown Social History Smoking Status: Never smoker Second Hand Exposure: Yes (On occasion); Do You Dip or Chew Tobacco: No; Hx Alcohol Use: No Hx Substance Use: No Preferred Language: Rwandan Communication Ability: Effective Visual Impairment: No Limitations Safety Sealer Required: No Beliefs That Will Affect Care: None marital status: Current Living Situation: Spouse How many Children do You have: 2 Feels Safe at Home: Yes Safety Concerns: Feels Safe At This Time Assistive Devices: None Review of Systems Negative except for what was mentioned in the H&P. Physical Exam Could not be performed as the visit was conducted via TeleMed. Results & Data Vital Signs (Past 12 Hours) Vital Signs Temp Pulse Pulse Resp BP BP Pulse Ox 03/07/25 13:12 63 03/07/25 12:47 36.4 C L 64 18 106/68 97 03/07/25 12:32 60 03/07/25 10:42 64 19 97 03/07/25 10:30 68 11 L 95 03/07/25 10:21 67 20 97 03/07/25 10:12 65 15 94 03/07/25 10:00 65 13 94 03/07/25 09:51 65 13 96 03/07/25 09:45 66 17 96 03/07/25 09:34 65 03/07/25 09:30 68 19 96 03/07/25 09:21 66 16 94 03/07/25 09:12 65 14 94 03/07/25 09:00 67 18 95 03/07/25 08:51 69 15 96 03/07/25 08:42 70 26 H 95 03/07/25 08:40 102/65 03/07/25 08:40 102/65 03/07/25 08:40 102/65 03/07/25 08:40 102/65 03/07/25 08:40 102/65 03/07/25 08:39 69 18 96 03/07/25 08:30 19 97 03/07/25 08:21 72 15 93 03/07/25 08:12 76 21 97 03/07/25 07:49 36.4 C L 79 18 95/62 L 98 03/07/25 07:47 77 22 122/72 98 O2 Del Method 03/07/25 13:12 03/07/25 12:47 Room Air 03/07/25 12:32 03/07/25 10:42 03/07/25 10:30 03/07/25 10:21 03/07/25 10:12 03/07/25 10:00 03/07/25 09:51 03/07/25 09:45 03/07/25 09:34 03/07/25 09:30 03/07/25 09:21 03/07/25 09:12 03/07/25 09:00 03/07/25 08:51 03/07/25 08:42 03/07/25 08:40 03/07/25 08:40 03/07/25 08:40 03/07/25 08:40 03/07/25 08:40 03/07/25 08:39 03/07/25 08:30 03/07/25 08:21 03/07/25 08:12 03/07/25 07:49 Room Air 03/07/25 07:47 Room Air Laboratory Results Microbiology: 02/08: Superficial right plantar foot wound culture growing MSSA 03/07: 2 sets of blood culture pending Diagnostic Findings CT right foot on 03/07: 1. Plantar mid foot wound with associated subcutaneous edema suggestive of cellulitis which extends to the distal cuboid. However, no bony erosion to indicate acute osteomyelitis by CT. No well-defined fluid collection on unenhanced exam to suggest abscess. 2. 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 3. Expected findings following third digit amputation.
[2025-03-07] MEDS: LANTUS PER UNIT CHARGE SQ SCH (16:13)
[2025-03-07] MEDS: CEFEPIME 2000MG 2,000 MG/20 ML SYR IV SCH (18:01)
--- NOTE | 2025-03-07 18:28 | XCELERA ---
[id number] \\[id number]
[2025-03-07] MEDS ORDERED: LANTUS PER UNIT CHARGE SQ SCH (21:00)
--- NOTE | 2025-03-07 21:10 | Podiatry Consultation ---
Date of Consultation March 07, 2025 Assessment & Plan (1) Diabetic infection of right foot: (2) Charcot's joint of right foot: (3) Status post amputation of toe of right foot: (4) Uncontrolled type 2 diabetes mellitus with hyperglycemia: Plan Diabetic ulcer right foot: Mild erythema to the periwound of the diabetic ulcer overlying the cuboid and the plantar right foot. Right foot is deformed secondary to Charcot neuroarthropathy with midfoot collapse. Ulceration is decreased in dimensions since last seen in the wound center. Wound bed is healthy appearing granular tissue. Wound does not probe or track in any direction. Unable to palpate any fluctuance on palpation of the right plantar foot. Order placed for MRI of the right foot to further evaluate for possible underlying osteomyelitis or abscess formation. Will follow-up MRI results. - White blood count 16.95, ESR 39, CRP 12.93, procalcitonin 2.69. - Recommend once daily dressing change with Aquacel Ag and a dry sterile dressing. - Offloading with cam boot at all times while ambulating. Minimize weightbe aring when possible. - Wound culture right foot diabetic ulcer collected and sent for culture and sensitivity. - Order: MRI right foot History of Present Illness Reason for Consultation: Diabetic ulcer right foot Attending Physician: Jm Giang MD History of Present Illness Patient is a 59-year-old male past medical history significant for poorly controlled type 2 diabetes with diabetic peripheral neuropathy. He has bilateral rocker-bottom deformity of the foot secondary to Charcot neuroarthropathy. He underwent amputation of the right third toe in August 2024 for treatment of osteomyelitis. He did have bacteremia as a result of right third toe infection developed endocarditis for which he completed a course of IV antibiotics. Following discharge from the hospital he was scheduled for diabetic foot clinic to be fit with custom made shoes with rigid out sole and rocker-bottom to reduce stress to his Charcot rocker-bottom type feet. Unfortunately prior to receiving his custom shoes he developed an ulcer on the right midfoot this past November. He has been following closely with the wound care center since November with most recent wound culture on 02/08/2025 growing Staph aureus. He was initiated on a course of p.o. doxycycline and subsequently transition to Keflex due to intolerance to doxycycline. He completed a prescription for p.o. Keflex 03/01/2025. Patient reports this past Thursday developing significant fever and chills which improved in the evening. Similarly had fever and chills on 03/06/2025 which increased throughout the day and he decided to report to the emergency department this morning for further evaluation. He denies nausea, vomiting, diarrhea, shortness of breath, chest pain. Reports improvement in symptoms since time of admission with ongoing malaise. Leukocytosis with white blood cell count of 16.95, elevated procalcitonin 2.69, elevated CRP and ESR. He is admitted for IV antibiotics and medical management. CT scan of the right foot shows no signs of soft tissue emphysema, abscess formation or bony erosion to suggest osteomyelitis. Patient denies any increased redness swelling pain or drainage from the right foot. Allergies Allergy/AdvReac Type Severity Reaction Status Date / Time insect venom Allergy Severe Hives Verified 03/02/25 08:43 No Known Drug Allergies Allergy Hives Verified 03/02/25 08:43 Home Medications Medication Instructions Recorded Confirmed Type aspirin 81 mg tablet,delayed 81 mg PO DAILY 05/10/18 03/07/25 History release epinephrine 0.3 mg/0.3 mL 0.3 mg IM DIRECTED PRN Allergic 05/10/18 03/07/25 History injection, auto-injector (EpiPen) Reaction insulin aspart U-100 100 unit/mL 1 dose subcut UD 05/10/18 03/07/25 History subcutaneous solution multivitamin-ferrous 1 tab PO DAILY 05/10/18 03/07/25 History fumarate-folic acid 18 mg-400 mcg tablet (Centrum) omega-3 fatty acids-fish oil 300 2 cap PO DAILY 05/10/18 03/07/25 History mg-1,000 mg capsule (Fish Oil) atorvastatin 40 mg tablet (Lipitor) 40 mg PO DAILY #30 tabs 01/03/19 03/07/25 Rx empagliflozin 25 mg tablet 25 mg PO DAILY 09/02/24 03/07/25 History (Jardiance) hydrochlorothiazide 25 mg tablet 25 mg PO DAILY 09/02/24 03/07/25 History losartan 100 mg tablet 100 mg PO DAILY 09/02/24 03/07/25 History semaglutide 14 mg tablet (Rybelsus) 14 mg PO DAILY 09/02/24 03/07/25 History amlodipine 10 mg tablet 5 mg PO DAILY 12/08/24 03/07/25 History carvedilol 25 mg tablet 25 mg PO BID 03/07/25 03/07/25 History Patient History Medical History (Updated 03/07/25 @ 15:06 by Jovana Tomas MD) Bicuspid aortic valve Obesity (BMI 30-39.9) Sepsis Asthma Type 2 diabetes mellitus Family History Other Adopted Family history unknown Social History Smoking Status: Never smoker Second Hand Exposure: Yes (On occasion); Do You Dip or Chew Tobacco: No; Hx Alcohol Use: No Hx Substance Use: No Preferred Language: Serbian Communication Ability: Effective Visual Impairment: No Limitations Billing Customer Service Representative Required: No Beliefs That Will Affect Care: None marital status: Current Living Situation: Spouse How many Children do You have: 2 Feels Safe at Home: Yes Safety Concerns: Feels Safe At This Time Assistive Devices: None Review of Systems Review of Systems: Reports nausea, fever, chills, malaise starting Thursday night and continuing until admission this morning. At present symptoms have improved with persistent malaise. Reports unexplained hip pain prior to admission which has since improved. Denies vomiting, diarrhea, shortness of breath, chest pain. Physical Exam Physical Exam: Const: Appears well developed and well nourished. No signs of acute distress present. CV: Extremities: No cyanosis Capillary refill time is less than 2 seconds all digits of the bilateral foot. Posterior tibial and dorsalis pedis pulses are palpable bilateral. Skin: Well-healed cicatrix right third toe amputation. Diabetic ulcer plantar right foot Neuro: Loss of protective sensation bilateral foot to the level of the ankle.. Psych: Mood/Affect: Mood is normal. Affect is normal. Cognition: Orientation is intact to person, place and time. Focused lower extremity musculoskeletal exam: Leg: No pain with compression of the calf muscle. Ankles: No tenderness bilaterally. Motor strength is intact. Range of motion pain-free and unlimited. Feet: Charcot deformity bilateral with collapse of the medial arch and midfoot prominence. Status post right third digit amputation 09/05/2024. Amputation site well- healed. 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 With wound extends to subcutaneous tissue with granular wound bed. No active drainage. No malodor. Mild periwound erythema and edema. Wound does not probe or track in any direction. Results & Data Vital Signs (Past 12 Hours) Vital Signs Temp Pulse Pulse Resp BP BP Pulse Ox 03/07/25 13:12 63 03/07/25 12:47 36.4 C L 64 18 106/68 97 03/07/25 12:32 60 03/07/25 10:42 64 19 97 03/07/25 10:30 68 11 L 95 03/07/25 10:21 67 20 97 03/07/25 10:12 65 15 94 03/07/25 10:00 65 13 94 03/07/25 09:51 65 13 96 03/07/25 09:45 66 17 96 03/07/25 09:34 65 03/07/25 09:30 68 19 96 03/07/25 09:21 66 16 94 03/07/25 09:12 65 14 94 03/07/25 09:00 67 18 95 03/07/25 08:51 69 15 96 03/07/25 08:42 70 26 H 95 03/07/25 08:40 102/65 03/07/25 08:40 102/65 03/07/25 08:40 102/65 03/07/25 08:40 102/65 03/07/25 08:40 102/65 03/07/25 08:39 69 18 96 03/07/25 08:30 19 97 03/07/25 08:21 72 15 93 03/07/25 08:12 76 21 97 03/07/25 07:49 36.4 C L 79 18 95/62 L 98 03/07/25 07:47 77 22 122/72 98 O2 Del Method 03/07/25 13:12 03/07/25 12:47 Room Air 03/07/25 12:32 03/07/25 10:42 03/07/25 10:30 03/07/25 10:21 03/07/25 10:12 03/07/25 10:00 03/07/25 09:51 03/07/25 09:45 03/07/25 09:34 03/07/25 09:30 03/07/25 09:21 03/07/25 09:12 03/07/25 09:00 03/07/25 08:51 03/07/25 08:42 03/07/25 08:40 03/07/25 08:40 03/07/25 08:40 03/07/25 08:40 03/07/25 08:40 03/07/25 08:39 03/07/25 08:30 03/07/25 08:21 03/07/25 08:12 03/07/25 07:49 Room Air 03/07/25 07:47 Room Air Diagnostic Findings CT right foot 03/07/2025: No soft tissue gas is present. No fluid collection is identified on unenhanced exam to suggest an abscess. IMPRESSION: 1. Plantar mid foot wound with associated subcutaneous edema suggestive of cellulitis which extends to the distal cuboid. However, no bony erosion to indicate acute osteomyelitis by CT. No well-defined fluid collection on unenhan katelin exam to suggest abscess. 2. 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 3. Expected findings following third digit amputation. PG Care Time/CCT Total # of Minutes Spent Total Time Spent with Patient: Total time spent is greater than 50% in coordination of care (as documented) at patient's floor/unit and/or counseling patient: Coding Level of Care Code 86460 IN/OBS CONSULT LVL 4,60M Diagnoses Diabetic infection of right foot E11.628; L08.9 Charcot's joint of right foot M14.671 Status post amputation of toe of right foot Z89.421 Uncontrolled type 2 diabetes mellitus with hyperglycemia E11.65
[2025-03-08 00:17] LABS: A calco-baum cmplx NotReported Not Detected (NotDetected); Bact fragilis Not Reported Not Detected (NotDetected); Blood Culture Id Panel See PCR Comment (NotDetected); C auris Not Reported Not Detected (NotDetected); Calbicans Not Reported Not Detected (NotDetected); Candida glabrata Not Reported Not Detected (NotDetected); Candida krusei Not Reported Not Detected (NotDetected); Cneoformans/gatti Not Reported Not Detected (NotDetected); Cparapsilosis Not Reported Not Detected (NotDetected); Ctropicalis Not Reported Not Detected (NotDetected); E cloacae compx Not Reported Not Detected (NotDetected); Efaecium Not Reported Not Detected (NotDetected); Enterobacterales Not Reported Not Detected (NotDetected); Escherichia coli Not Reported Not Detected (NotDetected); H influenzae Not Reported Not Detected (NotDetected); K aerogenes Not Reported Not Detected (NotDetected); Koxytoca Not Reported Not Detected (NotDetected); Kpneumoniae grp Not Reported Not Detected (NotDetected); Lmonocyt Not Reported Not Detected (NotDetected); N meningitidis Not Reported Not Detected (NotDetected); P aeruginosa Not Reported Not Detected (NotDetected); Proteus spp Not Reported Not Detected (NotDetected); Salmonella spp Not Reported Not Detected (NotDetected); Staph lugdunensis Not Reported Not Detected (NotDetected); Staph spp. Not Reported Not Detected (NotDetected); Staphaureus Not Reported Not Detected (NotDetected); Staphepi Not Reported Not Detected (NotDetected); Stenmaltophilia Not Reported Not Detected (NotDetected); Strep agal(GrpB) Not Reported Not Detected (NotDetected); Strep pneum Not Reported Not Detected (NotDetected); Strep pyog (GrpA) Not Reported Not Detected (NotDetected); Strep spp Not Reported Not Detected (NotDetected); VanAB Resistant Gene VRE Not Detected (NotDetected)
[2025-03-08 00:51] LABS: Efaecalis Not Reported DETECTED (NotDetected)
[2025-03-08 00:52] LABS: Enterococcus faecalis DETECTED (NotDetected)
--- NOTE | 2025-03-08 03:16 | Magnetic Resonance Report ---
Exam(s): MRI RIGHT FOOT Without Contrast EXAM: MR Right Lower Extremity Without Intravenous Contrast, Foot CLINICAL HISTORY: Reason for exam: DM ulcer, charcot, r/o oseomyelitis. TECHNIQUE: Multiplanar magnetic resonance images of the right foot without intravenous contrast. COMPARISON: No relevant prior studies available. FINDINGS: There changes of chronic Charcot arthropathy of the midfoot, partially imaged, with fusion involving multiple tarsal bones and advanced degenerative changes at the tarsometatarsal joints. No bone marrow edema is present in this region. There is mild osteoarthritis of the 1st MTP joint. There is no acute fracture or dislocation. Patient has undergone previous resection of the 3rd toe at the midshaft of the 3rd proximal phalanx. Resection margin appears smooth. There are no characteristic bone marrow signal changes of acute osteomyelitis. Visualized tendons appear intact. Intrinsic foot muscular demonstrates chronic microangiopathic change. There may be soft tissue ulceration at the 3rd toe resection site. IMPRESSION: 1. Possible soft tissue ulcer at the 3rd toe resection site which should be correlated with exam. 2. No evidence of acute osteomyelitis. 3. Chronic Charcot changes at the midfoot. Electronically signed by: Myron Santos M.D. 03/08/25 03:15 AM
[2025-03-08 07:12] LABS: Hematocrit (blood only) 40.0 % (42.0-52.0); Hemoglobin 13.9 g/dL (14.0-18.0); Mean Corpuscular Hemoglobin 28.6 pg (25.0-34.0); Mean Corpuscular Volume 82.3 fL (80.0-100.0); Platelet Count 258 K/uL (130-400); RDW Standard Deviation 37.3 fL (36.4-46.3); Red Blood Count 4.86 M/uL (4.70-6.10); White Blood Count 11.97 K/ul (4.8-10.8)
[2025-03-08 07:17] LABS: Hemoglobin A1C 11.2 % (4.5-5.6)
[2025-03-08 07:28] LABS: Anion Gap 9.0 (3-11); Blood Urea Nitrogen 46.0 mg/dl (6-23); Calcium 8.6 mg/dl (8.6-10.3); Carbon Dioxide 20.0 mmol/L (21-32); Chloride 105.0 mmol/L (98-107); Creatine Kinase 93.0 U/L (30-223); Creatinine Clr Calc Pharmacy 57.9 ml/min; Glucose 189.0 mg/dl (70-99(Fasting)); Magnesium 2.4 mg/dl (1.7-2.4); Potassium 3.9 mmol/L (3.5-5.1); Sodium 134.0 mmol/L (136-145)
[2025-03-08] MEDS: hydroCHLOROthiazide 25 MG TAB PO SCH (07:37)
[2025-03-08] MEDS: ATORVASTATIN 40 MG TAB PO SCH (07:37)
[2025-03-08] MEDS: ASPIRIN 81 MG ECTAB PO SCH (07:37)
[2025-03-08] MEDS: LOSARTAN POTASSIUM 50 MG TAB PO SCH (07:38)
[2025-03-08] MEDS: ADVANCED PROBIOTIC 625 MG CAPSULE PO SCH (07:39)
[2025-03-08] MEDS: ENOXAPARIN INJ 40 MG/0.4 ML SYR SQ SCH (07:39)
[2025-03-08] MEDS: DAPTOmycin 725 MG in SYRINGE 0 ML IV SCH (09:21)
--- NOTE | 2025-03-08 11:14 | Hospitalist Progress Note ---
Date of Service March 08, 2025 Assessment & Plan (1) Cellulitis of right foot: (2) Charcot's joint of right foot: (3) Diabetic ulcer of right foot: (4) Hypertension: (5) Dyslipidemia: Plan 59M with PMH poorly controlled DM, CKD3, recent MSSA OM c/b mitral valve endocarditis, bicuspid aortic valve, ascending aortic aneurysm, HTN who presents with R foot erythema and fever/chills #R foot cellulitis #Sepsis #Gram positive bacteremia -MRI R foot neg for OM but showing a third toe ulceration -History of mitral valve endocarditis and completed 6 weeks of IV abx in August 2024 -07/29 blood cultures on admission growing GPCs in chains -Biofire positive for E. faecalis -TTE without evidence of vegetation -Source is likely the foot as there is no other source of infection identified Plan -Appreciate ID input. Discussed plan with Dr Nash, ID, today. -For now, DC cefepime and continue dapto -ID recommending FREDRICK. will consult cardio -Repeat blood cultures until clearance is documented -Appreciate podiatry input #LIZ on CKD3 -Baseline Cr around 2 -Mild LIZ on admission, now resolved Plan -Monitor renal function closely -Avoid nephrotoxic agents if possible #IDDM -A1c is 11.2, very poorly controlled and likely contributing to his frequent infections -Continue lantus and SSI BGM ACHS #Hyponatremia -Mild asymptomatic, monitor #HTN -Stable, continue home regimen #Ascending aortic aneurysm #Congenital biscupid aortic valve I spent a total of 65 minutes coordinating, documenting, and providing care for this patient excluding time spent in the performance of separately billed services. This included personally reviewing all current laboratories and imaging studies, medical reconciliation, outpatient chart review and discussion with specialists Admission and Anticipated Discharge Date Admission Date: March 07, 2025 Subjective Feeling well today. Patient denies F/C, CP, palpitations, SOB, dyspnea, abd pain, N/V/D Physical Exam Physical Exam: Vitals and labs reviewed General: Well appearing, NAD HEENT: EOMI, PERRLA Neck: Supple Cardiac: RRR systolic murmur Lungs: CTA no rhonchi wheezing or rales Abd: S NT ND BS positive : Deffered MSK: R foot bandaged. Ext: No Edema cyanosis Skin: Warm, Dry Neuro: AOx3 No focal deficits. Psych: Normal Mood Results & Data Results & Data Vital Signs (Past 12 Hours) Vital Signs Temp Pulse Pulse Resp BP Pulse Ox O2 Del Method 03/08/25 07:17 36.8 C 81 18 123/70 96 Room Air 03/08/25 05:55 78 03/08/25 04:30 36.9 C 76 18 123/67 95 Room Air 03/07/25 23:13 36.9 C 77 18 119/70 96 Room Air Laboratory Results Abnormal lab results 03/07/25 03/07/25 03/07/25 Range/Units 08:10 08:33 12:29 WBC (4.8-10.8) K/ul Hgb (14.0-18.0) g/dL Hct (42.0-52.0) % ESR 39 H (0-20) mm/hr Sodium (136-145) mmol/L Carbon Dioxide (21-32) mmol/L BUN (6-23) mg/dl Creatinine (0.6-1.4) mg/dl BUN/Creatinine Ratio (10-20) Glucose (70-99(Fasting)) mg/dl POC Glucose 194 H (70-99) mg/dl Hemoglobin A1c (4.5-5.6) % C-Reactive Protein 12.93 H (0-0.5) mg/dl Procalcitonin (0-0.5) ng/ml Enterococc faecalis PCR DETECTED A (NotDetected) 03/07/25 03/07/25 03/08/25 Range/Units 17:07 19:48 05:34 WBC 11.97 H (4.8-10.8) K/ul Hgb 13.9 L (14.0-18.0) g/dL Hct 40.0 L (42.0-52.0) % ESR (0-20) mm/hr Sodium 134 L (136-145) mmol/L Carbon Dioxide 20 L (21-32) mmol/L BUN 46 H (6-23) mg/dl Creatinine 1.97 H (0.6-1.4) mg/dl BUN/Creatinine Ratio 23.4 H (10-20) Glucose 189 H (70-99(Fasting)) mg/dl POC Glucose 182 H 252 H (70-99) mg/dl Hemoglobin A1c 11.2 H (4.5-5.6) % C-Reactive Protein (0-0.5) mg/dl Procalcitonin 1.78 H (0-0.5) ng/ml Enterococc faecalis PCR (NotDetected) 03/08/25 Range/Units 07:56 WBC (4.8-10.8) K/ul Hgb (14.0-18.0) g/dL Hct (42.0-52.0) % ESR (0-20) mm/hr Sodium (136-145) mmol/L Carbon Dioxide (21-32) mmol/L BUN (6-23) mg/dl Creatinine (0.6-1.4) mg/dl BUN/Creatinine Ratio (10-20) Glucose (70-99(Fasting)) mg/dl POC Glucose 183 H (70-99) mg/dl Hemoglobin A1c (4.5-5.6) % C-Reactive Protein (0-0.5) mg/dl Procalcitonin (0-0.5) ng/ml Enterococc faecalis PCR (NotDetected) (3) Diabetic ulcer of right foot Diabetes mellitus type: type 2 Diabetic foot ulcer location: midfoot Non- pressure ulcer stage: unspecified non-pressure ulcer stage Qualified Code(s): E11.621 - Type 2 diabetes mellitus with foot ulcer; L97.419 - Non-pressure chronic ulcer of right heel and midfoot with unspecified severity
--- NOTE | 2025-03-08 13:16 | Pharmacy Report ---
Pharmacy Glycemic Short Note 2 - Date of Service March 08, 2025 - Glycemic Short BSG Results (Last 24 hours): 03/07/25 03/07/25 03/08/25 17:07 19:48 05:34 Glucose 189 H POC Glucose 182 H 252 H 03/08/25 03/08/25 07:56 12:02 Glucose POC Glucose 183 H 223 H OUTPATIENT ANTIDIABETIC REGIMEN: * Rybelsus 14mg daily * Jardiance 25mg daily * Omnipod insulin pump: * Novolog - 1.8 units/hour (~43 units total daily) * CR: 5 * CF: 7 * Glucose goal 70-150 * HbA1c: 11.2% on 03/08/25 ASSESSMENT: 03/08: * Karl received a total of 63 units of insulin yesterday. (30 units were basal and 33 units were bolus). All BSGs were above goal yesterday. * Fasting BSG was 183mg/dL this morning. Lantus dose was increased by ~20% to get closer to 24hr basal amount he receives with insulin pump. * CR was tightened to also match his pump settings to attempt a little better glycemic control. 03/07: * Karl is a 59 year old male who presents to the hospital with cellulitis * [facility], his diabetes was not controlled due to stress from work and moving, and he was unable to obtain refills for pump from the pharmacy * Pump settings have tight CF and CR * Will initiate Lantus to replace the continuous Novolog that he normally gets from his pump * Loosened CF and CR a little bit to see what his glucose looks like and will need to adjust accordingly * SCr today above his baseline, may have slower clearance of insulin with reduced renal function - continue to monitor * T2DM diet * Stressors: infection PLAN FOR INPATIENT GLYCEMIC CONTROL: * Hold outpatient diabetes medications * Basal insulin * Lantus 35units SQ daily in the afternoon * Bolus insulin * NovoLog per scale ACHS or Q6hrs while NPO * Goal Range: Low 120 mg/dL - High 160 mg/dL * Correction Factor: 10 mg/dL/unit * Nutritional / Prandial insulin per carb ratio of 1 unit per 6 grams CHO consumed
[2025-03-08] MEDS: LANTUS PER UNIT CHARGE SQ SCH ×2 (15:19→17:57)
[2025-03-08] MEDS ORDERED: LANTUS PER UNIT CHARGE SQ SCH (15:30)
--- NOTE | 2025-03-08 15:39 | Cardiology Consultation ---
Date of Consultation March 08, 2025 Assessment & Plan (1) Enterococcal bacteremia: (2) Bicuspid aortic valve: (3) Moderate aortic stenosis: (4) History of endocarditis: Plan Risk, benefits, and alternatives to transesophageal echocardiogram discussed. No contraindications to procedure. Patient agreeable to proceed. He may have dinner this evening however, n.p.o. except medications after midnight. Transesophageal echocardiogram scheduled 7:45AM 03/09/2025 with anesthesia. Further recommendations pending results of imaging. Continue antibiotics as per direction of infectious disease specialist. Michael Godinez DO, [facility] History of Present Illness Reason for Consultation: FREDRICK Requesting Physician: Dr. Maico Garcia Attending Physician: Maico Garcia DO History of Present Illness 59-year-old male with history of bicuspid aortic valve and mitral valve endocarditis presents to the hospital with right foot cellulitis. Wound culture growing Staph aureus, blood cultures positive for Enterococcus faecalis. Hospitalized August 2024 with Staphylococcus aureus bacteremia, diabetic foot ulcer, osteomyelitis of the third toe on the right foot requiring amputation 12/06/2024. 2D transthoracic echocardiogram during that hospitalization de monstrating mobile echodensity on the left atrial surface of the anterior mitral valve leaflet. Patient was treated for 6 weeks of IV antibiotics and transesophageal echocardiogram was not performed during that hospitalization. Echocardiogram performed 03/07/2025 demonstrating preserved LV systolic function, bicuspid aortic valve with moderate aortic valve stenosis, trace aortic regurgitation, mild aortic root, and moderate ascending aortic enlargement. Feeling better since admission. No recurrent fevers. Tolerating current medications and IV antibiotic therapy. Denies any history of dysphagia, liver disease, or esophageal varices. Allergies Allergy/AdvReac Type Severity Reaction Status Date / Time insect venom Allergy Severe Hives Verified 03/02/25 08:43 No Known Drug Allergies Allergy Hives Verified 03/02/25 08:43 Home Medications Medication Instructions Recorded Confirmed Type aspirin 81 mg tablet,delayed 81 mg PO DAILY 05/10/18 03/07/25 History release epinephrine 0.3 mg/0.3 mL 0.3 mg IM DIRECTED PRN Allergic 05/10/18 03/07/25 H istory injection, auto-injector (EpiPen) Reaction insulin aspart U-100 100 unit/mL 1 dose subcut UD 05/10/18 03/07/25 History subcutaneous solution multivitamin-ferrous 1 tab PO DAILY 05/10/18 03/07/25 History fumarate-folic acid 18 mg-400 mcg tablet (Centrum) omega-3 fatty acids-fish oil 300 2 cap PO DAILY 05/10/18 03/07/25 History mg-1,000 mg capsule (Fish Oil) atorvastatin 40 mg tablet (Lipitor) 40 mg PO DAILY #30 tabs 01/03/19 03/07/25 Rx empagliflozin 25 mg tablet 25 mg PO DAILY 09/02/24 03/07/25 History (Jardiance) hydrochlorothiazide 25 mg tablet 25 mg PO DAILY 09/02/24 03/07/25 History losartan 100 mg tablet 100 mg PO DAILY 09/02/24 03/07/25 History semaglutide 14 mg tablet (Rybelsus) 14 mg PO DAILY 09/02/24 03/07/25 History amlodipine 10 mg tablet 5 mg PO DAILY 12/08/24 03/07/25 History carvedilol 25 mg tablet 25 mg PO BID 03/07/25 03/07/25 History Patient History Medical History Obesity (BMI 30-39.9) Sepsis Asthma Type 2 diabetes mellitus Family History Other Adopted Family history unknown Social History Smoking Status: Never smoker Second Hand Exposure: Yes (On occasion); Do You Dip or Chew Tobacco: No; Hx Alcohol Use: No Hx Substance Use: No Preferred Language: Macedonian Communication Ability: Effective Visual Impairment: No Limitations Soakers Supervisor Required: No Beliefs That Will Affect Care: None marital status: Current Living Situation: Spouse How many Children do You have: 2 Feels Safe at Home: Yes Safety Concerns: Feels Safe At This Time Assistive Devices: Brace/Splint/Immobilizer and Scooter/Electric Scooter Review of Systems Review of Systems: All systems reviewed & are unremarkable except as noted in Subjective Physical Exam Constitutional: well nourished and + obese; no acute distress Respiratory: no respiratory distress, no labored breathing and no retractions Auscultation: no crackles, no rales, no rhonchi and no wheezes Cardiovascular: Rate/Rhythm: regular rate and regular rhythm Heart Sounds: normal S1, normal S2 and + murmur (2/6 low pitched systolic ejection murmur heard best at the base.) Vessels: radial pulses present; no JVD and no carotid bruit Extremities: no edema Gastrointestinal (Abdomen): Inspection/Auscultation: normal bowel sounds; abdomen not distended Percussion/Palpation: abdomen soft; abdomen nontender, no guarding and abdomen not rigid Neurologic: CN's II-XI intact bilaterally and moves all extremities Results & Data Vital Signs (Past 12 Hours) Vital Signs Temp Pulse Pulse Pulse Resp BP Pulse Ox 03/08/25 15:21 36.8 C 77 18 L 18 119/71 96 03/08/25 13:00 76 03/08/25 11:15 36.5 C 77 18 108/67 95 03/08/25 07:17 36.8 C 81 18 123/70 96 03/08/25 05:55 78 03/08/25 04:30 36.9 C 76 18 123/67 95 O2 Del Method 03/08/25 15:21 Room Air 03/08/25 13:00 03/08/25 11:15 Room Air 03/08/25 07:17 Room Air 03/08/25 05:55 03/08/25 04:30 Room Air Laboratory Results CBC 03/08/25 Range/Units 05:34 WBC 11.97 H (4.8-10.8) K/ul RBC 4.86 (4.70-6.10) M/uL Hgb 13.9 L (14.0-18.0) g/dL Hct 40.0 L (42.0-52.0) % Plt Count 258 (130-400) K/uL Comprehensive Metabolic Panel 03/08/25 Range/Units 05:34 Sodium 134 L (136-145) mmol/L Potassium 3.9 (3.5-5.1) mmol/L Chloride 105 (98-107) mmol/L Carbon Dioxide 20 L (21-32) mmol/L BUN 46 H (6-23) mg/dl Creatinine 1.97 H (0.6-1.4) mg/dl Glucose 189 H (70-99(Fasting)) mg/dl Calcium 8.6 (8.6-10.3) mg/dl Intake and Output 03/08/25 03/08/25 03/08/25 06:59 14:59 22:59 Intake Total 480 / 480 Balance 480 / 480 Intake: Oral 480 / 480 Other: Weight 124 kg Weight Measurement Method Built in [facility] Care Time/CCT Total # of Minutes Spent Total Time Spent with Patient: Total time spent is greater than 50% in coordination of care (as documented) at patient's floor/unit and/or counseling patient: Coding Level of Care Code 95196 IN/OBS CONSULT LVL 4,60M Diagnoses Enterococcal bacteremia R78.81; B95.2 Bicuspid aortic valve Q23.1 Moderate aortic stenosis I35.0 History of endocarditis Z86.79
--- NOTE | 2025-03-08 23:07 | Podiatry Progress Note ---
Date of Service March 08, 2025 Assessment & Plan (1) Diabetic ulcer of right foot: Plan: Diabetic ulcer right foot: Notable improvement to the ulceration plantar right foot over the past 24 hours. Previously noted mild erythema has resolved. Wound is decreased in dimensions and there is no drainage on dressing placed earlier today. No indication for debridement at this time. MRI right foot results reviewed with patient with no evidence of acute osteomyelitis. Chronic Charcot changes to the foot stable since time of previous imaging. There is a question of possible soft tissue ulcer at the third toe amputation site which is evaluated clinically with no signs of local soft tissue infection or open wound. Incision is well-healed. Patient is again evaluated and question is on any other possible source of infection. Bilateral foot and ankle and leg evaluated with only open wound present to the plantar aspect of the right foot. No other possible source of infection is identified from a lower extremity standpoint. - White blood count has decreased to 11.97, procalcitonin down from 2.69 on admission to 1.78 today. - Continue once daily dressing change with Aquacel Ag and a dry sterile dressing. - Continue offloading with cam boot at all times while ambulating. Minimize weightbearing when possible. - Wound culture right foot diabetic ulcer pending. Preliminary result with Staph aureus. Wound culture 02/08/2025 final result: Staph aureus - Blood culture 03/07/2025 preliminary result with gram-positive cocci in chains growing Enterococcus faecalis. Thank you for consulting podiatry to aid in the care of this patient. Will continue to follow while he remains in house and recommend continued close follow-up in the diabetic foot clinic following discharge. (2) Charcot's joint of right foot: (3) Status post amputation of toe of right foot: Admission and Anticipated Discharge Date Admission Date: March 07, 2025 Subjective Patient seen resting comfortably in hospital bed this evening with family and friends present at bedside. Wound dressing the right foot changed earlier today by patient's nurse with Aquacel Ag and a dry sterile dressing. He has been seen by cardiology and scheduled for transesophageal echocardiogram tomorrow morning. Continues IV daptomycin at the direction of infectious disease. Review of Systems Review of Systems: Denies nausea, vomiting, fever, chills. Denies shortness of breath or chest pain. Denies pain in the right foot. Physical Exam Physical Exam: Const: Appears well developed and well nourished. No signs of acute distress present. CV: Extremities: No cyanosis Capillary refill time is less than 2 seconds all digits of the bilateral foot. Posterior tibial and dorsalis pedis pulses are palpable bilateral. Skin: Well-healed cicatrix right third toe amputation. Diabetic ulcer plantar r ight foot Neuro: Loss of protective sensation bilateral foot to the level of the ankle.. Psych: Mood/Affect: Mood is normal. Affect is normal. Cognition: Orientation is intact to person, place and time. Focused lower extremity musculoskeletal exam: Leg: No pain with compression of the calf muscle. Ankles: No tenderness bilaterally. Motor strength is intact. Range of motion pain-free and unlimited. Feet: Charcot deformity bilateral with collapse of the medial arch and midfoot prominence. Status post right third digit amputation 09/05/2024. Amputation site well- healed. 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 As patient has been essentially nonweightbearing for the last 24 hours wound is showing signs of new epithelial tissue formation to the borders and decrease in size greater than 50% now limited to 3 mm diameter breakdown in skin to the plantar aspect of the right foot. Erythema and edema have resolved. No lymphangitis or streaking. No drainage to dressing placed earlier today. Results & Data Results & Data Vital Signs (Past 12 Hours) Vital Signs Temp Pulse Pulse Pulse Resp BP Pulse Ox 03/08/25 19:30 37.0 C 80 18 124/72 96 03/08/25 15:21 36.8 C 77 18 L 18 119/71 96 03/08/25 13:00 76 03/08/25 11:15 36.5 C 77 18 108/67 95 O2 Del Method 03/08/25 19:30 Room Air 03/08/25 15:21 Room Air 03/08/25 13:00 03/08/25 11:15 Room Air Diagnostic Findings CT right foot 03/07/2025: No soft tissue gas is present. No fluid collection is identified on unenhanced exam to suggest an abscess. IMPRESSION: 1. Plantar mid foot wound with associated subcutaneous edema suggestive of cellulitis which extends to the distal cuboid. However, no bony erosion to indicate acute osteomyelitis by CT. No well-defined fluid collection on unenhanced exam to suggest abscess. 2. 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 3. Expected findings following third digit amputation. MRI right foot 03/08/2025:IMPRESSION: 1. Possible soft tissue ulcer at the 3rd toe resection site which should be correlated with exam. 2. No evidence of acute osteomyelitis. 3. Chronic Charcot changes at the midfoot. Coding Level of Care Code 75722 SUB INP/OBS CARE 2/35MIN Diagnoses Diabetic ulcer of right midfoot associated with type 2 diabetes mellitus, with fat layer exposed E11.621; L97.419 Diabetic foot ulcer location: midfoot Diabetes mellitus type: type 2 Non-pressure ulcer stage: unspecified non-pressure ulcer stage Charcot's joint of right foot M14.671 Status post amputation of toe of right foot Z89.421 (1) Diabetic ulcer of right foot Diabetic foot ulcer location: midfoot Diabetes mellitus type: type 2 Non- pressure ulcer stage: unspecified non-pressure ulcer stage Qualified Code(s): E11.621 - Type 2 diabetes mellitus with foot ulcer; L97.419 - Non-pressure chronic ulcer of right heel and midfoot with unspecified severity
[2025-03-09 07:08] LABS: Hematocrit (blood only) 39.6 % (42.0-52.0); Hemoglobin 13.9 g/dL (14.0-18.0); Immature Granulocytes # (auto) 0.12 K/uL (0.01-0.20); Immature Granulocytes % (auto) 0.8 %; Mean Corpuscular Hemoglobin 28.8 pg (25.0-34.0); Mean Corpuscular Volume 82.0 fL (80.0-100.0); Platelet Count 285 K/uL (130-400); RDW Standard Deviation 36.9 fL (36.4-46.3); Red Blood Count 4.83 M/uL (4.70-6.10); White Blood Count 14.79 K/ul (4.8-10.8)
[2025-03-09 07:31] LABS: Anion Gap 10.0 (3-11); Blood Urea Nitrogen 44.0 mg/dl (6-23); Calcium 8.8 mg/dl (8.6-10.3); Carbon Dioxide 18.0 mmol/L (21-32); Chloride 106.0 mmol/L (98-107); Creatinine Clr Calc Pharmacy 55.3 ml/min; Glucose 166.0 mg/dl (70-99(Fasting)); Potassium 3.8 mmol/L (3.5-5.1); Sodium 134.0 mmol/L (136-145)
--- NOTE | 2025-03-09 07:52 | History & Physical Bridge Note ---
Date of Service March 09, 2025 History & Physical Bridge Note I have examined the patient, reviewed the History & Physical and in the interval since the performance of the History & Physical I have noted the following changes of clinical significance: no changes noted
--- NOTE | 2025-03-09 07:54 | Anesthesiology Consultation ---
Date of Service March 09, 2025 Assessment & Plan Chart Review Chart Review: Acceptable Risk for Surgery and Patient NOT seen in Pre Admission Testing Consults Requested none ASA ASA4 Proposed Anesthesia Anesthesia Type: MAC Risk / Benefits Reviewed With: PT / POA / Parent / Guardian, Accepts Plan and Informed Consent Obtained History Surgery Operation Date: 03/09/25 07:45 Proposed Procedures p Transesophageal Echo w/Anesthesia - Lowell Fulton, Height/Weight Height: 6 ft 2 in Weight: 123.8 kg Allergies Allergy/AdvReac Type Severity Reaction Status Date / Time insect venom Allergy Severe Hives Verified 03/02/25 08:43 No Known Drug Allergies Allergy Hives Verified 03/02/25 08:43 Medications Home Medications Medication Instructions Recorded Confirmed Last Taken aspirin 81 mg tablet,delayed 81 mg PO DAILY 05/10/18 03/07/25 Unknown release epinephrine 0.3 mg/0.3 mL 0.3 mg IM DIRECTED PRN Allergic 05/10/18 03/07/25 Unknown injection, auto-injector (EpiPen) Reaction insulin aspart U-100 100 unit/mL 1 dose subcut UD 05/10/18 03/07/25 Unknown subcutaneous solution multivitamin-ferrous 1 tab PO DAILY 05/10/18 03/07/25 Unknown fumarate-folic acid 18 mg-400 mcg tablet (Centrum) omega-3 fatty acids-fish oil 300 2 cap PO DAILY 05/10/18 03/07/25 Unknown mg-1,000 mg capsule (Fish Oil) atorvastatin 40 mg tablet (Lipitor) 40 mg PO DAILY #30 tabs 01/03/19 03/07/25 Unknown empagliflozin 25 mg tablet 25 mg PO DAILY 09/02/24 03/07/25 Unknown (Jardiance) hydrochlorothiazide 25 mg tablet 25 mg PO DAILY 09/02/24 03/07/25 Unknown losartan 100 mg tablet 100 mg PO DAILY 09/02/24 03/07/25 Unknown semaglutide 14 mg tablet (Rybelsus) 14 mg PO DAILY 09/02/24 03/07/25 Unknown amlodipine 10 mg tablet 5 mg PO DAILY 12/08/24 03/07/25 Unknown carvedilol 25 mg tablet 25 mg PO BID 03/07/25 03/07/25 Unknown Active Medications Generic Name Dose Route Start Last Admin Trade Name Freq PRN Reason Stop Dose Admin Amlodipine Besylate 5 mg 03/08/25 09:00 03/08/25 07:37 Amlodipine Besylate 5 Mg Tab PO 04/07/25 08:59 5 mg DAILY ELIGIO Administration Aspirin 81 mg 03/08/25 09:00 03/08/25 07:37 Aspirin 81 Mg Ectab PO 04/07/25 08:59 81 mg DAILY ELIGIO Administration Atorvastatin Calcium 40 mg 03/08/25 09:00 03/08/25 07:37 Atorvastatin 40 Mg Tab PO 04/07/25 08:59 40 mg DAILY ELIGIO Administration Carvedilol 25 mg 03/07/25 21:00 03/08/25 20:36 Carvedilol 25 Mg Tab PO 04/06/25 20:59 25 mg BID ELIGIO Administration Enoxaparin Sodium 40 mg 03/08/25 09:00 03/08/25 07:39 Enoxaparin Inj 40 Mg/0.4 Ml Syr SQ 04/07/25 08:59 40 mg QAM ELIGIO Administration Guaifenesin/Dextromethorphan 5 ml 03/08/25 15:36 03/08/25 16:07 Guaifenesin/Dextrom Syrup 100mg/10mg 5ml Udc PO 04/07/25 15:35 5 ml Q6H PRN Administration Cough Hydrochlorothiazide 25 mg 03/08/25 09:00 03/08/25 07:37 Hydrochlorothiazide 25 Mg Tab PO 04/07/25 08:59 25 mg DAILY ELIGIO Administration Daptomycin 725 mg/ Syringe 14.5 mls @ 7.25 mls/min 03/08/25 09:00 03/08/25 09:21 IV 03/15/25 08:59 7.25 mls/min Q24H ELIGIO Administration Protocol Insulin Aspart 0 units 03/07/25 12:30 03/08/25 20:35 Insulin Aspart Per Unit Charge SC 04/06/25 12:29 7 units ACHS ELIGIO Administration Insulin Glargine 17 units 03/08/25 17:50 03/08/25 17:57 Lantus Per Unit Charge SQ 04/07/25 17:49 17 units Q24H ELIGIO Administration Protocol Lactobacillus Acidophilus 1,250 mg 03/08/25 09:00 03/08/25 07:39 Advanced Probiotic 625 Mg Capsule PO 04/07/25 08:59 1,250 mg DAILY ELIGIO Administration Losartan Potassium 100 mg 03/08/25 09:00 03/08/25 07:38 Losartan Potassium 50 Mg Tab PO 04/07/25 08:59 100 mg DAILY ELIGIO Administration NPO Date Last Intake of Fluids: 03/08/25 Time Last Intake of Fluids: 23:30 Date Last Intake of Solids: 03/08/25 Time Last Intake of Solids: 19:00 Past Medical History Medical History Obesity (BMI 30-39.9) Sepsis Asthma Type 2 diabetes mellitus JAVIER HTN HLD Diabetic PN Exercise / Class Metabolic Activity III < 4 Walking/Shop/Light housework Past Family History Family History Other Adopted Family history unknown Past Anesthesia History No Hx of Anesthesia Complications and No Family Hx of Anesthesia Complications History of PONV No Hx of PONV and No Hx of Motion Sickness Social History Smoking Status: Never smoker Do You Dip or Chew Tobacco: No Hx Alcohol Use: No Alcohol type: hard liquor alcohol intake frequency: 0-2 drinks per day Hx Substance Use: No substance use type: does not use Physical Exam Vital Signs Last Vital Signs Temp 36.7 C 03/09/25 04:21 Pulse 73 03/09/25 06:59 Resp 16 03/09/25 06:59 BP 176/85 H 03/09/25 06:59 Pulse Ox 93 03/09/25 06:59 O2 Del Method Room Air 03/09/25 06:59 Constitutional + morbidly obese; no acute distress ENMT Mouth: no dentition abnormality Thyromental Distance: > or= 3.5 Finger Breadths Mallampati Class: II Neck normal visual inspection, trachea midline, + short neck, + thick neck and + facial hair; neck extension not limited Respiratory normal respiratory effort Auscultation: lungs clear to auscultation bilaterally and + diminished lung sounds Cardiovascular Rate/Rhythm: regular rate and regular rhythm Heart Sounds: + murmur Vessels: no carotid bruit Musculoskeletal Spine: normal cervical ROM and no pain with cervical ROM Extremities: extremities normal to inspection; full ROM of extremities Neurologic moves all extremities Motor/Sensory: no sensory deficit Psychiatric Orientation: alert and oriented x 3 Testing Laboratory Results 03/09/25 05:59 03/09/25 05:59 Hemoglobin A1c 11.2 % (4.5-5.6) H 03/08/25 05:34 03/07/25 18:00 Gram Stain - Final Foot,Right Aerobic and Anaerobic Culture - Preliminary Staphylococcus aureus 03/07/25 08:33 Aerobic Blood Culture - Preliminary Blood Gram positive cocci Anaerobic Blood Culture - Preliminary Enterococcus faecalis 03/07/25 08:10 Aerobic Blood Culture - Preliminary Blood Gram positive cocci in chains Anaerobic Blood Culture - Preliminary Enterococcus faecalis
--- NOTE | 2025-03-09 07:59 | Communication Note ---
Date of Service: March 09, 2025 03/07/[id number] HK;NL LV sys FXN;EF-55%;Congenital BiCuspid AV,mod. calcified;MOD. ;Prox. Asc Ao mod. dilated 4.7 cm
[2025-03-09] MEDS: BENZOCAINE/TETRACAIN/BUTAM 50 APPLN/5 GM CAN EXT ONE (08:02)
--- NOTE | 2025-03-09 08:48 | Post Operative Brief Note ---
Cardiology Brief Post Op Date of Surgery March 09, 2025 Pre & Post Diagnosis Operation Date: 03/09/25 07:45 Procedure Transesophageal echocardiogram procedure: The patient's vital signs were monitored via the standard fashion. After informed consent was obtained a timeout was performed the patient was sedated with the assistance of the anesthesia service. 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 Details to follow on full report. Moderate bicuspid aortic valve stenosis is present. Mild aortic valve regurgitation is present. The proximal ascending aorta is moderately dilated. There is a small PFO with mild [id number] interatrial shunt. Vending Machine Refiller Lowell Fulton DO [place] IVIS Allen Estimated Blood Loss 0 Findings Consistent with Post-Op Diagnosis as noted above Anesthesia Type MAC Complications none
--- NOTE | 2025-03-09 09:11 | XCELERA ---
[id number]
--- NOTE | 2025-03-09 09:14 | Anesthesiology Progress Note ---
Date of Service March 09, 2025 Anesthesia Post Procedure Vital Signs Vital Signs: Temp Pulse Pulse Pulse Resp BP BP 03/09/25 08:45 76 16 121/67 03/09/25 08:30 74 16 108/63 03/09/25 06:59 73 16 176/85 H 03/09/25 05:41 72 03/09/25 04:21 36.7 C 73 18 126/71 03/08/25 22:57 36.9 C 78 18 125/68 03/08/25 21:56 75 03/08/25 19:30 37.0 C 80 18 124/72 03/08/25 15:21 36.8 C 77 18 L 18 119/71 03/08/25 13:00 76 03/08/25 11:15 36.5 C 77 18 108/67 Pulse Ox O2 Del Method 03/09/25 08:45 96 Room Air 03/09/25 08:30 96 Room Air 03/09/25 06:59 93 Room Air 03/09/25 05:41 03/09/25 04:21 96 Room Air 03/08/25 22:57 97 Room Air 03/08/25 21:56 03/08/25 19:30 96 Room Air 03/08/25 15:21 96 Room Air 03/08/25 13:00 03/08/25 11:15 95 Room Air Transfer of Care Handoff Completed per policy Notes Mental Status: alert / awake / arousable Patient Amnestic to Procedure: Yes Nausea / Vomiting: adequately controlled Pain: adequately controlled Airway Patency, RR, SpO2: stable & adequate BP & HR: stable & adequate Hydration State: stable & adequate Anesthetic Complications: no major complications apparent
--- NOTE | 2025-03-09 09:15 | Cardiology Progress Note ---
Date of Service March 09, 2025 Assessment & Plan (1) Bacterial endocarditis: (2) Enterococcal bacteremia: (3) Bicuspid aortic valve: (4) Moderate aortic stenosis: Plan * Transesophageal echocardiogram with two separate areas of concern on the left ventricular aspect of the aortic valve consistent with vegetation * No acute heart failure, stable moderate aortic valve stenosis mild aortic valve regurgitation. * No evidence of perivalvular abscess * Mitral, pulmonic, tricuspid valves without vegetations. * Normal AV conduction noted on telemetry.Will order an EKG for completeness to establish current baseline. * No indication for cardiac surgery at present. * Recommend prolonged antibiotic therapy and follow up FREDRICK or TTE in 8 weeks as outpatient. Haroldo Fulton DO Admission and Anticipated Discharge Date Admission Date: March 07, 2025 Subjective Patient seen prior to, during, after transesophageal echocardiogram. Physical Exam Physical Exam: General: no acute distress and stated age Eyes: conjunctiva are pink and non-injected, sclera clear Neck: normal jugular venous pulse, no hepatojugular reflux Chest: normal shape and normal respiratory effort Lungs: clear to auscultation and percussion Cardiac Exam: - regular heart sounds,1/6 systolic murmur Abdomen: abdomen soft, non-tender, no abnormal masses and no hepatosplenomegaly Extremities: no edema and no cyanosis, Right third toe status post amputation Neuro:awake, conversant, follows commands, no focal motor deficits Psych: appropriate affect and insight. Results & Data Vital Signs (Past 12 Hours) Vital Signs Temp Pulse Pulse Resp BP BP Pulse Ox 03/09/25 08:45 76 16 121/67 96 03/09/25 08:30 74 16 108/63 96 03/09/25 06:59 73 16 176/85 H 93 03/09/25 05:41 72 03/09/25 04:21 36.7 C 73 18 126/71 96 03/08/25 22:57 36.9 C 78 18 125/68 97 03/08/25 21:56 75 O2 Del Method 03/09/25 08:45 Room Air 03/09/25 08:30 Room Air 03/09/25 06:59 Room Air 03/09/25 05:41 03/09/25 04:21 Room Air 03/08/25 22:57 Room Air 03/08/25 21:56 Laboratory Results CBC 03/09/25 Range/Units 05:59 WBC 14.79 H (4.8-10.8) K/ul RBC 4.83 (4.70-6.10) M/uL Hgb 13.9 L (14.0-18.0) g/dL Hct 39.6 L (42.0-52.0) % Plt Count 285 (130-400) K/uL Neut # (Auto) 11.06 H (1.40-6.50) K/uL Lymph # (Auto) 2.06 (1.20-3.40) K/uL Perry # (Auto) 1.17 H (0.11-0.59) K/uL Eos # (Auto) 0.31 (0.00-0.50) K/uL Baso # (Auto) 0.07 (0.00-0.20) K/uL Comprehensive Metabolic Panel 03/09/25 Range/Units 05:59 Sodium 134 L (136-145) mmol/L Potassium 3.8 (3.5-5.1) mmol/L Chloride 106 (98-107) mmol/L Carbon Dioxide 18 L (21-32) mmol/L BUN 44 H (6-23) mg/dl Creatinine 2.06 H (0.6-1.4) mg/dl Glucose 166 H (70-99(Fasting)) mg/dl Calcium 8.8 (8.6-10.3) mg/dl Intake and Output 03/08/25 03/09/25 03/09/25 22:59 06:59 14:59 Intake Total 480 / 480 Balance 480 / 480 Intake: Oral 480 / 480 Other: Other Intake Source NPO # Unmeasured Voids 1 Weight 123.8 kg 123.8 kg Weight Measurement Method Built in [facility] Patient Weight 03/10/25 06:59 Weight 123.8 kg PG Care Time/CCT Total # of Minutes Spent Total Time Spent with Patient: Total time spent is greater than 50% in coordination of care (as documented) at patient's floor/unit and/or counseling patient: Coding Level of Care Code 90665 SUB INP/OBS CARE 3/50MIN Diagnoses Bacterial endocarditis I33.0 Enterococcal bacteremia R78.81; B95.2 Bicuspid aortic valve Q23.1 Moderate aortic stenosis I35.0
--- NOTE | 2025-03-09 09:52 | Hospitalist Progress Note ---
Date of Service March 09, 2025 Assessment & Plan (1) Cellulitis of right foot: (2) Charcot's joint of right foot: (3) Diabetic ulcer of right foot: (4) Hypertension: (5) Dyslipidemia: Plan 59M with PMH poorly controlled DM, CKD3, recent MSSA OM c/b mitral valve endocarditis, bicuspid aortic valve, ascending aortic aneurysm, HTN who presents with R foot erythema and fever/chills #R foot cellulitis #Sepsis #E. faecalis bacteremia -MRI R foot neg for OM but showing a third toe ulceration -History of mitral valve endocarditis and completed 6 weeks of IV abx in August 2024 -07/29 blood cultures on admission growing E. faecalis -FREDRICK showing two vegetations on aortic valve consistent with endocarditis -Source is likely the foot as there is no other source of infection identified - states he had dental work done in december. he was not given prophylactic abx. E faecalis is part of the oral microbiota but the timing doesn't fit -Superficial wound cx of foot growing MSSA, unclear of clinical significance -Repeat blood cultures 03/08 remain positive -WBC downtrending Plan -Continue amp+CTX per ID recommendations -Repeat blood cultures until clearance is documented -Appreciate podiatry input -Will need PICC line once bacteremia clears -Will need 6 weeks of IV abx #LIZ on CKD3 -Baseline Cr around 2 -Mild LIZ on admission, now resolved Plan -Monitor renal function closely -Avoid nephrotoxic agents if possible #IDDM -A1c is 11.2, very poorly controlled and likely contributing to his frequent infections -Has insulin pump at home -Continue lantus and SSI BGM ACHS #Hyponatremia -Mild asymptomatic, monitor #HTN -Stable, continue home regimen #Ascending aortic aneurysm #Congenital biscupid aortic valve I spent a total of 61 minutes coordinating, documenting, and providing care for this patient excluding time spent in the performance of separately billed services. This included personally reviewing all current laboratories and imaging studies, medical reconciliation, outpatient chart review and discussion with specialists Admission and Anticipated Discharge Date Admission Date: March 07, 2025 Subjective Feeling well today he denies any complaints. Patient denies F/C, CP, palpitations, SOB, dyspnea, abd pain, N/V/D Physical Exam Physical Exam: Vitals and labs reviewed General: Well appearing, NAD HEENT: EOMI, PERRLA Neck: Supple Cardiac: RRR systolic murmur Lungs: CTA no rhonchi wheezing or rales Abd: S NT ND BS positive : Deffered MSK: R foot bandaged. Ext: No Edema cyanosis Skin: Warm, Dry Neuro: AOx3 No focal deficits. Psych: Normal Mood Results & Data Results & Data Vital Signs (Past 12 Hours) Vital Signs Temp Pulse Pulse Resp BP BP Pulse Ox 03/09/25 09:25 36.4 C L 75 18 105/62 94 03/09/25 08:45 76 16 121/67 96 03/09/25 08:30 74 16 108/63 96 03/09/25 06:59 73 16 176/85 H 93 03/09/25 05:41 72 03/09/25 04:21 36.7 C 73 18 126/71 96 03/08/25 22:57 36.9 C 78 18 125/68 97 03/08/25 21:56 75 O2 Del Method 03/09/25 09:25 Room Air 03/09/25 08:45 Room Air 03/09/25 08:30 Room Air 03/09/25 06:59 Room Air 03/09/25 05:41 03/09/25 04:21 Room Air 03/08/25 22:57 Room Air 03/08/25 21:56 Laboratory Results Abnormal lab results 03/09/25 03/09/25 03/09/25 Range/Units 11:14 16:30 20:20 WBC (4.8-10.8) K/ul RBC (4.70-6.10) M/uL Hgb (14.0-18.0) g/dL Hct (42.0-52.0) % MCHC (32.0-36.0) g/dL Neut # (Auto) (1.40-6.50) K/uL Kerr # (Auto) (0.11-0.59) K/uL Sodium (136-145) mmol/L Carbon Dioxide (21-32) mmol/L BUN (6-23) mg/dl Creatinine (0.6-1.4) mg/dl BUN/Creatinine Ratio (10-20) Glucose (70-99(Fasting)) mg/dl POC Glucose 227 H 175 H 176 H (70-99) mg/dl 03/10/25 03/10/25 Range/Units 05:51 08:24 WBC 12.54 H (4.8-10.8) K/ul RBC 4.66 L (4.70-6.10) M/uL Hgb 13.7 L (14.0-18.0) g/dL Hct 37.9 L (42.0-52.0) % MCHC 36.1 H (32.0-36.0) g/dL Neut # (Auto) 9.12 H (1.40-6.50) K/uL Kerr # (Auto) 1.11 H (0.11-0.59) K/uL Sodium 134 L (136-145) mmol/L Carbon Dioxide 17 L (21-32) mmol/L BUN 49 H (6-23) mg/dl Creatinine 2.02 H (0.6-1.4) mg/dl BUN/Creatinine Ratio 24.3 H (10-20) Glucose 171 H (70-99(Fasting)) mg/dl POC Glucose 159 H (70-99) mg/dl (3) Diabetic ulcer of right foot Diabetes mellitus type: type 2 Diabetic foot ulcer location: midfoot Non- pressure ulcer stage: unspecified non-pressure ulcer stage Qualified Code(s): E11.621 - Type 2 diabetes mellitus with foot ulcer; L97.419 - Non-pressure chronic ulcer of right heel and midfoot with unspecified severity
[2025-03-09] MEDS ORDERED: AMPICILLIN 250 MG in SODIUM CHLORIDE 0.9% 50 ML IV SCH (10:00)
[2025-03-09] MEDS: LIDOCAINE 2% 2 ML VIAL/AMP(20MG/ML) INFIL ONE (10:03)
[2025-03-09] MEDS: PROPOFOL IV EMULSION 10 MG/ML 20 ML VIAL IV ONE ×2 (10:03→10:04)
--- NOTE | 2025-03-09 10:23 | Podiatry Progress Note ---
Date of Service March 09, 2025 Assessment & Plan (1) Diabetic ulcer of right foot: Plan: Diabetic ulcer right foot: Stable diabetic ulceration to the plantar right foot. No signs of local soft tissue infection. Dressing changed. Patient's plans to machine operator hop picker his offloading boot from home. Once available patient should wear cam walker at all times while ambulating to reduce pressure to the ulceration of the plantar right foot. - Continue once daily dressing change with Aquacel Ag and a dry sterile dressing. - Continue offloading with cam boot at all times while ambulating. Minimize weightbearing when possible. - Wound culture right foot diabetic ulcer growing MSSA. Wound culture 02/08/2025 final result: Staph aureus - Blood culture 03/07/2025 preliminary result with gram-positive cocci in chains growing Enterococcus faecalis. Repeat culture 03/08/2025 preliminary: No growth in aerobic bottle after 24 hours. - Status post FREDRICK earlier this morning.FREDRICK showing two vegetations on aortic valve consistent with endocarditis Thank you for consulting podiatry to aid in the care of this patient. Will continue to follow while he remains in house and recommend continued close follow-up in the diabetic foot clinic following discharge. (2) Charcot's joint of right foot: (3) Status post amputation of toe of right foot: Admission and Anticipated Discharge Date Admission Date: March 07, 2025 Subjective Patient seen resting comfortably in hospital bed with present in room. Status post FREDRICK this morning. Reports he has been ambulating on the right foot over the past 24 hours but only to use the restroom. His boot is at home and plans to machine operator hop picker today and bring to the hospital for him to offload while ambulating on the right foot. Review of Systems Review of Systems: Denies nausea, vomiting, fever, chills, shortness of breath, chest pain. Physical Exam Physical Exam: Const: Appears well developed and well nourished. No signs of acute distress present. CV: Extremities: No cyanosis Capillary refill time is less than 2 seconds all digits of the bilateral foot. Posterior tibial and dorsalis pedis pulses are palpable bilateral. Skin: Well-healed cicatrix right third toe amputation. Diabetic ulcer plantar right foot Neuro: Loss of protective sensation bilateral foot to the level of the ankle.. Psych: Mood/Affect: Mood is normal. Affect is normal. Cognition: Orientation is intact to person, place and time. Focused lower extremity musculoskeletal exam: Leg: No pain with compression of the calf muscle. Ankles: No tenderness bilaterally. Motor strength is intact. Range of motion pain-free and unlimited. Feet: Charcot deformity bilateral with collapse of the medial arch and midfoot prominence. Status post right third digit amputation 09/05/2024. Amputation site well- healed. 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 Wound dimensions are stable today. Healthy granular wound bed. Erythema and edema have resolved. No lymphangitis or streaking. Sanguinous drainage to dressing Results & Data Results & Data Vital Signs (Past 12 Hours) Vital Signs Temp Pulse Pulse Resp BP BP Pulse Ox 03/09/25 09:25 36.4 C L 75 18 105/62 94 03/09/25 08:45 76 16 121/67 96 03/09/25 08:30 74 16 108/63 96 03/09/25 06:59 73 16 176/85 H 93 03/09/25 05:41 72 03/09/25 04:21 36.7 C 73 18 126/71 96 03/08/25 22:57 36.9 C 78 18 125/68 97 O2 Del Method 03/09/25 09:25 Room Air 03/09/25 08:45 Room Air 03/09/25 08:30 Room Air 03/09/25 06:59 Room Air 03/09/25 05:41 03/09/25 04:21 Room Air 03/08/25 22:57 Room Air Diagnostic Findings CT right foot 03/07/2025: No soft tissue gas is present. No fluid collection is identified on unenhanced exam to suggest an abscess. IMPRESSION: 1. Plantar mid foot wound with associated subcutaneous edema suggestive of cellulitis which extends to the distal cuboid. However, no bony erosion to indicate acute osteomyelitis by CT. No well-defined fluid collection on unenhanced exam to suggest abscess. 2. 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 3. Expected findings following third digit amputation. MRI right foot 03/08/2025:IMPRESSION: 1. Possible soft tissue ulcer at the 3rd toe resection site which should be correlated with exam. 2. No evidence of acute osteomyelitis. 3. Chronic Charcot changes at the midfoot. Coding Level of Care Code 29816 SUB INP/OBS CARE 05/21MIN Diagnoses Diabetic ulcer of right midfoot associated with type 2 diabetes mellitus, with fat layer exposed E11.621; L97.419 Diabetic foot ulcer location: midfoot Diabetes mellitus type: type 2 Non-pressure ulcer stage: unspecified non-pressure ulcer stage Charcot's joint of right foot M14.671 Status post amputation of toe of right foot Z89.421 (1) Diabetic ulcer of right foot Diabetic foot ulcer location: midfoot Diabetes mellitus type: type 2 Non- pressure ulcer stage: unspecified non-pressure ulcer stage Qualified Code(s): E11.621 - Type 2 diabetes mellitus with foot ulcer; L97.419 - Non-pressure chronic ulcer of right heel and midfoot with unspecified severity
[2025-03-09] MEDS: AMPICILLIN 2,000 MG in SODIUM CHLOR 0.9% MINI-B 100 ML IV SCH (11:15)
[2025-03-09] MEDS: cefTRIAXone SODIUM 2,000 MG/50 ML BAG IV SCH (11:39)
[2025-03-09] MEDS: LANTUS PER UNIT CHARGE SQ SCH (20:27)
[2025-03-10 06:17] LABS: Hematocrit (blood only) 37.9 % (42.0-52.0); Hemoglobin 13.7 g/dL (14.0-18.0); Immature Granulocytes # (auto) 0.17 K/uL (0.01-0.20); Immature Granulocytes % (auto) 1.4 %; Mean Corpuscular Hemoglobin 29.4 pg (25.0-34.0); Mean Corpuscular Volume 81.3 fL (80.0-100.0); Platelet Count 293 K/uL (130-400); RDW Standard Deviation 36.5 fL (36.4-46.3); Red Blood Count 4.66 M/uL (4.70-6.10); White Blood Count 12.54 K/ul (4.8-10.8)
[2025-03-10 06:39] LABS: Anion Gap 10.0 (3-11); Blood Urea Nitrogen 49.0 mg/dl (6-23); Calcium 8.7 mg/dl (8.6-10.3); Carbon Dioxide 17.0 mmol/L (21-32); Chloride 107.0 mmol/L (98-107); Creatinine Clr Calc Pharmacy 56.3 ml/min; Glucose 171.0 mg/dl (70-99(Fasting)); Potassium 3.9 mmol/L (3.5-5.1); Sodium 134.0 mmol/L (136-145)
--- NOTE | 2025-03-10 12:33 | Cardiology Progress Note ---
Date of Service March 10, 2025 Assessment & Plan (1) Bacterial endocarditis: (2) Enterococcal bacteremia: (3) Bicuspid aortic valve: (4) Moderate aortic stenosis: Plan * Transesophageal echocardiogram with two separate areas of concern on the left ventricular aspect of the aortic valve consistent with vegetation * 2/2 blood cultures obtained on 03/07/2025 positive for Enterococcus faecalis. 2/2 blood cultures obtained on 03/08/2025 with preliminary findings of gram-positive cocci in chains. Staph aureus noted on wound culture from foot, however foot wound still felt to be the most likely source. * No acute heart failure, stable moderate aortic valve stenosis mild aortic valve regurgitation. * No evidence of perivalvular abscess * Mitral, pulmonic, tricuspid valves without vegetations. * Normal AV conduction noted on telemetry. * No indication for cardiac surgery at present. * Recommend prolonged antibiotic therapy and follow up FREDRICK or TTE in 8 weeks as outpatient. * Outpatient cardiology follow up will be arranged. * Please call with questions or concerns. Haroldo Fulton,DO Admission and Anticipated Discharge Date Admission Date: March 07, 2025 Subjective Patient seen in cardiology follow-up. Afebrile. States he had a restless night last night. Denies chest pain or shortness of breath. Telemetry reveals sinus rhythm in the 70s. Review of Systems Review of Systems: All systems reviewed & are unremarkable except as noted in HPI & below Physical Exam Physical Exam: General: no acute distress and stated age Eyes: conjunctiva are pink and non-injected, sclera clear Neck: normal jugular venous pulse, no hepatojugular reflux Chest: normal shape and normal respiratory effort Lungs: clear to auscultation and percussion Cardiac Exam: - regular heart sounds,1/6 systolic murmur Abdomen: abdomen soft, non-tender, no abnormal masses and no hepatosplenomegaly Extremities: no edema and no cyanosis, Right third toe status post amputation -Foot ulcer noted on the sole of the rig ht foot, dressed, dressing not removed Neuro:awake, conversant, follows commands, no focal motor deficits Psych: appropriate affect and insight. Results & Data Vital Signs (Past 12 Hours) Vital Signs Temp Pulse Pulse Resp BP BP Pulse Ox 03/10/25 11:16 36.7 C 77 16 122/77 96 03/10/25 08:10 36.6 C 77 18 136/88 95 03/10/25 07:26 80 03/10/25 03:54 36.8 C 83 18 131/74 95 O2 Del Method 03/10/25 11:16 Room Air 03/10/25 08:10 Room Air 03/10/25 07:26 03/10/25 03:54 Room Air Coding Level of Care Code 96804 SUB INP/OBS CARE 3/50MIN Diagnoses Acute bacterial endocarditis I33.0 Chronicity: acute Enterococcal bacteremia R78.81; B95.2 Bicuspid aortic valve Q23.1 Moderate aortic stenosis I35.0 (1) Bacterial endocarditis Chronicity: acute Qualified Code(s): I33.0 - Acute and subacute infective endocarditis
--- NOTE | 2025-03-10 13:13 | Pharmacy Report ---
Pharmacy Glycemic Short Note 2 - Date of Service March 10, 2025 - Glycemic Short BSG Results (Last 24 hours): 03/09/25 03/09/25 03/10/25 16:30 20:20 05:51 Glucose 171 H POC Glucose 175 H 176 H 03/10/25 03/10/25 08:24 12:09 Glucose POC Glucose 159 H 197 H OUTPATIENT ANTIDIABETIC REGIMEN: * Rybelsus 14mg daily * Jardiance 25mg daily * Omnipod insulin pump: * Novolog - 1.8 units/hour (~43 units total daily) * CR: 5 * CF: 7 * Glucose goal 70-150 * HbA1c: 11.2% on 03/08/25 ASSESSMENT: 03/10/25: * Blood sugars have been reasonably controlled over past 24 hours w/ highest blood sugar of day consistently at lunchtime * Fasting blood sugar improved today at 159 mg/dL * Will continue with once daily basal and slightly tightened Novolog 03/08: * Karl received a total of 63 units of insulin yesterday. (30 units were basal and 33 units were bolus). All BSGs were above goal yesterday. * Fasting BSG was 183mg/dL this morning. Lantus dose was increased by ~20% to get closer to 24hr basal amount he receives with insulin pump. * CR was tightened to also match his pump settings to attempt a little better glycemic control. 03/07: * Karl is a 59 year old male who presents to the hospital with cellulitis * Based on isinger visit 12/2024, his diabetes was not controlled due to stress from work and moving, and he was unable to obtain refills for pump from the pharmacy * Pump settings have tight CF and CR * Will initiate Lantus to replace the continuous Novolog that he normally gets from his pump * Loosened CF and CR a little bit to see what his glucose looks like and will need to adjust accordingly * SCr today above his baseline, may have slower clearance of insulin with reduced renal function - continue to monitor * T2DM diet * Stressors: infection PLAN FOR INPATIENT GLYCEMIC CONTROL: * Hold outpatient diabetes medications * Basal insulin * Lantus 40 units SC HS * Bolus insulin * NovoLog per scale ACHS or Q6hrs while NPO * Goal Range: Low 120 mg/dL - High 160 mg/dL * Correction Factor: 10 mg/dL/unit * Nutritional / Prandial insulin per carb ratio of 1 unit per 4 grams CHO consumed
--- NOTE | 2025-03-10 15:59 | Hospitalist Progress Note ---
Date of Service March 10, 2025 Assessment & Plan (1) Cellulitis of right foot: (2) Charcot's joint of right foot: (3) Diabetic ulcer of right foot: (4) Hypertension: (5) Dyslipidemia: Plan 59M with PMH poorly controlled DM, CKD3, recent MSSA OM c/b mitral valve endocarditis, bicuspid aortic valve, ascending aortic aneurysm, HTN who presents with R foot erythema and fever/chills #R foot cellulitis #Sepsis #E. faecalis bacteremia -MRI R foot neg for OM but showing a third toe ulceration -History of mitral valve endocarditis and completed 6 weeks of IV abx in August 2024 -07/29 blood cultures on admission growing E. faecalis -FREDRICK showing two vegetations on aortic valve consistent with endocarditis -Source is likely the foot as there is no other source of infection identified - states he had dental work done in december. he was not given prophylactic abx. E faecalis is part of the oral microbiota but the timing doesn't fit -Superficial wound cx of foot growing MSSA, unclear of clinical significance -Repeat blood cultures 03/08 remain positive -WBC downtrending Plan -Continue amp+CTX per ID recommendations -Repeat blood cultures again today and until clearance is obtained -Appreciate podiatry input -Will need PICC line once bacteremia clears -Will need 6 weeks of IV abx #LIZ on CKD3 -Baseline Cr around 2 -Mild LIZ on admission, now resolved Plan -Monitor renal function closely -Avoid nephrotoxic agents if possible #IDDM -A1c is 11.2, very poorly controlled and likely contributing to his frequent infections -Has insulin pump at home -Continue lantus and SSI BGM ACHS #Hyponatremia -Mild asymptomatic, monitor #HTN -Stable, continue home regimen #Ascending aortic aneurysm #Congenital biscupid aortic valve I spent a total of 55 minutes coordinating, documenting, and providing care for this patient excluding time spent in the performance of separately billed services. This included personally reviewing all current laboratories and imaging studies, medical reconciliation, outpatient chart review and discussion with specialists Admission and Anticipated Discharge Date Admission Date: March 07, 2025 Subjective feeling well today without complaints. Patient denies F/C, CP, palpitations, SOB, dyspnea, abd pain, N/V/D Physical Exam Physical Exam: Vitals and labs reviewed General: Well appearing, NAD HEENT: EOMI, PERRLA Neck: Supple Cardiac: RRR systolic murmur Lungs: CTA no rhonchi wheezing or rales Abd: S NT ND BS positive : Deffered MSK: R foot bandaged. Ext: No Edema cyanosis Skin: Warm, Dry Neuro: AOx3 No focal deficits. Psych: Normal Mood Results & Data Results & Data Vital Signs (Past 12 Hours) Vital Signs Temp Pulse Pulse Resp BP BP Pulse Ox 03/10/25 11:16 36.7 C 77 16 122/77 96 03/10/25 08:10 36.6 C 77 18 136/88 95 03/10/25 07:26 80 O2 Del Method 03/10/25 11:16 Room Air 03/10/25 08:10 Room Air 03/10/25 07:26 Laboratory Results Abnormal lab results 03/09/25 03/09/25 03/10/25 Range/Units 16:30 20:20 05:51 WBC 12.54 H (4.8-10.8) K/ul RBC 4.66 L (4.70-6.10) M/uL Hgb 13.7 L (14.0-18.0) g/dL Hct 37.9 L (42.0-52.0) % MCHC 36.1 H (32.0-36.0) g/dL Neut # (Auto) 9.12 H (1.40-6.50) K/uL [place] # (Auto) 1.11 H (0.11-0.59) K/uL Sodium 134 L (136-145) mmol/L Carbon Dioxide 17 L (21-32) mmol/L BUN 49 H (6-23) mg/dl Creatinine 2.02 H (0.6-1.4) mg/dl BUN/Creatinine Ratio 24.3 H (10-20) Glucose 171 H (70-99(Fasting)) mg/dl POC Glucose 175 H 176 H (70-99) mg/dl 03/10/25 03/10/25 Range/Units 08:24 12:09 WBC (4.8-10.8) K/ul RBC (4.70-6.10) M/uL Hgb (14.0-18.0) g/dL Hct (42.0-52.0) % MCHC (32.0-36.0) g/dL Neut # (Auto) (1.40-6.50) K/uL [place] # (Auto) (0.11-0.59) K/uL Sodium (136-145) mmol/L Carbon Dioxide (21-32) mmol/L BUN (6-23) mg/dl Creatinine (0.6-1.4) mg/dl BUN/Creatinine Ratio (10-20) Glucose (70-99(Fasting)) mg/dl POC Glucose 159 H 197 H (70-99) mg/dl (3) Diabetic ulcer of right foot Diabetic foot ulcer location: midfoot Diabetes mellitus type: type 2 Non- pressure ulcer stage: unspecified non-pressure ulcer stage Qualified Code(s): E11.621 - Type 2 diabetes mellitus with foot ulcer; L97.419 - Non-pressure chronic ulcer of right heel and midfoot with unspecified severity
--- NOTE | 2025-03-10 22:53 | Podiatry Progress Note ---
Date of Service March 10, 2025 Assessment & Plan (1) Diabetic ulcer of right foot: Plan: Diabetic ulcer right foot: Stable diabetic ulceration to the plantar right foot. No signs of local soft tissue infection. Dressing changed. - Enterococcus faecalis bacteremia with FREDRICK showing 2 of vegetations on aortic valve consistent with endocarditis. Patient denies any other open wounds or injury. Reports dental work in December without complication. - MRI results reviewed with no signs of osteomyelitis or abscess formation of the right foot. Foot is evaluated clinically with no signs of ulceration to the right third toe. - Continue once daily dressing change with Aquacel Ag and a dry sterile dressing. - Continue offloading with cam boot at all times while ambulating. Minimize weightbearing when possible. - Wound culture right foot diabetic ulcer growing MSSA. Wound culture 02/08/2025 final result: MSSA - Blood culture 03/07/2025: Enterococcus faecalis. Repeat culture 03/08/2025 preliminary: Gram-positive cocci in chains - Status post FREDRICK earlier this morning.FREDRICK showing two vegetations on aortic valve consistent with endocarditis -Continues IV antibiotics as per ID recommendations. Lengthy discussion with patient and today explaining the fact that over the first 24 hours in the hospital his wound showed significant improvement likely secondary to antibiotic therapy and the fact that he remained nonweightbearing during that time. As his constitutional symptoms abated he admits he has been spending more time weightbearing primarily for trips to and from the restroom and stocking feet. Now that his boot is available at bedside patient is agreeable to wearing his cam walker to the right foot at all times while weightbearing. Thank you for consulting podiatry to aid in the care of this patient. Will continue to follow while he remains in house and recommend continued close follow-up in the diabetic foot clinic following discharge. (2) Charcot's joint of right foot: (3) Status post amputation of toe of right foot: (4) Bacterial endocarditis: Admission and Anticipated Discharge Date Admission Date: March 07, 2025 Rosio Barajas is seen resting comfortably in hospital bed with his present at bedside. He now has his cam boot available at bedside. Patient admits he has b een weightbearing in stocking feet to go to the restroom at night but is willing to don the cam boot at all times while weightbearing. Denies pain in the right foot. Dressing remains clean dry and intact. Review of Systems Review of Systems: Denies nausea, vomiting, fever, chills, shortness of breath, chest pain. Physical Exam Physical Exam: Const: Appears well developed and well nourished. No signs of acute distress present. CV: Extremities: No cyanosis Capillary refill time is less than 2 seconds all digits of the bilateral foot. Posterior tibial and dorsalis pedis pulses are palpable bilateral. Skin: Well-healed cicatrix right third toe amputation. Diabetic ulcer plantar right foot Neuro: Loss of protective sensation bilateral foot to the level of the ankle.. Psych: Mood/Affect: Mood is normal. Affect is normal. Cognition: Orientation is intact to person, place and time. Focused lower extremity musculoskeletal exam: Leg: No pain with compression of the calf muscle. Ankles: No tenderness bilaterally. Motor strength is intact. Range of motion pain-free and unlimited. Feet: Charcot deformity bilateral with collapse of the medial arch and midfoot prominence. Status post right third digit amputation 09/05/2024. Amputation site well- healed. 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 Wound dimensions are stable over the past 48 hours. Healthy granular wound bed. No erythema or edema to the right foot. No lymphangitis or streaking. Sanguinous drainage to dressing Results & Data Results & Data Vital Signs (Past 12 Hours) Vital Signs Temp Pulse Pulse Resp BP BP Pulse Ox 03/10/25 20:31 36.7 C 74 20 135/72 95 03/10/25 16:48 87 03/10/25 16:43 36.9 C 76 20 132/77 96 03/10/25 11:16 36.7 C 77 16 122/77 96 O2 Del Method 03/10/25 20:31 Room Air 03/10/25 16:48 03/10/25 16:43 Room Air 03/10/25 11:16 Room Air Coding Level of Care Code 87662 SUB INP/OBS CARE 2/35MIN Diagnoses Diabetic ulcer of right midfoot associated with type 2 diabetes mellitus, with fat layer exposed E11.621; L97.419 Diabetic foot ulcer location: midfoot Diabetes mellitus type: type 2 Non-pressure ulcer stage: unspecified non-pressure ulcer stage Charcot's joint of right foot M14.671 Status post amputation of toe of right foot Z89.421 Acute bacterial endocarditis I33.0 Chronicity: acute (1) Diabetic ulcer of right foot Diabetic foot ulcer location: midfoot Diabetes mellitus type: type 2 Non- pressure ulcer stage: unspecified non-pressure ulcer stage Qualified Code(s): E11.621 - Type 2 diabetes mellitus with foot ulcer; L97.419 - Non-pressure chronic ulcer of right heel and midfoot with unspecified severity (4) Bacterial endocarditis Chronicity: acute Qualified Code(s): I33.0 - Acute and subacute infective endocarditis
[2025-03-11 07:05] LABS: Hematocrit (blood only) 38.2 % (42.0-52.0); Hemoglobin 13.4 g/dL (14.0-18.0); Immature Granulocytes # (auto) 0.18 K/uL (0.01-0.20); Immature Granulocytes % (auto) 1.4 %; Mean Corpuscular Hemoglobin 28.8 pg (25.0-34.0); Mean Corpuscular Volume 82.2 fL (80.0-100.0); Platelet Count 326 K/uL (130-400); RDW Standard Deviation 37.0 fL (36.4-46.3); Red Blood Count 4.65 M/uL (4.70-6.10); White Blood Count 12.91 K/ul (4.8-10.8)
[2025-03-11 08:06] LABS: Anion Gap 10.0 (3-11); Blood Urea Nitrogen 50.0 mg/dl (6-23); Calcium 8.7 mg/dl (8.6-10.3); Carbon Dioxide 18.0 mmol/L (21-32); Chloride 106.0 mmol/L (98-107); Creatinine Clr Calc Pharmacy 60.5 ml/min; Glucose 221.0 mg/dl (70-99(Fasting)); Potassium 3.8 mmol/L (3.5-5.1); Sodium 134.0 mmol/L (136-145)
--- NOTE | 2025-03-11 08:32 | Electrocardiogram Report ---
Test Reason : Blood Pressure : */* mmHG Vent. Rate : 75 BPM Atrial Rate : 75 BPM P-R Int : 218 ms QRS Dur : 106 ms QT Int : 428 ms P-R-T Axes : 70 64 56 degrees QTcB Int : 477 ms Sinus rhythm with 1st degree A-V block Septal infarct , age undetermined Abnormal ECG When compared with ECG of 06-May-2021 20:14, NH interval has increased Septal infarct is now Present Confirmed by Michael Bourne ([id number]) on 03/11/2025 8:31:56 AM Referred By: REFERRED SELF Confirmed By: Michael Bourne
[2025-03-11] MEDS: LANTUS PER UNIT CHARGE SQ SCH (09:30)
--- NOTE | 2025-03-11 09:32 | Hospitalist Progress Note ---
Date of Service March 11, 2025 Assessment & Plan (1) Cellulitis of right foot: (2) Charcot's joint of right foot: (3) Diabetic ulcer of right foot: (4) Hypertension: (5) Dyslipidemia: Plan 59M with PMH poorly controlled DM, CKD3, recent MSSA OM c/b mitral valve endocarditis, bicuspid aortic valve, ascending aortic aneurysm, HTN who presents with R foot erythema and fever/chills #R foot cellulitis #Sepsis #E. faecalis bacteremia -MRI R foot neg for OM but showing a third toe ulceration -History of mitral valve endocarditis and completed 6 weeks of IV abx in August 2024 -07/29 blood cultures on admission growing E. faecalis -Bcx 03/08 remain positive for E. faecalis -FREDRICK showing two vegetations on aortic valve consistent with endocarditis -Source is likely the foot as there is no other source of infection identified - states he had dental work done in december. he was not given prophylactic abx. E faecalis is part of the oral microbiota but the timing doesn't fit -Superficial wound cx of foot growing MSSA, unclear of clinical significance -Repeat blood cultures 03/08 remain positive -WBC downtrending Plan -Continue amp+CTX per ID recommendations -Follow cultures until clearance is obtained -Appreciate podiatry input -Will need PICC line once bacteremia clears -Will need 6 weeks of IV abx #LIZ on CKD3 -Baseline Cr around 2 -Mild LIZ on admission, now resolved Plan -Monitor renal function closely -Avoid nephrotoxic agents if possible #IDDM -A1c is 11.2, very poorly controlled and likely contributing to his frequent infections -Has insulin pump at home -Continue lantus and SSI BGM ACHS #Hyponatremia -Mild asymptomatic, monitor #HTN -Stable, continue home regimen #Ascending aortic aneurysm #Congenital biscupid aortic valve I spent a total of 51 minutes coordinating, documenting, and providing care for this patient excluding time spent in the performance of separately billed services. This included personally reviewing all current laboratories and imaging studies, medical reconciliation, outpatient chart review and discussion with specialists Admission and Anticipated Discharge Date Admission Date: March 07, 2025 Subjective feeling well. Patient denies F/C, CP, palpitations, SOB, dyspnea, abd pain, N/V/D Physical Exam Physical Exam: Vitals and labs reviewed General: Well appearing, NAD HEENT: EOMI, PERRLA Neck: Supple Cardiac: RRR systolic murmur Lungs: CTA no rhonchi wheezing or rales Abd: S NT ND BS positive : Deffered MSK: R foot bandaged. Ext: No Edema cyanosis Skin: Warm, Dry Neuro: AOx3 No focal deficits. Psych: Normal Mood Results & Data Results & Data Vital Signs (Past 12 Hours) Vital Signs Temp Pulse Pulse Resp BP BP Pulse Ox 03/11/25 07:48 36.8 C 73 18 131/82 95 03/11/25 07:21 74 03/11/25 03:50 36.6 C 75 20 138/72 95 03/11/25 00:42 36.7 C 75 20 143/73 H 96 03/10/25 21:52 75 O2 Del Method 03/11/25 07:48 Room Air 03/11/25 07:21 03/11/25 03:50 Room Air 03/11/25 00:42 Room Air 03/10/25 21:52 Laboratory Results Abnormal lab results 03/10/25 03/10/25 03/10/25 Range/Units 12:09 17:24 20:46 WBC (4.8-10.8) K/ul RBC (4.70-6.10) M/uL Hgb (14.0-18.0) g/dL Hct (42.0-52.0) % Neut # (Auto) (1.40-6.50) K/uL [place] # (Auto) (0.11-0.59) K/uL Sodium (136-145) mmol/L Carbon Dioxide (21-32) mmol/L BUN (6-23) mg/dl Creatinine (0.6-1.4) mg/dl BUN/Creatinine Ratio (10-20) Glucose (70-99(Fasting)) mg/dl POC Glucose 197 H 116 H 188 H (70-99) mg/dl 03/11/25 03/11/25 Range/Units 05:29 08:27 WBC 12.91 H (4.8-10.8) K/ul RBC 4.65 L (4.70-6.10) M/uL Hgb 13.4 L (14.0-18.0) g/dL Hct 38.2 L (42.0-52.0) % Neut # (Auto) 9.35 H (1.40-6.50) K/uL [place] # (Auto) 0.95 H (0.11-0.59) K/uL Sodium 134 L (136-145) mmol/L Carbon Dioxide 18 L (21-32) mmol/L BUN 50 H (6-23) mg/dl Creatinine 1.89 H (0.6-1.4) mg/dl BUN/Creatinine Ratio 26.5 H (10-20) Glucose 221 H (70-99(Fasting)) mg/dl POC Glucose 194 H (70-99) mg/dl (3) Diabetic ulcer of right foot Diabetic foot ulcer location: midfoot Diabetes mellitus type: type 2 Non- pressure ulcer stage: unspecified non-pressure ulcer stage Qualified Code(s): E11.621 - Type 2 diabetes mellitus with foot ulcer; L97.419 - Non-pressure chronic ulcer of right heel and midfoot with unspecified severity
[2025-03-12 07:25] LABS: Hematocrit (blood only) 38.6 % (42.0-52.0); Hemoglobin 13.6 g/dL (14.0-18.0); Immature Granulocytes # (auto) 0.24 K/uL (0.01-0.20); Immature Granulocytes % (auto) 1.8 %; Mean Corpuscular Hemoglobin 29.1 pg (25.0-34.0); Mean Corpuscular Volume 82.5 fL (80.0-100.0); Platelet Count 353 K/uL (130-400); RDW Standard Deviation 37.3 fL (36.4-46.3); Red Blood Count 4.68 M/uL (4.70-6.10); White Blood Count 13.54 K/ul (4.8-10.8)
[2025-03-12 07:45] LABS: Anion Gap 9.0 (3-11); Blood Urea Nitrogen 44.0 mg/dl (6-23); Calcium 8.9 mg/dl (8.6-10.3); Carbon Dioxide 20.0 mmol/L (21-32); Chloride 107.0 mmol/L (98-107); Creatinine Clr Calc Pharmacy 68.7 ml/min; Glucose 162.0 mg/dl (70-99(Fasting)); Potassium 4.1 mmol/L (3.5-5.1); Sodium 136.0 mmol/L (136-145)
--- NOTE | 2025-03-12 09:59 | Hospitalist Progress Note ---
Date of Service March 12, 2025 Assessment & Plan (1) Cellulitis of right foot: (2) Charcot's joint of right foot: (3) Diabetic ulcer of right foot: (4) Hypertension: (5) Dyslipidemia: Plan 59M with PMH poorly controlled DM, CKD3, recent MSSA OM c/b mitral valve endocarditis, bicuspid aortic valve, ascending aortic aneurysm, HTN who presents with R foot erythema and fever/chills #R foot cellulitis #Sepsis #E. faecalis bacteremia -MRI R foot neg for OM but showing a third toe ulceration -History of mitral valve endocarditis and completed 6 weeks of IV abx in August 2024 -07/29 blood cultures on admission growing E. faecalis -Bcx 03/08 remain positive for E. faecalis -FREDRICK showing two vegetations on aortic valve consistent with endocarditis -Source is likely the foot as there is no other source of infection identified - states he had dental work done in december. he was not given prophylactic abx. E faecalis is part of the oral microbiota but the timing doesn't fit -Superficial wound cx of foot growing MSSA, unclear of clinical significance -Repeat blood cultures 03/10, reviewed and remain positive -WBC 13.5 today Plan -Will reach out to ID again tomorrow to discuss as his blood cultures remain positive -Continue amp+CTX per ID recommendations -Follow cultures until clearance is obtained -Appreciate podiatry input -Will need PICC line once bacteremia clears -Will need 6 weeks of IV abx #LIZ on CKD3 -Baseline Cr around 2 -Mild LIZ on admission, now resolved Plan -Monitor renal function closely -Avoid nephrotoxic agents if possible #IDDM -A1c is 11.2, very poorly controlled and likely contributing to his frequent infections -Has insulin pump at home -Continue lantus and SSI BGM ACHS #Hyponatremia -Mild asymptomatic, monitor #HTN -Stable, continue home regimen #Ascending aortic aneurysm #Congenital biscupid aortic valve I spent a total of 55 minutes coordinating, documenting, and providing care for this patient excluding time spent in the performance of separately billed services. This included personally reviewing all current laboratories and imaging studies, medical reconciliation, outpatient chart review and discussion with specialists Admission and Anticipated Discharge Date Admission Date: March 07, 2025 Subjective feeling well. Patient denies F/C, CP, palpitations, SOB, dyspnea, abd pain, N/V/D. D/w at bedside and answered all questions. Physical Exam Physical Exam: Vitals and labs reviewed General: Well appearing, NAD HEENT: EOMI, PERRLA Neck: Supple Cardiac: RRR systolic murmur Lungs: CTA no rhonchi wheezing or rales Abd: S NT ND BS positive : Deffered MSK: R foot bandaged. Ext: No Edema cyanosis Skin: Warm, Dry Neuro: AOx3 No focal deficits. Psych: Normal Mood Results & Data Results & Data Vital Signs (Past 12 Hours) Vital Signs Temp Pulse Pulse Resp BP BP Pulse Ox 03/12/25 07:58 36.9 C 70 18 137/84 94 03/12/25 07:19 71 03/12/25 03:52 36.5 C 74 18 143/79 H 95 03/12/25 00:04 36.9 C 81 20 130/75 96 O2 Del Method 03/12/25 07:58 Room Air 03/12/25 07:19 03/12/25 03:52 Room Air 03/12/25 00:04 Room Air Laboratory Results Abnormal lab results 03/11/25 03/11/25 03/11/25 Range/Units 12:23 17:04 20:13 WBC (4.8-10.8) K/ul RBC (4.70-6.10) M/uL Hgb (14.0-18.0) g/dL Hct (42.0-52.0) % Neut # (Auto) (1.40-6.50) K/uL [place] # (Auto) (0.11-0.59) K/uL [place] # (Auto) (0.01-0.20) K/uL Carbon Dioxide (21-32) mmol/L BUN (6-23) mg/dl Creatinine (0.6-1.4) mg/dl BUN/Creatinine Ratio (10-20) Glucose (70-99(Fasting)) mg/dl POC Glucose 162 H 184 H 166 H (70-99) mg/dl 03/12/25 03/12/25 Range/Units 05:41 08:15 WBC 13.54 H (4.8-10.8) K/ul RBC 4.68 L (4.70-6.10) M/uL Hgb 13.6 L (14.0-18.0) g/dL Hct 38.6 L (42.0-52.0) % Neut # (Auto) 9.97 H (1.40-6.50) K/uL [place] # (Auto) 1.04 H (0.11-0.59) K/uL Immature Gran # (Auto) 0.24 H (0.01-0.20) K/uL Carbon Dioxide 20 L (21-32) mmol/L BUN 44 H (6-23) mg/dl Creatinine 1.67 H (0.6-1.4) mg/dl BUN/Creatinine Ratio 26.3 H (10-20) Glucose 162 H (70-99(Fasting)) mg/dl POC Glucose 164 H (70-99) mg/dl (3) Diabetic ulcer of right foot Diabetic foot ulcer location: midfoot Diabetes mellitus type: type 2 Non- pressure ulcer stage: unspecified non-pressure ulcer stage Qualified Code(s): E11.621 - Type 2 diabetes mellitus with foot ulcer; L97.419 - Non-pressure chronic ulcer of right heel and midfoot with unspecified severity
[2025-03-12] MEDS: LANTUS PER UNIT CHARGE SQ SCH (20:43)
[2025-03-13 07:33] LABS: Hematocrit (blood only) 38.5 % (42.0-52.0); Hemoglobin 13.4 g/dL (14.0-18.0); Immature Granulocytes # (auto) 0.19 K/uL (0.01-0.20); Immature Granulocytes % (auto) 1.4 %; Mean Corpuscular Hemoglobin 28.6 pg (25.0-34.0); Mean Corpuscular Volume 82.1 fL (80.0-100.0); Platelet Count 359 K/uL (130-400); RDW Standard Deviation 37.5 fL (36.4-46.3); Red Blood Count 4.69 M/uL (4.70-6.10); White Blood Count 13.70 K/ul (4.8-10.8)
[2025-03-13 08:03] LABS: Anion Gap 9.0 (3-11); Calcium 9.0 mg/dl (8.6-10.3); Carbon Dioxide 20.0 mmol/L (21-32); Chloride 108.0 mmol/L (98-107); Creatinine Clr Calc Pharmacy 67.5 ml/min; Potassium 4.1 mmol/L (3.5-5.1); Sodium 137.0 mmol/L (136-145)
[2025-03-13 08:12] LABS: Blood Urea Nitrogen 39.0 mg/dl (6-23); Glucose 114.0 mg/dl (70-99(Fasting))
--- NOTE | 2025-03-13 09:25 | Hospitalist Progress Note ---
Date of Service March 13, 2025 Assessment & Plan (1) Cellulitis of right foot: (2) Charcot's joint of right foot: (3) Diabetic ulcer of right foot: (4) Hypertension: (5) Dyslipidemia: Plan 59M with PMH poorly controlled DM, CKD3, recent MSSA OM c/b mitral valve endocarditis, bicuspid aortic valve, ascending aortic aneurysm, HTN who presents with R foot erythema and fever/chills #R foot cellulitis #Sepsis #E. faecalis bacteremia -MRI R foot neg for OM but showing a third toe ulceration -History of mitral valve endocarditis and completed 6 weeks of IV abx in August 2024 -07/29 blood cultures on admission growing E. faecalis -Bcx 03/08 remain positive for E. faecalis -FREDRICK showing two vegetations on aortic valve consistent with endocarditis -Source is likely the foot as there is no other source of infection identified - states he had dental work done in december. he was not given prophylactic abx. E faecalis is part of the oral microbiota but the timing doesn't fit -Superficial wound cx of foot growing MSSA, unclear of clinical significance -Repeat blood cultures 03/10, reviewed and remain positive -Blood cultures from 03/12 NGTD -WBC 13.7 today -CT chest abd/pelvis w/o contrast 03/13 done to look for other source of infection. images personally reviewed -CT chest abd/pelvis without acute pathology or source of infection Plan -Continue amp+CTX per ID recommendations -Follow cultures until clearance is obtained -Appreciate podiatry input -Will need PICC line once bacteremia clears -Will need 6 weeks of IV abx -PT eval #LIZ on CKD3 -Baseline Cr around 2 -Mild LIZ on admission, now resolved Plan -Monitor renal function closely -Avoid nephrotoxic agents if possible #IDDM -A1c is 11.2, very poorly controlled and likely contributing to his frequent infections -Has insulin pump at home -Continue lantus and SSI BGM ACHS #Hyponatremia -Mild asymptomatic, monitor #HTN -Stable, continue home regimen #Ascending aortic aneurysm #Congenital biscupid aortic valve I spent a total of 52 minutes coordinating, documenting, and providing care for this patient excluding time spent in the performance of separately billed services. This included personally reviewing all current laboratories and imaging studies, medical reconciliation, outpatient chart review and discussion with specialists Admission and Anticipated Discharge Date Admission Date: March 07, 2025 Subjective feeling well. Patient denies F/C, CP, palpitations, SOB, dyspnea, abd pain, N/V/D. D/w at bedside and answered all questions. she expressed that she was concerned he was depressed. instructed her to discuss this with his PCP on his hospital discharge appt. Physical Exam Physical Exam: Vitals and labs reviewed General: Well appearing, NAD HEENT: EOMI, PERRLA Neck: Supple Cardiac: RRR systolic murmur Lungs: CTA no rhonchi wheezing or rales Abd: S NT ND BS positive : Deffered MSK: R foot bandaged. Ext: No Edema cyanosis Skin: Warm, Dry Neuro: AOx3 No focal deficits. Psych: Normal Mood Results & Data Results & Data Vital Signs (Past 12 Hours) Vital Signs Temp Pulse Pulse Resp BP BP Pulse Ox 03/13/25 08:59 03/13/25 07:35 36.7 C 74 16 149/82 H 94 03/13/25 07:31 74 03/13/25 03:44 36.7 C 78 18 137/77 95 03/13/25 00:29 36.8 C 76 20 138/77 96 03/12/25 22:06 76 O2 Del Method 03/13/25 08:59 Room Air 03/13/25 07:35 Room Air 03/13/25 07:31 03/13/25 03:44 Room Air 03/13/25 00:29 Room Air 03/12/25 22:06 Laboratory Results Abnormal lab results 03/12/25 03/12/25 03/12/25 Range/Units 12:12 17:05 20:18 WBC (4.8-10.8) K/ul RBC (4.70-6.10) M/uL Hgb (14.0-18.0) g/dL Hct (42.0-52.0) % Neut # (Auto) (1.40-6.50) K/uL [place] # (Auto) (0.11-0.59) K/uL [place] (98-107) mmol/L Carbon Dioxide (21-32) mmol/L BUN (6-23) mg/dl Creatinine (0.6-1.4) mg/dl BUN/Creatinine Ratio (10-20) Glucose (70-99(Fasting)) mg/dl POC Glucose 180 H 161 H 122 H (70-99) mg/dl 03/13/25 03/13/25 Range/Units 07:01 07:50 WBC 13.70 H (4.8-10.8) K/ul RBC 4.69 L (4.70-6.10) M/uL Hgb 13.4 L (14.0-18.0) g/dL Hct 38.5 L (42.0-52.0) % Neut # (Auto) 9.84 H (1.40-6.50) K/uL [place] # (Auto) 1.19 H (0.11-0.59) K/uL [place] 108 H (98-107) mmol/L Carbon Dioxide 20 L (21-32) mmol/L BUN 39 H (6-23) mg/dl Creatinine 1.66 H (0.6-1.4) mg/dl BUN/Creatinine Ratio 23.5 H (10-20) Glucose 114 H (70-99(Fasting)) mg/dl POC Glucose 122 H (70-99) mg/dl (3) Diabetic ulcer of right foot Diabetes mellitus type: type 2 Diabetic foot ulcer location: midfoot Non- pressure ulcer stage: unspecified non-pressure ulcer stage Qualified Code(s): E11.621 - Type 2 diabetes mellitus with foot ulcer; L97.419 - Non-pressure chronic ulcer of right heel and midfoot with unspecified severity
--- NOTE | 2025-03-13 10:29 | CT Scan Report ---
CT chest diagnostic wo con, CT abd pelvis wo con CT DOSE: 2574.64 mGy.cm CLINICAL HISTORY: 59 years-old Male with persistent bacteremia, source unclear. Bacteremia. TECHNIQUE: Multiaxial CT images of the chest, abdomen and pelvis were performed without contrast. A dose lowering technique was utilized adhering to the principles of ALARA. COMPARISON: Chest x-ray 05/06/2021 FINDINGS: CT CHEST: Unremarkable thyroid. No lymphadenopathy. The heart is normal in size without pericardial e ffusion. Moderate to extensive coronary artery calcifications. Fusiform dilation of the ascending tho racic aorta, 4.7 x 5.1 cm. Small pleural effusions with mild dependent bibasilar atelectasis. No airs pace consolidation typical for pneumonia. No suspicious pulmonary nodules are seen. Central airways a re patent. Unremarkable soft tissues. Posterior annular disc bulging/disc osteophyte complex formatio n is noted within the thoracolumbar spine. No acute fracture or endplate erosions identified. CT ABDOMEN/PELVIS: No pneumatosis or pneumoperitoneum. The unenhanced spleen, pancreas and adrenal gl ands are within normal limits. Sludge versus cholelithiasis of the gallbladder. No CT evidence of acu te cholecystitis. Mild hepatic steatosis. Nonspecific borderline enlarged periportal lymph nodes. Mil d nonspecific bilateral perinephric stranding. Urinary bladder wall thickening which is partially dec ompressed. Prostatomegaly. There is no abdominal aortic aneurysm. Nonspecific inguinal lymphadenopath y with lymph nodes measuring up to 1.7 cm on the left. No bowel obstruction or bowel wall thickening. Mild colonic fecal retention. Normal appendix. Tiny fa t filled umbilical hernia. Degenerative changes of the spine, pelvis and hips. No endplate erosions a re seen. Annular disc bulging is noted at several levels in the lumbar spine along with disc osteophy te complex formations. IMPRESSION: 1. Small pleural effusions with dependent bibasilar atelectasis. 2. No airspace consolidation typical for pneumonia. 3. No bowel obstruction or bowel wall thickening. 4. Gallbladder sludge versus cholelithiasis without CT evidence of acute cholecystitis. 5. Prostamegaly with evidence of chronic outlet obstruction. Bilateral perinephric stranding is nonsp ecific and should be correlated with urinalysis. ACT 112: Negative or not required by law. Electronically signed by: Niraj Epperson M.D. 03/13/2025 10:28 AM
--- NOTE | 2025-03-13 14:11 | Pharmacy Report ---
Pharmacy Glycemic Short Note 2 - Date of Service March 13, 2025 - Glycemic Short BSG Results (Last 24 hours): 03/12/25 03/12/25 03/13/25 17:05 20:18 07:01 Glucose 114 H POC Glucose 161 H 122 H 03/13/25 03/13/25 07:50 11:52 Glucose POC Glucose 122 H 136 H OUTPATIENT ANTIDIABETIC REGIMEN: * Rybelsus 14mg daily * Jardiance 25mg daily * Omnipod insulin pump: * Novolog - 1.8 units/hour (~43 units total daily) * CR: 5 * CF: 7 * Glucose goal 70-150 * HbA1c: 11.2% on 03/08/25 ASSESSMENT: 03/13/25: * Patient received total of 92 units of insulin yesterday, of which 50 units were basal * Fasting BSG 122 mg/dL - continue same basal * No change to CF/CR 03/10/25: * Blood sugars have been reasonably controlled over past 24 hours w/ highest blood sugar of day consistently at lunchtime * Fasting blood sugar improved today at 159 mg/dL * Will continue with once daily basal and slightly tightened Novolog 03/08: * Karl received a total of 63 units of insulin yesterday. (30 units were basal and 33 units were bolus). All BSGs were above goal yesterday. * Fasting BSG was 183mg/dL this morning. Lantus dose was increased by ~20% to get closer to 24hr basal amount he receives with insulin pump. * CR was tightened to also match his pump settings to attempt a little better glycemic control. 03/07: * Karl is a 59 year old male who presents to the hospital with cellulitis * Based on isinger visit 12/2024, his diabetes was not controlled due to stress from work and moving, and he was unable to obtain refills for pump from the pharmacy * Pump settings have tight CF and CR * Will initiate Lantus to replace the continuous Novolog that he normally gets from his pump * Loosened CF and CR a little bit to see what his glucose looks like and will need to adjust accordingly * SCr today above his baseline, may have slower clearance of insulin with reduced renal function - continue to monitor * T2DM diet * Stressors: infection PLAN FOR INPATIENT GLYCEMIC CONTROL: * Hold outpatient diabetes medications * Basal insulin * Lantus 50 units SC HS * Bolus insulin * NovoLog per scale ACHS or Q6hrs while NPO * Goal Range: Low 120 mg/dL - High 160 mg/dL * Correction Factor: 10 mg/dL/unit * Nutritional / Prandial insulin per carb ratio of 1 unit per 4 grams CHO consumed
--- NOTE | 2025-03-13 14:23 | Podiatry Progress Note ---
Date of Service March 13, 2025 Assessment & Plan (1) Diabetic ulcer of right foot: Plan: Diabetic ulcer right foot: Stable diabetic ulceration to the plantar right foot. No signs of local soft tissue infection. Dressing changed with scant sanguinous drainage noted to Aquacel Ag. - Enterococcus faecalis bacteremia with FREDRICK showing 2 of vegetations on aortic valve consistent with endocarditis. Patient denies any other open wounds or injury. Reports dental work in December without complication. - Wound culture right foot diabetic ulcer growing MSSA. Wound culture 02/08/2025 final result: MSSA - Blood culture 03/07/2025: Enterococcus faecalis. Repeat culture 03/08/2025 preliminary: Gram-positive cocci in chains - Status post FREDRICK earlier this morning.FREDRICK showing two vegetations on aortic valve consistent with endocarditis - Continues IV antibiotics as per ID recommendations.Will receive 6 weeks IV antibiotics for treatment of endocarditis. - MRI results reviewed with no signs of osteomyelitis or abscess formation of the right foot. Foot is evaluated clinically with no signs of ulceration to the right third toe. - Continue once daily dressing change with Aquacel Ag and a dry sterile dressing. - Continue offloading with cam boot at all times while ambulating. Minimize weightbearing when possible. Thank you for consulting podiatry to aid in the care of this patient. Will continue to follow while he remains in house and recommend continued close follow-up in the wound clinic following discharge. (2) Charcot's joint of right foot: (3) Status post amputation of toe of right foot: (4) Bacterial endocarditis: Admission and Anticipated Discharge Date Admission Date: March 07, 2025 Subjective Patient is seen resting comfortably in hospital bed with family friend present at bedside. Denies issues over the weekend. Denies pain in the right foot. He has boot is in place to the right foot and he reports wearing it at all times when ambulating over the weekend and minimizing weightbearing when possible. Dressing was changed 03/12/2025. Scant drainage to dressing today. Review of Systems Review of Systems: Denies nausea, vomiting, fever, chills, shortness of breath, chest pain. Physical Exam Physical Exam: Const: Appears well developed and well nourished. No signs of acute distress present. CV: Extremities: No cyanosis Capillary refill time is less than 2 seconds all digits of the bilateral foot. Posterior tibial and dorsalis pedis pulses are palpable bilateral. Skin: Well-healed cicatrix right third toe amputation. Diabetic ulcer plantar right foot Neuro: Loss of protective sensation bilateral foot to the level of the ankle.. Psych: Mood/Affect: Mood is normal. Affect is normal. Cognition: Orientation is intact to person, place and time. Focused lower extremity musculoskeletal exam: Leg: No pain with compression of the calf muscle. Ankles: No tenderness bilaterally. Motor strength is intact. Range of motion pain-free and unlimited. Feet: Charcot deformity bilateral with collapse of the medial arch and midfoot prominence. Status post right third digit amputation 09/05/2024. Amputation site well- healed. 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 Wound dimensions decreased over the past 48 hours. Right plantar foot wound now measuring 0.3 x 0.4 x 0.2 cm. Healthy granular wound bed. No erythema or edema to the right foot. No lymphangitis or streaking. Sanguinous drainage to dressing Results & Data Results & Data Vital Signs (Past 12 Hours) Vital Signs Temp Pulse Pulse Resp BP BP Pulse Ox 03/13/25 11:13 36.8 C 73 16 145/79 H 95 03/13/25 08:59 03/13/25 07:35 36.7 C 74 16 149/82 H 94 03/13/25 07:31 74 03/13/25 03:44 36.7 C 78 18 137/77 95 O2 Del Method 03/13/25 11:13 Room Air 03/13/25 08:59 Room Air 03/13/25 07:35 Room Air 03/13/25 07:31 03/13/25 03:44 Room Air Coding Level of Care Code 31184 SUB INP/OBS CARE 05/21MIN Diagnoses Diabetic ulcer of right midfoot associated with type 2 diabetes mellitus, with fat layer exposed E11.621; L97.419 Diabetes mellitus type: type 2 Diabetic foot ulcer location: midfoot Non-pressure ulcer stage: unspecified non-pressure ulcer stage Charcot's joint of right foot M14.671 Status post amputation of toe of right foot Z89.421 Acute bacterial endocarditis I33.0 Chronicity: acute (1) Diabetic ulcer of right foot Diabetes mellitus type: type 2 Diabetic foot ulcer location: midfoot Non- pressure ulcer stage: unspecified non-pressure ulcer stage Qualified Code(s): E11.621 - Type 2 diabetes mellitus with foot ulcer; L97.419 - Non-pressure chronic ulcer of right heel and midfoot with unspecified severity (4) Bacterial endocarditis Chronicity: acute Qualified Code(s): I33.0 - Acute and subacute infective endocarditis
--- NOTE | 2025-03-14 10:08 | Hospitalist Progress Note ---
Date of Service March 14, 2025 Assessment & Plan (1) Cellulitis of right foot: (2) Charcot's joint of right foot: (3) Diabetic ulcer of right foot: (4) Hypertension: (5) Dyslipidemia: Plan 59M with PMH poorly controlled DM, CKD3, recent MSSA OM c/b mitral valve endocarditis, bicuspid aortic valve, ascending aortic aneurysm, HTN who presents with R foot erythema and fever/chills #R foot cellulitis #Sepsis #E. faecalis bacteremia -MRI R foot neg for OM but showing a third toe ulceration -History of mitral valve endocarditis and completed 6 weeks of IV abx in August 2024 -07/29 blood cultures on admission growing E. faecalis -Bcx 03/08 remain positive for E. faecalis -FREDRICK showing two vegetations on aortic valve consistent with endocarditis -Source is likely the foot as there is no other source of infection identified - states he had dental work done in december. he was not given prophylactic abx. E faecalis is part of the oral microbiota but the timing doesn't fit -Superficial wound cx of foot growing MSSA, unclear of clinical significance -Repeat blood cultures 03/10, reviewed and remain positive -CT chest abd/pelvis w/o contrast 03/13 done to look for other source of infection. images personally reviewed -CT chest abd/pelvis without acute pathology or source of infection -Blood cultures from 03/12 neg x 48 hours Plan -Continue amp+CTX per ID recommendations -Now that blood cultures have been negative x 48 hours, reached out to ID for final ID recommendations -PICC line consent obtained, will order -Will need 6 weeks of IV abx #LIZ on CKD3 -Baseline Cr around 2 -Mild LIZ on admission, now resolved Plan -Monitor renal function closely -Avoid nephrotoxic agents if possible #IDDM -A1c is 11.2, very poorly controlled and likely contributing to his frequent infections -Has insulin pump at home -Continue lantus and SSI BGM ACHS #Hyponatremia -Mild asymptomatic, monitor #HTN -Stable, continue home regimen #Ascending aortic aneurysm #Congenital biscupid aortic valve I spent a total of 62 minutes coordinating, documenting, and providing care for this patient excluding time spent in the performance of separately billed services. This included personally reviewing all current laboratories and imaging studies, medical reconciliation, outpatient chart review and discussion with specialists Admission and Anticipated Discharge Date Admission Date: March 07, 2025 Subjective Feeling well and denies any complaints. d/w at bedside. Patient denies F/C, CP, palpitations, SOB, dyspnea, abd pain, N/V/D Physical Exam Physical Exam: Vitals and labs reviewed General: Well appearing, NAD HEENT: EOMI, PERRLA Neck: Supple Cardiac: RRR systolic murmur Lungs: CTA no rhonchi wheezing or rales Abd: S NT ND BS positive : Deffered MSK: R foot bandaged. Ext: No Edema cyanosis Skin: Warm, Dry Neuro: AOx3 No focal deficits. Psych: Normal Mood Results & Data Results & Data Vital Signs (Past 12 Hours) Vital Signs Temp Pulse Pulse Resp BP BP Pulse Ox 03/14/25 07:40 37.1 C 80 16 105/66 96 03/14/25 07:30 78 03/14/25 02:07 36.8 C 73 20 147/79 H 95 03/13/25 22:57 36.7 C 77 18 143/81 H 96 O2 Del Method 03/14/25 07:40 Room Air 03/14/25 07:30 03/14/25 02:07 Room Air 03/13/25 22:57 Room Air Laboratory Results Abnormal lab results 03/13/25 03/13/25 03/13/25 Range/Units 11:52 16:38 19:51 POC Glucose 136 H 151 H 153 H (70-99) mg/dl 03/14/25 Range/Units 07:52 POC Glucose 148 H (70-99) mg/dl (3) Diabetic ulcer of right foot Diabetic foot ulcer location: midfoot Diabetes mellitus type: type 2 Non- pressure ulcer stage: unspecified non-pressure ulcer stage Qualified Code(s): E11.621 - Type 2 diabetes mellitus with foot ulcer; L97.419 - Non-pressure chronic ulcer of right heel and midfoot with unspecified severity
--- NOTE | 2025-03-14 16:49 | Communication Note ---
Date of Service: March 14, 2025 d/w ID, CTX + ampicillin through apr 24
[2025-03-15 07:04] LABS: Hematocrit (blood only) 38.9 % (42.0-52.0); Hemoglobin 13.3 g/dL (14.0-18.0); Mean Corpuscular Hemoglobin 28.3 pg (25.0-34.0); Mean Corpuscular Volume 82.8 fL (80.0-100.0); Platelet Count 369 K/uL (130-400); RDW Standard Deviation 38.1 fL (36.4-46.3); Red Blood Count 4.70 M/uL (4.70-6.10); White Blood Count 11.83 K/ul (4.8-10.8)
[2025-03-15 07:22] LABS: Anion Gap 7.0 (3-11); Blood Urea Nitrogen 35.0 mg/dl (6-23); Calcium 8.9 mg/dl (8.6-10.3); Carbon Dioxide 22.0 mmol/L (21-32); Chloride 108.0 mmol/L (98-107); Creatinine Clr Calc Pharmacy 71.9 ml/min; Glucose 123.0 mg/dl (70-99(Fasting)); Potassium 4.3 mmol/L (3.5-5.1); Sodium 137.0 mmol/L (136-145)
--- NOTE | 2025-03-15 11:17 | Hospitalist Progress Note ---
Date of Service March 15, 2025 Assessment & Plan (1) Cellulitis of right foot: (2) Charcot's joint of right foot: (3) Diabetic ulcer of right foot: (4) Hypertension: (5) Dyslipidemia: Plan 59M with PMH poorly controlled DM, CKD3, recent MSSA OM c/b mitral valve endocarditis, bicuspid aortic valve, ascending aortic aneurysm, HTN who presents with R foot erythema and fever/chills #R foot cellulitis #Sepsis #E. faecalis bacteremia -MRI R foot neg for OM but showing a third toe ulceration -History of mitral valve endocarditis and completed 6 weeks of IV abx in August 2024 -07/29 blood cultures on admission growing E. faecalis -Bcx 03/08 remain positive for E. faecalis -FREDRICK showing two vegetations on aortic valve consistent with endocarditis -Source is likely the foot as there is no other source of infection identified -CT chest abd/pelvis without acute pathology or source of infection -Blood culture on 03/12no growth in 48 hours Patient was given prescription for IV ampicillin plus ceftriaxone as per recommendation by infectious disease until April 24, 2025. PICC line was placed. Weekly labs to be done; fax the results to PCP. Plan to remove PICC line after completion of antibiotic course. #LIZ on CKD3 -Baseline Cr around 2 -Mild LIZ on admission, now resolved Plan -Monitor renal function closely -Avoid nephrotoxic agents if possible #IDDM -A1c is 11.2, very poorly controlled and likely contributing to his frequent infections -Has insulin pump at home -Continue lantus and SSI BGM ACHS #Hyponatremia -Mild asymptomatic, monitor #HTN -Stable, continue home regimen #Ascending aortic aneurysm #Congenital biscupid aortic valve DVT prophylaxis Lovenox Full code I spent a total of 50 minutes coordinating, documenting, and providing care for this patient excluding time spent in the performance of separately billed servic es. This included personally reviewing all current laboratories and imaging studies, medical reconciliation, outpatient chart review and discussion with specialists Admission and Anticipated Discharge Date Admission Date: March 07, 2025 Subjective Patient seen and examined at bedside. He is comfortably sitting up; not in distress. He denies any fever, chills, weakness, fatigue, chest pain or shortness of breath. Review of Systems Review of Systems: All systems reviewed & are unremarkable except as noted in Subjective Physical Exam Physical Exam: Constitutional: WD/WN, vitals as above, NAD, sitting up in bed, pleasant, conversing easily Respiratory: normal respiratory effort, lungs clear to auscultation, no wheeze, rales, rhonchi. Normal insp/exp effort, no accessory muscle use Cardiovascular: RRR, no murmur, no edema Vessels: no JVD or carotid bruit Chest: normal inspection of chest Abdomen: normal bowel sounds, soft, nontender, no hepatosplenomegaly Musculoskeletal: Bandages on the plantar aspect of the foot; no overlying soakage. Skin: no rashes, warm and dry normal turgor Neurologic: PERRL, EOMI, accommodation nl, no face palsy, no dysarthria CN's II- XI intact bilaterally and moves all extremities Results & Data Results & Data Vital Signs (Past 12 Hours) Vital Signs Temp Pulse Resp BP BP Pulse Ox O2 Del Method 03/15/25 07:57 36.7 C 71 20 155/81 H 95 Room Air 03/15/25 04:23 36.8 C 75 20 136/75 96 Room Air 03/15/25 00:10 Room Air 03/15/25 00:05 36.9 C 67 20 152/72 H 95 Room Air (3) Diabetic ulcer of right foot Diabetes mellitus type: type 2 Diabetic foot ulcer location: midfoot Non- pressure ulcer stage: unspecified non-pressure ulcer stage Qualified Code(s): E11.621 - Type 2 diabetes mellitus with foot ulcer; L97.419 - Non-pressure chronic ulcer of right heel and midfoot with unspecified severity
[2025-03-15 11:25] VITALS: RESP 18
[2025-03-15 15:21] VITALS: BP 151/85; PULSE 74; TEMP 97.7; O2SAT 96
--- NOTE | 2025-03-15 16:44 | Discharge Summary ---
Date of Service March 15, 2025 Admission HPI Per Admitting Provider Mr. Wilkerson is a 59-year-old male who presented to the emergency room today with complaints of fever and chills that started over the last 2 days. He has chronically been experiencing cellulitis in his right foot Had a septic back in August 2024 resulting in a third digit amputation of his right foot along with developing vegetations and chronic endocarditis.Patient does have a longstanding history of Charcot foot. Most recently as an outpatient was on doxycycline and not tolerating it so he was switched to Keflex ? oral but reportedly has not been taking any antibiotics for the last few weeks. His last wound culture from 02/08/25 was (+) for Staph Aureus. In the ED leukocytosis 16.95, lactate normal elevated procalcitonin 2.69, LIZ creatinine 2.25; Baseline 1.8 from 11/2024. Most recent echo 11/16/2024 EF 59% with normal motion, no pericardial effusion. G1DDx. Right foot CT in the ED without contrast indicated Plantar mid foot wound with associated subcutaneous edema suggestive of cellulitis which extends to the distal cuboid. However, no bony erosion to indicate acute osteomyelitis by CT. No well-defined fluid collection on unenhanced exam to suggest abscess. Additional past medical history includes insulin-dependent diabetes type 2, HTN, HLD and 3rd toe amputation. His last A1C was: 10.6 in 12/2024. Dexcon-DM has developed fluid she said he prefers to have inpatient diabetes management disconnect his OmniPod and Dexcom. He has been followed by over hauler helper in the past. In the ED he was given 1 L IVF started on IV Rocephin and vancomycin for Pseu domonas coverage and IV Tylenol for pain control. He is hemodynamically stable and afebrile since he has been here. PA reportedly states that his p.o. intake has been adequate. Patient denies MADERA, dizziness, SOB, chest pain or palpitations, N/V/D, abdominal pain or tenderness, visual or auditory changes, increased pain in hid foot, recent falls or trauma. He denies tobacco, alcohol or recreational drug use. On examination, He is an obese gentleman in no apparent distress. Denies pain. ANO x 4. Lungs CTA, S1-S2, dorsal quarter sized wound without malodor or significant drainage. Patient will be admitted for further evaluation and management of his right foot cellulitis with continued IV antibiotics including Cefepime and daptomycin given his LIZ 2 provide Pseudomonas and MRSA coverage, podiatry consult, infectious disease consult given persistent history of endocarditis, repeat echocardiogram, repeat, WOCN, repeat BMP to monitor creatinine. Will involve podiatry and WOCN and trend BMP to assess for any worsening LIZ; avoid nephrotoxic agents if possible. Please see A/P for further details. Admission Exam Per Admitting Provider Neuro: AAOx4, PERRLA, no aphagia, memory changes, CNII-XII grossly intact HEENT: head normocephalic, moist mucus membranes CV: S1/S2, (-) M/G/R, (-) edema, cap refill < 3 seconds Resp: Lungs CTA in all carlson. On RA GI: Abdomen S/NT/ND, Ax4 bowel sounds, (-) CVA tenderness Musculoskeletal: 5/5 B/L UE strength, 5/5 B/L LE strength. No gait disturbance Skin: (-) rashes , (-) erythema. Psych: euthymic mood Principal Diagnosis Aortic valve infective endocarditis E.Faecalis bacteremia Discharge Exam Constitutional: WD/WN, vitals as above, NAD, sitting up in bed, pleasant, conversing easily Respiratory: normal respiratory effort, lungs clear to auscultation, no wheeze, rales, rhonchi. Normal insp/exp effort, no accessory muscle use Cardiovascular: RRR, no murmur, no edema Vessels: no JVD or carotid bruit Chest: normal inspection of chest Abdomen: normal bowel sounds, soft, nontender, no hepatosplenomegaly Musculoskeletal: Bandages on the plantar aspect of the foot; no overlying soakage. Skin: no rashes, warm and dry normal turgor Neurologic: PERRL, EOMI, accommodation nl, no face palsy, no dysarthria CN's II- XI intact bilaterally and moves all extremities Discharge Data Allergies Allergy/AdvReac Type Severity Reaction Status Date / Time insect venom Allergy Severe Hives Verified 03/02/25 08:43 No Known Drug Allergies Allergy Hives Verified 03/02/25 08:43 Consultations 03/07/25 10:22 ED Decision to Admit Stat 03/07/25 11:02 Consult Infectious Diseases Routine Consult Podiatry Routine 03/08/25 12:15 Consult Cardiology Routine Procedures Performed Operation Date: 03/09/25 07:45 Actual Procedures p Echo Transesophageal - DO trish Becerril Echo Color Flow - DO trish Becerril Echo Doppler Complete - Lowell Fulton DO Ordered Studies 03/07/25 09:17 CT foot RT wo con Stat 03/07/25 17:55 MRI Foot [MR foot RT w/o con] Routine 03/13/25 07:33 CT Abdomen and Pelvis [CT abd pelvis wo con] Urgent CT chest diagnostic wo con Urgent Hospital Course (1) Cellulitis of right foot: (2) Charcot's joint of right foot: (3) Diabetic ulcer of right foot: (4) Hypertension: (5) Dyslipidemia: Plan 59M with PMH poorly controlled DM, CKD3, recent MSSA OM c/b mitral valve endocarditis, bicuspid aortic valve, ascending aortic aneurysm, HTN who presents with R foot erythema and fever/chills E. faecalis bacteremia Aortic valve endocarditis Patient presented to the hospital for concern of cellulitis of right foot. He has history of uncontrolled type 2 diabetes mellitus and neuropathy. Imaging of the foot showed cellulitis; no osteomyelitis/abscess. He was admitted to medical floor; was started on empiric antibiotic. Patient was found to have Enterococcus faecalis bacteremia for which he was started on ampicillin and ceftriaxone as per recommendation by infectious disease. He underwent FREDRICK by cardiology on 03/10; found to have 0.6 into 0.7 cm echodensity on the level left ventricular aspect of the aortic valve, separate 0.2 into 0.5 mobile linear echodensity on the left ventricular aspect of the aortic valve consistent with vegetation. Patient had positive blood culture on March 07, , and eventually on March 12. He had a PICC line placed on March 14 which was removed after he was found to have positive blood culture on March 15 (from blood culture March 12). Discussion was done with infectious disease; who recommended discussion with CT surgery given the persistence of the bacteremia. Discussed with cardiology on-call at [facility]; patient was accepted for transfer Please note the above document was generated using voice recognition software. It may contain grammatical, syntax or spelling errors. Any formal questions or concerns about the content, text or information contained within the body of this dictation should be directly addressed to the provider for clarification Total Time Total Time Spent Total Time Spent (In Minutes): 67 Total Time Includes: Examination of the Patient, Discharge Planning, Medication Reconciliation, Communication With Other Providers and Other Discharge Plan Discharge Items Patient Disposition: Transfer Acute Care Hospital Reason For Visit: CELLULITIS Discharge Diagnosis: #R foot cellulitis #Sepsis #E. faecalis bacteremia Condition on Discharge: Good Activity: Resume your previous activity Non-emergency contact: Primary Care Provider Call non-emergency contact if: you have any medication questions and your symptoms worsen Follow-up/Referrals: Lowell Fulton DO [Bandmill Operator] - Sisi Fountain CRNP [Primary Care Provider] - (Date & Time 03/20/2025 11:40 AM Provider: Sisi Fountain CRNP [facility] ) Diet: Regular Addtl Attending Provider Instructions: Date of Service: March 15, 2025 Current Inpatient Medications Acetaminophen (Acetaminophen 325 Mg Tab) 650 mg PO Q4H PRN PRN Reason: Pain or Fever Stop: 04/06/25 12:29 Al Hydrox/Mg Hydrox/Simethicone (Aluminum/Magnesium Susp 30 Ml Udc) 15 ml PO Q4H PRN PRN Reason: Dyspepsia Stop: 04/06/25 12:29 Amlodipine Besylate (Amlodipine Besylate 5 Mg Tab) 5 mg PO DAILY ELIGIO Stop: 04/07/25 08:59 Last Admin: 03/15/25 08:54 Dose: 5 mg Aspirin (Aspirin 81 Mg Ectab) 81 mg PO DAILY ELIGIO Stop: 04/07/25 08:59 Last Admin: 03/15/25 08:54 Dose: 81 mg Atorvastatin Calcium (Atorvastatin 40 Mg Tab) 40 mg PO DAILY ELIGIO Stop: 04/07/25 08:59 Last Admin: 03/15/25 08:54 Dose: 40 mg Carvedilol (Carvedilol 25 Mg Tab) 25 mg PO BID ELIGIO Stop: 04/06/25 20:59 Last Admin: 03/15/25 08:53 Dose: 25 mg Dextrose (Dextrose 50% 50 Ml Syringe) 25 - 50 ml IV UD PRN; Protocol PRN Reason: Hypoglycemia Protocol Stop: 04/06/25 12:29 Enoxaparin Sodium (Enoxaparin Inj 40 Mg/0.4 Ml Syr) 40 mg SQ QAM ELIGIO Stop: 04/07/25 08:59 Last Admin: 03/15/25 08:54 Dose: 40 mg Glucagon (Glucagon For Inj 1 Mg Vial) 1 mg SQ UD PRN; Protocol PRN Reason: Hypoglycemia Protocol Stop: 04/06/25 12:29 Glucose (Glucose 40% Gel 15 Gm Tube) 15 - 30 gm PO UD PRN; Protocol PRN Reason: Hypoglycemia Protocol Stop: 04/06/25 12:29 Glucose (Glucose 10 Tab/Tube) 4 - 8 tab PO UD PRN; Protocol PRN Reason: Hypoglycemia Protocol Stop: 04/06/25 12:29 Guaifenesin/Dextromethorphan (Guaifenesin/Dextrom Syrup 100mg/10mg 5ml Udc) 5 m l PO Q6H PRN PRN Reason: Cough Stop: 04/07/25 15:35 Last Admin: 03/11/25 08:44 Dose: 5 ml Hydrochlorothiazide (Hydrochlorothiazide 25 Mg Tab) 25 mg PO DAILY ELIGIO Stop: 04/07/25 08:59 Last Admin: 03/15/25 08:54 Dose: 25 mg Ceftriaxone Sodium (Rocephin) 2,000 mg in 50 mls @ 100 mls/hr IV Q12H ELIGIO Stop: 04/20/25 11:59 Last Infusion: 03/15/25 11:19 Dose: Infused Ampicillin Sodium 2,000 mg/ (Sodium Chloride) 100 mls @ 200 mls/hr IV Q4H [facility]; Protocol Stop: 03/23/25 10:59 Last Infusion: 03/15/25 15:06 Dose: Infused Insulin Aspart (Insulin Aspart Per Unit Charge) 0 units SC ACHS ELIGIO Stop: 04/06/25 12:29 Last Admin: 03/15/25 13:07 Dose: 6 units Insulin Glargine (Lantus Per Unit Charge) 50 units SQ HS ELIGIO Stop: 04/11/25 20:59 Last Admin: 03/14/25 20:38 Dose: 50 units Lactobacillus Acidophilus (Advanced Probiotic 625 Mg Capsule) 1,250 mg PO DAILY ELIGIO Stop: 04/07/25 08:59 Last Admin: 03/15/25 08:54 Dose: 1,250 mg Losartan Potassium (Losartan Potassium 50 Mg Tab) 100 mg PO DAILY ELIGIO Stop: 04/07/25 08:59 Last Admin: 03/15/25 08:53 Dose: 100 mg Magnesium Hydroxide (Magnesium Hydroxide Susp 30 Ml Udc) 30 ml PO Q12H PRN PRN Reason: Constipation Stop: 04/06/25 12:29 Miscellaneous (Carbohydrates For Hypoglycemia ) 15 - 30 gm PO UD PRN PRN Reason: Hypoglycemia Protocol Stop: 04/06/25 12:29 Miscellaneous Information (Pharmacy Glycemic Mgmt Consult) 1 each N/A UD PRN PRN Reason: Consult Stop: 04/06/25 12:29 Ondansetron HCl (Ondansetron Inj 2 Mg/Ml 2 Ml Vial) 4 mg IV Q6H PRN PRN Reason: Nausea Stop: 04/06/25 12:29 Polyethylene Glycol (Polyethylene (Miralax) 17 Gm Pack) 17 gm PO DAILY PRN PRN Reason: Constipation Stop: 04/06/25 12:29 Addtl Business Development Specialist Provider Instructions: DIABETES RECOMMENDATIONS: 1.) Given max bolus amount of 30 units, you will need to enter blood sugar and carbohydrates separately to get the correct amount of insulin with your meals. This is important to help improve blood sugar levels and support healing. Step #1: Enter blood sugar only. No carbs. Allow insulin to administer. Step#2: Enter carbs 30 grams for breakfast 60 grams for lunch 60 grams for supper *Because of your high insulin needs, you may benefit from using a more concerntrated insulin (i.e. Humalog U-200) in your pump to prolong pod changes and prevent need to double bolus. Humalog U-200 will require prior authorization. *Another option would be to add a once daily/background insulin to help cover the majority of your basal insulin needs. This will help prolong pod changes but will not help with bolus dosing. Your insurance covers insulin glargine. *Encouraged further discussion with your provider to see if either of these options might work to help improve blood sugar levels. 2.) Aim to maintain blood sugar levels less than 200 (ideally less than 150 before meals) to support healing. 3.) Regular/balanced meals + protein to support healing. Pending Studies at Discharge: No Stand-Alone Forms: [facility] [address] Skilled Items Patient informed of condition?: Yes DNR: No Discharge Level of Care: Other Communicable Disease: No Discharge Prognosis: Stable Lines: Peripheral IV Urinary Catheter: No Medications and DC Order Prescriptions: Continued amlodipine 10 mg tablet 5 mg PO DAILY atorvastatin [Lipitor] 40 mg tablet 40 mg PO DAILY Qty: 30 2RF aspirin 81 mg Tablet,Delayed Release (Dr/Ec) 81 mg PO DAILY Rx Instructions: 09/02- otc unable to verify insulin aspart U-100 100 unit/mL solution 1 dose subcut UD Rx Instructions: for pump COVERAGE NEEDED PER SLIDING SCALE epinephrine [EpiPen] 0.3 mg/0.3 mL Auto-Injector 0.3 mg IM DIRECTED PRN (Reason: Allergic Reaction) omega-3 fatty acids-fish oil [Fish Oil] 300-1,000 mg Capsule 2 cap PO DAILY Rx Instructions: 09/02- otc unable to verify Centrum 18-400 mg-mcg Tablet 1 tab PO DAILY hydrochlorothiazide 25 mg tablet 25 mg PO DAILY Jardiance 25 mg tablet 25 mg PO DAILY Rybelsus 14 mg tablet 14 mg PO DAILY losartan 100 mg tablet 100 mg PO DAILY carvedilol 25 mg tablet 25 mg PO BID Discharge Orders: Discharge Order (Routine); Ordered 03/15/25 Ordered By: True Haque Admission Data Admit Date/Time: 03/07/25 10:22 Attending Provider: True Haque Admit Provider: Jm Giang Primary Care Provider: Sisi Fountain Other Providers: Александр Borja; Arcelia Goodwin; Rj Chavez I.; James Scott II; Amy Damon; Emile Peña; Rian Garduno; Jovana Tomas; Jet Hayward; Jm Giang; Lynn,Fax; [facility]
== END 2025-03-15 18:29 | disposition short-term general hospital (02) | DRG 872 ==
LOC: ED 07:47 → SUATTDRO 10:22 → 2W 10:22